=== PATIENT | female | born 1980 | race Two or more races ===

== ENCOUNTER 2020-06-23 11:04 | Outpatient (REF) | payer OTHER, SELFPAY | END 2020-06-23 11:05 | disposition home or self-care (01) | LOC: HO.LAB 11:04 | PROVIDERS: PCP Pediatrics; Visit Provider Internal Medicine | DX: Z20.828 Contact with and (suspected) exposure to other viral communicable diseases (principal) | CPT/HCPCS: C9803; U0003 ==

== ENCOUNTER 2020-07-04 16:56 | Outpatient (REF) | payer OTHER, SELFPAY | END 2020-07-04 16:57 | disposition home or self-care (01) | LOC: HO.LAB 16:56 | PROVIDERS: PCP Pediatrics; Visit Provider Internal Medicine | DX: Z20.828 Contact with and (suspected) exposure to other viral communicable diseases (principal) | CPT/HCPCS: C9803; U0003 ==

== ENCOUNTER 2020-08-18 10:45 | Emergency (ER) | payer OTHER, SELFPAY ==
[2020-08-18 11:17] VITALS: BP 139/96; PULSE 99; RESP 18; TEMP 37.4; O2SAT 97; BMI 37.2
--- NOTE | 2020-08-18 11:37 | XR_ITS ---
EXAMINATION: XR LUMBOSACRAL SPINE CLINICAL INFORMATION: Back pain COMPARISON: None TECHNIQUE: Three views of the lumbosacral spine. FINDINGS: There is curvature of the lumbar sacral spine to the right. Bone alignment is otherwise normal. No fracture or dislocation is seen. There is degenerative disc disease at L5-S1. There is lower lumbar spine facet arthritis. There is an IUD in the pelvis. XR/XR lumbar spine 2-3V IMPRESSION: Curvature of the lower lumbar sacral spine to the right and degenerative changes.
--- NOTE | 2020-08-18 11:38 | ED_ITS ---
HPI - Back Pain/Injury General Chief Complaint: Back Pain/Injury Stated Complaint: back pain Time Seen by Provider: 08/18/20 11:36 Source: patient Mode of arrival: ambulatory Limitations: no limitations History of Present Illness HPI Narrative: This is a 40 years old the female presented with a chief complaint of lower back pain radiated to the right lower extremity denies any numbness and weakness she has been taking Flexeril and the anti-inflammatory medication without improvement MD elicited complaint: back pain Pertinent past history: prior back pain Onset (ago): week(s) (1) Timing: constant Severity: moderate Quality: burning and sharp Location: lumbar spine Radiation: other (Right lower extremity) Exacerbating factors: movement Relieving factors: none Associated symptoms: denies other symptoms Related Data Allergies Allergy/AdvReac Type Severity Reaction Status Date / Time No Known Allergies Allergy Verified 08/18/20 11:20 Review of Systems Review of Systems: Yes all other systems are reviewed and are negative Cardiovascular: Cardiovascular: Reports no additional cardiovascular complaint s Respiratory: Respiratory: Reports no additional respiratory complaints Gastrointestinal: Gastrointestinal: Reports no additional gastrointestinal complaints [facility] Past Medical History Medical History No known health problems Social History Social History Advance Directives: No Advance Directives Information Provided: No Physical Exam Vital Signs: Vital Signs: Last Vital Signs Temp 99.3 F 08/18/20 11:17 Pulse 99 08/18/20 11:17 Resp 18 08/18/20 11:17 BP 139/96 H 08/18/20 11:17 Pulse Ox 97 08/18/20 11:17 Body Mass Index 37.2 Const: Other: Patient is awake and alert in not acute distress Orientation/consciousness: oriented to person and oriented to place HENMT: Head: Yes normal to inspection Eyes: General: appearance normal, both eyes and all related structures Neck: Neck: Yes normal visual inspection Chest: Chest palpation & inspection: normal inspection of the chest Resp: Effort & Inspection: normal respiratory effort Cardio: Palpation: normal PMI Rate: regular rate Rhythm: regular rhythm GI: Inspection: Yes normal to inspection Percussion: Yes normal to percussion Auscultation: normal bowel sounds : General: Yes no CVA tenderness Back/Spine/Pelvis: Other: There is tenderness in the LS spine she has a straight leg raising test positive of 45 degree in the right, there is no weakness Back: no CVA tenderness Skin: General skin exam: no rashes or lesions noted Neuro: General: oriented to person and oriented to place Course Reevaluation(s) Reevaluation #1: AT THIS TIME THE PATIENT IS DOING MUCH BETTER THE MOST LIKELY DIAGNOSIS IS RIGHT SCIATICA, I EXPLAINED TO THE PATIENT THAT SHE WILL NEED AN OUTPATIENT MRI HE CALLED A PCP FOR FOLLOW-UP. AT THIS TIME SHE DOES NOT HAVE ANY NEUROLOGICAL DEFICIT NO DEFICIT IN STRENGTH NO DEFICITS IN SENSATION WE WILL DISCHARGE HER HOME A WITH A COURSE OF PREDNISONE Time: 12:57
[2020-08-18] MEDS: Ketorolac Tromethamine 60 MG/2 ML VIAL IM (11:43)
[2020-08-18] MEDS: predniSONE 20 MG TABLET 60 MG PO (11:44)
== END 2020-08-18 13:13 | disposition home or self-care (01) ==
PROVIDERS: Emergency Provider Emergency Medicine; PCP Pediatrics
DX: M54.41 Lumbago with sciatica, right side (principal)
CPT/HCPCS: 72100; 96372; 99283; 99284; J1885

== ENCOUNTER 2020-08-20 07:27 | Outpatient (REF) | payer OTHER, SELFPAY ==
[2020-08-20 08:17] LABS: MANUAL DIFF FLAG NO
[2020-08-20 08:22] LABS: Basophils Percent Auto 0.1 % (0-2); Eosinophils Percent Auto 0.5 % (0-4); Hematocrit 42.6 % (37-47); Hemoglobin 13.7 g/dl (12.0-16.0); Imm Gran Abs Auto 0.03 X10*3/uL (0.00-0.03); Imm Gran Pct Auto 0.4 % (0.0-0.4); Lymphocytes Absolute Auto 3.4 X10*3/uL (1.2-4.9); Mean Corpuscular HGB Conc 32.2 g/dl (31.0-35.0); Mean Corpuscular Hemoglobin 27.7 pg (27.0-33.0); Mean Corpuscular Volume 86.2 fL (80-98); Monocytes Absolute Auto 0.4 X10*3/uL (0.1-1.2); Neutrophils Absolute Auto 4.6 X10*3/uL (2.0-8.3); Platelet Count 285 X10*3/uL (160-400); Red Blood Count 4.94 X10*6/uL (4.20-5.50); Red Cell Distribution Width 13.7 % (11.0-16.0); White Blood Count 8.4 X10*3/uL (4.8-10.8)
[2020-08-20 08:58] LABS: Estimated Average Glucose 114 mg/dL; Hemoglobin A1c % 5.6 %
[2020-08-20 09:17] LABS: Alanine Aminotransferase 47 U/L (0-31); Albumin Level 4.6 g/dL (3.5-5.0); Alkaline Phosphatase 62 U/L (39-117); Anion Gap 15 (12-20); Aspartate Amino Transferase 27 U/L (5-31); Bilirubin Direct 0.2 mg/dL (0.0-0.5); Bilirubin Total 0.5 mg/dL (0.0-1.0); Blood Urea Nitrogen 23 mg/dL (9-16); Calcium 9.5 mg/dL (8.4-10.2); Carbon Dioxide 25 mmol/L (22-29); Chloride 106 mmol/L (96-108); Cholesterol 250 mg/dL; Estimated Glomerular Filt Rate > 60; Glucose Random 89 mg/dL (60-115); HDL Cholesterol 56 mg/dL; LDL Cholesterol Calculated 170 mg/dl; Potassium 4.2 mmol/l (3.3-5.1); Sodium 142 mmol/L (135-145); Total Protein 7.6 g/dL (6.5-8.0); Triglycerides 123 mg/dL
[2020-08-20 09:41] LABS: TSH reflex Free T4 3.92 mIU/mL (0.32-4.0); Vitamin D 25-OH Total 21.1 ng/mL (>30)
== END 2020-08-20 07:28 | disposition home or self-care (01) ==
LOC: HO.LAB 07:27
PROVIDERS: PCP Pediatrics; Visit Provider Pediatrics
DX: E66.3 Overweight (principal); L66.3 Perifolliculitis capitis abscedens; K05.10 Chronic gingivitis, plaque induced
CPT/HCPCS: 36415; 80048; 80061; 80076; 82306; 83036; 84443; 85025

== ENCOUNTER 2020-08-28 09:32 | Outpatient (REF) | payer OTHER, SELFPAY | END 2020-08-28 09:33 | disposition home or self-care (01) | LOC: HO.LAB 09:32 | PROVIDERS: PCP Pediatrics; Visit Provider Internal Medicine | DX: Z20.822 Contact with and (suspected) exposure to COVID-19 (principal) | CPT/HCPCS: 36415; C9803; U0003 ==

== ENCOUNTER 2020-10-03 08:00 | Outpatient (RCR) | payer OTHER, SELFPAY | END 2021-04-14 10:13 | disposition home or self-care (01) | LOC: HO.PT 08:00 | PROVIDERS: PCP Pediatrics; Visit Provider Pediatrics | DX: M54.5 Low back pain (principal) | CPT/HCPCS: 97110; 97140; 97162; 97530; 97535 ==

== ENCOUNTER 2020-10-07 19:24 | Outpatient (REF) | payer OTHER, SELFPAY ==
--- NOTE | ~2020-10-07 | MR_ITS ---
EXAMINATION: MR LUMBAR SPINE WITHOUT CONTRAST CLINICAL INFORMATION: Radiculopathy lumbosacral region. COMPARISON: None TECHNIQUE: MRI of the lumbar spine was obtained using routine sequences without contrast. FINDINGS: The lumbar vertebral bodies maintain normal height and alignment. There is moderate disc height loss at L5-S1 with chronic fatty endplate changes. The remainder the disc heights are preserved. No bone marrow edema is seen. The distal spinal cord appears normal with conus medullaris terminating normally at the L1-L2 level. The visualized paraspinal muscles and intra-abdominal and pelvic contents are within normal limits. SPINAL LEVELS: L1-L2: No posterior disc abnormality. No spinal canal or neural foraminal stenosis. L2-L3: Shallow left foraminal protrusion causing minimal narrowing of the left neural foramen. No spinal canal stenosis. L3-L4: No posterior disc abnormality. No spinal canal or neural foraminal stenosis. L4-L5: Disc bulging with mild facet arthropathy. No spinal canal or neural foraminal stenosis. L5-S1: Right subarticular extrusion with inferior migration causing significant compression of the traversing right S1 nerve root. Mild to moderate left and mild right facet arthropathy. Left foraminal protrusion results in mild compression of the exiting left L5 nerve root. Right neural foramen is minimally narrowed. MR/MR lumbar spine wo con IMPRESSION: At L5-S1 there is right subarticular extrusion with inferior migration causing significant compression of the traversing right S1 nerve root. Left foraminal protrusion results in mild compression of exiting left L5 nerve root. Additional disc herniation is seen at the remaining lumbar levels. Fatty endplate changes are present at L5-S1.
== END 2020-10-07 19:25 | disposition home or self-care (01) ==
LOC: HO.MRI 19:24
PROVIDERS: Visit Provider Pediatrics
DX: M54.17 Radiculopathy, lumbosacral region (principal)
CPT/HCPCS: 72148

== ENCOUNTER → 2020-11-10 08:03 | Outpatient (BNVA) | payer OTHER, SELFPAY | PROVIDERS: PCP Pediatrics; Visit Provider Anesthesiology | DX: M51.37 Other intervertebral disc degeneration, lumbosacral region (principal); M47.816 Spondylosis without myelopathy or radiculopathy, lumbar region | CPT/HCPCS: 99202 ==

== ENCOUNTER 2020-12-23 06:21 | Outpatient (REF) | payer OTHER, SELFPAY ==
--- NOTE | ~2020-12-23 | FL_ITS ---
EXAMINATION: XR FLUOROSCOPY WITH IMAGES CLINICAL INFORMATION: M51.37 - Other intervertebral disc degeneration, lumbosacial. COMPARISON: Lumbar radiographs 08/18/2020 TECHNIQUE: Fluoroscopy performed by Barbara Barnes NP. Fluoroscopy time: 0.3 minutes DAP: 4.47 Gycm2 Images: 2 FINDINGS: There is spinal needle overlying the outer right L5 neural foramen. There is contrast in the nerve sheath with transforaminal epidural extension. FL/FL guidance in treatment room IMPRESSION: Fluoroscopy for pain management.
== END 2020-12-23 06:22 | disposition home or self-care (01) ==
LOC: HO.RADIR 06:21
PROVIDERS: Visit Provider Anesthesiology
DX: M51.37 Other intervertebral disc degeneration, lumbosacral region (principal); M47.816 Spondylosis without myelopathy or radiculopathy, lumbar region
CPT/HCPCS: 64483; J3300; Q9967

== ENCOUNTER → 2021-01-26 13:41 | Outpatient (BNVA) | payer OTHER, SELFPAY | PROVIDERS: PCP Pediatrics; Visit Provider Anesthesiology ==

== ENCOUNTER 2021-05-05 07:45 | Outpatient (REF) | payer OTHER, SELFPAY ==
--- NOTE | ~2021-05-05 | FL_ITS ---
EXAMINATION: XR FLUOROSCOPY WITH IMAGES CLINICAL INFORMATION: Pain COMPARISON: None. TECHNIQUE: Fluoroscopy performed by Barbara Barnes NP. Fluoroscopy time: 0.5 minutes DAP: 7 Gycm2 Images: 2 FINDINGS: Images demonstrate needle placement and contrast injection over the right L5 vertebral body. FL/FL guidance in treatment room IMPRESSION: Fluoroscopic guidance for pain management procedure.
== END 2021-05-05 07:46 | disposition home or self-care (01) ==
LOC: HO.RADIR 07:45
PROVIDERS: Visit Provider Anesthesiology
DX: M51.37 Other intervertebral disc degeneration, lumbosacral region (principal); M47.816 Spondylosis without myelopathy or radiculopathy, lumbar region
CPT/HCPCS: 64483; J3300; Q9967

== ENCOUNTER → 2021-06-15 16:03 | Outpatient (BNVA) | payer OTHER, SELFPAY | PROVIDERS: PCP Pediatrics; Visit Provider Anesthesiology ==

== ENCOUNTER 2021-06-16 09:47 | Outpatient (REF) | payer OTHER, SELFPAY ==
[2021-06-16 09:58] LABS: MANUAL DIFF FLAG NO
[2021-06-16 10:21] LABS: Basophils Percent Auto 0.3 % (0-2); Eosinophils Absolute Auto 0.1 X10*3/uL (0.0-0.4); Eosinophils Percent Auto 2.9 % (0-4); Hemoglobin 13.9 g/dl (12.0-16.0); Lymphocytes Absolute Auto 1.5 X10*3/uL (1.2-4.9); Mean Corpuscular HGB Conc 33.1 g/dl (31.0-35.0); Mean Corpuscular Hemoglobin 28.8 pg (27.0-33.0); Mean Corpuscular Volume 87.1 fL (80.0-98.0); Mean Platelet Volume 9.7 fL (9.4-12.3); Monocytes Absolute Auto 0.3 X10*3/uL (0.1-1.2); Neutrophils Absolute Auto 1.25 x10*3/uL (2.0-8.3); Neutrophils Percent Auto 39.8 % (45-73); Platelet Count 243 X10*3/uL (160-400); Red Blood Count 4.82 X10*6/uL (4.20-5.50); Red Cell Distribution Width 13.4 % (11.0-16.0); White Blood Count 3.1 X10*3/uL (4.8-10.8)
[2021-06-16 10:33] LABS: Estimated Average Glucose 108 mg/dL; Hemoglobin A1c % 5.4 %
[2021-06-16 10:47] LABS: Alanine Aminotransferase 31 U/L (0-31); Albumin Level 4.2 g/dL (3.5-5.0); Alkaline Phosphatase 66 U/L (39-117); Anion Gap 10 (12-20); Aspartate Amino Transferase 18 U/L (5-31); Bilirubin Direct 0.2 mg/dL (0.0-0.5); Bilirubin Total 0.6 mg/dL (0.0-1.0); Blood Urea Nitrogen 18 mg/dL (9-16); Calcium 9.3 mg/dL (8.4-10.2); Carbon Dioxide 28 mmol/L (22-29); Chloride 108 mmol/L (96-108); Cholesterol 225 mg/dL; Estimated Glomerular Filt Rate > 60; Glucose Random 95 mg/dL (60-115); HDL Cholesterol 49 mg/dL; LDL Cholesterol Calculated 154 mg/dl; Potassium 4.1 mmol/L (3.3-5.1); Sodium 142 mmol/L (135-145); Total Protein 6.7 g/dL (6.5-8.0); Triglycerides 114 mg/dL
[2021-06-16 11:08] LABS: TSH reflex Free T4 2.33 uIU/mL (0.32-4.0); Vitamin D 25-OH Total 21.8 ng/mL (>30)
[2021-06-16 11:29] LABS: Vitamin B12 885 pg/mL (200-900)
== END 2021-06-16 09:48 | disposition home or self-care (01) ==
LOC: HO.LAB 09:47
PROVIDERS: PCP Pediatrics; Visit Provider Pediatrics
DX: Z00.00 Encounter for general adult medical examination without abnormal findings (principal); E66.3 Overweight
CPT/HCPCS: 36415; 80053; 80061; 82248; 82306; 82607; 83036; 84443; 85025

== ENCOUNTER 2021-07-21 06:25 | Outpatient (REF) | payer OTHER, SELFPAY ==
--- NOTE | ~2021-07-21 | FL_ITS ---
EXAMINATION: XR FLUOROSCOPY WITH IMAGES CLINICAL INFORMATION: M51.37 - Other intervertebral disc degeneration, lumbosacral COMPARISON: MR lumbar spine 10/07/2020 TECHNIQUE: Fluoroscopy performed by Dr. Leon Fountain. Fluoroscopy time: 0.3 minutes DAP: 4.43 Gycm2 Images: 1 FINDINGS: There is a spinal needle overlying the outer right L5 neural foramen. There is contrast seen in the respective nerve sheath. Early transforaminal epidural extension is present. No visible vascular communication. FL/FL guidance in treatment room IMPRESSION: Fluoroscopy for pain management procedures.
== END 2021-07-21 06:26 | disposition home or self-care (01) ==
LOC: HO.RADIR 06:25
PROVIDERS: Visit Provider Anesthesiology
DX: M47.816 Spondylosis without myelopathy or radiculopathy, lumbar region (principal); M51.37 Other intervertebral disc degeneration, lumbosacral region
CPT/HCPCS: 64483; J3300; Q9967

== ENCOUNTER → 2021-08-19 09:20 | Outpatient (BNVA) | payer OTHER, SELFPAY | PROVIDERS: Visit Provider Anesthesiology ==

== ENCOUNTER 2021-09-30 09:19 | Outpatient (REF) | payer OTHER, SELFPAY ==
--- NOTE | ~2021-09-30 | XR_ITS ---
EXAMINATION: XR CERVICAL, LUMBAR SPINE, PELVIS CLINICAL INFORMATION: Traumatic arthropathy. Pain. COMPARISON: None. TECHNIQUE: 1 view pelvis. Lumbar spine 5 views. Cervical spine 4 views. FINDINGS: Cervical Spine: There is mild straightening of cervical lordosis. The vertebral heights and alignment are normal. There is loss of C4-C5 and C5-C6 disc height with moderate ventral spondylosis. The rest the disc heights are normal. No visible acute fracture, dislocation or subluxation seen. The craniovertebral junction and C1-C2 alignment is normal. Prevertebral soft tissues are normal. Lumbar Spine: There is minimal levoscoliosis. Lumbar lordosis is maintained. There is mild loss of L5-S1 disc height with minimal ventral spondylosis. The rest of the disc heights are normal. No visible acute fracture, dislocation or lytic process seen. There is no pars defect or listhesis on oblique views. The paravertebral soft tissues are normal. Pelvis: There is normal symmetry of bilateral hip joints and SI joints. No visible acute fracture, dislocation or lytic process seen. There is an IUD within the mid pelvis. XR/XR cervical spine 3V IMPRESSION: Degenerative disc changes with mild ventral spondylosis C4-C5 and C5-C6 disc levels. Minimal levoscoliosis upper lumbar spine. Mild degenerative disc changes and minimal ventral spondylosis L5-S1 disc level. There is no pars defect or listhesis.
--- NOTE | ~2021-09-30 | XR_ITS ---
EXAMINATION: XR CERVICAL, LUMBAR SPINE, PELVIS CLINICAL INFORMATION: Traumatic arthropathy. Pain. COMPARISON: None. TECHNIQUE: 1 view pelvis. Lumbar spine 5 views. Cervical spine 4 views. FINDINGS: Cervical Spine: There is mild straightening of cervical lordosis. The vertebral heights and alignment are normal. There is loss of C4-C5 and C5-C6 disc height with moderate ventral spondylosis. The rest the disc heights are normal. No visible acute fracture, dislocation or subluxation seen. The craniovertebral junction and C1-C2 alignment is normal. Prevertebral soft tissues are normal. Lumbar Spine: There is minimal levoscoliosis. Lumbar lordosis is maintained. There is mild loss of L5-S1 disc height with minimal ventral spondylosis. The rest of the disc heights are normal. No visible acute fracture, dislocation or lytic process seen. There is no pars defect or listhesis on oblique views. The paravertebral soft tissues are normal. Pelvis: There is normal symmetry of bilateral hip joints and SI joints. No visible acute fracture, dislocation or lytic process seen. There is an IUD within the mid pelvis. XR/XR lumbar spine 4V min IMPRESSION: Degenerative disc changes with mild ventral spondylosis C4-C5 and C5-C6 disc levels. Minimal levoscoliosis upper lumbar spine. Mild degenerative disc changes and minimal ventral spondylosis L5-S1 disc level. There is no pars defect or listhesis.
--- NOTE | ~2021-09-30 | XR_ITS ---
EXAMINATION: XR CERVICAL, LUMBAR SPINE, PELVIS CLINICAL INFORMATION: Traumatic arthropathy. Pain. COMPARISON: None. TECHNIQUE: 1 view pelvis. Lumbar spine 5 views. Cervical spine 4 views. FINDINGS: Cervical Spine: There is mild straightening of cervical lordosis. The vertebral heights and alignment are normal. There is loss of C4-C5 and C5-C6 disc height with moderate ventral spondylosis. The rest the disc heights are normal. No visible acute fracture, dislocation or subluxation seen. The craniovertebral junction and C1-C2 alignment is normal. Prevertebral soft tissues are normal. Lumbar Spine: There is minimal levoscoliosis. Lumbar lordosis is maintained. There is mild loss of L5-S1 disc height with minimal ventral spondylosis. The rest of the disc heights are normal. No visible acute fracture, dislocation or lytic process seen. There is no pars defect or listhesis on oblique views. The paravertebral soft tissues are normal. Pelvis: There is normal symmetry of bilateral hip joints and SI joints. No visible acute fracture, dislocation or lytic process seen. There is an IUD within the mid pelvis. XR/XR pelvis min 3V IMPRESSION: Degenerative disc changes with mild ventral spondylosis C4-C5 and C5-C6 disc levels. Minimal levoscoliosis upper lumbar spine. Mild degenerative disc changes and minimal ventral spondylosis L5-S1 disc level. There is no pars defect or listhesis.
== END 2021-09-30 09:20 | disposition home or self-care (01) ==
LOC: HO.XRAY 09:19
PROVIDERS: Absent Provider Pediatrics; PCP Pediatrics; Referring Provider Emergency Medicine; Visit Provider Anesthesiology
DX: M12.559 Traumatic arthropathy, unspecified hip (principal); M47.816 Spondylosis without myelopathy or radiculopathy, lumbar region; M51.37 Other intervertebral disc degeneration, lumbosacral region; M54.2 Cervicalgia
CPT/HCPCS: 72040; 72110; 72190

== ENCOUNTER 2021-10-27 08:00 | Outpatient (RCR) | payer OTHER, SELFPAY ==
--- NOTE | 2021-09-30 09:02 | MHC.PT.EP ---
[facility] [place] Office [place] Office [place] Office [address] Randy Shabazz [address] [phone] F: [phone] F: [phone] F: [phone] F: [phone] Physical Therapy Plan of Care Date of Evaluation: Date of Surgery: Diagnosis: lumbar spondylosis Assessment: 41 y/o F referred to PT with lumbar spondylosis. She has LBP that radiates into R posterior LE all the way into the foot resulting in pain and difficulty with standing, walking, stairs, and fan balancer. MRI shows L5-S1 disc extrusion with significant compression of R S1 nerve root. Examination shows decreased lumbar AROM, decreased R LE strength, significantly decreased R HS length, adverse neural tissue tension, increased muscle tissue tension, increased pain, and impaired gait pattern. S/s consistent with lumbar derangement and overlapping adverse neural tissue tension. Recommend PT 2x/week for 5 weeks to address impairments, implement HEP, and optimize functional mobility. Frequency and Duration: The patient will be seen 2x/week for 5 weeks Short Term Goals: 3 weeks 1. Compliance with HEP 2, Improve lumbar AROM by 25% with pain < 3/10 Sr. [employer] Manager Goals: 5 weeks 1. I with HEP and self management of sx 2. Pt will be able to stand >30min with pain < 3/10 3. Improve R LE strength to 4/5 throughout to faciliate walking and stairs Treatment Plan: Modalities to reduce pain, spasms and effusion. Manual therapy to restore motion and function. Therapeutic exercise to improve strength and flexibility. Neuromuscular re-education for posture and balance. Therapeutic activities to return to functional activities of daily living. Electronically signed by: Cally Swift PT Please sign and return to therapist. Thank you for your referral.
--- NOTE | 2021-11-25 11:20 | MHC.PT.DC ---
[facility] [place] Office [place] Office [place] Office [address] Randy Shabazz [address] [phone] F: [phone] F: [phone] F: [phone] F: [phone] Physical Therapy Discharge Report Diagnosis: lumbar spondylosis Date of Surgery: Date of Evaluation: 09/30/21 Date of Discharge: 11/25/21 Treatments to Date: 6 Cancellations to Date: 0 No Shows to Date: 0 Discharge Status: Patient Elected to Stop Discharge Summary: Pt called to self d/c reporting continued pain. At time of last attended visit Her R LE continues to be weaker than L noted with exercises (unable to move as far) but reports decreased pain. Added pallof press and cues needed for glut activation/ TAC to decreased R-sided pain; with TAC pt without pain. Anticipate d/c in 3-5 visits. Electronically signed by: Cally Swift PT Please sign and return to therapist. Thank you for your referral.
== END 2021-11-25 11:20 | disposition home or self-care (01) ==
LOC: HO.PT 08:00
PROVIDERS: PCP Pediatrics; Visit Provider Anesthesiology
DX: M47.816 Spondylosis without myelopathy or radiculopathy, lumbar region (principal); M51.37 Other intervertebral disc degeneration, lumbosacral region
CPT/HCPCS: 97110; 97112; 97116; 97161

== ENCOUNTER 2021-11-25 08:46 | Outpatient (REF) | payer OTHER, SELFPAY ==
--- NOTE | ~2021-11-25 | MM_ITS ---
EXAMINATION: MM SCREENING DIGITAL BREAST TOMOSYNTHESIS, BILATERAL CLINICAL INFORMATION: Screening. Asymptomatic. The lifetime risk of breast cancer based on the Tyrer-Cuzick Model is 8%. COMPARISON: Mammography: 08/21/2019, 07/18/2018, 06/07/2007 TECHNIQUE: Digital breast tomosynthesis is performed in both the craniocaudal and mediolateral oblique views along with computer-aided detection (CAD). Synthesized 2D images are generated from the tomosynthesis. FINDINGS: There are scattered areas of fibroglandular density (ACR BI-RADS breast composition Category b). There are no significant masses, abnormal calcifications, or other abnormalities. Parenchymal pattern is similar to prior studies. The axilla and skin contours are unremarkable. MM/MM tomosynthesis screening BI IMPRESSION: No mammographic evidence of malignancy. ASSESSMENT: BI-RADS 1: Negative RECOMMENDATION: Routine annual mammography screening. This patient's information was entered into a reminder system with a target due date for their next mammogram.
== END 2021-11-25 08:47 | disposition home or self-care (01) ==
LOC: HO.MAMMO 08:46
PROVIDERS: PCP Pediatrics; Visit Provider Pediatrics
DX: Z12.31 Encounter for screening mammogram for malignant neoplasm of breast (principal)
CPT/HCPCS: 77063; 77067

== ENCOUNTER 2023-09-21 08:40 | Outpatient (REF) | payer OTHER, SELFPAY ==
[2023-09-21 08:54] LABS: MANUAL DIFF FLAG NO
[2023-09-21 09:45] LABS: Basophils Percent Auto 0.3 % (0-2); Eosinophils Absolute Auto 0.2 X10*3/uL (0.0-0.4); Eosinophils Percent Auto 5.6 % (0-4); Hematocrit 40.9 % (37.0-47.0); Hemoglobin 13.6 g/dl (12.0-16.0); Imm Gran Abs Auto 0.01 X10*3/uL (0.00-0.03); Imm Gran Pct Auto 0.3 % (0.0-0.4); Lymphocytes Absolute Auto 1.7 X10*3/uL (1.2-4.9); Lymphocytes Percent Auto 47.3 % (20-40); Mean Corpuscular HGB Conc 33.3 g/dl (31.0-35.0); Mean Corpuscular Hemoglobin 28.2 pg (27.0-33.0); Mean Corpuscular Volume 84.9 fL (80.0-98.0); Mean Platelet Volume 10.4 fL (9.4-12.3); Monocytes Absolute Auto 0.3 X10*3/uL (0.1-1.2); Monocytes Percent Auto 8.2 % (2-11); Neutrophils Absolute Auto 1.4 x10*3/uL (2.0-8.3); Neutrophils Percent Auto 38.3 % (45-73); Platelet Count 257 X10*3/uL (160-400); Red Blood Count 4.82 X10*6/uL (4.20-5.50); Red Cell Distribution Width 13.4 % (11.0-16.0); White Blood Count 3.6 X10*3/uL (4.8-10.8)
[2023-09-21 09:53] LABS: Estimated Average Glucose 114 mg/dL; Hemoglobin A1c % 5.6 % (<6.0)
[2023-09-21 10:31] LABS: Alanine Aminotransferase 31 U/L (0-31); Albumin Level 4.1 g/dL (3.5-5.0); Alkaline Phosphatase 76 U/L (39-117); Anion Gap 9 (12-20); Aspartate Amino Transferase 23 U/L (5-31); Bilirubin Total 0.6 mg/dL (0.0-1.0); Blood Urea Nitrogen 14 mg/dL (9-16); Calcium 9.4 mg/dL (8.4-10.2); Carbon Dioxide 28 mmol/L (22-29); Chloride 108 mmol/L (96-108); Cholesterol 207 mg/dL (<200); Estimated Glomerular Filt Rate > 60; Glucose Random 103 mg/dL (60-115); HDL Cholesterol 42 mg/dL (>40); LDL Cholesterol Calculated 135 mg/dL (<100); Potassium 4.2 mmol/L (3.3-5.1); Sodium 141 mmol/L (135-145); Total Protein 7.4 g/dL (6.5-8.0); Triglycerides 152 mg/dL (<150)
[2023-09-21 10:48] LABS: TSH reflex Free T4 2.68 uIU/mL (0.32-4.0); Vitamin D 25-OH Total 24.4 ng/mL (>30)
== END 2023-09-21 08:41 | disposition home or self-care (01) ==
LOC: HO.LAB 08:40
PROVIDERS: PCP Pediatrics; Visit Provider Internal Medicine
DX: Z00.00 Encounter for general adult medical examination without abnormal findings (principal); E66.9 Obesity, unspecified; M54.41 Lumbago with sciatica, right side; G89.29 Other chronic pain
CPT/HCPCS: 36415; 80053; 80061; 82306; 83036; 84443; 85025

== ENCOUNTER 2023-12-28 11:44 | Outpatient (REF) | payer OTHER, SELFPAY | END 2023-12-28 11:45 | disposition home or self-care (01) | LOC: HO.LNP 11:44 | PROVIDERS: Visit Provider Internal Medicine | DX: R30.0 Dysuria (principal) | CPT/HCPCS: 87086; 87088; 87147; 87186 ==

== ENCOUNTER 2024-09-18 09:05 | Outpatient (REF) | payer OTHER, SELFPAY ==
--- NOTE | ~2024-09-18 | XR_ITS ---
EXAMINATION: X-ray lumbar spine 4 views. CLINICAL INFORMATION: Low back pain. Into the right lower extremity. COMPARISON: September 30, 2021. TECHNIQUE: 4 views lumbar spine. FINDINGS: Levoconvex curvature apex at L3-4. Facet joint hypertrophy at L5-S1 and to a lesser extent L4-5 levels. Mild endplate sclerosis and marginal osteophyte formation more conspicuous at L5-S1. No acute cortical disruption or malalignment. XR/XR lumbar spine 4V min IMPRESSION: Scoliosis and multilevel lumbar spondylosis more conspicuous at L5-S1. Electronically signed by: Temo Yadav MD 09/18/2024 10:40 AM EST
--- NOTE | ~2024-09-18 | XR_ITS ---
EXAMINATION: XR CERVICAL SPINE CLINICAL INFORMATION: PAIN COMPARISON: September 30, 2021 TECHNIQUE: 3 views of the cervical spine were obtained. FINDINGS: Craniocervical junction is intact. Marginal osteophyte formation and decreased intervertebral disc height C5-6 and to a lesser extent C4-5 and C6-7. No gross malalignment. No lytic or blastic lesions. Upper airway is patent. XR/XR cervical spine 3V IMPRESSION: Multilevel cervical spondylosis C4 C7 without acute fracture or gross listhesis. Electronically signed by: Temo Yadav MD 09/18/2024 10:38 AM [facility]TAGRACIA ANDERSON
--- OUTSIDE RECORDS SUMMARY | 2024-09-18 09:33 | XMS_ITS | Encounter Summary ---
Author Organization [employer] [facility] Address [address] [place] [address] [address] [place] [address] Care Team Providers Care Analysis Or Research Safety Inspector Name Role Phone Vikki Hall MD Primary Care Provider [phone] Encounter Details Date Type Department Care Team (Latest Contact Info) Description 08/05/2020 Abstract [facility] CONVERSIONS Dental, Provider, DDS Social History Tobacco Use Types Packs/Day Years Used Date Smoking Tobacco: Never Assessed Comments Unknown Sex and Gender Information Value Date Recorded Sex Assigned at Female 06/14/2022 10:15 AM EDT Legal Sex Female 10:15 AM EDT Gender Identity Female 06/14/2022 10:15 AM EDT Sexual Orientation Straight 06/14/2022 10 :15 AM EDT documented as of this encounter Plan of Treatment Not on file documented as of this encounter Visit Diagnoses Not on filedocumented in this encounter Care Teams Analysis Or Research Safety Inspector Relationship Specialty Start Date End Date Vikki Hall MD [address] [place] [address] PCP - General Family Medicine 08/15/18 documented as of this encounter
--- OUTSIDE RECORDS SUMMARY | 2024-09-18 09:33 | XMS_ITS | Encounter Summary ---
Author Organization [email or web address] Address [address] [place] [address] [address] [place] [address] Care Team Providers Care Head Of Stock Name Role Phone Vikki Hall MD Primary Care Provider [phone] Reason for Visit * Reason Onset Date Comments change of treatment 05/09/2024 Encounter Details Date Type Department Care Team (Late st Contact Info) Description 05/09/2024 Telephone [facility] [address] [place] [address] Peggy Larkin, DDS [address] [place] [address] change of treatment Social History Tobacco Use Types Packs/Day Years Used Date Smoking Tobacco: Never Passive Smoke Exposure: Never Smokeless Tobacco: Never Comments No Sex and Gender Information Value Date Recorded Sex Assigned at Female 06/14/2022 10:15 AM EDT Legal Sex Female 10:15 AM EDT Gender Identity Female 06/14/2022 10:15 AM EDT Sexual Orientation Straight 06/14/2022 10 :15 AM EDT documented as of this encounter Miscellaneous Notes * Telephone Encounter - Navya Pineda - 05/09/2024 10:48 AM EDT Patient wants to have tooth #4 extracted instead of RCT. She is looking for ext appt. Unclear if general provider may provide treatment or if it must be oral surgeon. Explained to patient that provider determination will be made to move forward with treatment. Please reach out to patient documented in this encounter Plan of Treatment Not on file documented as of this encounter Visit Diagnoses Not on filedocumented in this encounter Care Teams Head Of Stock Relationship Specialty Start Date End Date Vikki Hall MD [address] [place] [id number] PCP - General Family Medicine 08/15/18 documented as of this encounter
--- OUTSIDE RECORDS SUMMARY | 2024-09-18 09:33 | XMS_ITS | Encounter Summary ---
Author Organization [employer] Address [address] [place] [address] [address] [place] [address] Care Team Providers Care Radiation Therapy Technician Name Role Phone Vikki Hall MD Primary Care Provider [phone] Encounter Details Date Type Department Care Team (Late st Contact Info) Description 09/24/2023 Orders Only [facility] [address] [place], [place] [id number] Garrett Vann MD [address] [place] [address] Low vitamin D level (Primary Dx) Social History Tobacco Use Types Packs/Day Years Used Date Smoking Tobacco: Never Passive Smoke Exposure: Never Smokeless Tobacco: Never Comments Unknown Sex and Gender Information Value Date Recorded Sex Assigned at Female 06/14/2022 10:15 AM EDT Legal Sex Female 10:15 AM EDT Gender Identity Female 06/14/2022 10:15 AM EDT Sexual Orientation Straight 06/14/2022 10 :15 AM EDT documented as of this encounter Plan of Treatment Not on file documented as of this encounter Visit Diagnoses Diagnosis Low vitamin D level- Primary documented in this encounter Care Teams Radiation Therapy Technician Relationship Specialty Start Date End Date Vikki Hall MD [address] [place] [address] PCP - General Family Medicine 08/15/18 documented as of this encounter
--- OUTSIDE RECORDS SUMMARY | 2024-09-18 09:33 | XMS_ITS | Clinical Summary ---
Author Organization [employer] Address [address] [facility] [address] [place] [address] Care Team Providers Care [employer] Teacher Name Role Phone Vikki Hall MD Primary Care Provider [phone] Allergies No known active allergies Medications loratadine (Claritin) 10 MG tablet TAKE ONE TABLET BY MOUTH EVERY DAY NEEDED 3 Active cholecalcifero l (Vitamin D-3) 25 MCG (1000 UT) tabletIndicati ons:Low vitamin D level Take 1 tablet (25 mcg) by mouth in the morning. 30 tablet 11 4 Active Acetaminophen Extra Strength 500 MG tabletIndicati ons:Lumbago with sciatica, right side TAKE ONE TABLET EVERY 6 HOURS NEEDED mild PAIN 90 tablet 3 4 Active meloxicam (Mobic) 7.5 MG tabletIndicati ons:Chronic midline low back pain with right-sided sciatica TAKE ONE TABLET EVERY MORNING 30 tablet 3 4 Active meloxicam (Mobic) 15 MG tabletIndicati ons:Acute right-sided low back pain with right-sided sciatica,Numbn ess and tingling of right lower extremity,Neck pain Take 1 tablet (15 mg) by mouth Once per day. 30 tablet 11 5 09/17/19 26 Active loratadine (Claritin) 10 MG tablet TAKE ONE TABLET BY MOUTH EVERY DAY NEEDED 30 tablet 11 4 09/17/19 25 Discontinued Active Problems Problem Noted Date Diagnosed Date Chronic anxiety 04/02/2016 09/14/2023 Obesity with body mass index 30 or greater 08/19 /2016 Disorder of skeletal muscle 06/19/2013 Allergic rhinitis 06/22/2012 Anxiety 06/22/2012 Overweight 06/22/2012 Encounters Date Type Department Care Team Description 09/17/2024 7:00 PM EST Office Visit [facility] [address] [place] [address] Garrett Vann MD Acute right-sided low back pain with right-sided sciatica (Primary Dx); Numbness and tingling of right lower extremity; Neck pain 09/17/[address] [facility] [address], [place] [phone] Vikki Hall MD follow up appointment 09/17/2024 Travel 09/17/[address] [facility] [address], [place] [phone] Vikki Hall MD Nurse Triage 08/13/[address] [facility] [address], [place] [phone] Mati Angulo from Last 3 Months Family History Medical History Relation Name Comments COPD Mother smoker Mother Hypertension Paternal Grandmother Relation Name Status Comments Mother Paternal Grandmother Social History Tobacco Use Types Packs/Day Years Used Date Smoking Tobacco: Never Passive Smoke Exposure: Never Smokeless Tobacco: Never Tobacco Cessation:Counseling Given: Not Answered Comments No Sex and Gender Information Value Date Recorded Sex Assigned at Female 06/14/2022 10:15 AM EDT Legal Sex Female 10:15 AM EDT Gender Identity Female 06/14/2022 10:15 AM EDT Sexual Orientation Straight 06/14/2022 10 :15 AM EDT Last Filed Vital Signs Vital Sign Reading Time Taken Comments Blood Pressure 134/83 09/17/2024 7:24 PM EST Pulse 88 09/17/2024 7:24 PM EST Temperature 36.8 ??C (98.3 ??F) 09/17/2024 6:57 PM ES T Respiratory Rate 18 09/17/2024 6:57 PM EST Oxygen Saturation 99% 09/17/2024 6:57 PM EST Inhaled Oxygen Concentration - - Weight 96.6 kg (213 lb) 09/17/2024 6:57 PM EST Height 157.5 cm (5' 2 ) 01/16/2024 9:51 AM EDT Body Mass Index 38.96 01/16/2024 9:51 AM EDT Plan of Treatment Health Maintenance Due Date Last Done Comments CT Colonography 1978 Colonoscopy 1978 Depression Screening 1978 FIT 1978 FOBT 1978 HIV Screening 1978 SDOH Screening 1978 Sigmoidoscopy 1978 Alcohol/Substance Use Screening 1990 Hepatitis C Screening 02/23/1996 Hepatitis B Vaccines (1 of 3 - 19+ 3-dose series) 1997 Mammogram 11/26/2023 11/25/2021, 03/2020, 07/19/2018 Dental Oral Exam 03/06/2024 09/05/2023, , 12/06/2014, Additional history exists Dental Prophylaxis 03/06/2024 09/05/2023, 1 08/30/2020, 08/05/2020, Additional history exists COVID-19 Vaccine ( season) 2024 11/19/2020, 10/28/2020 Influenza Vaccine (#1) 2024 , 06/09/2018, 06/19/2013, Additional history exists Pap Smear 06/11/2024 06/11/2021 Family Planning (PISQ) 01/15/2025 01/16/2024 Tobacco Screening 03/13/2025 03/13/2024 Dental X-Ray: Bitewings 04/18/2025 04/17/20 24, 02/03/2024, 09/05/2023, Additional history exists DTaP/Tdap/Td Vaccines (2 - Td or Tdap) 04/02/2026 04/02/2016 Cervical Cancer Screening 06/11/2026 HPV/Cotest 06/11/2026 06/11/2021 Dental X-Ray: Full Mouth 09/06/2026 09/05/2023 Colorectal Cancer Screening 02/19/2027 FIT DNA/Cologuard 02/19/2027 02/20/2024 Zoster Vaccines (1 of 2) 02/23/2028 RSV Patients and Patients Aged 60 years or older (1 - 1-dose 75+ series) 2053 Meningococcal Vaccine Aged Out 05/19/2012, 012 No longer eligible based on patient's age to complete this topic HIB Vaccines Aged Out No longer eligi ble based on patient's age to complete this topic HPV Vaccines Aged Out No longer eligi ble based on patient's age to complete this topic Hepatitis A Vaccines Aged Out No long er eligible based on patient's age to complete this topic IPV Vaccines Aged Out No longer eligi ble based on patient's age to complete this topic Pneumococcal Vaccine: Pediatrics (0 to 5 Years) and At-Risk Patients (6 to 49) Years) Aged Out No longer eligible based on patient's age to complete this topic RSV under 20 months Aged Out No longe r eligible based on patient's age to complete this topic Rotavirus Vaccines Aged Out No longer eligible based on patient's age to complete this topic Procedures Procedure Name Priority Date/Time Associated Diagnosis Comments BITEWING - SINGLE RADIOGRAPHIC IMAGE Routine 04/17/2024 3:00 PM EDT LAB COLOGUARD?? COLON CANCER SCREEN Routine 02/20/2024 9:20 AM EDT Colon cancer screening PROPHYLAXIS - ADULT Routine 09/05/2023 8 :00 AM EST DIAGNOSTIC - DIAGNOSTIC IMAGING - INTRAORAL - COMPREHENSIVE SERIES OF RADIOGRAPHIC IMAGES Routine 09/05/2023 8:00 AM EST PERIODIC ORAL EVALUATION - ESTABLISHED PATIENT Routine 09/05/2023 8:00 AM EST MAMMOGRAM GENERIC Routine 11/25/2021 9:0 5 AM EDT THINPREP IMAGING PAP AND HPV MRNA E6/E7 WITH REFLEX TO HPV 16,18/45 Routine 06/11/2021 3:05 PM EDT from Last 3 Months or Most Recently Relevant to Health Maintenance Results * Cologuard?? colon cancer screening (02/20/2024 9:20 AM EDT) Cologuard Result Negative Negative 02/25/20 24 2:38 PM EDT [facility] (CLIA #:[id number]) Comment: NEGATIVE TEST RESULT. A negative Cologuard result indicates a low likelihood that a colorectal cancer (CRC) or advanced adenoma (adenomatous polyps with more advanced pre-malignant features) ??is present. The chance that a person with a negative Cologuard test has a colorectal cancer is less than 1 in 1500 (negative predictive value >99.9%) or has an ??advanced adenoma is less than ??5.3% (negative predictive value 94.7%). These data are based on a prospective cross-sectional study of 10,000 individuals at average risk for colorectal cancer who were screened with both Cologuard and colonoscopy. (Jo Ann Goode al, N Engl J Med 2014;370(14):1286- 1297) The normal value (reference range) for this assay is negative. COLOGUARD RE-SCREENING RECOMMENDATION: Periodic colorectal cancer screening is an important part of preventive healthcare for asymptomatic individuals at average risk for colorectal cancer. ??Following a negative Cologuard result, the [place] Cancer Society and U.S. Multi-Society Task Force screening guidelines recommend a Cologuard re-screening interval of 3 years. References: [place] [employer] Society Guideline for Colorectal Cancer Screening: https://www.cancer.org/cancer/bdguh-upjimr-lnnqsa/tqyoyaizg-knmyymrbl-csildka/ac s-rec ommendations.html.; Mckinley DK, Vale CR, Svetlana FigueroaK, Colorectal Cancer Screening: Recommendations for Physicians and Patients from the U.S. Multi-Society Task Force on Colorectal Cancer Screening , Am J Gastroenterology 2017; 112:7614-5233. TEST DESCRIPTION: Composite algorithmic analysis of stool DNA-biomarkers with hemoglobin immunoassay. ?? Quantitative values of individual biomarkers are not reportable and are not associated with individual biomarker result reference ranges. Cologuard is intended for colorectal cancer screening of adults of either sex, 45 years or older, who are at average-risk for colorectal cancer (CRC). Cologuard has been approved for use by the U.S. FDA. The performance of Cologuard was established in a cross sectional study of average-risk adults aged 50-84. Cologuard performance in patients ages 45 to 49 years was estimated by sub-group analysis of near-age groups. Colonoscopies performed for a positive result may find as the most clinically significant lesion: colorectal cancer [4.0%], advanced adenoma (including sessile serrated polyps greater than or equal to 1cm diameter) [20%] or non- advanced adenoma [31%]; or no colorectal neoplasia [45%]. These estimates are derived from a prospective cross-sectional screening study of 10,000 individuals at average risk for colorectal cancer who were screened with both Cologuard and colonoscopy. (Jo Ann Malagon, N Engl J Med 2014;370(14):3291-8215.) Cologuard may produce a false negative or false positive result (no colorectal cancer or precancerous polyp present at colonoscopy follow up). A negative Cologuard test result does not guarantee the absence of CRC or advanced adenoma (pre-cancer). The current Cologuard screening interval is every 3 years. ([place] Cancer Society and U.S. Multi-Society Task Force). Cologuard performance data in a 10,000 patient pivotal study using colonoscopy as the reference method can be accessed at the following location: www.Doochoo.NextUser/results. Additional description of the Cologuard test process, warnings and precautions can be found at www.FireScopeogExord.NextUser. Stool specimen (specimen) 02/20/2024 9:20 AM EDT 2024 10:48 AM EDT us Vikki Hall MD LAB MOLECULAR DIAGNOSTICS ORD ERABLES Final Result [facility] (CLIA #:[id number]) [place] [address], * Mammography Report 1 (11/25/2021 9:05 AM EDT) Anatomical Region Laterality Modality Breast Bilateral Mammography 11/25/2021 9:05 AM EDT Narrative 11/26/2021 8:58 AM EDT Refer to the Notes tab for result details [facility] Procedure: Mammography Report 1 Procedure Note ProviderMirtha MD - 11/07/2022 Refer to the Notes tab for result details [facility] Procedure: Mammography Report 1 us Vikki Hall MD IMG BI PROCEDURES Final Resul t * THINPREP TIS PAP AND HPV mRNA E6/E7 REFLEX HPV 16,18/45 (06/11/2021 3:05 PM EDT) Clinical Information: None given [facility] COMMENT SEE COMMENT [facility] Comment: EXPLANATORY NOTE: ? The Pap is a screening test for cervical cancer. It is ?? not a diagnostic test and is subject to false negative ?? and false positive results. It is most reliable when a ?? satisfactory sample, regularly obtained, is submitted ?? with relevant clinical findings and history, and when ?? the Pap result is evaluated along with historic and ?? current clinical information. ?? COMMENT: This Pap test has been evaluated with computer assisted technology. [facility] Bioinformatics Scientist: SEE COMMENT [facility] Comment: YP, CT(ASCP) CT screening location: [address] ??[address] HPV nRNA E6/E7 Not Detected Not Detected [facility] Comment: Methodology: Fitting Room Inspector-Mediated Amplification This assay detects E6/E7 viral messenger RNA (mRNA) from 14 high-risk HPV types (16,18,31,33,35,39,45,51,52,56,58,59,66,68). ? The analytical performance characteristics of this assay have been determined by [employer]. The modifications have not been cleared or approved by the FDA. This assay has been validated pursuant to the CLIA regulations and is used for clinical purposes. ?? For additional information, please refer to http://education.Repair Report.NextUser/faq/FCC916j7 (This link if provided for information/ educational purposes only.) Interpretation/Re sult: Negative for intraepithelial lesion or malignancy. [facility] LMP: 05/21/21 [facility] Prev. BX: NONE GIVEN [facility] Prev. PAP: 04/02/16 [facility] SOURCE: [facility] Statement Of Adequacy: SEE COMMENT [facility] Comment: Satisfactory for evaluation. Endocervical/transformation zone component present. Age and/or menstrual status not provided 06/11/2021 3:05 PM EDT Vikki Hall MD LAB PATHOLOGY ORDERABLES [facility] Organization Address City/State/ZIP Co de Phone Number [facility] [address] from Last 3 Months or Most Recently Relevant to Health Maintenance Insurance [facility] Care Teams [employer] Teacher Relationship Specialty Start Date End Date Vikki Hall MD [address] [place] [id number] PCP - General Family Medicine 08/15/18
--- OUTSIDE RECORDS SUMMARY | 2024-09-18 09:33 | XMS_ITS | Encounter Summary ---
Author Organization [employer] Address [address] [facility] 7 [place] [address] Care Team Providers Care Major Account Manager Name Role Phone Vikki Hall MD Primary Care Provider [phone] Reason for Visit * Reason Onset Date Comments Lab Orders 01/10/2024 Encounter Details Date Type Department Care Team (Late st Contact Info) Description 01/10/2024 Telephone [facility] [address] [place] [address] Vikki Hall MD [address] [place] [phone] Lab Orders Social History Tobacco Use Types Packs/Day Years [...] encounter Miscellaneous Notes * Telephone Encounter - Amy Flores - 01/10/2024 2:45 PM EDT Tc from pt requesting status on order for Cologuard?? colon cancer screening, states they are waiting for order to be delivered to pt home address. [employer] confirmed address on file. [employer] also noticed order was placed in August 2023 Please contact at [phone] documented in this encounter Plan of Treatment Not on file documented as of this encounter Visit Diagnoses Not on filedocumented in this encounter Care Teams Major Account Manager Relationship Specialty Start Date End Date Vikki Hall MD [address] [place] [phone] PCP - General Family Medicine 08/15/18 documented as of this encounter
--- OUTSIDE RECORDS SUMMARY | 2024-09-18 09:33 | XMS_ITS | Encounter Summary ---
Author Organization [employer] [facility] Address [address] [facility] 7 [place] [address] Care Team Providers Care Powderer Name Role Phone Vikki Hall MD Primary Care Provider [phone] Encounter Details Date Type Department Care Team ([facility] st Contact Info) Description 03/16/2024 Telephone [facility] [address] [place] [address] Peggy Larkin DDS [address] [place] [address] Social History Tobacco Use Types Packs/Day Years [...] encounter Miscellaneous Notes * Telephone Encounter - Tequila Luo - 03/16/2024 9:26 AM EDT Patient called she's in a lot of she does not want to be seen for emergency .she would like pain medicine and something for infection. documented in this encounter Plan of Treatment Not on file documented as of this encounter Visit Diagnoses Not on filedocumented in this encounter Care Teams Powderer Relationship Specialty Start Date End Date Vikki Hall MD [address] [place] [phone] PCP - General Family Medicine 08/15/18 documented as of this encounter
--- OUTSIDE RECORDS SUMMARY | 2024-09-18 09:33 | XMS_ITS | Encounter Summary ---
Author Organization [employer] [facility] Address [address] [place] [address] [address] [place] [address] Care Team Providers Care Child Care Cook Name Role Phone Vikki Hall MD Primary Care Provider [phone] Reason for Referral * Neurology (Routine) - Authorized Specialty Diagnoses / Procedures Referred By Contac t Referred To Contact Diagnoses Acute right-sided low back pain with right-sided sciatica Numbness and tingling of right lower extremity Procedures Nerve conduction test Garrett Vann MD [address] [place] [address] Phone: tel: fax: [address] Phone: tel: fax: Referral ID Status Reason Start Date Expiration Date V isits Requested Visits Authorized [id number] Authorized 09/17/2024 09/17/2025 1 1 * Consultation (Routine) - Closed Specialty Diagnoses / Procedures Referred By Contac t Referred To Contact Physical Therapy Diagnoses Numbness and tingling of right lower extremity Neck pain Garrett Vann MD [address] [place] [address] Phone: tel: fax: [facility] Physical Therapy [address] [place] [address] Phone: tel: fax: Referral ID Status Reason Start Date Expiration Date V isits Requested Visits Authorized [id number] Closed Specialty Services Required 09/17/2024 09/17/2025 1 1 Reason for Visit * Reason Comments Walk-In Back pain dragging r ight foot , not MVA or WC Back Pain Encounter Details Date Type Department Care Team (Late st Contact Info) Description 09/17/2024 7:00 PM EST Office Visit [facility] [address] [place] [address] Garrett Vann MD [address] [place], [place] [phone] Acute right-sided low back pain with right-sided sciatica (Primary Dx); Numbness and tingling of right lower extremity; Neck pain Social History Tobacco Use Types Packs/Day Years Used Date Smoking Tobacco: Never Passive Smoke Exposure: Never Smokeless Tobacco: Never Comments No Sex and Gender Information Value Date Recorded Sex Assigned at Female 06/14/2022 10:15 AM EDT Legal Sex Female 10:15 AM EDT Gender Identity Female 06/14/2022 10:15 AM EDT Sexual Orientation Straight 06/14/2022 10 :15 AM EDT documented as of this encounter Last Filed Vital Signs Vital Sign Reading Time Taken Comments Blood Pressure 134/83 09/17/2024 7:24 PM EST Pulse 88 09/17/2024 7:24 PM EST Temperature 36.8 ??C (98.3 ??F) 09/17/2024 6:57 PM ES T Respiratory Rate 18 09/17/2024 6:57 PM EST Oxygen Saturation 99% 09/17/2024 6:57 PM EST Inhaled Oxygen Concentration - - Weight 96.6 kg (213 lb) 09/17/2024 6:57 PM EST Height - - Body Mass Index 38.96 01/16/2024 9:51 AM EDT documented in this encounter Progress Notes * Garrett Vann MD - 09/17/2024 7:00 PM EST Subjective Patient ID: Raissa Carson is a 44 y.o. female who presents for Walk-In (Back pain dragging right foot , not MVA or WC). HPI Note from triage reviewed: Patient reports that she has weakness of right side. No difficulty with speech or swallowing but that symptoms presented with cold symptoms patient reports not improving and is limping due to weakness. No fever or headache. Weakness of right arm and leg present no discoloration. No recent accident or injury but reports chronic back problems. The symptoms started 2 weeks ago after an URI. Pt is also c/o generalized body aches, Neck pain which is constant. Admits mild low back pain alleviated by The use of Motrin and meloxicam. No reported fever or otherconstitutional symptoms. She is concerned about having MS, a form of cancer or a disc herniation. No saddle anesthesia/urinary retention/urinary incontinence. Patient Active Problem List Diagnosis Chronic anxiety Allergic rhinitis Anxiety Disorder of skeletal muscle Obesity with body mass index 30 or greater Overweight Current Outpatient Medications on File Prior to Visit Medication Sig Dispense Refill Acetaminophen Extra Strength 500 MG tablet TAKE ONE TABLET EVERY 6 HOURS NEEDED mild PAIN 90 tablet 3 cholecalciferol (Vitamin D-3) 25 MCG (1000 UT) tablet Take 1 tablet (25 mcg) by mouth in the morning. 30 tablet 11 loratadine (Claritin) 10 MG tablet TAKE ONE TABLET BY MOUTH EVERY DAY NEEDED loratadine (Claritin) 10 MG tablet TAKE ONE TABLET BY MOUTH EVERY DAY NEEDED 30 tablet 11 meloxicam (Mobic) 7.5 MG tablet TAKE ONE TABLET EVERY MORNING 30 tablet 3 No current facility-administered medications on file prior to visit. No Known Allergies Review of Systems Constitutional: Negative for appetite change, chills, diaphoresis and fatigue. Respiratory: Negative for cough, choking, shortness of breath and stridor. Musculoskeletal: Positive for back pain and myalgias. Objective BP 134/83 (BP Location: Left arm, Patient Position: Sitting, BP Cuff Size: Adult) Pulse 88 Temp98.3 ??F (36.8 ??C) (Oral) Resp 18 Wt 213 lb (96.6 kg) SpO2 99% BMI 38.96 kg/m?? Physical Exam Constitutional: General: She is not in acute distress. Appearance: Normal appearance. She is not ill-appearing, toxic-appearing or diaphoretic. Eyes: General: No visual field deficit. Cardiovascular: Rate and Rhythm: Normal rate. Pulmonary: Effort: Pulmonary effort is normal. Neurological: Mental Status: She is alert and oriented to person, place, and time. Mental status is at baseline. Cranial Nerves: No cranial nerve deficit, dysarthria or facial asymmetry. Sensory: Sensory deficit present. Motor: Weakness present. Gait: Gait abnormal. Comments: Decreased sensation of the right lower limb w/ right lower limb weakness. Assessment/Plan Diagnoses and all orders for this visit: Acute right-sided low back pain with right-sided sciatica - Vitamin B12/Folate, Serum Panel; Future - Basic Metabolic Panel; Future - Vitamin D, 25-Hydroxy, Total, Immunoassay; Future - XR Lumbar Spine Complete 4+ Views; Future - meloxicam (Mobic) 15 MG tablet; Take 1 tablet (15 mg) by mouth Once per day. - Nerve conduction test; Future Numbness and tingling of right lower extremity - Vitamin B12/Folate, Serum Panel; Future - Basic Metabolic Panel; Future - Vitamin D, 25-Hydroxy, Total, Immunoassay; Future - meloxicam (Mobic) 15 MG tablet; Take 1 tablet (15 mg) by mouth Once per day. - Referral to Physical Therapy; Future - Nerve conduction test; Future Neck pain Comments: Meloxicam as directed Heat therapy referral to physical therapy xray of the cervical spine ordered. Orders: - XR Cervical Spine 2-3 Views; Future - meloxicam (Mobic) 15 MG tablet; Take 1 tablet (15 mg) by mouth Once per day. - Referral to Physical Therapy; Future documented in this encounter Plan of Treatment Scheduled Orders Name Type Priority Associated Diagnoses Orde r Schedule Vitamin B12/Folate, Serum Panel Lab Routine Acute right-sided low back pain with right-sided sciatica Numbness and tingling of right lower extremity Expected: 09/17/2024, Expires: 09/17/2025 Basic Metabolic Panel Lab Routine Acute right-sided low back pain with right-sided sciatica Numbness and tingling of right lower extremity Expected: 09/17/2024 (Approximate), Expires: 09/17/2025 Vitamin D, 25-Hydroxy, Total, Immunoassay Lab Routine Acute right-sided low back pain with right-sided sciatica Numbness and tingling of right lower extremity Expected: 09/17/2024 (Approximate), Expires: 09/17/2025 XR Lumbar Spine Complete 4+ Views Imaging Routine Acute right-sided low back pain with right-sided sciatica Expected: 09/17/2024, Expires: 09/17/2025 XR Cervical Spine 2-3 Views Imaging Routine Neck pain Expected: 09/17/2024, Expires: 09/17/2025 Nerve conduction test Neurology Routine Acute right-sided low back pain with right-sided sciatica Numbness and tingling of right lower extremity Expected: 09/17/2024 (Approximate), Expires: 09/17/2025 Scheduled Referrals Name Type Priority Associated Diagnoses Orde r Schedule Referral to Physical Therapy Outpatient Referral Routine Numbness and tingling of right lower extremity Neck pain Expected: 09/17/2024 (Approximate), Expires: 09/17/2025 documented as of this encounter Visit Diagnoses Diagnosis Acute right-sided low back pain with right-sided sciatica- Primary Numbness and tingling of right lower extremity Neck pain Cervicalgia documented in this encounter Care Teams Child Care Cook Relationship Specialty Start Date End Date Vikki Hall MD [address] [place] [address] PCP - General Family Medicine 08/15/18 documented as of this encounter
--- OUTSIDE RECORDS SUMMARY | 2024-09-18 09:33 | XMS_ITS | Encounter Summary ---
Author Organization [facility] Address [address] [place] [id number] Care Team Providers Care Customer Records Division Supervisor Name Role Phone Vikki Hall MD Primary Care Provider [phone] Reason for Visit * Reason Onset Date Comments Nurse Triage 09/17/2024 Encounter Details Date Type Department Care Team ([facility] st Contact Info) Description 09/17/2024 Telephone [facility] CHC MED & PEDS [address] [place], [place] [phone] Vikki Hall MD [address] [place], [place] [phone] Nurse Triage Social History Tobacco Use Types Packs/Day Years [...] encounter Miscellaneous Notes * Telephone Encounter - Corrie LeahySONJA ramirez - 09/17/2024 2:08 PM EST Triage call to patient who does not need 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 No insurance verified. Patient reports [facility] [facility] active effective 09/15/2024 in her name. Patient reports that she called and was told it would be 3 working days from today in order to obtain Member ID number. Multiple attempts to verify insuranceunsuccessful. Patient is aware and wants to be seen to day and is willing to pay OOP for visit. Patient reports that she has weakness of right side. No difficulty with speech or swallowing but that symptoms presented with cold symptoms patient reports not improving and is limping due to weakness.No fever or headache. Weakness of right arm and leg present no discoloration. No recent accident or injury but reports chronic back problems. Disposition reviewed with patient in agreement with plan.No PCP or Team appts. Available at time of call. [facility] Walk In Center hours and availability providedfor patient evaluation. Triage nurse informed the patient may have a wait of 1-2 hours because [facility] may have delays due to patient volume or symptom acuity. Patient reports that her will bring her now for evaluation. Protocol Used: Neurologic Deficit (Adult) Protocol-Based Disposition: Go to Office or Video Visit Now Positive Triage Question: * Neurologic deficit of gradual onset (e.g., days to weeks), ANY of the following: weakness of the face, arm, or leg on one side of the body, numbness of the face, arm, or leg on one side of the body, loss of speech or garbled speech * All higher-acuity triage questions were negative * Telephone Encounter - Angeline Hale - 09/17/2024 12:40 PM EST Symptom: Back Pain - Not From Injury Outcome: Schedule an urgent appointment (within 1 hour) or talk to a nurse or provider soon Reason: Weakness of the leg The caller accepted this outcome. documented in this encounter Plan of Treatment Not on file documented as of this encounter Visit Diagnoses Not on filedocumented in this encounter Care Teams Customer Records Division Supervisor Relationship Specialty Start Date End Date Vikki Hall MD [address] [place] [id number] PCP - General Family Medicine 08/15/18 documented as of this encounter
--- OUTSIDE RECORDS SUMMARY | 2024-09-18 09:33 | XMS_ITS | Encounter Summary ---
Author Organization [employer] Address [address] [place] [address] 7 [place] [address] Care Team Providers Care Salesperson Flying Squad Name Role Phone Vikki Hall MD Primary Care Provider [phone] Reason for Visit * Reason Onset Date Comments follow up appointment 09/17/2024 Encounter Details Date Type Department Care Team ([facility] st Contact Info) Description 09/17/2024 Telephone [facility] CHC MED & PEDS [address] [place], [place] [phone] Vikki Hall MD 505 [place], [place] [phone] follow up appointment Social History Tobacco Use Types Packs/Day Years [...] encounter Miscellaneous Notes * Telephone Encounter - Selena Duong RN - 09/17/2024 7:32 PM EST Patient seen in [facility] in [place] 09/17/[address] Vann who requesting follow up with PCP in 2-3 weaks for right sided weakness, unable to book apt. Sending message to medical anthropology director to review withP for scheduling. documented in this encounter Plan of Treatment Not on file documented as of this encounter Visit Diagnoses Not on filedocumented in this encounter Care Teams Salesperson Flying Squad Relationship Specialty Start Date End Date Vikki Hall MD [address] [place] [address] PCP - General Family Medicine 08/15/18 documented as of this encounter
--- OUTSIDE RECORDS SUMMARY | 2024-09-18 09:33 | XMS_ITS | Encounter Summary ---
Author Organization [employer] Address [address] [place] [address] 7 [place] [address] Care Team Providers Care Podiatric Surgeon Name Role Phone Vikki Hall MD Primary Care Provider [phone] Reason for Visit * Reason Onset Date Comments Med Refill 12/08/2022 Encounter Details Date Type Department Care Team ([facility] st Contact Info) Description 12/08/2022 Telephone [facility] CHC MED & PEDS [address] [place], [place] [phone] Vikki Hall MD 505 [place] [address] Med Refill Social History Tobacco Use Types Packs/Day Years Used Date Smoking Tobacco: Never Assessed Comments Unknown Sex and Gender Information Value Date Recorded Sex Assigned at Female 06/14/2022 10:15 AM EDT Legal Sex Female 10:15 AM EDT Gender Identity Female 06/14/2022 10:15 AM EDT Sexual Orientation Straight 06/14/2022 10 :15 AM EDT documented as of this encounter Miscellaneous Notes * Telephone Encounter - Isabel Farmer LPN - 12/08/2022 10:58 AM EDT Message below noted however pt needs an appt with pcp for medication refills * Telephone Encounter - Ever De Leon - 12/08/2022 10:45 AM EDT Tc from pt requesting med refill on Meloxicam 7.5 mg Tablet Please sent to [facility] - [place], [place] - [address] documented in this encounter Plan of Treatment Not on file documented as of this encounter Visit Diagnoses Not on filedocumented in this encounter Care Teams Podiatric Surgeon Relationship Specialty Start Date End Date Vikik Hall MD [address] [facility] [place] [address] PCP - General Family Medicine 08/15/18 documented as of this encounter
--- OUTSIDE RECORDS SUMMARY | 2024-09-18 09:33 | XMS_ITS | Encounter Summary ---
Author Organization [employer] [facility] Address [address] [place] [address] 7 [place] [address] Care Team Providers Care Composite Mechanic Name Role Phone Vikki Hall MD Primary Care Provider [phone] Encounter Details Date Type Department Care Team (Late st Contact Info) Description 12/31/2022 Orders Only [facility] CHC MED & PEDS [address] [place], [place] [phone] Alyse Dhillon LPN Social History Tobacco Use Types Packs/Day Years [...] on filedocumented in this encounter Care Teams Composite Mechanic Relationship Specialty Start Date End Date Vikki Hall MD 505 [place] [address] PCP - General Family Medicine 08/15/18 documented as of this encounter
--- OUTSIDE RECORDS SUMMARY | 2024-09-18 09:33 | XMS_ITS | Encounter Summary ---
Author Organization [employer] [facility] Address [address] [place] [address] 7 [place] [address] Care Team Providers Care Community Health Advocate Name Role Phone Vikki Hall MD Primary Care Provider [phone] Encounter Details Date Type Department Care Team (Latest Contact Info) Description 09/17/2024 Travel Social History Tobacco Use Types Packs/Day Years [...] on filedocumented in this encounter Care Teams Community Health Advocate Relationship Specialty Start Date End Date Vikki Hall MD [address] [place] [address] PCP - General Family Medicine 08/15/18 documented as of this encounter
--- OUTSIDE RECORDS SUMMARY | 2024-09-18 09:33 | XMS_ITS | Encounter Summary ---
Author Organization [employer] Address [address] [place] [address] 7 [place] [address] Care Team Providers Care Paint Coating Machine Operator Name Role Phone Vikki Hall MD Primary Care Provider [phone] Encounter Details Date Type Department Care Team ([facility] st Contact Info) Description 10/28/2023 Telephone [facility] CHC ADULT DENTAL [address] [place], [place] [phone] Akhil Castillo DDS [address] [place], [place] [phone] Social History Tobacco Use Types Packs/Day Years [...] * Telephone Encounter - Tequila Luo - 10/28/2023 10:47 AM EDT Patient called to ask for the medicine Dr castillo was going to send to her pharmacy . documented in this encounter Plan of Treatment Not on file documented as of this encounter Visit Diagnoses Not on filedocumented in this encounter Care Teams Paint Coating Machine Operator Relationship Specialty Start Date End Date Vikki Hall MD [address] [place] [address] PCP - General Family Medicine 08/15/18 documented as of this encounter
--- OUTSIDE RECORDS SUMMARY | 2024-09-18 09:33 | XMS_ITS | Encounter Summary ---
Author Organization [employer] [facility] Address [address] [place] [address] 7 [place] [address] Care Team Providers Care Aquaculture Director Name Role Phone Vikki Hall MD Primary Care Provider [phone] Reason for Visit * Reason Comments Med Refill Encounter Details Date Type Department Care Team ([facility] Contact Info) Description 12/06/2022 Telephone [facility] CHC MED & PEDS [address] [place], [place] [phone] Vikki Hall MD [address] [place] [address] Med Refill Social History Tobacco Use Types [...] encounter Miscellaneous Notes * Telephone Encounter - Alyse Dhillon LPN - 12/06/2022 12:38 PM EDT Pt last visit 11.12.21, pt requesting medication refills and its been over +1 year. Pt needs appointment to fill medications. documented in this encounter Plan of Treatment Not on file documented as of this encounter Visit Diagnoses Not on filedocumented in this encounter Care Teams Aquaculture Director Relationship Specialty Start Date End Date Vikki Hall MD [address] [place] [address] PCP - General Family Medicine 08/15/18 documented as of this encounter
--- OUTSIDE RECORDS SUMMARY | 2024-09-18 09:33 | XMS_ITS | Encounter Summary ---
Author Organization [employer] [facility] Address [address] [place] [address] 7 [place] [address] Care Team Providers Care Sales And Service Associate Name Role Phone Vikki Hall MD Primary Care Provider [phone] Encounter Details Date Type Department Care Team (Latest Contact Info) Description 06/30/2021 Abstract [facility] Dental, Provider, DDS Social [...] on filedocumented in this encounter Care Teams Sales And Service Associate Relationship Specialty Start Date End Date Vikki Hall MD [address] [place] [address] PCP - General Family Medicine 08/15/18 documented as of this encounter
[2024-09-18 11:56] LABS: Anion Gap 11 (12-20); Blood Urea Nitrogen 16 mg/dL (9-16); Calcium 9.8 mg/dL (8.4-10.2); Carbon Dioxide 26 mmol/L (22-29); Chloride 109 mmol/L (96-108); Estimated Glomerular Filt Rate > 60; Glucose Random 102 mg/dL (60-115); Potassium 4.4 mmol/L (3.3-5.1); Sodium 142 mmol/L (135-145)
[2024-09-18 12:14] LABS: Vitamin D 25-OH Total 26.1 ng/mL (>30)
[2024-09-18 12:25] LABS: Folate 11.2 ng/mL (> or = 4.0); Vitamin B12 617 pg/mL (200-900)
== END 2024-09-18 09:06 | disposition home or self-care (01) ==
LOC: HO.HHCL 09:05
PROVIDERS: Visit Provider Internal Medicine
DX: R20.0 Anesthesia of skin (principal); R20.2 Paresthesia of skin; M54.41 Lumbago with sciatica, right side
CPT/HCPCS: 36415; 72040; 72110; 80048; 82306; 82607; 82746

== ENCOUNTER → 2024-09-18 09:36 | Outpatient (BNV) | payer OTHER, SELFPAY | PROVIDERS: Visit Provider Radiology Diagnostic Radiology | DX: M54.41 Lumbago with sciatica, right side (principal); M54.2 Cervicalgia | CPT/HCPCS: 72040; 72110 ==

== ENCOUNTER → 2024-10-08 17:54 | Outpatient (BNV) | payer OTHER, SELFPAY | PROVIDERS: PCP Pediatrics; Visit Provider Radiology Vascular & Interventional Radiology | DX: M51.27 Other intervertebral disc displacement, lumbosacral region (principal) | CPT/HCPCS: 72148 ==

== ENCOUNTER 2024-10-08 17:55 | Outpatient (REF) | payer OTHER, SELFPAY ==
--- NOTE | ~2024-10-08 | MR_ITS ---
CLINICAL HISTORY: acute lbp radiating to rt leg dragging foot leg MR lumbar spine without gadolinium Comparison: MR - MR LUMBAR SPINE WO CON - 10/07/20 19:39 EST Findings: Mild levoscoliosis noted. No acute fracture or acute malalignment. Modic type endplate changes are present at L5 and S1. There is near-complete disc space loss at this level. No suspicious marrow lesion. The conus terminates normally at L1. Cauda equina are unremarkable. Paravertebral soft tissues are within normal limits. Visualized retroperitoneal structures are within normal limits. Individual levels: L1-L2: Unremarkable. L2-L3: Small posterior disc protrusion with no significant resulting central canal stenosis or neural foraminal narrowing. L3-L4: Small posterior disc protrusion with no significant central canal stenosis or neural foraminal narrowing. L4-L5: Significant right-sided facet hypertrophy. Mild right neural foraminal narrowing. No central canal stenosis. L5-S1: Large posterior and right eccentric disc protrusion. There is ikzb-sndiapf-zasw-right facet hypertrophy present. Severe left neural foraminal narrowing. There is also significant mass effect upon the descending right-sided S1 nerve root secondary to the disc protrusion. There is also moderate right neural foraminal narrowing at this level. Impression: There is a large right eccentric disc protrusion at L5-S1, similar to prior which exerts mass effect upon the descending right-sided S1 nerve root and results in moderately severe left-sided neural foraminal narrowing and moderate right neural foraminal narrowing. This document has been electronically signed by: Bakari Mike MD on 10/08/2024 19:00:52
== END 2024-10-08 17:56 | disposition home or self-care (01) ==
LOC: HO.MRI 17:55
PROVIDERS: PCP Pediatrics; Visit Provider Pediatrics
DX: M51.16 Intervertebral disc disorders with radiculopathy, lumbar region (principal); R29.898 Other symptoms and signs involving the musculoskeletal system
CPT/HCPCS: 72148

== ENCOUNTER 2024-10-19 14:02 | Outpatient (REF) | payer OTHER, SELFPAY ==
--- NOTE | 2024-10-19 14:07 | EMG_ITS ---
Chief complaint: Chronic right sided back/leg pain. Worsened since August after a respiratory illness. Right foot drop. Reviewed MRI images with patient, shows right large disc herniation L5-S1. This appears the same compared to MRI in 2021. Reason for referral: Evaluate for lumbar radiculopathy Referred by: Dr. Vann Procedure done: Right lower extremity NCS/EMG Precautions and/or limitations: None Nerve Conduction Studies Anti Sensory Summary Table ?Stim Site NR Onset (ms) Norm Onset (ms) Peak (ms) Norm Peak (ms) O-P Amp (?V) Norm O-P Amp Site1 Site2 Delta-0 (ms) Dist (cm) Ted (m/s) Norm Ted (m/s) Right Sural Anti Sensory (Lat Mall) Calf ? 1.4 3.7 <4.0 8.0 >5.0 Calf Lat Mall 1.4 14.0 100 Motor Summary Table ?Stim Site NR Onset (ms) Norm Onset (ms) O-P Amp (mV) Norm O-P Amp iAmp (mV) Amp (1st) (%) Site1 Site2 Delta-0 (ms) Dist (cm) Ted (m/s) Norm Ted (m/s) Right Peroneal Motor (Ext Dig Brev) Ankle ? 5.2 <4.0 2.8 >2.5 3.4 100.0 Ankle Ext Dig Brev 5.2 0.0 B Fib ? 11.6 2.9 3.4 103.6 B Fib Ankle 6.4 30.0 47 >40 Poplt ? 12.0 4.5 5.4 160.7 Poplt B Fib 0.4 3.5 87 >40 Right Tibial Motor (Abd De La Torre Brev) Ankle ? 8.0 <5 0.3 >2.5 0.3 100.0 Ankle Abd De La Torre Brev 8.0 0.0 Knee ? 14.9 0.3 0.4 100.0 Knee Ankle 6.9 34.0 49 >40 EMG ?Side Muscle Nerve Root Ins Act Fibs Psw Amp Dur Poly Recrt Int Pat Comment Right AbdHallucis MedPlantar S1-2 Nml Nml Nml Incr Incr 0 Nml Complete Right AntTibialis Dp Br Peron L4-5 Nml Nml Nml Nml Nml 0 Nml Complete Right PostTibialis Tibial L5, S1 Incr 1+ 1+ Incr Incr 0 Nml Complete Right MedGastroc Tibial S1-2 Nml Nml Nml Nml Nml 0 Reduced Complete Right VastusMed Femoral L2-4 Nml Nml Nml Nml Nml 0 Nml Complete Paraspinal EMG ?Side Muscle Nerve Root Ins Act Fibs Psw Comment Right Lumbar Upper Rami Nml Nml Nml Right Lumbar Mid Rami Nml Nml Nml Right Lumbar Lower Rami Incr 1+ 1+ FINDINGS: Right peroneal nerve showed prolonged distal latency, borderline amplitude and normal conduction velocity. Right tibial nerve showed very small/absent amplitudes. All other nerves tested were within normal. Concentric needle EMG was performed in selected muscles of the right left lower extremity and lumbar paraspinals. Study revealed signs of electric abnormalities as shown in the table above. Right medial gastrocnemius showed reduced recruitment. Right posterior tibialis showed increased duration and amplitude, increased insertional activity, PSWs and fibrillations. Right AH showed increased duration and amplitude. Right lower lumbar paraspinals showed increased insertional activity, small PSWs. IMPRESSION: 1. This is an abnormal study. 2. There is electrodiagnostic evidence for acute on chronic right S1 radiculopathy. 3. There is no electrodiagnostic evidence for focal peroneal or tibial neuropathy, lumbosacral plexopathy, or peripheral neuropathy. Thank you for your kind referral. Evy Vazquez MD, PAUL Board Certified, [place] Board of Physical Medicine and Rehabilitation (ABPMR) Board Certified, [place] Board of Electrodiagnostic Medicine (ABEM) [place] [id number] [facility]
== END 2024-10-19 14:03 | disposition home or self-care (01) ==
LOC: HO.NEURO 14:02
PROVIDERS: PCP Pediatrics; Visit Provider Internal Medicine
DX: M54.41 Lumbago with sciatica, right side (principal); R20.0 Anesthesia of skin; R20.2 Paresthesia of skin
CPT/HCPCS: 95886; 95909

== ENCOUNTER → 2024-10-19 14:07 | Outpatient (BNV) | payer OTHER, SELFPAY | PROVIDERS: PCP Pediatrics; Visit Provider Physical Medicine & Rehabilitation | DX: M54.18 Radiculopathy, sacral and sacrococcygeal region (principal) | CPT/HCPCS: 95886; 95908 ==

== ENCOUNTER 2024-12-04 14:52 | Inpatient (IN) | payer OTHER, SELFPAY ==
--- NOTE | ~2024-12-04 | XR_ITS ---
EXAMINATION: XR CHEST CLINICAL INFORMATION: Chest pain COMPARISON: None available. TECHNIQUE: Frontal view of the chest was obtained. FINDINGS: The cardiac, hilar, and mediastinal contours are normal. Lungs demonstrate extremely subtle patchy opacity right mid to upper lung zone. Lungs otherwise clear. No pneumothorax or effusion. No focal osseous or soft tissue abnormality. XR/XR chest 1V IMPRESSION: Extremely subtle opacity right mid to upper lung zone. This could represent pneumonia in the appropriate clinical setting. Electronically signed by: Alex Hancock MD 12/04/2024 03:55 PM EDT
--- NOTE | ~2024-12-04 | FL_ITS ---
EXAMINATION: XR FLUOROSCOPY WITH IMAGES CLINICAL INFORMATION: ERCP. COMPARISON: MRCP 12/05/2024. TECHNIQUE: Fluoroscopy provided to: Dr. Ny Fluoroscopy time: 89.8 seconds Dose: 35.82 mGy Images: 4 FINDINGS: 4 fluoroscopic spot images obtained during ERCP. Please refer to the full operative report for further detail. FL/FL guidance in OR IMPRESSION: Fluoroscopic guidance. Electronically signed by: Alex Hancock MD 12/07/2024 08:25 AM EDT
--- NOTE | ~2024-12-04 | CT_ITS ---
CLINICAL HISTORY: epigastric pain CT abdomen and pelvis with contrast Comparison: None Findings: Hepatomegaly and mild hepatic steatosis. Mildly distended gallbladder. Mild extrahepatic biliary ductal dilatation. Faint fat stranding near the mazin hepatis. Normal spleen, pancreas, and adrenal glands. Unremarkable kidneys, ureters, and urinary bladder. No free fluid or free air. Normal stomach, small bowel, appendix, and colon. No aortic aneurysm. Pelvic organs normal. Bones intact. IMPRESSION: Mild gallbladder distention and mild extrahepatic biliary ductal dilatation with faint fat stranding in the mazin hepatis. Findings could represent early cholecystitis or perhaps obstructing choledocholithiasis. Gallbladder ultrasound recommended. This document has been electronically signed by: Tyler Cardenas MD on 12/04/2024 19:39:09
--- NOTE | ~2024-12-04 | US_ITS ---
CLINICAL HISTORY: ruq pain question cholecystitis US abdomen limited Comparison: None Findings: Distended gallbladder containing small mobile gallstones as well as a nonmobile stone in the gallbladder neck measuring 3 mm. Gallbladder wall thickness is 3 mm. Trace pericholecystic fluid. Common duct measures 5 mm near the mazin hepatis. Minimally dilated intrahepatic ducts. IMPRESSION: 1. Minimally dilated intrahepatic ducts and borderline dilated common duct with nonmobile possibly impacted stone in the gallbladder neck and mild distention of the gallbladder. Findings are equivocal for cholecystitis. MRCP or HIDA scan could be considered for further evaluation. This document has been electronically signed by: Tyler Cardenas MD on 12/04/2024 21:07:53
--- NOTE | ~2024-12-04 | CT_ITS ---
CLINICAL HISTORY: chest pain worse with deep breath CT angiography chest with contrast. 3D Postprocessing. Comparison: None Findings: The heart is normal size. RV/LV ratio is normal. Unremarkable thoracic aorta and great vessels. No aneurysm. No acute pulmonary embolus. The visualized thyroid and mediastinum are unremarkable. The lungs are clear. The visualized upper abdomen is unremarkable. No acute fractures. IMPRESSION: 1. No pulmonary emboli. This document has been electronically signed by: Tyler Cardenas MD on 12/04/2024 19:26:08
--- NOTE | ~2024-12-04 | MR_ITS ---
EXAMINATION: MRCP. CLINICAL INFORMATION: Abdominal pain. TECHNIQUE: Axial and coronal T2 HASTE sequence. Axial and coronal T2 fat sat HASTE sequence. Coronal oblique T2 fat-sat single slice. Axial T1 vibe fat sat sequence. Axial in and out of phase 3-D sequence. 3-D space MRCP triggered. COMPARISON: Correlated to CT and ultrasound dated December 04, 2024. FINDINGS: There are multiple segmental strictures throughout the intrahepatic and extrahepatic biliary ductal system. The common bile duct measures 6 mm in maximal diameter. There is a focal intraluminal hypointense signal in the distal common bile duct near the sphincter of Oddi. There is a trace of pericholecystic fluid. There is an intraluminal, 11 mm hypointense T2 round lesion in the gallbladder neck. Liver measures 19 cm. No focal mass. The main portal vein is and intrahepatic portion of the IVC as well as the hepatic veins are patent. No peripancreatic fluid collection. The main pancreatic duct measures 2 mm. No signal abnormality in the pancreas. Spleen measures 11 cm. No focal lesion. Subcentimeter cystic lesions. No nodular lesions in the adrenal glands. No hydronephrosis in either kidney. No ascites. No intestinal obstruction pattern. No aneurysm or dissection in the abdominal aorta. There is a hyperintense T2 signal in the right lumbar muscles. Small fat-containing umbilical hernia. MR/MR MRCP IMPRESSION: Cholelithiasis and choledocholithiasis with the questionable acute calculus cholecystitis. Concerning primary sclerosing cholangitis in the correct clinical settings. Electronically signed by: Temo Yadav MD 12/05/2024 03:37 PM EDT
--- NOTE | 2024-12-04 14:53 | ECG_ITS ---
Test Reason : CHEST PAIN Blood Pressure : */* mmHG Vent. Rate : 80 BPM Atrial Rate : 80 BPM P-R Int : 136 ms QRS Dur : 94 ms QT Int : 360 ms P-R-T Axes : 43 -2 8 degrees QTcB Int : 415 ms Normal sinus rhythm Incomplete right bundle branch block Borderline ECG No previous ECGs available Referred By: Generic ED Physician Electronically Signed By: LUCY CASAS
[2024-12-04 15:28] VITALS: BP 119/80; PULSE 90; RESP 18; TEMP 36.7; O2SAT 99; BMI 38.1
--- NOTE | 2024-12-04 15:34 | ED_ITS ---
HPI - Chest Pain General Chief Complaint: Chest Pain Stated Complaint: Chest pain, SOB Time Seen by Provider: 12/04/24 17:25 Related Data Home Medications ?Medication ?Instructions ?Recorded ?Confirmed gabapentin 300 mg capsule 300 mg PO BID 11/10/20 meloxicam 15 mg tablet 15 mg PO BID PRN 11/10/20 Previous Rx's ?Medication ?Instructions ?Recorded oxycodone 5 mg capsule 5 mg PO Q8H PRN pain #12 caps 08/18/20 prednisone 20 mg tablet 60 mg (3 x 20 mg) PO DAILY #12 tabs 08/18/20 Allergies Allergy/AdvReac Type Severity Reaction Status Date / Time No Known Allergies Allergy Verified 12/04/24 15:33 PMFSH Past Medical History Medical History Arthropathy, traumatic, 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, lumbosacral No known health problems Social History Social History Smoked in Last 30 Days: No Use of substances other than those prescribed or required for medical reasons: No Advance Directives: No Advance Directives Information Provided: No Patient : No Physical Exam 2 Vital Signs: Vital Signs: Last Vital Signs Temp 98.1 F 12/04/24 15:28 Pulse 91 12/04/24 19:04 Resp 18 12/04/24 19:04 BP 124/44 L 12/04/24 19:04 Pulse Ox 99 12/04/24 19:04 O2 Del Method Room Air 12/04/24 19:04 BMI result Body Mass Index 38.1 Course Course Course Narrative: RME: 44 yold female s/p low back pain surgery 4 weeks ago presents to the ED for upper back pain and chest pain with pleurisy. patient denies any urinary/bowel inconitenence. Patient denies any fever or chilss. Patient has mild SOB. bilateral lower extremities negative for swelling, pitting edema, or calf tenderness. Labs, EKG ordered. Will leg charge nurse know Medications Administered Discontinued Medications Generic Name Dose Route Start Last Admin Trade Name Freq PRN Reason Stop Dose Admin Iohexol 100 ml 12/04/24 18:36 12/04/24 18:37 Iohexol 350 Mg/Ml 100 Ml Infus..Btl IV 12/04/24 18:37 85 ml ONCE ONE Administration Medical Decision Making Lab Data 12/04/24 16:14 12/04/24 16:14 Labs: Lab Results 12/04/24 Range/Units 16:14 WBC 3.6 L (4.8-10.8) X10*3/uL RBC 5.04 (4.20-5.50) X10*6/uL Hgb 14.1 (12.0-16.0) g/dl Hct 43.1 (37.0-47.0) % MCV 85.5 (80.0-98.0) fL MCH 28.0 (27.0-33.0) pg MCHC 32.7 (31.0-35.0) g/dl RDW 13.8 (11.0-16.0) % Plt Count 271 (160-400) X10*3/uL MPV 9.9 (9.4-12.3) fL Immature Gran % (Auto) 0.3 (0.0-0.4) % Neut % (Auto) 56.1 (45-73) % Lymph % (Auto) 32.3 (20-40) % [place] % (Auto) 6.6 (2-11) % Eos % (Auto) 4.1 H (0-4) % Baso % (Auto) 0.6 (0-2) % Lymph # (Auto) 1.2 (1.2-4.9) X10*3/uL [place] # (Auto) 0.2 (0.1-1.2) X10*3/uL Eos # (Auto) 0.2 (0.0-0.4) X10*3/uL Baso # (Auto) 0.0 (0.0-0.2) X10*3/uL Abs Immat Gran (auto) 0.01 (0.00-0.03) X10*3/uL Absolute Neuts (auto) 2.0 (2.0-8.3) x10*3/uL Absolute Nucleated RBC 0.000 (0.0-0.012) X10*3/uL Nucleated RBC % (auto) 0.0 (0.0-0.2) /100WBC PT 11.1 (10.9-12.4) SEC INR 1.0 (0.9-1.1) APTT 33.6 (26.0-36.8) SEC Sodium 141 (135-145) mmol/L Potassium 4.5 (3.3-5.1) mmol/L Chloride 106 (96-108) mmol/L Carbon Dioxide 27 (22-29) mmol/L Anion Gap 13 (12-20) BUN 7 L (9-16) mg/dL Creatinine 0.71 (0.5-1.4) mg/dL Estim Creat Clear Calc 110.1 Estimated GFR > 60 Random Glucose 119 H (60-115) mg/dL Calcium 10.2 (8.4-10.2) mg/dL Total Bilirubin 4.3 H (0.0-1.0) mg/dL AST 387 H (5-31) U/L ALT 817 H (0-31) U/L Alkaline Phosphatase 204 H (39-117) U/L Troponin I High Sens < 2.7 (<3.5-17.0) ng/L Total Protein 7.9 (6.5-8.0) g/dL Albumin 4.4 (3.5-5.0) g/dL Lipase 31 (8-78) U/L Influenza Type A (PCR) NEGATIVE (Negative) Influenza Type B (PCR) NEGATIVE (Negative) RSV RNA Qual (PCR) NEGATIVE (Negative) SARS-CoV-2 RNA (RT-PCR) NEGATIVE (Negative) Discharge Plan Discharge Clinical Impression: Biliary calculi, common bile duct Patient Disposition: Admitted As Inpatient Print Language: Albanian
[2024-12-04 16:23] LABS: MANUAL DIFF FLAG NO
[2024-12-04 16:27] LABS: Basophils Percent Auto 0.6 % (0-2); Eosinophils Absolute Auto 0.2 X10*3/uL (0.0-0.4); Eosinophils Percent Auto 4.1 % (0-4); Hematocrit 43.1 % (37.0-47.0); Hemoglobin 14.1 g/dl (12.0-16.0); Imm Gran Abs Auto 0.01 X10*3/uL (0.00-0.03); Imm Gran Pct Auto 0.3 % (0.0-0.4); Lymphocytes Absolute Auto 1.2 X10*3/uL (1.2-4.9); Lymphocytes Percent Auto 32.3 % (20-40); Mean Corpuscular HGB Conc 32.7 g/dl (31.0-35.0); Mean Corpuscular Volume 85.5 fL (80.0-98.0); Mean Platelet Volume 9.9 fL (9.4-12.3); Monocytes Absolute Auto 0.2 X10*3/uL (0.1-1.2); Monocytes Percent Auto 6.6 % (2-11); Neutrophils Percent Auto 56.1 % (45-73); Platelet Count 271 X10*3/uL (160-400); Red Blood Count 5.04 X10*6/uL (4.20-5.50); Red Cell Distribution Width 13.8 % (11.0-16.0); White Blood Count 3.6 X10*3/uL (4.8-10.8)
[2024-12-04 16:30] LABS: Prothrombin Time 11.1 SEC (10.9-12.4)
[2024-12-04 16:33] LABS: Partial Thromboplastin Time 33.6 SEC (26.0-36.8)
[2024-12-04 16:57] LABS: Troponin-I High Sensitivity < 2.7 ng/L (<3.5-17.0)
[2024-12-04 16:58] LABS: Alanine Aminotransferase 817 U/L (0-31); Albumin Level 4.4 g/dL (3.5-5.0); Anion Gap 13 (12-20); Aspartate Amino Transferase 387 U/L (5-31); Bilirubin Total 4.3 mg/dL (0.0-1.0); Blood Urea Nitrogen 7 mg/dL (9-16); Calcium 10.2 mg/dL (8.4-10.2); Carbon Dioxide 27 mmol/L (22-29); Chloride 106 mmol/L (96-108); Creatinine Clr Calc Pharmacy 110.1; Estimated Glomerular Filt Rate > 60; Glucose Random 119 mg/dL (60-115); Potassium 4.5 mmol/L (3.3-5.1); Sodium 141 mmol/L (135-145); Total Protein 7.9 g/dL (6.5-8.0)
[2024-12-04 17:04] LABS: Influenza A PCR NEGATIVE (Negative); Influenza B PCR NEGATIVE (Negative); Resp Syncy Virus RNA Qual PCR NEGATIVE (Negative); SARS COV2 PCR INHOUSE NEGATIVE (Negative)
[2024-12-04 17:23] LABS: Alkaline Phosphatase 204 U/L (39-117)
[2024-12-04 17:28] VITALS: BP 139/83; PULSE 90; RESP 18; O2SAT 100
--- NOTE | 2024-12-04 17:35 | ED.CHESTPAIN ---
HPI - Chest Pain General Chief Complaint: Chest Pain Stated Complaint: Chest pain, SOB Time Seen by Provider: 12/04/24 17:25 History of Present Illness HPI narrative: Patient is a 44-year-old female presents today with having chest pain that is worse with deep breath. History of having back surgery done about a month ago. Denies any fever chills. Also having pain in the epigastric area. Patient is claims she ate some food on Tuesday and then the pain in the abdomen started at night. There is no fever no chills. There is no diaphoresis. The chest pain is made worse with deep breath. There is no leg swelling. No history of blood clots. Not on blood thinners. Patient is from home. No history of diabetes, hypertension, high cholesterol, smoking, mi. No family history of DC. no history of cancer no history of traveling. Related Data Home Medications ?Medication ?Instructions ?Recorded ?Confirmed gabapentin 300 mg capsule 300 mg PO BID 11/10/20 meloxicam 15 mg tablet 15 mg PO BID PRN 11/10/20 Previous Rx's ?Medication ?Instructions ?Recorded oxycodone 5 mg capsule 5 mg PO Q8H PRN pain #12 caps 08/18/20 prednisone 20 mg tablet 60 mg (3 x 20 mg) PO DAILY #12 tabs 08/18/20 Allergies Allergy/AdvReac Type Severity Reaction Status Date / Time No Known Allergies Allergy Verified 12/04/24 15:33 Review of Systems Review of Systems: Positive chest pain positive abdominal pain No change in bowel movement Yes all other systems are reviewed and are negative PMFSH Past Medical History Attestation statement: The following information was validated with the patient. 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 Oriented X3. No acute distress. Eyes: Pupils equal, round and reactive to light. ENT: Pharynx normal. Neck: Normal inspection. Neck supple. No lymph nodes noted. No crepitus CVS: Normal heart rate and rhythm. Pulses normal. Normal S1 and S2 Respiratory: No respiratory distress. Breath sounds normal. No Wheezing. No rales Abdomen: Soft and nontender. No rigidity. No distention. good BS x4 Skin: Skin warm and dry. Normal skin color. Normal skin turgor. Extremities: No lower extremity edema. Neurovascular intact to all extremities. No Lacerations. No Rash Neuro: Oriented X 3. No motor deficit. No sensory deficit. Moving all extermities. No slurred speech Medications Administered Discontinued Medications Generic Name Dose Route Start Last Admin Trade Name Freq PRN Reason Stop Dose Admin Iohexol 100 ml 12/04/24 18:36 12/04/24 18:37 Iohexol 350 Mg/Ml 100 Ml Infus..Btl IV 12/04/24 18:37 85 ml ONCE ONE Administration Medical Decision Making Medical Decision Making MDM Narrative: Patient 44 years old presents today with having chest pain worse with deep breath. Also having abdominal pain in the epigastric area. My interpretation of her EKG showed a sinus rhythm heart rate was 80 LA QRS is normal there is a partial right bundle branch block there is no acute ST segment elevation patient's troponin was negative. Chest x-ray by my interpretation was unremarkable. We did a CTA of the chest which was grossly negative for any acute evidence of PE. No pneumonia. No pneumothorax. No rib fracture. Then we did a CT of the abdomen pelvis because patient had elevated LFTs. Namely alk-phos was elevated bilirubins elevated AST ALT elevated consistent with a liver versus obstruction type picture. CT scan of the abdomen per radiology's interpretation showed a possible common duct stone possible cholecystitis. An ultrasound was done. Radiology's interpretation of the ultrasound showed possible cholecystitis versus common duct stone. Patient's case discussed with surgery. [place] this is more likely related to a possible common duct stone. Patient's case discussed with hospitalist team they will put an antibiotic will admit patient for further evaluation. Likely MRCP in a.m.. Currently in stable condition. Differential Diagnosis Differential Diagnoses: The differential diagnosis associated with the presentation includes Common duct stone, PE, pneumonia, pneumothorax Admission/Observation Consideration of admission/observation: Escalation of care including admission/observation considered Consult Healthcare Provider Management of the patient was discussed with: Hospitalist and Sustainable Systems Analyst (Surgery) Lab Data MDM Lab Attestation statement: I reviewed the patient's lab results. 12/04/24 16:14 12/04/24 16:14 Labs: Lab Results 12/04/24 Range/Units 16:14 WBC 3.6 L (4.8-10.8) X10*3/uL RBC 5.04 (4.20-5.50) X10*6/uL Hgb 14.1 (12.0-16.0) g/dl Hct 43.1 (37.0-47.0) % MCV 85.5 (80.0-98.0) fL MCH 28.0 (27.0-33.0) pg MCHC 32.7 (31.0-35.0) g/dl RDW 13.8 (11.0-16.0) % Plt Count 271 (160-400) X10*3/uL MPV 9.9 (9.4-12.3) fL Immature Gran % (Auto) 0.3 (0.0-0.4) % Neut % (Auto) 56.1 (45-73) % Lymph % (Auto) 32.3 (20-40) % [place] % (Auto) 6.6 (2-11) % Eos % (Auto) 4.1 H (0-4) % Baso % (Auto) 0.6 (0-2) % Lymph # (Auto) 1.2 (1.2-4.9) X10*3/uL [place] # (Auto) 0.2 (0.1-1.2) X10*3/uL Eos # (Auto) 0.2 (0.0-0.4) X10*3/uL Baso # (Auto) 0.0 (0.0-0.2) X10*3/uL Abs Immat Gran (auto) 0.01 (0.00-0.03) X10*3/uL Absolute Neuts (auto) 2.0 (2.0-8.3) x10*3/uL Absolute Nucleated RBC 0.000 (0.0-0.012) X10*3/uL Nucleated RBC % (auto) 0.0 (0.0-0.2) /100WBC PT 11.1 (10.9-12.4) SEC INR 1.0 (0.9-1.1) APTT 33.6 (26.0-36.8) SEC Sodium 141 (135-145) mmol/L Potassium 4.5 (3.3-5.1) mmol/L Chloride 106 (96-108) mmol/L Carbon Dioxide 27 (22-29) mmol/L Anion Gap 13 (12-20) BUN 7 L (9-16) mg/dL Creatinine 0.71 (0.5-1.4) mg/dL Estim Creat Clear Calc 110.1 Estimated GFR > 60 Random Glucose 119 H (60-115) mg/dL Calcium 10.2 (8.4-10.2) mg/dL Total Bilirubin 4.3 H (0.0-1.0) mg/dL AST 387 H (5-31) U/L ALT 817 H (0-31) U/L Alkaline Phosphatase 204 H (39-117) U/L Troponin I High Sens < 2.7 (<3.5-17.0) ng/L Total Protein 7.9 (6.5-8.0) g/dL Albumin 4.4 (3.5-5.0) g/dL Lipase 31 (8-78) U/L Influenza Type A (PCR) NEGATIVE (Negative) Influenza Type B (PCR) NEGATIVE (Negative) RSV RNA Qual (PCR) NEGATIVE (Negative) SARS-CoV-2 RNA (RT-PCR) NEGATIVE (Negative) Independent Interpretation I performed an independent interpretation of an: EKG (My interpretation patient's EKG as above) and Plain X-Ray (Chest x-ray grossly negative) Radiology Impression Discussion of test interpretation with radiology: I have reviewed the radiologist's reading. External Record Review External record reviewed: Inpatient record Chronic Conditions History of back surgery Discharge Plan Discharge Clinical Impression: Biliary calculi, common bile duct Patient Disposition: Admitted As Inpatient Prescriptions: No Action prednisone 20 mg tablet 60 mg PO DAILY Qty: 12 0RF oxycodone 5 mg capsule 5 mg PO Q8H PRN (Reason: pain) Qty: 12 0RF meloxicam 15 mg tablet 15 mg PO BID PRN gabapentin 300 mg capsule 300 mg PO BID Print Language: Gabonese
[2024-12-04 17:55] LABS: Lipase 31 U/L (8-78)
[2024-12-04] MEDS: iohexoL 350 MG/ML 100 ML INFUS..BTL IV (18:37)
[2024-12-04 19:04] VITALS: BP 124/44; PULSE 91; RESP 18; O2SAT 99
--- OUTSIDE RECORDS SUMMARY | 2024-12-04 19:06 | XMS_ITS | Encounter Summary ---
Author Organization [employer] Address [address] [place] [address] [address] [place] [address] Care Team Providers Care Documentation Analyst Name Role Phone Vikki Hall MD Primary Care Provider [phone] Reason for Visit * Reason Onset Date Comments Med Refill 12/08/2022 Encounter Details Date Type Department Care Team ([facility] st Contact Info) Description 12/08/2022 Telephone [facility] MED & PEDS [address] [place], [place] [id number] Vikki Hall MD [address] [place] [address] Med Refill Social History Tobacco Use Types [...] Meloxicam 7.5 mg Tablet Please sent to [facility] - [place], [place] - [address] documented in this encounter Plan of Treatment Upcoming Encounters Date Type Department Care Team ([facility] st Contact Info) Description 12/19/2024 9:00 AM EDT Telemedicine [facility] MED & PEDS [address] [place] [address] Vikki Hall MD [address] [place] [address] documented as of this encounter Visit Diagnoses Not on filedocumented in this encounter Care Teams Documentation Analyst Relationship Specialty Start Date End Date Vikki Hall MD [address] [place] [address] PCP - General Family Medicine 08/15/18 documented as of this encounter
--- OUTSIDE RECORDS SUMMARY | 2024-12-04 19:06 | XMS_ITS | Encounter Summary ---
Author Organization [employer] [facility] Address [address] [place] [address] [address] [place] [address] Care Team Providers Care Sanitation Director Name Role Phone Vikki Hall MD Primary Care Provider [phone] Encounter Details Date Type Department Care Team ([facility] Contact Info) Description 09/24/2023 Orders Only [facility] MED & PEDS [address] [place] [address] Garrett Vann MD [address] [place] [address] Low vitamin D level (Primary Dx) Social [...] as of this encounter Plan of Treatment Upcoming Encounters Date Type Department Care Team (Late Contact Info) Description 12/19/2024 9:00 AM EDT Telemedicine [facility] MED & PEDS [address] [place], [place] [phone] Vikki Hall MD [address] [place] [address] documented as of this encounter Visit Diagnoses Diagnosis Low vitamin D level- Primary documented in this encounter Care Teams Sanitation Director Relationship Specialty Start Date End Date Vikki Hall MD [address] [place] [address] PCP - General Family Medicine 08/15/18 documented as of this encounter
--- OUTSIDE RECORDS SUMMARY | 2024-12-04 19:06 | XMS_ITS | Encounter Summary ---
Author Organization [employer] [facility] Address [address] [place] [address] [address] [place] [address] Care Team Providers Care Syrup Shed Supervisor Name Role Phone Vikki Hall MD Primary Care Provider [phone] Encounter Details Date Type Department Care Team (Latest Contact Info) Description 08/05/2020 Abstract [facility] Dental, Provider, DDS Social History Tobacco [...] Encounters Date Type Department Care Team (Late st Contact Info) Description 12/19/2024 9:00 AM EDT Telemedicine [facility] MED & PEDS [address] [place] [address] Vikki Hall MD [address] [place] [address] documented as of this encounter Visit Diagnoses Not on filedocumented in this encounter Care Teams Syrup Shed Supervisor Relationship Specialty Start Date End Date Vikki Hall MD [address] [place] [address] PCP - General Family Medicine 08/15/18 documented as of this encounter
--- OUTSIDE RECORDS SUMMARY | 2024-12-04 19:06 | XMS_ITS | Encounter Summary ---
Author Organization [email or web address] [facility] Address [address] [place] [address] [address] [place] [address] Care Team Providers Care Community Development Worker Name Role Phone Vikki Hall MD Primary Care Provider [phone] Encounter Details Date Type Department Care Team (Latest Contact Info) Description 06/30/2021 Abstract [facility] CONVERSIONS Dental, Provider, DDS Social History [...] Info) Description 12/19/2024 9:00 AM EDT Telemedicine [facility] MED & PEDS [address] [place] [address] Vikki Hall MD [address] [place] [address] documented as of this encounter Visit Diagnoses Not on filedocumented in this encounter Care Teams Community Development Worker Relationship Specialty Start Date End Date Vikki Hall MD [address] [place] [address] PCP - General Family Medicine 08/15/18 documented as of this encounter
--- OUTSIDE RECORDS SUMMARY | 2024-12-04 19:06 | XMS_ITS | Encounter Summary ---
Author Organization [employer] [facility] Address [address] [place] [address] [address] [place] [address] Care Team Providers Care Transcription Name Role Phone Vikki Hall MD Primary Care Provider [phone] Encounter Details Date Type Department Care Team ([facility] Contact Info) Description 09/20/2024 Orders Only [facility] MED & PEDS [address] [place] [address] Garrett Vann MD [address] [place] [address] Vitamin D deficiency (Primary Dx) Social History Tobacco Use Types [...] Info) Description 12/19/2024 9:00 AM EDT Telemedicine [facility] MED & PEDS [address] [place] [address] Vikki Hall MD [address] [place] [address] documented as of this encounter Visit Diagnoses Diagnosis Vitamin D deficiency- Primary documented in this encounter Care Teams Transcription Relationship Specialty Start Date End Date Vikki Hall MD [address] [place] [address] PCP - General Family Medicine 08/15/18 documented as of this encounter
--- OUTSIDE RECORDS SUMMARY | 2024-12-04 19:06 | XMS_ITS | Encounter Summary ---
Author Organization [employer] Address [address] [facility] 7[address] [place] [address] Care Team Providers Care Gaming Dealer Name Role Phone Vikki Hall MD Primary Care Provider Encounter Details Date Type Department Care Team ([facility] st Contact Info) Description 12/04/2024 Orders Only [facility] External Provider, [facility] Social History Tobacco Use Types Packs/Day Years Used Date Smoking Tobacco: Never Passive Smoke Exposure: Never Smokeless Tobacco: Never Depression Answer Date Recorded Patient Health Questionnaire-9 Score 8 09/27/2024 Patient Health Questionnaire-9 Score 8 09/27/2024 Last PHQ-9: Questionnaire Data Not on file 0 09/27/2024 Housing Stability Answer Date Recorded What is your housing situation today? I have sherry samuel 09/27/[address] you li ve. Do you have problems with any of the following? None of the above 09/27/2024 Food Insecurity Answer Date Recorded Within the past 12 months, y ou worried that your food would run out before you got money to buy more: Never True 09/27/2024 Within the past 12 months,th e food you bought just didn't last and you didn't have enough money to get more: Never True Transportation Answer Date Recorded In the past 12 months, has l ack of transportation kept you from medical appts, meetings, work or from getting things needed for daily living? No 09/27/2024 Utilities Answer Date Recorded In the past 12 months, has t he electric, gas, oil or water company threatened to shut off services in your home? No 09/27/2024 Depression Answer Date Recorded Patient Health Questionnaire-2 Score 4 09/27/2024 Internet Access Answer Date Recorded Internet Access Q1 Yes 09/27/2024 Internet Access Q2 Not on file 09/27/2024 Comments No Sex and Gender Information Value Date Recorded Sex Assigned at Female 06/14/2022 10:15 AM EDT Legal Sex Female 10:15 AM EDT Gender Identity Female 06/14/2022 10:15 AM EDT Sexual Orientation Straight 06/14/2022 10 :15 AM EDT documented as of this encounter Plan of Treatment Upcoming Encounters Date Type Department Care Team (Late st Contact Info) Description 12/19/2024 9:00 AM EDT Telemedicine [facility] [address] [place], [place] [phone] Vikki Hall MD [address] [place] [address] documented as of this encounter Procedures Procedure Name Priority Date/Time Associated Diagnosis Comments HIGH SENSITIVITY TROPONIN I Routine 12/04/2024 4:14 PM EDT SARS COV2/INFLUENZA A/B AND RSV RNA QL NAAT Routine 12/04/2024 4:14 PM EDT CBC WITH AUTO DIFFERENTIAL Routine 12/04/2024 4:14 PM EDT APTT Routine 12/04/2024 4:14 PM EDT PROTHROMBIN TIME-INR Routine 12/04/2024 4:14 PM EDT LIPASE Routine 12/04/2024 4:14 PM EDT COMPREHENSIVE METABOLIC PANEL Routine 12/04/2024 4:14 PM EDT XR CHEST 1 VIEW Routine 12/04/2024 3:44 PM EDT documented in this encounter Results * Lipase (12/04/2024 4:14 PM EDT) Lipase 31 8 - 78 U/L [facility] 12/04/2024 4:14 PM EDT 12/04/2024 4:22 PM EDT Generic External Data Provider LAB BLOOD ORDERAB LES Final Result Performing Organization Address [facility]/ZIP Co de Phone Number [facility] [address] [place] [phone] * SARS-CoV-2 RNA, Influenza A/B, and RSV RNA, Ql NAAT (12/04/2024 4:14 PM EDT) Influenza A PCR NEGATIVE Negative [facility] Influenza B PCR NEGATIVE Negative [facility] Resp Syncy Virus RNA Qual PCR NEGATIVE Negative [facility] SARS COV2 PCR NEGATIVE Negative [facility] Comment:All test results mus t be correlated with clinical findings.Negative results do not preclude SARS-CoV2, influenza Avirus, influenza B virus and/or RSV infectionand should not be used as the sole basis for treatment orother patient management decisions. Negative results must becombined with clinical observations, patient history, andepidemiological information.This test has not been evaluated for monitoring treatment ofinfection.This test has been authorized by the FDA under an EmergencyUse Authorization (EUA) for use by authorized laboratories.Testing performed on the [employer] GeneXpert utilizingreal-time RT-PCR.All SARS CoV2 and positive influenza A/B results arereported to [facility] 12/04/2024 4:14 PM EDT 12/04/2024 4:22 PM EDT us Generic External Data Provider LAB MICROBIOLOGY - GENERAL ORDERABLES Final Result Performing Organization Address [facility]/ZIP Co de Phone Number [facility] [address] [place] [phone] * (ABNORMAL) Comprehensive Metabolic Panel (12/04/2024 4:14 PM EDT) Sodium 141 135 - 145 mmol/L [facility] Potassium 4.5 3.3 - 5.1 mmol/L [facility] Chloride 106 96 - 108 mmol/L [facility] Carbon Dioxide 27 22 - 29 mmol/L [facility] Anion Gap 13 12 - 20 [facility] Urea Nitrogen (BUN) 7(L) 9 - 16 mg/dL [facility] Creatinine, Serum 0.71 0.5 - 1.4 mg/dL [facility] Creatinine Clr Calc Pharmacy 110.1 [facility] Comment:Provided height and weight: 160.02 cm,97.522 kg.eGFR (calculated from the MDRD study equation) and eCrCl(calculated from the Cockcroft-Gault equation) are based ondifferent parameters and may not yield comparable results.If eCrCl result is absurd, please check patient'sheight/weight. Estimated Glomerular Filt Rate >60 [facility] Comment:Chronic Kidney Disea se: Estimated GFR < 60 mL/min/[id number] Kidney Disease: Estimated GFR < 15 mL/min/1.73m2 Glucose 119(H) 60 - 115 mg/dL [facility] Calcium 10.2 8.4 - 10.2 mg/dL [facility] Bilirubin, Total 4.3(H) 0.0 - 1.0 mg/dL [facility] Comment:Slight Icterus. Aspartate Amino Transferase 387(H) 5 - 31 U/L [facility] Alanine Aminotransferase 817(H) 0 - 31 U/L [facility] Total Protein 7.9 6.5 - 8.0 g/dL [facility] Albumin Level 4.4 3.5 - 5.0 g/dL [facility] Alkaline Phosphatase 204(H) 39 - 117 U/L [facility] 12/04/2024 4:14 PM EDT 12/04/2024 4:22 PM EDT us Generic External Data Provider LAB BLOOD ORDERAB LES Final Result [facility] [address] [place] [phone] [phone] * High Sensitivity Troponin I (12/04/2024 4:14 PM EDT) TROPONIN I HIGH SENSITIVITY <2.7 <3.5 - 17.0 ng/L [facility] Comment:The Mckeon high sens itivity Troponin-I results should beused in conjunction with other diagnostic information suchas ECG, clinical observations and information, and patientsymptoms to aid in the diagnosis of PA. 12/04/2024 4:14 PM EDT 12/04/2024 4:22 PM EDT Generic External Data Provider LAB BLOOD ORDERAB LES Final Result Performing Organization Address City/[facility]/ZIP Co de Phone Number [facility] [address] [place] [phone] * Partial Thromboplastin Time, Activated (APTT) (12/04/2024 4:14 PM EDT) Pathologist [facility] Partial Thromboplastin Time 33.6 26.0 - 36.8 SEC [facility] Comment:For information rega rding the monitoring of direct thrombininhibitors, please refer to Pharmacy. 12/04/2024 4:14 PM EDT 12/04/2024 4:22 PM EDT Generic External Data Provider LAB BLOOD ORDERAB LES Final Result Performing Organization Address City/[facility]/ZIP Co de Phone Number [facility] [address] [place] [phone] * Prothrombin Time-INR (12/04/2024 4:14 PM EDT) Pathologist [facility] Prothrombin Time 11.1 10.9 - 12.4 SEC [facility] INTERNATIONAL NORM RATIO 1.0 0.9 - 1.1 [facility] Comment:INTERNATIONAL NORMAL IZED RATIO (INR) REFERENCE RANGES Reference RangeFor patients not on anticoagulant therapy: 0.9 - 1.1INR ranges for oral anticoagulanttherapy:For prevention and treatment of venous thrombosis and pulmonary embolism: 2.0 - 3.0For acute myocardial infarction with aspirin therapy: 2.0 - 3.0For acute myocardial infarction without aspirin therapy: 3.0 - 4.0For patients with mechanical prosthetic heart valves: 2.5 - 3.5 12/04/2024 4:14 PM EDT 12/04/2024 4:22 PM EDT us Generic External Data Provider LAB BLOOD ORDERAB LES Final Result [facility] [address] [place] [phone] [phone] * (ABNORMAL) CBC auto differential (12/04/2024 4:14 PM EDT) White Blood Count 3.6(L) 4.8 - 10.8 X10*3/uL [facility] Red Blood Count 5.04 4.20 - 5.50 X10*6/uL [facility] Hemoglobin 14.1 12.0 - 16.0 g/dl [facility] Hematocrit 43.1 37.0 - 47.0 % [facility] Mean Corpuscular Volume 85.5 80.0 - 98.0 fL [facility] Mean Corpuscular Hemoglobin 28.0 27.0 - 33.0 pg [facility] Mean Corpuscular HGB Conc 32.7 31.0 - 35.0 g/dl [facility] Red Cell Distribution Width 13.8 11.0 - 16.0 % [facility] Platelet Count 271 160 - 400 X10*3/uL [facility] Mean Platelet Volume 9.9 9.4 - 12.3 fL [facility] Neutrophils Percent Auto 56.1 45 - 73 % [facility] Imm Gran Pct Auto 0.3 0.0 - 0.4 % [facility] Lymphocytes Percent Auto 32.3 20 - 40 % [facility] Monocytes Percent Auto 6.6 2 - 11 % [facility] Eosinophils Percent Auto 4.1(H) 0 - 4 % [facility] Basophils Percent Auto 0.6 0 - 2 % [facility] NRBC Pct Auto 0.0 0.0 - 0.2 /100WBC [facility] Neutrophils Absolute Auto 2.0 2.0 - 8.3 x10*3/uL [facility] Imm Gran Abs Auto 0.01 0.00 - 0.03 X10*3/uL [facility] Lymphocytes Absolute Auto 1.2 1.2 - 4.9 X10*3/uL [facility] Monocytes Absolute Auto 0.2 0.1 - 1.2 X10*3/uL [facility] Eosinophils Absolute Auto 0.2 0.0 - 0.4 X10*3/uL [facility] Basophils Absolute Auto 0.0 0.0 - 0.2 X10*3/uL [facility] NRBC Abs Auto 0.000 0.0 - 0.012 X10*3/uL [facility] 12/04/2024 4:14 PM EDT 12/04/2024 4:22 PM EDT us Generic External Data Provider LAB BLOOD ORDERAB LES Final Result Performing Organization Address City/State/[facility] Co de Phone Number [facility] [address] [place] [phone] [phone] * XR Chest 1 View (12/04/2024 3:44 PM EDT) Anatomical Region Laterality Modality Chest Radiographic Hattie ging 12/04/2024 3:44 PM EDT Narrative 12/04/2024 3:58 PM EDT ? [facility] ?[address] ?[place] [address] ?XRay Report ? Signed ? Patient: Alli,Raissa ?MR#: [id number] ? : 1980 ?Acct:[id number] ? Age/Sex: 44 / F ?ADM Date: 04/22/25 ? Loc: HO.ED ? Attending Dr: ? Ordering Physician: Kodak Hylton ?? Date of Service: 12/04/24 ?? Procedure(s): XR chest 1V ?? Accession Number(s): [id number] ? cc: Kodak Hylton; Vikki Hall MD ? EXAMINATION: ?? XR CHEST ? CLINICAL INFORMATION: ?? Chest pain ? COMPARISON: ?? None available. ? TECHNIQUE: ?? Frontal view of the chest was obtained. ? FINDINGS: ?? The cardiac, hilar, and mediastinal contours are normal. ? Lungs demonstrate extremely subtle patchy opacity right mid to upper ?? lung zone. Lungs otherwise clear. No pneumothorax or effusion. ? No focal osseous or soft tissue abnormality. ? XR/XR chest 1V ?? IMPRESSION: ?? Extremely subtle opacity right mid to upper lung zone. This could ?? represent pneumonia in the appropriate clinical setting. ? Electronically signed by: ??Alex Hancock MD ??12/04/2024 03:55 PM EDT RP ? Dictated By: ?Alex Hancock MD ? Signed By: ?<Electronically signed by Alex Hancock MD in OV> ?12/04/24 1555 ? DD/ 1544 ? TD/TT: 12/04/24 1544 ? Field [employer] Harvest Machine Operator: ? Procedure Note Anastacio, Long - 12/04/2024 [place] [address] XRay Report Signed Patient: Raissa CarsonMR#: [id number] : 1980Acct:[id number] Age/Sex: 44 / FADM Date: 12/04/24 Loc: HO.ED Attending Dr: Ordering Physician: Kodak Hylton Date of Service: 12/04/24 Procedure(s): XR chest 1V Accession Number(s): [id number] cc: Kodak Hylton; Vikki Hall MD EXAMINATION: XR CHEST CLINICAL INFORMATION: Chest pain COMPARISON: None available. TECHNIQUE: Frontal view of the chest was obtained. FINDINGS: The cardiac, hilar, and mediastinal contours are normal. Lungs demonstrate extremely subtle patchy opacity right mid to upper lung zone. Lungs otherwise clear. No pneumothorax or effusion. No focal osseous or soft tissue abnormality. XR/XR chest 1V IMPRESSION: Extremely subtle opacity right mid to upper lung zone. This could represent pneumonia in the appropriate clinical setting. Electronically signed by: Alex Hancock MD 12/04/2024 03:55 PM EDT Dictated By: Alex Hancock MD Signed By: <Electronically signed by Alex Hancock MD in OV> 12/04/24 1555 DD/ 1544 TD/TT: 12/04/24 1544 [employer] Harvest Machine Operator: [facility] External Provider IMG XR PROCEDURES Final Result documented in this encounter Visit Diagnoses Not on filedocumented in this encounter Additional Health Concerns Assessment Noted Time PHQ-9 Depression Total Score: 8 09/27/19 25 1:02 PM EST documented as of this encounter Care Teams Gaming Dealer Relationship Specialty Start Date End Date Vikki Hall MD [address] [place] [address] PCP - General Family Medicine 08/15/18 documented as of this encounter
--- OUTSIDE RECORDS SUMMARY | 2024-12-04 19:06 | XMS_ITS | Encounter Summary ---
Author Organization [employer] [facility] Address [address] [place] [address] [address] [address] Care Team Providers Care Quill Reamer Name Role Phone Vikki Hall MD Primary Care Provider [phone] Encounter Details Date Type Department Care Team (Late st Contact Info) Description 12/31/2022 Orders Only [facility] [address] [place] [address] Alyse Dhillon LPN Social History Tobacco Use [...] [facility] [address] [place] [address] Vikki Hall MD [address] [place] [address] documented as of this encounter Visit Diagnoses Not on filedocumented in this encounter Care Teams Quill Reamer Relationship Specialty Start Date End Date Vikki Hall MD [address] [place] [address] PCP - General Family Medicine 08/15/18 documented as of this encounter
--- OUTSIDE RECORDS SUMMARY | 2024-12-04 19:06 | XMS_ITS | Encounter Summary ---
Author Organization [employer] [facility] Address [address] [place] [address] [address] [place] [address] Care Team Providers Care Maritime Pilot Name Role Phone Vikki Hall MD Primary Care Provider Encounter Details Date Type Department Care Team (Late Contact Info) Description 10/28/2023 Telephone [facility] [address] [place], [place] [phone] Akhil Castillo DDS [address] [place], [place] [phone] Social History Tobacco Use Types Packs/Day Years [...] Upcoming Encounters Date Type Department Care Team ([facility] Contact Info) Description 12/19/2024 9:00 AM EDT Telemedicine [facility] [address] [place], [place] [phone] Vikki Hall MD [address] [place] [address] documented as of this encounter Visit Diagnoses Not on filedocumented in this encounter Care Teams Maritime Pilot Relationship Specialty Start Date End Date Vikki Hall MD [address] [place] [address] PCP - General Family Medicine 08/15/18 documented as of this encounter
--- OUTSIDE RECORDS SUMMARY | 2024-12-04 19:06 | XMS_ITS | Encounter Summary ---
Author Organization [employer] [facility] Address [address] [place] [address] [address] [place] [address] Care Team Providers Care Sole Molder Name Role Phone Vikki Hall MD Primary Care Provider [phone] Reason for Visit * Reason Comments Med Refill Encounter Details Date Type Department Care Team (Late Contact Info) Description 12/06/2022 Telephone [facility] [address] [place], [place] [phone] Vikki Hall MD [address] [place] [address] Med Refill Social History Tobacco Use Types [...] Info) Description 12/19/2024 9:00 AM EDT Telemedicine [facility] [address] [place] [address] Vikki Hall MD [address] [place] [address] documented as of this encounter Visit Diagnoses Not on filedocumented in this encounter Care Teams Sole Molder Relationship Specialty Start Date End Date Vikki Hall MD [address] [place] [address] PCP - General Family Medicine 08/15/18 documented as of this encounter
--- OUTSIDE RECORDS SUMMARY | 2024-12-04 19:06 | XMS_ITS | Encounter Summary ---
Author Organization [employer] Address [address] [place] [address] [address] [place] [address] Care Team Providers Care Ramp Service Man Name Role Phone Vikki Hall MD Primary Care Provider [phone] Reason for Visit * Reason Onset Date Comments change of treatment 05/09/2024 Encounter Details Date Type Department Care Team (Late st Contact Info) Description 05/09/2024 Telephone [facility] [address] [place] [address] Peggy Larkin, DDS [address] [place] [address] change of treatment Social History Tobacco Use [...] Info) Description 12/19/2024 9:00 AM EDT Telemedicine [facility] [address] [place] [address] Vikki Hall MD [address] [place] [address] documented as of this encounter Visit Diagnoses Not on filedocumented in this encounter Care Teams Ramp Service Man Relationship Specialty Start Date End Date Vikki Hall MD [address] [place] [address] PCP - General Family Medicine 08/15/18 documented as of this encounter
--- OUTSIDE RECORDS SUMMARY | 2024-12-04 19:06 | XMS_ITS | Encounter Summary ---
Author Organization [employer] [facility] Address [address] [address] [place] [address] Care Team Providers Care Contact Lens Inspector Name Role Phone Vikki Hall MD Primary Care Provider [phone] Encounter Details Date Type Department Care Team (Late Contact Info) Description 03/16/2024 Telephone [facility] [address] [place] [address] Peggy Larkin DDS [address] [place] [address] Social History Tobacco Use Types Packs/Day Years [...] Upcoming Encounters Date Type Department Care Team ([facility] Contact Info) Description 12/19/2024 9:00 AM EDT Telemedicine [facility] [address] [place] [address] Vikki Hall MD [address] [facility] [address] documented as of this encounter Visit Diagnoses Not on filedocumented in this encounter Care Teams Contact Lens Inspector Relationship Specialty Start Date End Date Vikki Hall MD [address] [place] [address] PCP - General Family Medicine 08/15/18 documented as of this encounter
--- OUTSIDE RECORDS SUMMARY | 2024-12-04 19:06 | XMS_ITS | Clinical Summary ---
Author Organization [employer] Address [address] [place] [address] [address] [place] [address] Care Team Providers Care Senior Systems Architect Name Role Phone Vikki Hall MD Primary Care Provider [phone] Allergies No known active allergies Medications loratadine (Claritin) 10 MG tablet TAKE ONE TABLET BY MOUTH EVERY DAY NEEDED 12/07/19 23 Active cholecalciferol (Vitamin D-3) 25 MCG (1000 UT) tabletIndications :Low vitamin D level Take 1 tablet (25 mcg) by mouth in the morning. 30 tablet 11 09/24/19 24 Active Acetaminophen Extra Strength 500 MG tabletIndications :Lumbago with sciatica, right side TAKE ONE TABLET EVERY 6 HOURS NEEDED mild PAIN 90 tablet 3 04/03/20 24 Active meloxicam (Mobic) 7.5 MG tabletIndications :Chronic midline low back pain with right-sided sciatica TAKE ONE TABLET EVERY MORNING 30 tablet 3 04/05/20 24 Active meloxicam (Mobic) 15 MG tabletIndications :Acute right-sided low back pain with right-sided sciatica,Numbness and tingling of right lower extremity,Neck pain Take 1 tablet (15 mg) by mouth Once per day. 30 tablet 11 11/23/19 25 026 Active gabapentin (Neurontin) 300 MG capsuleIndication s:Lumbar disc disease with radiculopathy Take 1 capsule (300 mg) by mouth 3 times daily. 90 capsule 2 11/26/19 25 025 Active cholecalciferol (Vitamin D-3) 50 MCG (2000 UT) capsuleIndication s:Vitamin D deficiency Take 1 capsule (50 mcg) by mouth Once per day. 30 capsule 3 11/26/19 25 Active gabapentin (Neurontin) 300 MG capsule Take 1 capsule (300 mg) by mouth 3 times daily. 90 capsule 10/27/19 25 025 Discontinued(Re order (will not trigger notification to Pharmacy)) meloxicam (Mobic) 15 MG tabletIndications :Acute right-sided low back pain with right-sided sciatica,Numbness and tingling of right lower extremity,Neck pain Take 1 tablet (15 mg) by mouth Once per day. 30 tablet 11 10/27/19 25 025 Discontinued(Re order (will not trigger notification to Pharmacy)) cholecalciferol (Vitamin D-3) 50 MCG (2000 UT) capsuleIndication s:Vitamin D deficiency Take 1 capsule (50 mcg) by mouth Once per day. 30 capsule 3 10/27/19 025 Discontinued(Re order (will not trigger notification to Pharmacy)) Active Problems Problem Noted Date Diagnosed Date Chronic anxiety 04/02/2016 09/14/2023 Obesity with body mass index 30 or greater 04/02 Disorder of skeletal muscle 06/19/2013 Allergic rhinitis 06/22/2012 Anxiety 06/22/2012 Overweight 06/22/2012 Encounters Date Type Department Care Team Description 12/04/2024 Orders Only [facility] External Provider, [facility] 11/22/2024 Refill [facility] [address] [place] [address] Vikki Hall MD Vitamin D deficiency; Disorder of skeletal muscle; Lumbar disc disease with radiculopathy 11/22/[address] [facility] [address] [place] [address] Vikki Hall MD Acute right-sided low back pain with right-sided sciatica; Numbness and tingling of right lower extremity; Neck pain 10/25/2024 Refill [facility] [address] [place] [address] Vikki Hall MD 10/25/2024 Refill [facility] [address] [place] [address] Garrett Vann MD Vitamin D deficiency 10/25/[address] [facility] [address] [place] [address] Garrett Vann MD Acute right-sided low back pain with right-sided sciatica; Numbness and tingling of right lower extremity; Neck pain 10/25/2024 Refill [facility] [address] [place] [address] Vikki Hall MD 10/09/2024 Telephone [facility] [address] [place] [address] Vikki Hall MD 10/08/2024 Orders Only [facility] [address] [place] [address] Vikki Hall MD Lumbar disc disease with radiculopathy (Primary Dx); Right leg weakness; Protrusion of lumbar intervertebral disc 10/02/2024 Telephone [facility] [address] [place] [address] Vikki Hall MD MRI LUMBAR SPINE ORDER 09/27/2024 11:15 AM EST Office Visit [facility] [address] [place], [place] [phone] Vikki Hall MD Lumbar disc disease with radiculopathy (Primary Dx); Right leg weakness; Dietary counseling; Exercise counseling 09/27/2024 Travel 09/26/2024 Telephone [facility] [address] [place] [address] Vikki Hall MD Chart Prep 09/20/2024 Telephone [facility] [address] [place] [address] Garrett Vann MD Results (xray) 09/20/2024 Telephone [facility] [address] [place] [address] Garrett Vann MD Results (Labs) 09/20/2024 Orders Only [facility] [address] [place] [address] Garrett Vann MD Vitamin D deficiency (Primary Dx) 09/19/[address] [facility] [address] [place] [address] Vikki Hall MD insurance call 09/18/2024 Orders Only [facility] [address] [place] [address] Garrett Vann MD 09/17/2024 7:00 PM EST Office Visit [facility] [address] [place] [address] Garrett Vann MD Acute right-sided low back pain with right-sided sciatica (Primary Dx); Numbness and tingling of right lower extremity; Neck pain 09/17/2024 Telephone [facility] [address] [place] [address] Vikki Hall MD follow up appointment 09/17/2024 Travel 09/17/2024 Telephone [facility] [address] [place], [place] [phone] Vikki Hall MD Nurse Triage from Last 3 Months Immunizations Name Administration Dates Next Due Influenza injectable quadriv alent IIV4 with preservative 06/09/2018 Influenza injectable quadrivalent preservative f ree 06/11/2021 Influenza, IIV3, injectable 05/19/2012 Influenza, Split (incl. purified surface antigen ) 06/19/2013 Meningococcal MCV4P ACYW-135 05/19/2012 Meningococcal MPSV4 05/18/2012 Tdap 04/02/2016 Family History Medical History Relation Name Comments COPD Mother smoker Mother Hypertension Paternal Grandmother Relation Name Status Comments Mother Paternal Grandmother Social History Tobacco Use Types Packs/Day Years Used Date Smoking Tobacco: Never Passive Smoke Exposure: Never Smokeless Tobacco: Never Tobacco Cessation:Counseling Given: Not Answered Depression Answer Date Recorded Patient Health Questionnaire-9 [...] Sign Reading Time Taken Comments Blood Pressure 126/76 09/27/2024 11:28 AM EST Pulse 83 09/27/2024 11:28 AM EST Temperature 37.1 ??C (98.8 ??F) 09/27/2024 11:[address] Respiratory Rate 20 09/27/2024 11:28 AM EST Oxygen Saturation 100% 09/27/2024 11:28 AM EST Inhaled Oxygen Concentration - - Weight 96.2 kg (212 lb) 09/27/2024 11:28 AM EST Height 157.5 cm (5' 2 ) 09/27/2024 11:28 AM EST Body Mass Index 38.78 09/27/2024 11:28 AM EST Plan of Treatment Upcoming Encounters Date Type Department Care Team (Late st Contact Info) Description 12/19/2024 9:00 AM EDT Telemedicine [facility] [address] [place] [address] Vikik Hall MD [address] [place] [phone] Health Maintenance Due Date Last Done Comments CT Colonography 1980 Colonoscopy 1978 FIT 1980 FOBT 1980 HIV Screening 1980 Sigmoidoscopy 1980 Hepatitis C Screening 02/23/1996 Hepatitis B Vaccines [...] 06/11/2024 06/11/2021 Family Planning (PISQ) 01/15/2025 01/16/2024 Dental X-Ray: Bitewings 04/18/2025 04/17/20 24, 02/03/2024, 09/05/2023, Additional history exists Alcohol/Substance Use Screening 09/27/2025 09/27/2024 Depression Screening 09/27/2025 09/27/2024, 09/27/19 25 SDOH Screening 09/27/2025 09/27/2024 Tobacco Screening 09/27/2025 09/27/2024 DTaP/Tdap/Td Vaccines (2 - Td or Tdap) [...] Procedure Name Priority Date/Time Associated Diagnosis Comments LIPASE Routine 12/04/2024 4:14 PM EDT COMPREHENSIVE METABOLIC PANEL Routine 12/04/2024 4:14 PM EDT HIGH SENSITIVITY TROPONIN I Routine 12/04/2024 4:14 PM EDT APTT Routine 12/04/2024 4:14 PM EDT PROTHROMBIN TIME-INR Routine 12/04/2024 4:14 PM EDT CBC WITH AUTO DIFFERENTIAL Routine 12/04/2024 4:14 PM EDT SARS COV2/INFLUENZA A/B AND RSV RNA QL NAAT Routine 12/04/2024 4:14 PM EDT XR CHEST 1 VIEW Routine 12/04/2024 3:44 PM EDT AMB REFERRAL TO NEUROSURGERY STAT 10/24/2024 Lumbar disc disease with radiculopathy Right leg weakness Protrusion of lumbar intervertebral disc MR LUMBAR SPINE WO CONTRAST Urgent 10/08/2024 7:00 PM EST XR CERVICAL SPINE 3V Routine 09/18/2024 9:37 AM EST XR LUMBAR SPINE COMPLETE 4+ VIEWS Routine 09/18/2024 9:36 AM EST Acute right-sided low back pain with right-sided sciatica VITAMIN D,25-OH,TOTAL,IA Routine 09/18/2024 9:07 AM EST Acute right-sided low back pain with right-sided sciatica Numbness and tingling of right lower extremity BASIC METABOLIC PANEL Routine 09/18/2024 9:07 AM EST Acute right-sided low back pain with right-sided sciatica Numbness and tingling of right lower extremity VITAMIN B12/FOLATE, SERUM PANEL Routine 09/18/2024 9:07 AM EST Acute right-sided low back pain with right-sided sciatica Numbness and tingling of right lower extremity BITEWING - SINGLE RADIOGRAPHIC IMAGE Routine 04/17/2024 3:00 PM EDT LAB COLOGUARD?? COLON CANCER SCREEN Routine 02/20/2024 9:20 AM EDT Colon cancer screening PROPHYLAXIS - ADULT Routine 09/05/2023 8 :00 AM EST INTRAORAL - COMPLETE SERIES OF RADIOGRAPHIC IMAGES Routine 09/05/2023 8:00 AM EST PERIODIC ORAL EVALUATION - ESTABLISHED PATIENT Routine 09/05/2023 8:00 AM EST MAMMOGRAM GENERIC Routine 11/25/2021 9:0 5 AM EDT THINPREP IMAGING PAP AND HPV MRNA E6/E7 WITH REFLEX TO HPV 16,18/45 Routine 06/11/2021 3:05 PM EDT from Last 3 Months or Most Recently Relevant to Health Maintenance Results * High Sensitivity Troponin I (12/04/2024 4:14 PM EDT) TROPONIN I HIGH SENSITIVITY <2.7 <3.5 - 17.0 ng/L [facility] Comment:The Mckeon high sens itivity Troponin-I results should beused in conjunction with other diagnostic information suchas ECG, clinical observations and information, and patientsymptoms to aid in the diagnosis of CO. 12/04/2024 4:14 PM EDT 12/04/2024 4:22 PM EDT Generic External Data Provider LAB BLOOD ORDERAB LES Final Result Performing Organization Address [facility]/ZIP Co de Phone Number [facility] [address] [place] [phone] * SARS-CoV-2 RNA, Influenza A/B, and RSV RNA, Ql NAAT (12/04/2024 4:14 PM EDT) Influenza A PCR NEGATIVE Negative [facility] Influenza B PCR NEGATIVE Negative [facility] Resp Syncy Virus RNA Qual PCR NEGATIVE Negative [facility] SARS COV2 PCR NEGATIVE Negative [facility] Comment:All test results mus t [...] use by authorized laboratories.Testing performed on the [employer] GeneXpert utilizingreal-time RT-PCR.All SARS CoV2 and positive influenza A/B results arereported to [facility]. 12/04/2024 4:14 PM EDT 12/04/2024 4:22 PM EDT Generic External Data Provider LAB MICROBIOLOGY - GENERAL ORDERABLES Final Result Performing Organization Address [facility]/ZIP Co de Phone Number [facility] [address] [place] [phone] * (ABNORMAL) CBC auto differential (12/04/2024 4:14 PM EDT) White Blood Count 3.6(L) 4.8 - 10.8 X10*3/uL [facility] Red Blood Count 5.04 4.20 - 5.50 X10*6/uL [facility] Hemoglobin 14.1 12.0 - 16.0 g/dl [facility] Hematocrit 43.1 37.0 - 47.0 % [facility] Mean Corpuscular Volume 85.5 80.0 - 98.0 fL [facility] Mean Corpuscular Hemoglobin 28.0 27.0 - 33.0 pg [facility] Mean Corpuscular HGB Conc 32.7 31.0 - 35.0 g/dl [facility] Red Cell Distribution Width 13.8 11.0 - 16.0 % [facility] Platelet Count 271 160 - 400 X10*3/uL [facility] Mean Platelet Volume 9.9 9.4 - 12.3 fL [facility] Neutrophils Percent Auto 56.1 45 - 73 % [facility] Imm Gran Pct Auto 0.3 0.0 - 0.4 % [facility] Lymphocytes Percent Auto 32.3 20 - 40 % [facility] Monocytes Percent Auto 6.6 2 - 11 % [facility] Eosinophils Percent Auto 4.1(H) 0 - 4 % [facility] Basophils Percent Auto 0.6 0 - 2 % [facility] NRBC Pct Auto 0.0 0.0 - 0.2 /100WBC [facility] Neutrophils Absolute Auto 2.0 2.0 - 8.3 x10*3/uL [facility] Imm Gran Abs Auto 0.01 0.00 - 0.03 X10*3/uL [facility] Lymphocytes Absolute Auto 1.2 1.2 - 4.9 X10*3/uL [facility] Monocytes Absolute Auto 0.2 0.1 - 1.2 X10*3/uL [facility] Eosinophils Absolute Auto 0.2 0.0 - 0.4 X10*3/uL [facility] Basophils Absolute Auto 0.0 0.0 - 0.2 X10*3/uL [facility] NRBC Abs Auto 0.000 0.0 - 0.012 X10*3/uL [facility] 12/04/2024 4:14 PM EDT 12/04/2024 4:22 PM EDT Generic External Data Provider LAB BLOOD ORDERAB LES Final Result Performing Organization Address [facility]/ZIP Co de Phone Number [facility] [address] [place] [phone] * Partial Thromboplastin Time, Activated (APTT) (12/04/2024 4:14 PM EDT) Partial Thromboplastin Time 33.6 26.0 - 36.8 SEC [facility] Comment:For information rega rding the monitoring of direct thrombininhibitors, please refer to Pharmacy. 12/04/2024 4:14 PM EDT 12/04/2024 4:22 PM EDT Generic External Data Provider LAB BLOOD ORDERAB LES Final Result Performing Organization Address [facility] Co de Phone Number [facility] [address] [place] [phone] * Prothrombin Time-INR (12/04/2024 4:14 PM EDT) Prothrombin Time 11.1 10.9 - 12.4 SEC [facility] INTERNATIONAL NORM RATIO 1.0 0.9 - 1.1 [facility] Comment:INTERNATIONAL NORMAL IZED RATIO (INR) [...] ORDERAB LES Final Result Performing Organization Address [facility]/ZIP Co de Phone Number [facility] [address] [place] [phone] * Lipase (12/04/2024 4:14 PM EDT) Lipase 31 8 - 78 U/L [facility] 12/04/2024 4:14 PM EDT 12/04/2024 4:22 PM EDT Generic External Data Provider LAB BLOOD ORDERAB LES Final Result Performing Organization Address [facility] de Phone Number [facility] [address] [place] [phone] * (ABNORMAL) Comprehensive Metabolic Panel (12/04/2024 4:14 PM EDT) Sodium 141 135 - 145 mmol/L [facility] Potassium 4.5 3.3 - 5.1 mmol/L [facility] Chloride 106 96 - 108 mmol/L [facility] Carbon Dioxide 27 22 - 29 mmol/L [facility] Anion Gap 13 12 - 20 [facility] Urea Nitrogen (BUN) 7(L) 9 - 16 mg/dL [facility] Creatinine, Serum 0.71 0.5 - 1.4 mg/dL [facility] Creatinine Clr Calc Pharmacy 110.1 [facility] Comment:Provided height and weight: 160.02 cm,97.522 kg.eGFR (calculated from the MDRD study equation) and eCrCl(calculated from the Cockcroft-Gault equation) are based ondifferent parameters and may not yield comparable results.If eCrCl result is absurd, please check patient'sheight/weight. Estimated Glomerular Filt Rate >60 [facility] Comment:Chronic Kidney Disea se: Estimated GFR < 60 mL/min/1.80j7Vhscie Kidney Disease: Estimated GFR < 15 mL/min/1.73m2 Glucose 119(H) 60 - 115 mg/dL [facility] Calcium 10.2 8.4 - 10.2 mg/dL [facility] Bilirubin, Total 4.3(H) 0.0 - 1.0 mg/dL [facility] Comment:Slight Icterus. Aspartate Amino Transferase 387(H) 5 - 31 U/L [facility] Alanine Aminotransferase 817(H) 0 - 31 U/L [facility] Total Protein 7.9 6.5 - 8.0 g/dL [facility] Albumin Level 4.4 3.5 - 5.0 g/dL [facility] Alkaline Phosphatase 204(H) 39 - 117 U/L [facility] 12/04/2024 4:14 PM EDT 12/04/2024 4:22 PM EDT us Generic External Data Provider LAB BLOOD ORDERAB LES Final Result [facility] [address] [place] [phone] * XR Chest 1 View (12/04/2024 3:44 PM EDT) Anatomical Region Laterality Modality Chest Radiographic Hattie ging 12/04/2024 3:44 PM EDT Narrative 12/04/2024 3:58 PM EDT ? [facility] ?[address] ?[place] [address] ?XRay Report ? Signed ? Patient: Alli,Raissa ?MR#: [id number] ? : 1980 ?Acct:[id number] ? Age/Sex: 44 / F ?ADM Date: 04/22/25 ? Loc: HO.ED ? Attending Dr: ? Ordering Physician: Kodak Hylton ?? Date of Service: 12/04/24 ?? Procedure(s): XR chest 1V ?? Accession Number(s): [id number] ? cc: Kodak Hylton; Vikki Hall MD [...] DD/ 1544 ? TD/TT: 12/04/24 1544 ? Anesthesiologist Assistant Certified: ? Procedure Note Anastacio, Image - 12/04/2024 [place] [address] XRay Report Signed Patient: Raissa CarsonMR#: [id number] : 1980Acct:[id number] Age/Sex: 44 / FADM Date: 12/04/24 Loc: HO.ED Attending Dr: Ordering Physician: Kodak Hylton Date of Service: 12/04/24 Procedure(s): XR chest 1V Accession Number(s): [id number] cc: Kodak Hylton; Vikki Hall MD EXAMINATION: [...] Alex Hancock MD 12/04/2024 03:55 PM EDT RP Dictated By: Alex Hancock MD Signed By: <Electronically signed by Alex Hancock MD in OV> 12/04/24 1555 DD/ 1544 TD/TT: 12/04/24 1544 Anesthesiologist Assistant Certified: us [facility] External Provider IMG XR PROCEDURES Final Result * Referral to Neurosurgery (10/24/2024) us Vikki Hall MD OUTPATIENT REFERRAL ORDERABLE S Final Result * MR Lumbar Spine w/o Contrast (10/08/2024 7:00 PM EST) Anatomical Region Laterality Modality Spine, L-spine Magnetic Resonan ce 10/08/2024 7:00 PM EST Narrative 10/08/2024 7:02 PM EST ? [facility] ?[address] ?[place] [address] ? Magnetic Resonance Report ? Signed ? Patient: Raissa Carson ?MR#: [id number] ? : 1980 ?Acct:[id number] ? Age/Sex: 44 / F ?ADM Date: 10/08/24 ? Loc: HO.MRI ? Attending Dr: Vikki Hall MD ? Ordering Physician: Vikki Hall MD ?? Date of Service: 10/08/24 ?? Procedure(s): MR lumbar spine wo con ?? Accession Number(s): [id number] ? cc: Vikki Hall MD; BILLY GUTIERREZ MD ? CLINICAL HISTORY: acute lbp radiating to rt leg dragging foot leg ? MR lumbar spine without gadolinium ? Comparison: MR - MR LUMBAR SPINE WO CON - 10/07/20 19:39 EST ? Findings: ?? Mild levoscoliosis noted. ?? No acute fracture or acute malalignment. ?? Modic type endplate changes are present at L5 and S1. There is ?? near-complete disc space loss at this level. ?? No suspicious marrow lesion. ?? The conus terminates normally at L1. Cauda equina are unremarkable. ?? Paravertebral soft tissues are within normal limits. ?? Visualized retroperitoneal structures are within normal limits. ? Individual levels: ?? L1-L2: Unremarkable. ?? L2-L3: Small posterior disc protrusion with no significant resulting ?? central canal stenosis or neural foraminal narrowing. ?? L3-L4: Small posterior disc protrusion with no significant central canal ?? stenosis or neural foraminal narrowing. ?? L4-L5: Significant right-sided facet hypertrophy. Mild right neural ?? foraminal narrowing. No central canal stenosis. ?? L5-S1: Large posterior and right eccentric disc protrusion. There is ?? kcyz-upeabvq-izzf-right facet hypertrophy present. ?? Severe left neural foraminal narrowing. There is also significant mass ?? effect upon the descending right-sided S1 nerve root secondary to the disc ?? protrusion. There is also moderate right neural foraminal narrowing at ?? this level. ? Impression: ? There is a large right eccentric disc protrusion at L5-S1, similar to ?? prior which exerts mass effect upon the descending right-sided S1 nerve ?? root and results in moderately severe left-sided neural foraminal ?? narrowing and moderate right neural foraminal narrowing. ? This document has been electronically signed by: Bakari Mike MD on ?? 10/08/2024 19:00:52 ? Dictated By: ?Bakari Mike MD ? Signed By: ?<Electronically signed by Bakari Mike MD in OV> ? 10/08/24 1902 ? DD/ 1900 ? TD/TT: 10/08/24 1900 ? Anesthesiologist Assistant Certified: ? Procedure Note [place] - 10/08/[address] [address] Magnetic Resonance Report Signed Patient: Raissa CarsonMR#: [id number] : 1980Acct:[id number] Age/Sex: 44 / FADM Date: 10/08/24 Loc: HO.MRI Attending Dr: Vikki Hall MD Ordering Physician: Vikki Hall MD Date of Service: 10/08/24 Procedure(s): MR lumbar spine wo con Accession Number(s): [id number] cc: Vikki Hall MD; BILLY GUTIERREZ MD CLINICAL HISTORY: acute lbp radiating to rt leg dragging foot leg MR lumbar spine without gadolinium Comparison: MR - MR LUMBAR SPINE WO CON - 10/07/20 19:39 EST Findings: Mild levoscoliosis noted. No acute fracture or acute malalignment. Modic type endplate changes are present at L5 and S1. There is near-complete disc space loss at this level. No suspicious marrow lesion. The conus terminates normally at L1. Cauda equina are unremarkable. Paravertebral soft tissues are within normal limits. Visualized retroperitoneal structures are within normal limits. Individual levels: L1-L2: Unremarkable. L2-L3: Small posterior disc protrusion with no significant resulting central canal stenosis or neural foraminal narrowing. L3-L4: Small posterior disc protrusion with no significant central canal stenosis or neural foraminal narrowing. L4-L5: Significant right-sided facet hypertrophy. Mild right neural foraminal narrowing. No central canal stenosis. L5-S1: Large posterior and right eccentric disc protrusion. There is brft-pnfazwg-vlcs-right facet hypertrophy present. Severe left neural foraminal narrowing. There is also significant mass effect upon the descending right-sided S1 nerve root secondary to the disc protrusion. There is also moderate right neural foraminal narrowing at this level. Impression: There is a large right eccentric disc protrusion at L5-S1, similar to prior which exerts mass effect upon the descending right-sided S1 nerve root and results in moderately severe left-sided neural foraminal narrowing and moderate right neural foraminal narrowing. This document has been electronically signed by: Bakari Mike MD on 10/08/2024 19:00:52 Dictated By: Bakari Mike MD Signed By: <Electronically signed by Bakari Mike MD in OV> 10/08/241901 DD/ 99 TD/TT: 10/08/241899 Anesthesiologist Assistant Certified: us Vikki Hall MD IMG MRI PROCEDURES Final Resu lt * XR CERVICAL SPINE 3V (09/18/2024 9:37 AM EST) Anatomical Region Laterality Modality Abdomen Radiographic Hattie ging 09/18/2024 9:37 AM EST Narrative 09/18/2024 10:41 AM EST ? [facility] ?[address] ?[place] [address] ?XRay Report ? Signed ? Patient: Carson,Raissa ?MR#: [id number] ? : 1980 ?Acct:[id number] ? Age/Sex: 44 / F ?ADM Date: 09/18/24 ? Loc: HO.HHCL ? Attending Dr: Garrett Vann MD ? Ordering Physician: Garrett Vann MD ?? Date of Service: 09/18/24 ?? Procedure(s): XR cervical spine 3V ?? Accession Number(s): [id number] ? cc: Garrett Vann MD ? EXAMINATION: ?? XR CERVICAL SPINE ? CLINICAL INFORMATION: ?? PAIN ? COMPARISON: ?? September 30, 2021 ? TECHNIQUE: ?? 3 views of the cervical spine were obtained. ? FINDINGS: ?? Craniocervical junction is intact. ?? Marginal osteophyte formation and decreased intervertebral disc height ?? C5-6 and to a lesser extent C4-5 and C6-7. ?? No gross malalignment. No lytic or blastic lesions. Upper airway is ?? patent. ? XR/XR cervical spine 3V ?? IMPRESSION: ?? Multilevel cervical spondylosis C4 C7 without acute fracture or gross ?? listhesis. ? Electronically signed by: ??Temo Yadav MD ??09/18/2024 10:38 AM ?? EST RP ? Dictated By: ?Temo Coates MD ? Signed By: ?<Electronically signed by Temo Warren MD in OV> ? 09/18/24 1038 ? DD/ 0937 ? TD/TT: 09/18/24 1019 ? Anesthesiologist Assistant Certified: ? Procedure Note [place] - 09/18/[address] [address] XRay Report Signed Patient: Raissa CarsonMR#: [id number] : 1980Acct:[id number] Age/Sex: 44 / FADM Date: 09/18/24 Loc: HO.HHCL Attending Dr: Garrett Vann MD Ordering Physician: Garrett Vann MD Date of Service: 09/18/24 Procedure(s): XR cervical spine 3V Accession Number(s): [id number] cc: Garrett Vann MD EXAMINATION: XR CERVICAL SPINE CLINICAL INFORMATION: PAIN COMPARISON: September 30, 2021 TECHNIQUE: 3 views of the cervical spine were obtained. FINDINGS: Craniocervical junction is intact. Marginal osteophyte formation and decreased intervertebral disc height C5-6 and to a lesser extent C4-5 and C6-7. No gross malalignment. No lytic or blastic lesions. Upper airway is patent. XR/XR cervical spine 3V IMPRESSION: Multilevel cervical spondylosis C4 C7 without acute fracture or gross listhesis. Electronically signed by: Temo Yadav MD 09/18/2024 10:38 AM EST Dictated By: Temo Coates MD Signed By: <Electronically signed by Temo Warren MDin OV> 09/18/24 1038 DD/ 0937 TD/TT: 09/18/24 1019 Anesthesiologist Assistant Certified: us Garrett Vann MD IMG XR PROCEDURES Final Res ult * XR Lumbar Spine Complete 4+ Views (09/18/2024 9:36 AM EST) Anatomical Region Laterality Modality Spine, L-spine Radiographic Hattie ging 09/18/2024 9:36 AM EST Narrative 09/18/2024 10:43 AM EST ? [facility] ?[address] ?[place] [address] ?XRay Report ? Signed ? Patient: Carson,Raissa ?MR#: [id number] ? : 1980 ?Acct:[id number] ? Age/Sex: 44 / F ?ADM Date: 02/04/25 ? Loc: HO.HHCL ? Attending Dr: Garrett Vann MD ? Ordering Physician: Garrett Vann MD ?? Date of Service: 09/18/24 ?? Procedure(s): XR lumbar spine 4V min ?? Accession Number(s): [id number] ? cc: Garrett Vann MD ? EXAMINATION: ?? X-ray lumbar spine 4 views. ? CLINICAL INFORMATION: ?? Low back pain. Into the right lower extremity. ? COMPARISON: ?? September 30, 2021. ? TECHNIQUE: ?? 4 views lumbar spine. ? FINDINGS: ?? Levoconvex curvature apex at L3-4. Facet joint hypertrophy at L5-S1 and ?? to a lesser extent L4-5 levels. ?? Mild endplate sclerosis and marginal osteophyte formation more ?? conspicuous at L5-S1. ?? No acute cortical disruption or malalignment. ? XR/XR lumbar spine 4V min ?? IMPRESSION: ? Scoliosis and multilevel lumbar spondylosis more conspicuous at L5-S1. ? Electronically signed by: ??Temo Yadav MD ??09/18/2024 10:40 AM ?? EST RP ? Dictated By: ?Temo Coates MD ? Signed By: ?<Electronically signed by Temo Warren MD in OV> ? 02/04/25 1040 ? DD/ 0936 ? TD/TT: 09/18/24 1019 ? Anesthesiologist Assistant Certified: ? Procedure Note Anastacio, Image - 09/18/2024 [place] [address] XRay Report Signed Patient: Raissa CarsonMR#: [id number] : 1980Acct:[id number] Age/Sex: 44 / FADM Date: 09/18/24 Loc: HO.HHCL Attending Dr: Garrett Vann MD Ordering Physician: Garrett Vann MD Date of Service: 09/18/24 Procedure(s): XR lumbar spine 4V min Accession Number(s): [id number] cc: Garrett Vann MD EXAMINATION: X-ray lumbar spine 4 views. CLINICAL INFORMATION: Low back pain. Into the right lower extremity. COMPARISON: September 30, 2021. TECHNIQUE: 4 views lumbar spine. FINDINGS: Levoconvex curvature apex at L3-4. Facet joint hypertrophy at L5-S1 and to a lesser extent L4-5 levels. Mild endplate sclerosis and marginal osteophyte formation more conspicuous at L5-S1. No acute cortical disruption or malalignment. XR/XR lumbar spine 4V min IMPRESSION: Scoliosis and multilevel lumbar spondylosis more conspicuous at L5-S1. Electronically signed by: Temo Yadav MD 09/18/2024 10:40 AM EST RP Dictated By: Temo Coates MD Signed By: <Electronically signed by Temo Warren MDin OV> 09/18/24 1040 DD/ 0936 TD/TT: 09/18/24 1019 Anesthesiologist Assistant Certified: us Garrett aVnn MD IMG XR PROCEDURES Final Res ult * (ABNORMAL) Vitamin D, 25-Hydroxy, Total, Immunoassay (09/18/2024 9:07 AM EST) Vitamin D 25-OH Total 26.1(L) >30 ng/mL [facility] Comment:Health Based Referen ce Values*< 20 ng/mL Xbrounvtu00-27 ng/mL Insufficient> 30 ng/mL Sufficient*Ruiz GASTELUM. N Engl J Med. 2007;357:266-280Care must be taken in interpreting Vitamin D results fromdifferent laboratories and methodologies. Published datademonstrated that results from patients undergoinghemodialysis may show a negative bias when tested withvarious automated 25-OH vitamin D assays when compared toLC-MS/MS.When testing samples from patients whose predominant form ofVitamin D is Vitamin D2, such as patients receiving VitaminD2 supplementation, results that are subtherapeutic shouldbe confirmed with another method such as LC-MS/MS. Blood Venous blood specimen / Unknown 09/18/2024 9:07 AM EST 09/18/2024 11:27 AM EST us Garrett Vann MD LAB BLOOD ORDERABLES Final Result [facility] [address] [place] [address] [phone] * Vitamin B12/Folate, Serum Panel (09/18/2024 9:07 AM EST) Vitamin B12 617 200 - 900 pg/mL [facility] Comment:NORMAL 200-900 PG/ML INDETERMINATE 160-199 PG/ML DEFICIENT < 160 PG/ML Folate 11.2 > or = 4.0 ng/mL [facility] Comment:Reference Values:> o r = 4.0 ng/mL< 4.0 ng/mL suggests folate deficiency Methotrexate, aminopterin and folinic acid(leucovorin) are chemotherapeutic agents whose molecularstructures are similar to folate; therefore, the Architectfolate assay cannot be used for patients using these drugs. Blood Venous blood specimen / Unknown 09/18/2024 9:07 AM EST 09/18/2024 11:27 AM EST us Garrett Vann MD LAB BLOOD ORDERABLES Final Result Performing Organization Address [facility] de Phone Number [facility] [address] [place] [address] [phone] * (ABNORMAL) Basic Metabolic Panel (09/18/2024 9:07 AM EST) Pathologist [facility] Sodium 142 135 - 145 mmol/L [facility] Potassium 4.4 3.3 - 5.1 mmol/L [facility] Chloride 109(H) 96 - 108 mmol/L [facility] Carbon Dioxide 26 22 - 29 mmol/L [facility] Anion Gap 11(L) 12 - 20 [facility] Urea Nitrogen (BUN) 16 9 - 16 mg/dL [facility] Creatinine, Serum 0.75 0.5 - 1.4 mg/dL [facility] Estimated Glomerular Filt Rate >60 [facility] Comment:Chronic Kidney Disea se: Estimated GFR < 60 mL/min/1.77j8Vahxor Kidney Disease: Estimated GFR < 15 mL/min/1.73m2 Glucose 102 60 - 115 mg/dL [facility] Calcium 9.8 8.4 - 10.2 mg/dL [facility] Blood Venous blood specimen / Unknown 09/18/2024 9:07 AM EST 09/18/2024 11:27 AM EST us Garrett Vann MD LAB BLOOD ORDERABLES Final Result [facility] [address] [place] [address] [phone] * Cologuard?? colon cancer screening (02/20/2024 9:20 AM EDT) Cologuard Result Negative Negative 02/25/20 2:38 PM EDT [facility] (CLIA #:[id number]) Comment: NEGATIVE TEST RESULT. A negative Cologuard [...] cancer. ??Following a negative Cologuard result, the [place] Cancer Society and U.S. Multi-Society Task Force screening guidelines recommend a Cologuard re-screening interval of 3 years. References: [place] [employer] Guideline for Colorectal Cancer Screening: https://www.cancer.org/cancer/pwjwv-cyyvrj-zulzjj/wpkpozmlt-rzdmghlhy-eucuccb/ac s-rec ommendations.html.; Mckinley DK, Vale CR, Svetlana FigueroaK, Colorectal Cancer Screening: Recommendations for Physicians and Patients from the U.S. Multi-Society Task Force on Colorectal Cancer Screening , Am J Gastroenterology 2017; 112:1712-6660. TEST DESCRIPTION: Composite algorithmic analysis of stool [...] Ann Goode al, N Engl J Med 2014;370(14):4874-0071.) Cologuard may produce a false negative or false positive result (no colorectal cancer or precancerous polyp present at colonoscopy follow up). A negative Cologuard test result does not guarantee the absence of CRC or advanced adenoma (pre-cancer). The current Cologuard screening interval is every 3 years. ([place] [employer] Society and U.S. Multi-Society Task Force). Cologuard performance data in a 10,000 patient pivotal study using colonoscopy as the reference method can be accessed at the following location: www.Secure[employer].PreisAnalytics/results. Additional description of the Cologuard test process, warnings and precautions can be found at www.Mobile Armorrd.com. Stool specimen (specimen) 02/20/2024 9:20 AM EDT 2024 10:48 AM EDT us Vikki Hall MD LAB MOLECULAR DIAGNOSTICS ORD ERABLES Final Result [facility] (CLIA #:[id number]) [place] [address], [place] [phone] * Mammography Report 1 (11/25/2021 9:05 AM [...] 3:05 PM EDT) Clinical Information: None given [facility] COMMENT SEE COMMENT [facility] [...] has been evaluated with computer assisted technology. [facility] Manufacturing Maintenance Manager: SEE COMMENT [facility] Comment: YP, CT(ASCP) CT screening location: [address] ??[address] HPV nRNA E6/E7 Not Detected Not Detected [facility] Comment: Methodology: Airbrush Artist Technical-Mediated Amplification This assay detects E6/E7 viral messenger RNA (mRNA) from 14 high-risk HPV types (16,18,31,33,35,39,45,51,52,56,58,59,66,68). ? The analytical performance characteristics of this assay have been determined by [employer]. The modifications have not been cleared or approved by the FDA. This assay has been validated pursuant to the CLIA regulations and is used for clinical purposes. ?? For additional information, please refer to http://ClairMail.Global Value Commerce/faq/BXL531q4 (This link if provided for information/ educational purposes only.) Interpretation/Re sult: Negative for intraepithelial lesion or malignancy. [facility] LMP: 05/21/21 [facility] Prev. BX: NONE GIVEN [facility] Prev. PAP: 04/02/16 [facility] SOURCE: Cervix [facility] Statement Of Adequacy: SEE COMMENT [facility] Comment: Satisfactory for evaluation. Endocervical/transformation zone component present. Age and/or menstrual status not provided 06/11/2021 3:05 PM EDT us Vikki Hall MD LAB PATHOLOGY ORDERABLES Rupinder jaime Result [facility] [address] from Last 3 Months or Most Recently Relevant to Health Maintenance Insurance [facility] , [address] [place] [address] [facility] Care Teams Senior Systems Architect Relationship Specialty Start Date End Date Vikki Hall MD [address] [place] [phone] PCP - General Family Medicine 08/15/18
--- OUTSIDE RECORDS SUMMARY | 2024-12-04 19:06 | XMS_ITS | Encounter Summary ---
Author Organization [employer] Address [address] [place] [address] 7 [place] [address] Care Team Providers Care Guest Advisor Name Role Phone Vikki Hall MD Primary Care Provider [phone] Reason for Visit * Reason Onset Date Comments Med Refill 10/25/2024 Encounter Details Date Type Department Care Team (Late st Contact Info) Description 10/25/2024 Refill [facility] [address] [place], [place] [phone] Vikki Hall MD [address] [place] [address] Social History Tobacco Use Types Packs/Day Years [...] Upcoming Encounters Date Type Department Care Team ([facility] st Contact Info) Description 12/19/2024 9:00 AM EDT Telemedicine [facility] [address] [place] [address] Vikki Hall MD [address] [place] [address] documented as of this encounter Visit Diagnoses Not on filedocumented in this encounter Additional Health Concerns Assessment Noted Time PHQ-9 Depression Total Score: 8 09/27/19 25 1:02 PM EST documented as of this encounter Care Teams Guest Advisor Relationship Specialty Start Date End Date Vikki Hall MD [address] [place] [address] PCP - General Family Medicine 08/15/18 documented as of this encounter
--- NOTE | 2024-12-04 21:40 | P.HPHOSP_ITS ---
History of Present Illness Date of Service: 12/04/24 Chief Complaint: abd pain 44-year-old female with a past medical history of chronic back pain status post diskectomy recently presented to the hospital today with a chief complaint of abdominal pain. Patient reports that since Tuesday she has been having right upper quadrant abdominal pain. Denies any nausea or vomiting. Reports having chills. Denies any chest pain or palpitations. Denies any diarrhea. Denies any urinary symptoms. Patient reports that she felt pain in her chest today. Which currently resolved. Review of all other systems is negative except mentioned above ER course: Per ER team, patient reported having chest pain-EKG nonischemic, troponin negative. CT chest showed no evidence of PE. Also reported having abdominal pain-tender in the right upper quadrant; CT abdomen pelvis shows findings concerning for possible acute cholecystitis. Discussed with general surgery who suggested admission to the medicine service for MRCP. Also noted to have elevated liver enzymes. 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, lumbosacral No known health problems Social History Smoked in Last 30 Days: No Use of substances other than those prescribed or required for medical reasons: No Advance Directives: No Advance Directives Information Provided: No Patient : No Meds Allergies Allergy/AdvReac Type Severity Reaction Status Date / Time No Known Allergies Allergy Verified 12/04/24 15:33 Active Medications: Current Medications Acetaminophen (Acetaminophen 325 Mg Tablet) 650 mg PO Q6H PRN PRN Reason: Pain, Mild 1-3,fever,headache Calcium Carbonate (Calcium Carbonate 750 Mg Tab.Chew) 750 mg PO Q4H PRN PRN Reason: Heartburn Ceftriaxone Sodium (Ceftriaxone Sodium 1 Gm Vial) 1 gm IVPUSH Q24H JUDI Enoxaparin Sodium (Enoxaparin Sodium 40 Mg/0.4 Ml Syringe) 40 mg SUBCUT Q24H JUDI Hydromorphone HCl (Hydromorphone Hcl 0.5 Mg/0.5 Ml Syringe) 0.5 mg IVPUSH Q4H PRN; Protocol PRN Reason: Pain, Severe (Pain Scale 7-10) Lactated Ringer's (Lr) 1,000 mls @ 100 mls/hr IVCONT .Q10H JUDI Metronidazole (Flagyl) 500 mg in 100 mls @ 100 mls/hr IV Q8H JUDI Magnesium Hydroxide (Milk Of Magnesia 30 Ml Oral.Susp) 30 ml PO DAILY PRN PRN Reason: Constipation Melatonin (Melatonin 3 Mg Tablet) 6 mg PO BEDTIME PRN PRN Reason: Insomnia Sodium Chloride (0.9 % Sodium Chloride Flush 3 Ml Syringe) 3 ml IVFLUSH QSHIFT JUDI Home Medications ?Medication ?Instructions ?Recorded ?Confirmed ?Last Taken ?Type gabapentin 300 mg capsule 600 mg PO BEDTIME 11/10/20 12/04/24 12/03/24 History cholecalciferol (vitamin D3) 50 50 mcg PO DAILY 12/04/24 12/04/24 12/03/24 History mcg (2,000 unit) capsule diazepam 2 mg tablet 2 mg PO BEDTIME 12/04/24 12/04/24 12/03/24 History Physical Exam 2 Vital Signs and Narrative: Vital Signs: Last Vital Signs Temp 98.1 F 12/04/24 15:28 Pulse 91 12/04/24 19:04 Resp 18 12/04/24 19:04 BP 124/44 L 12/04/24 19:04 Pulse Ox 99 12/04/24 19:04 O2 Del Method Room Air 12/04/24 19:04 BMI result Body Mass Index 38.1 Gen: Appears be in no acute distress HEENT: NCAT, Moist mucosa. Pulmonary: Vesicular breath sounds, fair air entry CVS: Normal S1-S2 Abdomen: BS+, Soft, mildly tender in the right upper quadrant-no guarding no rigidity Extremities: Warm well perfused Neuro: Alert and awake. Results Labs 12/04/24 16:14 12/04/24 16:14 Labs: Laboratory Results - last 24 hr 12/04/24 16:14 MCV 85.5 MCH 28.0 MCHC 32.7 RDW 13.8 Plt Count 271 MPV 9.9 Immature Gran % (Auto) 0.3 Neut % (Auto) 56.1 Lymph % (Auto) 32.3 Foster % (Auto) 6.6 Eos % (Auto) 4.1 H Baso % (Auto) 0.6 Lymph # (Auto) 1.2 Foster # (Auto) 0.2 Eos # (Auto) 0.2 Baso # (Auto) 0.0 Abs Immat Gran (auto) 0.01 Absolute Neuts (auto) 2.0 Absolute Nucleated RBC 0.000 Nucleated RBC % (auto) 0.0 PT 11.1 INR 1.0 APTT 33.6 Anion Gap 13 Estim Creat Clear Calc 110.1 Estimated GFR > 60 Random Glucose 119 H Calcium 10.2 Total Bilirubin 4.3 H AST 387 H ALT 817 H Alkaline Phosphatase 204 H Total Protein 7.9 Albumin 4.4 Lipase 31 Influenza Type A (PCR) NEGATIVE Influenza Type B (PCR) NEGATIVE RSV RNA Qual (PCR) NEGATIVE SARS-CoV-2 RNA (RT-PCR) NEGATIVE Imaging Radiologist's Impressions: Impressions Chest X-Ray 12/04/24 15:44 IMPRESSION: Extremely subtle opacity right mid to upper lung zone. This could represent pneumonia in the appropriate clinical setting. Electronically signed by: Alex Hancock MD 12/04/2024 03:55 PM EDT Assessment and Plan (1) Biliary calculi, common bile duct: Status: Acute Plan 44-year-old female with a past medical history of chronic back pain status post diskectomy recently presented to the hospital today with a chief complaint of abdominal pain. Admitted following Transaminitis: Biliary colic versus cholangitis: Suspected acute cholecystitis: Patient probably had a gallstone that has passed. Right upper quadrant ultrasound concerning for possible acute cholecystitis- general surgery was notified who recommended admission to the medicine service. Empirically covered with antibiotics. CT and pelvis showed biliary ductal dilation Pain control Gentle IV fluids General surgery and Gastroenterology follow up in a.m. Chest pain: Atypical. Resolved. EKG nonischemic. Troponin negative. CT chest no evidence of PE. Chronic back pain: Continue home gabapentin DVT prophylaxis: Lovenox Code status: Full code Quality Stroke Does the patient have a stroke diagnosis?: No VTE Prior VTE?: No VTE Risk Level:: Medical - moderate - high VTE Device Contraindication: Treatment Not Indicated VTE Drug Contraindication: N/A - Med Ordered
[2024-12-04 21:46] VITALS: BP 140/86; PULSE 94; RESP 12; TEMP 37.3; O2SAT 98
--- NOTE | 2024-12-04 21:58 | PHA.MEDREC ---
Addendum entered by Jesus Alcaraz [facility] 12/04/24 22:05: med rec reviewed Original Note: Pharmacy Consult ? Medication Reconciliation Pharmacy has completed the medication reconciliation. Spoke to patient to confirm med list. Patient states she is not taking Meloxicam 15 mg, and Oxycodone 5 mg . Patient states she takes Diazepam 2 mg at bed time, not TID as claim has and Gabapentin 600 mg (2x 300 mg) at bedtime
[2024-12-04] MEDS: cefTRIAXone sodium 1 GM VIAL IVPUSH (22:17)
[2024-12-04] MEDS: Enoxaparin Sodium 40 MG/0.4 ML SYRINGE SUBCUT (22:17)
[2024-12-04] MEDS: Lactated Ringers 1,000 ML 100 ML IVCONT (22:18)
[2024-12-04 22:19] VITALS: BMI 36.7
[2024-12-04] MEDS: metroNIDAZOLE/NS 500 MG/100 ML PIGGYBACK 100 MG IV (22:26)
[2024-12-04] MEDS: Gabapentin 600 MG TABLET PO (22:36)
[2024-12-05] VITALS (8 sets, daily range): BP systolic 91–139; BP diastolic 54–85; PULSE 62–91; RESP 16–20; TEMP 36.3–36.9; O2SAT 92–99
[2024-12-05] MEDS: metroNIDAZOLE/NS 500 MG/100 ML PIGGYBACK 100 MG IV ×3 (05:56→22:19)
--- NOTE | 2024-12-05 06:01 | P.CONGS_ITS ---
History of Present Illness Consult details Consult date: 12/05/24 Requesting physician: Carl Villanueva Narrative: Raissa Carson is a 44-year-old female with PMH of lumbosacral DDD, hx of lumbar microdiscectomy 1 month prior who presented to the ED with complaints of chest and epigastric abdominal pain. She thinks the pain began Tuesday night and has gradually worsened and became severe in nature. She also developed chest pain that was worse with breathing. She reports her sister noted her skin appeared more yellow. She denies change in stool color but urine is darker. She presented to the ED where work up included CBC, BMP, LFTs which was significant for significant for a t bili of 4.3, AST/ALT 387/817, troponin 2.7. Chest CTA, abd US and CT abd/pelvis showed gallstones, distended gallbladder, very mild gallbladder wall thickness with mildly dilated intra and extrahepatic ducts. Negative for PE. She was admitted to the medical service for further evaluation and treatment of the elevated LFTs. She was started on IV flagyl and rocephin for presumed acute cholecystitis. She denies fever, chills, nausea, vomiting, diarrhea, palpitations. She denies prior similar episodes of pain. 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, lumbosacral No known health problems Surgical History Surgical History (Updated 12/05/24 @ 09:39 by Alla Thorne PA-C) S/P lumbar microdiscectomy Social History Social History Household Members: Spouse Housing: House Do you presently have visiting nurse or other home services: No Patient Tobacco Use Status: Never used Tobacco Smoked in Last 30 Days: No Use of substances other than those prescribed or required for medical reasons: No Currently Displaying Signs/Symptoms of Drug Intoxication Withdrawal: No Have you been hit, kicked, punched, or otherwise hurt by someone within the past year? If so, by whom?: No Do you feel safe in your current relationship?: Yes Are you made to feel afraid or neglected: No Advance Directives: No Advance Directives Information Provided: No Do you have a plan to hurt others: No Plan Patient : No service: No Meds Allergies Allergy/AdvReac Type Severity Reaction Status Date / Time No Known Allergies Allergy Verified 12/04/24 15:33 Active Medications: Current Medications Acetaminophen (Acetaminophen 325 Mg Tablet) 650 mg PO Q6H PRN PRN Reason: Pain, Mild 1-3,fever,headache Calcium Carbonate (Calcium Carbonate 750 Mg Tab.Chew) 750 mg PO Q4H PRN PRN Reason: Heartburn Ceftriaxone Sodium (Ceftriaxone Sodium 1 Gm Vial) 1 gm IVPUSH Q24H [facility] Last Admin: 12/04/24 22:17 Dose: 1 gm Enoxaparin Sodium (Enoxaparin Sodium 40 Mg/0.4 Ml Syringe) 40 mg SUBCUT Q24H [facility] Last Admin: 12/04/24 22:17 Dose: 40 mg Gabapentin (Gabapentin 600 Mg Tablet) 600 mg PO BEDTIME [facility] Last Admin: 12/04/24 22:36 Dose: 600 mg Hydromorphone HCl (Hydromorphone Hcl 0.5 Mg/0.5 Ml Syringe) 0.5 mg IVPUSH Q4H PRN; Protocol PRN Reason: Pain, Severe (Pain Scale 7-10) Lactated Ringer's (Lr) 1,000 mls @ 100 mls/hr IVCONT .Q10H [facility] Last Admin: 12/04/24 22:18 Dose: 100 mls/hr Metronidazole (Flagyl) 500 mg in 100 mls @ 100 mls/hr IV Q8H [facility] Last Admin: 12/05/24 05:56 Dose: 100 mls/hr Magnesium Hydroxide (Milk Of Magnesia 30 Ml Oral.Susp) 30 ml PO DAILY PRN PRN Reason: Constipation Melatonin (Melatonin 3 Mg Tablet) 6 mg PO BEDTIME PRN PRN Reason: Insomnia Sodium Chloride (0.9 % Sodium Chloride Flush 3 Ml Syringe) 3 ml IVFLUSH QSHIFT [facility] Last Admin: 12/04/24 23:38 Dose: Not Given Home Medications ?Medication ?Instructions ?Recorded ?Confirmed ?Last Taken ?Type gabapentin 300 mg capsule 600 mg PO BEDTIME 11/10/20 12/04/24 12/03/24 History cholecalciferol (vitamin D3) 50 50 mcg PO DAILY 12/04/24 12/04/24 12/03/24 History mcg (2,000 unit) capsule diazepam 2 mg tablet 2 mg PO BEDTIME 12/04/24 12/04/24 12/03/24 History Physical Exam 2 Vital Signs: Vital Signs: Last Vital Signs Temp 97.4 F 12/05/24 03:22 Pulse 82 12/05/24 03:22 Resp 18 12/05/24 03:22 BP 102/60 12/05/24 03:22 Pulse Ox 96 12/05/24 03:22 O2 Del Method Room Air 12/05/24 03:22 BMI result Body Mass Index 36.7 Const: General: comfortable, no acute distress and alert O rientation/consciousness: patient oriented x3 Eyes: Sclerae: scleral abnormal (icteric) Resp: Effort & Inspection: normal respiratory effort GI: Inspection: Yes normal to inspection Palpation (GI): Soft to palpation, Tenderness to palpation present (GI) in the LUQ and Solano's sign positive and no guarding Percussion: Yes normal to percussion Skin: General skin exam: jaundice Neuro: General: patient oriented x3 and moves all extremities Results Labs 12/05/24 06:41 12/05/24 06:41 Labs: Abnormal lab results 12/04/24 Range/Units 16:14 WBC 3.6 L (4.8-10.8) X10*3/uL Eos % (Auto) 4.1 H (0-4) % BUN 7 L (9-16) mg/dL Random Glucose 119 H (60-115) mg/dL Total Bilirubin 4.3 H (0.0-1.0) mg/dL AST 387 H (5-31) U/L ALT 817 H (0-31) U/L Alkaline Phosphatase 204 H (39-117) U/L Short CBC 12/04/24 Range/Units 16:14 WBC 3.6 L (4.8-10.8) X10*3/uL Hgb 14.1 (12.0-16.0) g/dl Hct 43.1 (37.0-47.0) % Plt Count 271 (160-400) X10*3/uL BMP 12/04/24 16:14 Sodium 141 Potassium 4.5 Chloride 106 Carbon Dioxide 27 BUN 7 L Creatinine 0.71 Calcium 10.2 Liver Function 12/04/24 Range/Units 16:14 Total Bilirubin 4.3 H (0.0-1.0) mg/dL AST 387 H (5-31) U/L ALT 817 H (0-31) U/L Alkaline Phosphatase 204 H (39-117) U/L Albumin 4.4 (3.5-5.0) g/dL All other labs normal. Imaging Abdomen CT scan report/results: report reviewed and image reviewed Abdominal ultrasound report/results: report reviewed and image reviewed Assessment and Plan (1) Acute cholecystitis due to biliary calculus: Status: Acute Plan 44-year-old female with PMH of lumbosacral DDD, hx of lumbar microdiscectomy 1 month ago who presented with epigastric and chest pain. She was found to have significant hyperbilirubinemia and mildly dilated intra and extrahepatic ducts on imaging along with gallstones, distended GB with mild wall thickening. Agree with MRCP and GI consult- repeat LFTs are persistently elevated. She has RUQ tenderness with solano sign consistent with acute cholecystitis- cont IV Abx. Await MRCP for further plan and possible need for ERCP. We briefly discussed proceeding with laparoscopic cholecystectomy, possible open during this stay for the acute cholecystitis as well as prevention of choledocolithiasis if this is present. She is in agreement. Will continue to follow. Procedures Date of Service Date of Service: 12/05/24
[2024-12-05 07:07] LABS: Hemoglobin 13.5 g/dl (12.0-16.0); Mean Corpuscular HGB Conc 32.9 g/dl (31.0-35.0); Mean Corpuscular Hemoglobin 27.9 pg (27.0-33.0); Mean Corpuscular Volume 84.7 fL (80.0-98.0); Platelet Count 256 X10*3/uL (160-400); Red Blood Count 4.84 X10*6/uL (4.20-5.50); Red Cell Distribution Width 13.5 % (11.0-16.0); White Blood Count 4.5 X10*3/uL (4.8-10.8)
--- NOTE | 2024-12-05 07:15 | HO.PM.IMPN ---
Subjective Subjective Date of Service: 12/05/24 Interval History: f/u on ru pain and concern for cholecystitis Persistant ruq pain Physical Exam Vital Signs: Vital Signs: Last Vital Signs Temp 97.4 F 12/05/24 03:22 Pulse 82 12/05/24 03:22 Resp 18 12/05/24 03:22 BP 102/60 12/05/24 03:22 Pulse Ox 96 12/05/24 03:22 O2 Del Method Room Air 12/05/24 03:22 BMI result Body Mass Index 36.7 Const: Other: General: AO X 3, no acute distress Resp: CTA bilateral CVS: S1,S2,RRR GI: +BS, NT, no distention, ruq tenderness Skin: No rash Neuro: motor grossly intact Psych: appropriate affect Objective Data Active Medications Acetaminophen (Acetaminophen 325 Mg Tablet) 650 mg PO Q6H PRN PRN Reason: Pain, Mild 1-3,fever,headache Calcium Carbonate (Calcium Carbonate 750 Mg Tab.Chew) 750 mg PO Q4H PRN PRN Reason: Heartburn Ceftriaxone Sodium (Ceftriaxone Sodium 1 Gm Vial) 1 gm IVPUSH Q24H [facility] Last Admin: 12/04/24 22:17 Dose: 1 gm Documented By: ORESTES Enoxaparin Sodium (Enoxaparin Sodium 40 Mg/0.4 Ml Syringe) 40 mg SUBCUT Q24H [facility] Last Admin: 12/04/24 22:17 Dose: 40 mg Documented By: ORESTES Gabapentin (Gabapentin 600 Mg Tablet) 600 mg PO BEDTIME [facility] Last Admin: 12/04/24 22:36 Dose: 600 mg Documented By: ORESTES Hydromorphone HCl (Hydromorphone Hcl 0.5 Mg/0.5 Ml Syringe) 0.5 mg IVPUSH Q4H PRN; Protocol PRN Reason: Pain, Severe (Pain Scale 7-10) Lactated Ringer's (Lr) 1,000 mls @ 100 mls/hr IVCONT .Q10H [facility] Last Admin: 12/04/24 22:18 Dose: 100 mls/hr Documented By: ORESTES Metronidazole (Flagyl) 500 mg in 100 mls @ 100 mls/hr IV Q8H [facility] Last Admin: 12/05/24 05:56 Dose: 100 mls/hr Documented By: NATI Magnesium Hydroxide (Milk Of Magnesia 30 Ml Oral.Susp) 30 ml PO DAILY PRN PRN Reason: Constipation Melatonin (Melatonin 3 Mg Tablet) 6 mg PO BEDTIME PRN PRN Reason: Insomnia Sodium Chloride (0.9 % Sodium Chloride Flush 3 Ml Syringe) 3 ml IVFLUSH QSHIFT [facility] Last Admin: 12/04/24 23:38 Dose: Not Given Documented By: GURPREET Non-Admin Reason: IV Running Labs 12/05/24 06:41 12/05/24 06:41 Labs: Laboratory Results - last 24 hr 12/04/24 12/05/24 16:14 06:41 MCV 85.5 84.7 MCH 28.0 27.9 MCHC 32.7 32.9 RDW 13.8 13.5 Plt Count 271 256 MPV 9.9 10.0 Immature Gran % (Auto) 0.3 Neut % (Auto) 56.1 Lymph % (Auto) 32.3 [place] % (Auto) 6.6 Eos % (Auto) 4.1 H Baso % (Auto) 0.6 Lymph # (Auto) 1.2 [place] # (Auto) 0.2 Eos # (Auto) 0.2 Baso # (Auto) 0.0 Abs Immat Gran (auto) 0.01 Absolute Neuts (auto) 2.0 Absolute Nucleated RBC 0.000 0.000 Nucleated RBC % (auto) 0.0 0.0 PT 11.1 INR 1.0 APTT 33.6 Anion Gap 13 Estim Creat Clear Calc 110.1 Estimated GFR > 60 Random Glucose 119 H Calcium 10.2 Total Bilirubin 4.3 H AST 387 H ALT 817 H Alkaline Phosphatase 204 H Total Protein 7.9 Albumin 4.4 Lipase 31 Influenza Type A (PCR) NEGATIVE Influenza Type B (PCR) NEGATIVE RSV RNA Qual (PCR) NEGATIVE SARS-CoV-2 RNA (RT-PCR) NEGATIVE Assessment and Plan (1) Biliary calculi, common bile duct: Status: Acute Plan 44-year-old female with a past medical history of chronic back pain status post diskectomy recently presented to the hospital today with a chief complaint of abdominal pain. Admitted following RUQ pain, Transaminitis and concern for cholcystitis vs cholechodolithiasis Awaiting MRCP and GI evaluation. Continue Ceftriaxone and Flagyl Surgery following, she may eventually require CCY Continue IVF while NPO Pain control with dilaudid Follow LFTs, presently trending down slowly Chest pain: Atypical. Resolved. EKG nonischemic. Troponin negative. CT chest no evidence of PE. Quality Stroke Does the patient have a stroke diagnosis?: No VTE Prior VTE?: No VTE Risk Level:: Medical - moderate - high VTE Device Contraindication: Treatment Not Indicated VTE Drug Contraindication: N/A - Med Ordered
[2024-12-05 07:23] LABS: Alanine Aminotransferase 681 U/L (0-31); Alkaline Phosphatase 193 U/L (39-117); Anion Gap 11 (12-20); Aspartate Amino Transferase 309 U/L (5-31); Bilirubin Total 4.2 mg/dL (0.0-1.0); Blood Urea Nitrogen 6 mg/dL (9-16); Calcium 9.4 mg/dL (8.4-10.2); Carbon Dioxide 28 mmol/L (22-29); Chloride 106 mmol/L (96-108); Creatinine Clr Calc Pharmacy 109.4; Estimated Glomerular Filt Rate > 60; Glucose Random 101 mg/dL (60-115); Potassium 3.7 mmol/L (3.3-5.1); Sodium 141 mmol/L (135-145); Total Protein 7.1 g/dL (6.5-8.0)
[2024-12-05] MEDS: Lactated Ringers 1,000 ML 100 ML IVCONT ×2 (08:25→20:21)
--- NOTE | 2024-12-05 08:39 | MHC.CM.PN ---
CM met with Patient at bedside . Patient lives in a house with her , who will transport to home at time of dc. Patient's PCP is Dr. Vikki Hall. Patient required no DME [employer]GER but since back surgery, is using a walker. Home/self care is Patient's goal and CM has initiated and will follow for dc planning.
--- NOTE | 2024-12-05 13:29 | PM.GICN ---
History of Present Illness Data of Consult Service Date: 12/05/24 Primary Care Provider: Vikki Hall MD HPI Reason for consult: jaundice 44-year-old female with a past medical history of chronic back pain, s/p discectomy who I am seeing for jaundice and abdo pain. Patient noted crampy RUQ pain for 2-3 d or so - 10/10 in severity without radiation, aslo noted she became yellow and urine was darker but stools are normal color. Denies any nausea or vomiting. Reports having chills. Denies any chest pain or palpitations. Denies any diarrhea. Denies any urinary symptoms. no alcohol or drug use, no sick contacts, Labs: with marked elevated LFt as below, Imaging: with gallstones and dilated CBD, no obvious choledocholithiasis Review of Systems Review of Systems: Constitutional : No Weight loss, No Fever, No Chills ENT/Mouth : No sore throat, No Rhinorrhea Eyes: No Swelling, No Redness Cardiovascular : No Chest Pain, No SOB, No Edema Respiratory : No Cough, No Sputum, No Wheezing Gastrointestinal : see HPI Genitourinary : NO Dysuria, No Urinary Frequency, No Hematuria, No Urgency Musculoskeletal : no joint pain, No Myalgias, No Joint Swelling Skin : No Skin Lesions, No rash Neuro : No Weakness, No Numbness, No Dizziness, No Headache Psych : No Anxiety/Panic, No Depression Heme/Lymph: No Bruising, No Lymphadenopathy Endocrine : No Polyuria, No Polydipsia All other systems reviewed and are negative. 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, lumbosacral No known health problems Family History Pertinent family history: no Fh of GB or liver disease Surgical History Surgical History (Updated 12/05/24 @ 09:39 by Alla Thorne PA-C) S/P lumbar microdiscectomy Social History Social History Household Members: Spouse Housing: House Do you presently have visiting nurse or other home services: No Patient Tobacco Use Status: Never used Tobacco Smoked in Last 30 Days: No Use of substances other than those prescribed or required for medical reasons: No Currently Displaying Signs/Symptoms of Drug Intoxication Withdrawal: No Have you been hit, kicked, punched, or otherwise hurt by someone within the past year? If so, by whom?: No Do you feel safe in your current relationship?: Yes Are you made to feel afraid or neglected: No Advance Directives: No Advance Directives Information Provided: No Do you have a plan to hurt others: No Plan Patient : No service: No Meds Allergies Allergy/AdvReac Type Severity Reaction Status Date / Time No Known Allergies Allergy Verified 12/04/24 15:33 Active Medications: Current Medications Acetaminophen (Acetaminophen 325 Mg Tablet) 650 mg PO Q6H PRN PRN Reason: Pain, Mild 1-3,fever,headache Calcium Carbonate (Calcium Carbonate 750 Mg Tab.Chew) 750 mg PO Q4H PRN PRN Reason: Heartburn Ceftriaxone Sodium (Ceftriaxone Sodium 1 Gm Vial) 1 gm IVPUSH Q24H [facility] Last Admin: 12/04/24 22:17 Dose: 1 gm Diazepam (Diazepam 2 Mg Tablet) 2 mg PO BEDTIME PRN PRN Reason: Sleep Enoxaparin Sodium (Enoxaparin Sodium 40 Mg/0.4 Ml Syringe) 40 mg SUBCUT Q24H [facility] Last Admin: 12/04/24 22:17 Dose: 40 mg Gabapentin (Gabapentin 600 Mg Tablet) 600 mg PO BEDTIME [facility] Last Admin: 12/04/24 22:36 Dose: 600 mg Hydromorphone HCl (Hydromorphone Hcl 0.5 Mg/0.5 Ml Syringe) 0.5 mg IVPUSH Q4H PRN; Protocol PRN Reason: Pain, Severe (Pain Scale 7-10) Lactated Ringer's (Lr) 1,000 mls @ 100 mls/hr IVCONT .Q10H [facility] Last Admin: 12/05/24 08:25 Dose: 100 mls/hr Metronidazole (Flagyl) 500 mg in 100 mls @ 100 mls/hr IV Q8H [facility] Last Infusion: 12/05/24 08:26 Dose: Infused Magnesium Hydroxide (Milk Of Magnesia 30 Ml Oral.Susp) 30 ml PO DAILY PRN PRN Reason: Constipation Melatonin (Melatonin 3 Mg Tablet) 6 mg PO BEDTIME PRN PRN Reason: Insomnia Sodium Chloride (0.9 % Sodium Chloride Flush 3 Ml Syringe) 3 ml IVFLUSH QSHIFT [facility] Last Admin: 12/05/24 08:26 Dose: Not Given Vitamin D (Cholecalciferol (Vitamin D3) 25 Mcg Tablet) 50 mcg PO DAILY [facility] Last Admin: 12/05/24 08:26 Dose: Not Given Home Medications ?Medication ?Instructions ?Recorded ?Confirmed ?Last Taken ?Type gabapentin 300 mg capsule 600 mg PO BEDTIME 11/10/20 12/04/24 12/03/24 History cholecalciferol (vitamin D3) 50 50 mcg PO DAILY 12/04/24 12/04/24 12/03/24 History mcg (2,000 unit) capsule diazepam 2 mg tablet 2 mg PO BEDTIME 12/04/24 12/04/24 12/03/24 History Physical Exam Vital Signs: Vital Signs: Last Vital Signs Temp 98 F 12/05/24 07:27 Pulse 62 12/05/24 07:27 Resp 18 12/05/24 07:27 BP 119/76 12/05/24 07:27 Pulse Ox 97 12/05/24 07:27 O2 Del Method Room Air 12/05/24 07:27 BMI result Body Mass Index 36.7 EXAM: GENERAL: The patient is well developed and nontoxic. jaundiced VITAL SIGNS:see workflow HEENT: icteric sclerae, PERRLA, EOMI. Oropharynx clear. Moist mucous membranes. Conjunctivae appear well perfused. No thyroid mass. CHEST: Chest wall is nontender. HEART: Regular rate and rhythm without murmurs. LUNGS: Clear to auscultation bilaterally. ABDOMEN: Soft, positive bowel sounds, tender ruq with guarding, no organomegaly.no flank tenderness SKIN: No rash, no excessive bruising, petechiae, or purpura. NEUROLOGIC: Cranial nerves II-XII intact without motor/sensory deficit. Psych: normal affect Results Labs 12/05/24 06:41 12/05/24 06:41 Labs: Short CBC 12/04/24 12/05/24 Range/Units 16:14 06:41 WBC 3.6 L 4.5 L (4.8-10.8) X10*3/uL Hgb 14.1 13.5 (12.0-16.0) g/dl Hct 43.1 41.0 (37.0-47.0) % Plt Count 271 256 (160-400) X10*3/uL BMP 12/04/24 12/05/24 16:14 06:41 Sodium 141 141 Potassium 4.5 3.7 Chloride 106 106 Carbon Dioxide 27 28 BUN 7 L 6 L Creatinine 0.71 0.70 Calcium 10.2 9.4 D Liver Function 12/04/24 12/05/24 Range/Units 16:14 06:41 Total Bilirubin 4.3 H 4.2 H (0.0-1.0) mg/dL AST 387 H 309 H (5-31) U/L ALT 817 H 681 H (0-31) U/L Alkaline Phosphatase 204 H 193 H (39-117) U/L Albumin 4.4 4.0 (3.5-5.0) g/dL Imaging CT scan - abdomen: Attestation: I personally reviewed and interpreted this imaging study as follows: (dilated PD, thickened duodenum -cbd not really seen ) Assessment and Plan (1) Biliary calculi, common bile duct: Status: Acute Plan 1/ Biliary obstruction- ?choledocholithiais, vs mirizzi syndrome or passign a stone? PLAN: 1 - MRCP- if pos then ERCP-or if MRCP neg and Bili remains high 2/ cont with ABX and analgesia meantime Procedures Date of Service Date of Service: 12/05/24
[2024-12-05] MEDS: Gabapentin 600 MG TABLET PO (20:17)
[2024-12-05] MEDS: 0.9 % Sodium Chloride Flush 3 ML SYRINGE IVFLUSH (20:18)
[2024-12-05] MEDS: ondansetron HCL 4 MG/2 ML VIAL IVPUSH (22:19)
[2024-12-05] MEDS: Enoxaparin Sodium 40 MG/0.4 ML SYRINGE SUBCUT (22:19)
[2024-12-05] MEDS: cefTRIAXone sodium 1 GM VIAL IVPUSH (22:19)
[2024-12-05] MEDS: HYDROmorphone HCl 0.5 MG/0.5 ML SYRINGE IVPUSH (22:20)
[2024-12-06] VITALS (10 sets, daily range): BP systolic 91–129; BP diastolic 51–84; PULSE 74–91; RESP 16–20; TEMP 36.3–37.1; O2SAT 94–98
[2024-12-06 04:32] LABS: HBS Num1 1.24 mIU/mL (0-7.99); HBc Num1 0.08 S/CO (0.00-0.79); HBsAGNum1 0.34 S/CO (0.00-0.99); Hepatitis A Antibody IgM 0.16 Index (0-0.79); Hepatitis B Core Antibody Nonreactive (Nonreactive); Hepatitis B Surface Antigen Negative (Negative); ~HepC Num1 0.12 S/CO (0.00-0.79); ~Hepatitis A Antibody IgM Nonreactive (Nonreactive); ~Hepatitis B Surface Antibody NONREACTIVE (Nonreactive); ~Hepatitis C Antibody Nonreactive (Nonreactive)
[2024-12-06] MEDS: metroNIDAZOLE/NS 500 MG/100 ML PIGGYBACK 100 MG IV ×3 (06:11→21:23)
[2024-12-06 07:25] LABS: Alanine Aminotransferase 558 U/L (0-31); Albumin Level 3.5 g/dL (3.5-5.0); Alkaline Phosphatase 172 U/L (39-117); Anion Gap 10 (12-20); Aspartate Amino Transferase 248 U/L (5-31); Bilirubin Direct 3.4 mg/dL (0.0-0.5); Bilirubin Total 4.4 mg/dL (0.0-1.0); Blood Urea Nitrogen 7 mg/dL (9-16); Calcium 9.4 mg/dL (8.4-10.2); Carbon Dioxide 28 mmol/L (22-29); Chloride 106 mmol/L (96-108); Creatinine Clr Calc Pharmacy 114.3; Estimated Glomerular Filt Rate > 60; Glucose Random 92 mg/dL (60-115); Sodium 140 mmol/L (135-145); Total Protein 6.3 g/dL (6.5-8.0)
[2024-12-06 07:28] LABS: Hematocrit 36.4 % (37.0-47.0); Mean Corpuscular Volume 84.8 fL (80.0-98.0); Mean Platelet Volume 10.2 fL (9.4-12.3); Platelet Count 229 X10*3/uL (160-400); Red Blood Count 4.29 X10*6/uL (4.20-5.50); Red Cell Distribution Width 13.7 % (11.0-16.0); White Blood Count 3.2 X10*3/uL (4.8-10.8)
--- NOTE | 2024-12-06 07:30 | P.PNGS_ITS ---
Subjective Subjective Date of Service: 12/06/24 <Alla Thorne PA-C - Last Filed: 12/06/24 07:35> 12/06/24 <Jeison Ramos MD - Last Filed: 12/06/24 08:14> Interval history: Feels improved this morning, less pain. Awaiting ERCP. <Alla Thorne PA-C - Last Filed: 12/06/24 07:35> Physical Exam 2 Vital Signs: Vital Signs: Last Vital Signs Temp 98.3 F 12/06/24 07:27 Pulse 76 12/06/24 07:27 Resp 18 12/06/24 07:27 BP 107/64 12/06/24 07:27 Pulse Ox 96 12/06/24 07:27 O2 Del Method Room Air 12/06/24 07:27 BMI result Body Mass Index 36.7 <Alla Thorne PA-C - Last Filed: 12/06/24 07:35> Const: General: comfortable, no acute distress and alert <Alla Thorne PA-C - Last Filed: 12/06/24 07:35> Orientation/consciousness: patient oriented x3 <Alla Thorne PA-C - Last Filed: 12/06/24 07:35> Resp: Effort & Inspection: normal respiratory effort <Alla Thorne PA-C - Last Filed: 12/06/24 07:35> GI: Inspection: No distended <Alla Thorne PA-C - Last Filed: 12/06/24 07:35> Palpation (GI): Soft to palpation, Tenderness to palpation present (GI) (RUQ with very mild tenderness) Solano's sign negative and no guarding <Alla Thorne PA-C - Last Filed: 12/06/24 07:35> Skin: General skin exam: jaundice <KIMMIE Shen Last Filed: 12/06/24 07:35> Neuro: General: patient oriented x3 and moves all extremities <KIMMIE Shen Last Filed: 12/06/24 07:35> Objective Data Active Medications Acetaminophen (Acetaminophen 325 Mg Tablet) 650 mg PO Q6H PRN PRN Reason: Pain, Mild 1-3,fever,headache Calcium Carbonate (Calcium Carbonate 750 Mg Tab.Chew) 750 mg PO Q4H PRN PRN Reason: Heartburn Ceftriaxone Sodium (Ceftriaxone Sodium 1 Gm Vial) 1 gm IVPUSH Q24H [facility] Last Admin: 12/05/24 22:19 Dose: 1 gm Documented By: LAURA Diazepam (Diazepam 2 Mg Tablet) 2 mg PO BEDTIME PRN PRN Reason: Sleep Enoxaparin Sodium (Enoxaparin Sodium 40 Mg/0.4 Ml Syringe) 40 mg SUBCUT Q24H [facility] Last Admin: 12/05/24 22:19 Dose: 40 mg Documented By: LAURA Gabapentin (Gabapentin 600 Mg Tablet) 600 mg PO BEDTIME [facility] Last Admin: 12/05/24 20:17 Dose: 600 mg Documented By: LAURA Hydromorphone HCl (Hydromorphone Hcl 0.5 Mg/0.5 Ml Syringe) 0.5 mg IVPUSH Q4H PRN; Protocol PRN Reason: Pain, Severe (Pain Scale 7-10) Last Admin: 12/05/24 22:20 Dose: 0.5 mg Documented By: LAURA Lactated Ringer's (Lr) 1,000 mls @ 100 mls/hr IVCONT .Q10H [facility] Last Admin: 12/06/24 04:49 Dose: Not Given Documented By: LAURA Non-Admin Reason: IV Running Metronidazole (Flagyl) 500 mg in 100 mls @ 100 mls/hr IV Q8H [facility] Last Infusion: 12/06/24 07:15 Dose: Infused Documented By: LAURA Magnesium Hydroxide (Milk Of Magnesia 30 Ml Oral.Susp) 30 ml PO DAILY PRN PRN Reason: Constipation Melatonin (Melatonin 3 Mg Tablet) 6 mg PO BEDTIME PRN PRN Reason: Insomnia Sodium Chloride (0.9 % Sodium Chloride Flush 3 Ml Syringe) 3 ml IVFLUSH QSHIFT [facility] Last Admin: 12/05/24 20:18 Dose: 3 ml Documented By: LAURA Vitamin D (Cholecalciferol (Vitamin D3) 25 Mcg Tablet) 50 mcg PO DAILY [facility] Last Admin: 12/05/24 08:26 Dose: Not Given Documented By: LAUREEN Non-Admin Reason: Patient Refused <Alla Thorne PA-C - Last Filed: 12/06/24 07:35> Labs CBC & Chem 7: 12/06/24 06:32 12/06/24 06:32 <Alla Thorne PA-C - Last Filed: 12/06/24 07:35> Labs: Laboratory Results - last 24 hr 12/05/24 12/06/24 06:41 06:32 MCV 84.8 MCH 28.0 MCHC 33.0 RDW 13.7 Plt Count 229 MPV 10.2 Absolute Nucleated RBC 0.000 Nucleated RBC % (auto) 0.0 Anion Gap 10 L Estim Creat Clear Calc 114.3 Estimated GFR > 60 Random Glucose 92 Calcium 9.4 Total Bilirubin 4.4 H Direct Bilirubin 3.4 H AST 248 H ALT 558 H Alkaline Phosphatase 172 H Total Protein 6.3 L Albumin 3.5 Hepatitis A IgM Ab Nonreactive Hep Bs Antigen Negative Hep Bs Antibody NONREACTIVE Hep B Core Total Ab Nonreactive Hepatitis C Ab (EIA) Nonreactive <Alla Thorne PA-C - Last Filed: 12/06/24 07:35> Procedures Date of Service Date of Service: 12/06/24 <Alla Thorne PA-C - Last Filed: 12/06/24 07:35> 12/06/24 <Jeison Ramos MD - Last Filed: 12/06/24 08:14> Progress Note: A&P Assessment and plan (1) Acute cholecystitis due to biliary calculus: Status: Acute <Alla Thorne PA-C - Last Filed: 12/06/24 07:35> (2) Biliary calculi, common bile duct: Status: Acute <Alla Thonre PA-C - Last Filed: 12/06/24 07:35> Assessment and Plan: MRCP yesterday shows 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 Gallstone lodged at gallbladder neck. LFTs remain elevated. RUQ tenderness improved, no solano sign. Plan for ERCP today. Discussed proceeding with laparoscopic cholecystectomy, possible open tomorrow if labs improved, if not Tuesday. Patient comfortable with plan. COnt IV abx. 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 Gallstone lodged at gallbladder neck. LFTs remain elevated. RUQ tenderness improved, no solano sign. Plan for ERCP today. Discussed proceeding with laparoscopic cholecystectomy, possible open tomorrow if labs improved, if not Tuesday. Patient comfortable with plan. COnt IV abx. Patient seen and examined, agree with the above assessment and plan. Patient was awaiting ERCP today and will tentatively schedule her for surgery tomorrow for laparoscopic cholecystectomy. I reviewed the procedure, risks, and alternatives in detail and she consents to the laparoscopic or possible open cholecystectomy. <Jeison Ramos MD - Last Filed: 12/06/24 08:14> Time Spent With Patient Time: Total time managing care of this patient today ____ minutes. <Alla Thorne PA-C - Last Filed: 12/06/24 07:35> Quality Stroke Does the patient have a stroke diagnosis?: No <Alla Thorne PA-C - Last Filed: 12/06/24 07:35> VTE Prior VTE?: No <Alla Thorne PA-C - Last Filed: 12/06/24 07:35> VTE Risk Level:: Medical - moderate - high <Alla Thorne PA-C - Last Filed: 12/06/24 07:35> VTE Device Contraindication: Treatment Not Indicated <Alla Thorne PA-C - Last Filed: 12/06/24 07:35> VTE Drug Contraindication: N/A - Med Ordered <Alla Thorne PA-C - Last Filed: 12/06/24 07:35>
[2024-12-06 08:53] LABS: HCG Quantitative < 2 mIU/mL
[2024-12-06] MEDS: Lactated Ringers 1,000 ML 100 ML IVCONT (09:14)
[2024-12-06 11:13] LABS: UPreg QC Valid YES; Urine Pregnancy NEGATIVE (NEGATIVE)
--- NOTE | 2024-12-06 11:24 | P.PNIM_ITS ---
Subjective Subjective Date of Service: 12/06/24 Interval History: seen and evaluated this morning feels mildly better LFT still elevated MRCP positive, plan for ERCP today no other events Review of Systems Review of Systems: Yes all other systems are reviewed and are negative Physical Exam 2 Vital Signs: Vital Signs: Last Vital Signs Temp 97.4 F 12/06/24 11:06 Pulse 91 12/06/24 11:06 Resp 20 12/06/24 11:06 BP 98/61 12/06/24 11:06 Pulse Ox 95 12/06/24 11:06 O2 Del Method Room Air 12/06/24 11:06 BMI result Body Mass Index 36.7 Const: Other: General: AO X 3, no acute distress Resp: CTA bilateral CVS: S1,S2,RRR GI: +BS, NT, no distention, ruq tenderness with no surgical signs Skin: No rash Neuro: motor grossly intact Psych: appropriate affect Objective Data Active Medications Acetaminophen (Acetaminophen 325 Mg Tablet) 650 mg PO Q6H PRN PRN Reason: Pain, Mild 1-3,fever,headache Calcium Carbonate (Calcium Carbonate 750 Mg Tab.Chew) 750 mg PO Q4H PRN PRN Reason: Heartburn Ceftriaxone Sodium (Ceftriaxone Sodium 1 Gm Vial) 1 gm IVPUSH Q24H [facility] Last Admin: 12/05/24 22:19 Dose: 1 gm Documented By: LAURA Diazepam (Diazepam 2 Mg Tablet) 2 mg PO BEDTIME PRN PRN Reason: Sleep Enoxaparin Sodium (Enoxaparin Sodium 40 Mg/0.4 Ml Syringe) 40 mg SUBCUT Q24H [facility] Last Admin: 12/05/24 22:19 Dose: 40 mg Documented By: LAURA Gabapentin (Gabapentin 600 Mg Tablet) 600 mg PO BEDTIME [facility] Last Admin: 12/05/24 20:17 Dose: 600 mg Documented By: LAURA Hydromorphone HCl (Hydromorphone Hcl 0.5 Mg/0.5 Ml Syringe) 0.5 mg IVPUSH Q4H PRN; Protocol PRN Reason: Pain, Severe (Pain Scale 7-10) Last Admin: 12/05/24 22:20 Dose: 0.5 mg Documented By: LAURA Lactated Ringer's (Lr) 1,000 mls @ 100 mls/hr IVCONT .Q10H [facility] Last Admin: 12/06/24 09:14 Dose: 100 mls/hr Documented By: COURTNEY Metronidazole (Flagyl) 500 mg in 100 mls @ 100 mls/hr IV Q8H [facility] Last Infusion: 12/06/24 07:15 Dose: Infused Documented By: LAURA Magnesium Hydroxide (Milk Of Magnesia 30 Ml Oral.Susp) 30 ml PO DAILY PRN PRN Reason: Constipation Melatonin (Melatonin 3 Mg Tablet) 6 mg PO BEDTIME PRN PRN Reason: Insomnia Sodium Chloride (0.9 % Sodium Chloride Flush 3 Ml Syringe) 3 ml IVFLUSH QSHIFT [facility] Last Admin: 12/06/24 07:42 Dose: Not Given Documented By: COURTNEY Non-Admin Reason: IV Running Vitamin D (Cholecalciferol (Vitamin D3) 25 Mcg Tablet) 50 mcg PO DAILY [facility] Last Admin: 12/06/24 07:43 Dose: Not Given Documented By: COURTNEY Non-Admin Reason: Patient Refused Labs 12/06/24 06:32 12/06/24 06:32 Labs: Laboratory Results - last 24 hr 12/05/24 12/06/24 12/06/24 06:41 06:32 10:45 MCV 84.8 MCH 28.0 MCHC 33.0 RDW 13.7 Plt Count 229 MPV 10.2 Absolute Nucleated RBC 0.000 Nucleated RBC % (auto) 0.0 Anion Gap 10 L Estim Creat Clear Calc 114.3 Estimated GFR > 60 Random Glucose 92 Calcium 9.4 Total Bilirubin 4.4 H Direct Bilirubin 3.4 H AST 248 H ALT 558 H Alkaline Phosphatase 172 H Total Protein 6.3 L Albumin 3.5 Beta HCG, Quant < 2 Urine Test NEGATIVE Hepatitis A IgM Ab Nonreactive Hep Bs Antigen Negative Hep Bs Antibody NONREACTIVE Hep B Core Total Ab Nonreactive Hepatitis C Ab (EIA) Nonreactive Assessment and Plan (1) Acute cholecystitis due to biliary calculus: Status: Acute (2) Biliary calculi, common bile duct: Status: Acute Plan 44-year-old female with a past medical history of chronic back pain status post diskectomy recently presented to the hospital today with a chief complaint of abdominal pain. Admitted following Acute cholecystitis complicated with Transaminitis and obstructing cholechodolithiasis MRCP positive for CBD stones, stenosis and stricutures raising concern of ascending cholangitis diagnosis along with obstructing stones GI to do ERCP Surgery planning CCY likely Tuesday morning Continue Ceftriaxone and Flagyl IVF while NPO Pain control with dilaudid Follow LFTs, trending down slowly Chest pain: Atypical. Resolved. EKG nonischemic. Troponin negative. CT chest no evidence of PE. Obesity advised weight loos DVT PPx Lonovex, hold tonight for planned surgery The patient will need overnight hospital stay pending ERCP and surgical intervention on IV antibiotics. Quality Stroke Does the patient have a stroke diagnosis?: No VTE Prior VTE?: No VTE Risk Level:: Medical - moderate - high VTE Device Contraindication: Treatment Not Indicated VTE Drug Contraindication: N/A - Med Ordered
--- NOTE | 2024-12-06 14:05 | P.PNGI_ITS ---
Subjective Subjective Date of Service: 12/06/24 Interval History: still deeply jaundiced, urine still dark abdo pain is much less no fevers MRCP with stone in CBD distal, possible stricturing of biliary duct Critical Care Time (minutes): 0 Physical Exam 2 Vital Signs: Vital Signs: Last Vital Signs Temp 98.5 F 12/06/24 13:19 Pulse 80 12/06/24 13:19 Resp 17 12/06/24 13:19 BP 117/84 12/06/24 13:19 Pulse Ox 97 12/06/24 13:19 O2 Del Method Room Air 12/06/24 13:19 BMI result Body Mass Index 36.7 EXAM: GENERAL: The patient is well developed and nontoxic. VITAL SIGNS:see workflow HEENT: icteric sclerae, PERRLA, EOMI. Oropharynx clear. Moist mucous membranes. Conjunctivae appear well perfused. No thyroid mass. CHEST: Chest wall is nontender. HEART: Regular rate and rhythm without murmurs. LUNGS: Clear to auscultation bilaterally. ABDOMEN: Soft, positive bowel sounds, nontender, no organomegaly.no flank tenderness SKIN: No rash, no excessive bruising, petechiae, or purpura. jaundiced NEUROLOGIC: Cranial nerves II-XII intact without motor/sensory deficit. Psych: normal affect Objective Data Labs 12/06/24 06:32 12/06/24 06:32 Labs: Laboratory Results - last 24 hr 12/05/24 12/06/24 12/06/24 06:41 06:32 10:45 WBC 3.2 L RBC 4.29 Hgb 12.0 Hct 36.4 L MCV 84.8 MCH 28.0 MCHC 33.0 RDW 13.7 Plt Count 229 MPV 10.2 Absolute Nucleated RBC 0.000 Nucleated RBC % (auto) 0.0 Sodium 140 Potassium 4.0 Chloride 106 Carbon Dioxide 28 Anion Gap 10 L BUN 7 L Creatinine 0.67 Estim Creat Clear Calc 114.3 Estimated GFR > 60 Random Glucose 92 Calcium 9.4 Total Bilirubin 4.4 H Direct Bilirubin 3.4 H AST 248 H ALT 558 H Alkaline Phosphatase 172 H Total Protein 6.3 L Albumin 3.5 Beta HCG, Quant < 2 Urine Test NEGATIVE Hepatitis A IgM Ab Nonreactive Hep Bs Antigen Negative Hep Bs Antibody NONREACTIVE Hep B Core Total Ab Nonreactive Hepatitis C Ab (EIA) Nonreactive Procedures Date of Service Date of Service: 12/06/24 Progress Note: A&P Assessment and plan (1) Acute cholecystitis due to biliary calculus: Status: Acute Plan 1/ Persistent raised bili, dark urine suggestive of obstruction PLAN: 1/ ERCP today for further assessment Time Spent With Patient Time: Total time managing care of this patient today ____ minutes. Quality Stroke Does the patient have a stroke diagnosis?: No VTE Prior VTE?: No VTE Risk Level:: Medical - moderate - high VTE Device Contraindication: Treatment Not Indicated VTE Drug Contraindication: N/A - Med Ordered
--- NOTE | 2024-12-06 14:16 | HO.ANESPROP2 ---
HPI - Anesthesia Eval Consult details Narrative: Raissa Carson is a 44-year-old female with PMH of lumbosacral DDD, hx of lumbar microdiscectomy 1 month prior who presented to the ED with complaints of chest and epigastric abdominal pain. She thinks the pain began Tuesday night and has gradually worsened and became severe in nature. She also developed chest pain that was worse with breathing. She reports her sister noted her skin appeared more yellow. She denies change in stool color but urine is darker. She presented to the ED where work up included CBC, BMP, LFTs which was significant for significant for a t bili of 4.3, AST/ALT 387/817, troponin 2.7. Chest CTA, abd US and CT abd/pelvis showed gallstones, distended gallbladder, very mild gallbladder wall thickness with mildly dilated intra and extrahepatic ducts. Negative for PE. She was admitted to the medical service for further evaluation and treatment of the elevated LFTs. She was started on IV flagyl and rocephin for presumed acute cholecystitis. She denies fever, chills, nausea, vomiting, diarrhea, palpitations. She denies prior similar episodes of pain. 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, lumbosacral No known health problems Family History Family history of problems with anesthesia: No Surgical History Surgical History S/P lumbar microdiscectomy History of Problems with Anesthesia: No Social History Social History Household Members: Spouse Housing: House Do you presently have visiting nurse or other home services: No Patient Tobacco Use Status: Never used Tobacco Smoked in Last 30 Days: No Use of substances other than those prescribed or required for medical reasons: No Currently Displaying Signs/Symptoms of Drug Intoxication Withdrawal: No Have you been hit, kicked, punched, or otherwise hurt by someone within the past year? If so, by whom?: No Do you feel safe in your current relationship?: Yes Are you made to feel afraid or neglected: No Advance Directives: No Advance Directives Information Provided: No Do you have a plan to hurt others: No Plan Patient : No service: No Meds Allergies Allergy/AdvReac Type Severity Reaction Status Date / Time No Known Allergies Allergy Verified 12/04/24 15:33 Active Medications: Current Medications Acetaminophen (Acetaminophen 325 Mg Tablet) 650 mg PO Q6H PRN PRN Reason: Pain, Mild 1-3,fever,headache Calcium Carbonate (Calcium Carbonate 750 Mg Tab.Chew) 750 mg PO Q4H PRN PRN Reason: Heartburn Ceftriaxone Sodium (Ceftriaxone Sodium 1 Gm Vial) 1 gm IVPUSH Q24H [facility] Last Admin: 12/05/24 22:19 Dose: 1 gm Diazepam (Diazepam 2 Mg Tablet) 2 mg PO BEDTIME PRN PRN Reason: Sleep Enoxaparin Sodium (Enoxaparin Sodium 40 Mg/0.4 Ml Syringe) 40 mg SUBCUT Q24H [facility] Last Admin: 12/05/24 22:19 Dose: 40 mg Gabapentin (Gabapentin 600 Mg Tablet) 600 mg PO BEDTIME [facility] Last Admin: 12/05/24 20:17 Dose: 600 mg Hydromorphone HCl (Hydromorphone Hcl 0.5 Mg/0.5 Ml Syringe) 0.5 mg IVPUSH Q4H PRN; Protocol PRN Reason: Pain, Severe (Pain Scale 7-10) Last Admin: 12/05/24 22:20 Dose: 0.5 mg Lactated Ringer's (Lr) 1,000 mls @ 100 mls/hr IVCONT .Q10H [facility] Last Infusion: 12/06/24 13:38 Dose: 0 mls/hr Metronidazole (Flagyl) 500 mg in 100 mls @ 100 mls/hr IV Q8H [facility] Last Infusion: 12/06/24 07:15 Dose: Infused Magnesium Hydroxide (Milk Of Magnesia 30 Ml Oral.Susp) 30 ml PO DAILY PRN PRN Reason: Constipation Melatonin (Melatonin 3 Mg Tablet) 6 mg PO BEDTIME PRN PRN Reason: Insomnia Sodium Chloride (0.9 % Sodium Chloride Flush 3 Ml Syringe) 3 ml IVFLUSH QSHIFT [facility] Last Admin: 12/06/24 07:42 Dose: Not Given Vitamin D (Cholecalciferol (Vitamin D3) 25 Mcg Tablet) 50 mcg PO DAILY [facility] Last Admin: 12/06/24 07:43 Dose: Not Given Home Medications ?Medication ?Instructions ?Recorded ?Confirmed ?Last Taken ?Type gabapentin 300 mg capsule 600 mg PO BEDTIME 11/10/20 12/04/24 12/03/24 History cholecalciferol (vitamin D3) 50 50 mcg PO DAILY 12/04/24 12/04/24 12/03/24 History mcg (2,000 unit) capsule diazepam 2 mg tablet 2 mg PO BEDTIME 12/04/24 12/04/24 12/03/24 History Exam Height,Weight and Vital Signs: Height 5 ft 3 in Weight 94 kg Last Vital Signs Temp 98.5 F 12/06/24 13:19 Pulse 80 12/06/24 13:19 Resp 17 12/06/24 13:19 BP 117/84 12/06/24 13:19 Pulse Ox 97 12/06/24 13:19 O2 Del Method Room Air 12/06/24 13:19 Pertinent Lab Results Pertinent Lab Results: Laboratory Tests 12/04/24 12/05/24 12/06/24 16:14 06:41 06:32 WBC 3.6 L 4.5 L 3.2 L RBC 5.04 4.84 4.29 Hgb 14.1 13.5 12.0 Hct 43.1 41.0 36.4 L MCV 85.5 84.7 84.8 MCH 28.0 27.9 28.0 MCHC 32.7 32.9 33.0 RDW 13.8 13.5 13.7 Plt Count 271 256 229 MPV 9.9 10.0 10.2 Immature Gran % (Auto) 0.3 Neut % (Auto) 56.1 Lymph % (Auto) 32.3 [place] % (Auto) 6.6 Eos % (Auto) 4.1 H Baso % (Auto) 0.6 Lymph # (Auto) 1.2 [place] # (Auto) 0.2 Eos # (Auto) 0.2 Baso # (Auto) 0.0 Abs Immat Gran (auto) 0.01 Absolute Neuts (auto) 2.0 Absolute Nucleated RBC 0.000 0.000 0.000 Nucleated RBC % (auto) 0.0 0.0 0.0 PT 11.1 INR 1.0 APTT 33.6 Sodium 141 141 140 Potassium 4.5 3.7 4.0 Chloride 106 106 106 Carbon Dioxide 27 28 28 Anion Gap 13 11 L 10 L BUN 7 L 6 L 7 L Creatinine 0.71 0.70 0.67 Estim Creat Clear Calc 110.1 109.4 114.3 Estimated GFR > 60 > 60 > 60 Random Glucose 119 H 101 92 Calcium 10.2 9.4 D 9.4 Total Bilirubin 4.3 H 4.2 H 4.4 H Direct Bilirubin 3.4 H AST 387 H 309 H 248 H ALT 817 H 681 H 558 H Alkaline Phosphatase 204 H 193 H 172 H Troponin I High Sens < 2.7 Total Protein 7.9 7.1 6.3 L Albumin 4.4 4.0 3.5 Lipase 31 Beta HCG, Quant < 2 Urine Test Hepatitis A IgM Ab Nonreactive Hep Bs Antigen Negative Hep Bs Antibody NONREACTIVE Hep B Core Total Ab Nonreactive Hepatitis C Ab (EIA) Nonreactive Influenza Type A (PCR) NEGATIVE Influenza Type B (PCR) NEGATIVE RSV RNA Qual (PCR) NEGATIVE SARS-CoV-2 RNA (RT-PCR) NEGATIVE 12/06/24 10:45 WBC RBC Hgb Hct MCV MCH MCHC RDW Plt Count MPV Immature Gran % (Auto) Neut % (Auto) Lymph % (Auto) [place] % (Auto) Eos % (Auto) Baso % (Auto) Lymph # (Auto) [place] # (Auto) Eos # (Auto) Baso # (Auto) Abs Immat Gran (auto) Absolute Neuts (auto) Absolute Nucleated RBC Nucleated RBC % (auto) PT INR APTT Sodium Potassium Chloride Carbon Dioxide Anion Gap BUN Creatinine Estim Creat Clear Calc Estimated GFR Random Glucose Calcium Total Bilirubin Direct Bilirubin AST ALT Alkaline Phosphatase Troponin I High Sens Total Protein Albumin Lipase Beta HCG, Quant Urine Test NEGATIVE Hepatitis A IgM Ab Hep Bs Antigen Hep Bs Antibody Hep B Core Total Ab Hepatitis C Ab (EIA) Influenza Type A (PCR) Influenza Type B (PCR) RSV RNA Qual (PCR) SARS-CoV-2 RNA (RT-PCR) Airway Mallampati Class: II TM Dist: >3cm Neck ROM: Full Heart: rrr Lungs: cta Assessment and Plan Assessment Anesthesia Assessment: Anesthesia Plan Discussed and Chart Reviewed Final Anesthetic Review Family History of Problems with Anesthesia: No History of Problems with Anesthesia: No NPO: Yes ASA Class: II Final Preanesthetic Review: No Changes in Pt Med Stat, Meds/Allgs Chart Reviewed, Consent Obtained/Reviewed and Anes Risks/Benef Reviewed Patient Risk: Intermediate Procedure Risk: Low Anesthetic Plan Anesthetic Plan: GA Disposition: Standard PACU
[2024-12-06] MEDS: Indomethacin 50 MG SUPP.RECT 100 MG PR (15:50)
--- NOTE | 2024-12-06 16:29 | W.PM.OPN ---
Operative Note Operative Note Date of Service: 12/06/24 Narrative: Description:?Endoscopic retrograde cholangiopancreatography (ERCP) PROCEDURE:?Endoscopic retrograde cholangiopancreatography with sphincterotomy, stone extraction and intra op cholangiogram with interpretation INDICATION FOR THE PROCEDURE:?Patient with a history of obstructive jaundice MEDICATIONS:?General anesthesia, indomethacin NV 100 mg The risks of the procedure were made aware to the patient and consisted of medication reaction, bleeding, perforation, aspiration, and post ERCP pancreatitis. DESCRIPTION OF PROCEDURE:?After informed consent and appropriate sedation, the duodenoscope was inserted into the oropharynx, down the esophagus, and into the stomach. The scope was then advanced through the pylorus to the ampulla. The tome and scope were angled but despite good orientation the wire kept passing into the PD x 2. A shellie precut was then performend and the the tome re angled with the wire finally going smoothly into the CBD. A cholangiogram revealed at least one filling defect. No strictures were noted and the GB did not fill with contrast. A sphincterotomy was then performed and an extraction balloon was then exchanged and swept few times with x 2 green yellow stones removed measuring about 8-10 mm. An occlusion cholangiogram did not reveal any further filling defects in the CBD The stomach was decompressed and the procedure terminated. FINDINGS: 1. choledocholithiasis s/p extraction RECOMMENDATIONS: 1. clears in 4- hours 2. can advance diet tomorrow unless going for cholecystectomy. 3. watch for post ERCP pancreatitis
[2024-12-06] MEDS: cefTRIAXone sodium 1 GM VIAL IVPUSH (21:23)
[2024-12-06] MEDS: Gabapentin 600 MG TABLET PO (21:23)
[2024-12-06] MEDS: HYDROmorphone HCl 0.5 MG/0.5 ML SYRINGE IVPUSH (23:07)
[2024-12-07] VITALS (12 sets, daily range): BP systolic 99–131; BP diastolic 54–81; PULSE 72–94; RESP 16–22; TEMP 36.3–37.1; O2SAT 92–97
[2024-12-07] MEDS: metroNIDAZOLE/NS 500 MG/100 ML PIGGYBACK 100 MG IV ×3 (05:24→21:56)
[2024-12-07] MEDS: HYDROmorphone HCl 0.5 MG/0.5 ML SYRINGE IVPUSH ×3 (05:25→23:57)
[2024-12-07] MEDS: ondansetron HCL 4 MG/2 ML VIAL IVPUSH ×2 (05:50→11:32)
[2024-12-07 07:00] LABS: MANUAL DIFF FLAG NO
[2024-12-07 07:19] LABS: Alanine Aminotransferase 419 U/L (0-31); Albumin Level 3.3 g/dL (3.5-5.0); Alkaline Phosphatase 151 U/L (39-117); Anion Gap 13 (12-20); Aspartate Amino Transferase 145 U/L (5-31); Bilirubin Direct 1.6 mg/dL (0.0-0.5); Bilirubin Total 2.3 mg/dL (0.0-1.0); Blood Urea Nitrogen 10 mg/dL (9-16); Calcium 9.2 mg/dL (8.4-10.2); Carbon Dioxide 25 mmol/L (22-29); Chloride 105 mmol/L (96-108); Creatinine Clr Calc Pharmacy 129.8; Estimated Glomerular Filt Rate > 60; Glucose Random 118 mg/dL (60-115); Sodium 139 mmol/L (135-145); Total Protein 5.9 g/dL (6.5-8.0)
[2024-12-07 07:23] LABS: Basophils Percent Auto 0.2 % (0-2); Eosinophils Percent Auto 0.5 % (0-4); Hematocrit 39.2 % (37.0-47.0); Hemoglobin 13.1 g/dl (12.0-16.0); Imm Gran Abs Auto 0.02 X10*3/uL (0.00-0.03); Imm Gran Pct Auto 0.4 % (0.0-0.4); Lymphocytes Percent Auto 17.9 % (20-40); Mean Corpuscular HGB Conc 33.4 g/dl (31.0-35.0); Mean Corpuscular Hemoglobin 28.2 pg (27.0-33.0); Mean Corpuscular Volume 84.3 fL (80.0-98.0); Mean Platelet Volume 10.3 fL (9.4-12.3); Monocytes Absolute Auto 0.4 X10*3/uL (0.1-1.2); Monocytes Percent Auto 6.7 % (2-11); Neutrophils Absolute Auto 4.2 x10*3/uL (2.0-8.3); Neutrophils Percent Auto 74.3 % (45-73); Platelet Count 254 X10*3/uL (160-400); Red Blood Count 4.65 X10*6/uL (4.20-5.50); Red Cell Distribution Width 13.5 % (11.0-16.0); White Blood Count 5.7 X10*3/uL (4.8-10.8)
--- NOTE | 2024-12-07 07:31 | PM.PNGS ---
Subjective Subjective Date of Service: 12/07/24 <Alla Thorne PA-C - Last Filed: 12/07/24 08:28> 12/07/24 <Jeison Ramos MD - Last Filed: 12/07/24 08:15> Interval history: Has some increasing upper abdominal pain this morning. Similar to prior pain but more spread across the upper abdomen. Some nausea. Was able to tolerate clears last night. <Alla Thorne PA-C - Last Filed: 12/07/24 08:28> Physical Exam Vital Signs: Vital Signs: Last Vital Signs Temp 98.8 F 12/07/24 07:13 Pulse 73 12/07/24 07:13 Resp 20 12/07/24 07:13 BP 100/56 L 12/07/24 07:13 Pulse Ox 96 12/07/24 07:13 O2 Del Method Room Air 12/07/24 07:13 BMI result Body Mass Index 36.7 <Alla Thorne PA-C - Last Filed: 12/07/24 08:28> Const: General: comfortable, no acute distress and alert <Alla Thorne PA-C - Last Filed: 12/07/24 08:28> Orientation/consciousness: patient oriented x3 <KIMMIE Shen Last Filed: 12/07/24 08:28> Resp: Effort & Inspection: normal respiratory effort <Alla Thorne PA-C - Last Filed: 12/07/24 08:28> GI: Other: mild upper abdominal pain, increased in RUQ <Alla Thorne PA-C - Last Filed: 12/07/24 08:28> Palpation (GI): Soft to palpation and no guarding <Alla Thorne PA-C - Last Filed: 12/07/24 08:28> Skin: General skin exam: no rashes or lesions noted <KIMMIE Shen Last Filed: 12/07/24 08:28> Neuro: General: patient oriented x3 and moves all extremities <IKMMIE Shen Last Filed: 12/07/24 08:28> Objective Data Active Medications Acetaminophen (Acetaminophen 325 Mg Tablet) 650 mg PO Q6H PRN PRN Reason: Pain, Mild 1-3,fever,headache Calcium Carbonate (Calcium Carbonate 750 Mg Tab.Chew) 750 mg PO Q4H PRN PRN Reason: Heartburn Ceftriaxone Sodium (Ceftriaxone Sodium 1 Gm Vial) 1 gm IVPUSH Q24H [facility] Last Admin: 12/06/24 21:23 Dose: 1 gm Documented By: REHAN Diazepam (Diazepam 2 Mg Tablet) 2 mg PO BEDTIME PRN PRN Reason: Sleep Enoxaparin Sodium (Enoxaparin Sodium 40 Mg/0.4 Ml Syringe) 40 mg SUBCUT Q24H [facility] Last Admin: 12/05/24 22:19 Dose: 40 mg Documented By: LAURA Gabapentin (Gabapentin 600 Mg Tablet) 600 mg PO BEDTIME [facility] Last Admin: 12/06/24 21:23 Dose: 600 mg Documented By: REHAN Hydromorphone HCl (Hydromorphone Hcl 0.5 Mg/0.5 Ml Syringe) 0.5 mg IVPUSH Q4H PRN; Protocol PRN Reason: Pain, Severe (Pain Scale 7-10) Last Admin: 12/07/24 05:25 Dose: 0.5 mg Documented By: REHAN Metronidazole (Flagyl) 500 mg in 100 mls @ 100 mls/hr IV Q8H [facility] Last Admin: 12/07/24 05:24 Dose: 100 mls/hr Documented By: REHAN Magnesium Hydroxide (Milk Of Magnesia 30 Ml Oral.Susp) 30 ml PO DAILY PRN PRN Reason: Constipation Melatonin (Melatonin 3 Mg Tablet) 6 mg PO BEDTIME PRN PRN Reason: Insomnia Naloxone HCl (Naloxone Hcl 0.4 Mg/Ml Vial) 0.04 mg IVPUSH Q5M PRN PRN Reason: Excessive sedation or RR < 8 Sodium Chloride (0.9 % Sodium Chloride Flush 3 Ml Syringe) 3 ml IVFLUSH QSHIFT [facility] Last Admin: 12/07/24 00:00 Dose: 3 ml Documented By: REHAN Vitamin D (Cholecalciferol (Vitamin D3) 25 Mcg Tablet) 50 mcg PO DAILY [facility] Last Admin: 12/06/24 07:43 Dose: Not Given Documented By: COURTNEY Non-Admin Reason: Patient Refused <Alla Thorne PA-C - Last Filed: 12/07/24 08:28> Labs CBC & Chem 7: 12/07/24 06:26 12/07/24 06:26 <Alla Thorne PA-C - Last Filed: 12/07/24 08:28> Labs: Laboratory Results - last 24 hr 12/06/24 12/06/24 12/07/24 06:32 10:45 06:26 MCV 84.3 MCH 28.2 MCHC 33.4 RDW 13.5 Plt Count 254 MPV 10.3 Immature Gran % (Auto) 0.4 Neut % (Auto) 74.3 H Lymph % (Auto) 17.9 L [place] % (Auto) 6.7 Eos % (Auto) 0.5 Baso % (Auto) 0.2 Lymph # (Auto) 1.0 L [place] # (Auto) 0.4 Eos # (Auto) 0.0 Baso # (Auto) 0.0 Abs Immat Gran (auto) 0.02 Absolute Neuts (auto) 4.2 Absolute Nucleated RBC 0.000 Nucleated RBC % (auto) 0.0 Anion Gap 13 Estim Creat Clear Calc 129.8 Estimated GFR > 60 Random Glucose 118 H Calcium 9.2 Total Bilirubin 2.3 H Direct Bilirubin 1.6 H AST 145 H ALT 419 H Alkaline Phosphatase 151 H Total Protein 5.9 L Albumin 3.3 L Beta HCG, Quant < 2 Urine Test NEGATIVE <Alla Thorne PA-C - Last Filed: 12/07/24 08:28> Procedures Date of Service Date of Service: 12/07/24 <Alla Thorne PA-C - Last Filed: 12/07/24 08:28> 12/07/24 <Jeison Ramos MD - Last Filed: 12/07/24 08:15> Progress Note: A&P Assessment and plan (1) Acute cholecystitis due to biliary calculus: Status: Acute <Alla Thorne PA-C - Last Filed: 12/07/24 08:28> (2) Biliary calculi, common bile duct: Status: Acute <Alla Thorne PA-C - Last Filed: 12/07/24 08:28> Assessment and Plan: Underwent ERCP with sphincterotomy, stone extraction and intra op cholangiogram yesterday. Cholangiogram revealed at least one filling defect, no strictures were noted and the GB was nonfilling. She has mild increasing pain this morning possibly post procedural related but LFTs downtrending and bili down to 2 this am. Plan for laparoscopic cholecystectomy, possible open later today. She is in agreement. <Alla Thorne PA-C - Last Filed: 12/07/24 08:28> Underwent ERCP with sphincterotomy, stone extraction and intra op cholangiogram yesterday. Cholangiogram revealed at least one filling defect, no strictures were noted and the GB was nonfilling. She has mild increasing pain this morning possibly post procedural related but LFTs downtrending and bili down to 2 this am. Plan for laparoscopic cholecystectomy, possible open later today. She is in agreement. As noted above patient still has some upper abdominal pain the tolerated the ERCP well. Two stones removed by ERCP. LFTs trending downward appropriately. I again reviewed the procedure, alternatives and risks associated with laparoscopic or possible open cholecystectomy and she consents to the surgery. <Jeison Ramos MD - Last Filed: 12/07/24 08:15> Time Spent With Patient Time: Total time managing care of this patient today ____ minutes. <Alla Thorne PA-C - Last Filed: 12/07/24 08:28> Quality Stroke Does the patient have a stroke diagnosis?: No <Alla Thorne PA-C - Last Filed: 12/07/24 08:28> VTE Prior VTE?: No <Alla Thorne PA-C - Last Filed: 12/07/24 08:28> VTE Risk Level:: Medical - moderate - high <Alla Thorne PA-C - Last Filed: 12/07/24 08:28> VTE Device Contraindication: Treatment Not Indicated <Alla Thorne PA-C - Last Filed: 12/07/24 08:28> VTE Drug Contraindication: N/A - Med Ordered <Alla Thorne PA-C - Last Filed: 12/07/24 08:28>
--- NOTE | 2024-12-07 08:16 | HO.POSTANES ---
Post Anesthesia Evaluation Post Anesthesia Evaluation Date of Service: 12/07/24 Vital Signs: Vital Signs Temp Pulse Resp BP Pulse Ox O2 Del Method 12/07/24 07:13 98.8 F 73 20 100/56 L 96 Room Air 12/07/24 04:55 97.4 F 72 19 111/69 96 Room Air 12/06/24 23:07 98.7 F 77 18 115/65 94 Room Air Anesthesia: General Endotracheal-GETA Mental Status: Awake Pain Control: Satisfactory Nausea/Vomiting: None Hydration: Adequate Anesthesia-Related Issues: No Anes. Related Issues
--- NOTE | 2024-12-07 10:10 | HO.PM.IMPN ---
Subjective Subjective Date of Service: 12/07/24 Interval History: f/u choledocholithiasis, s/p ERCP 4 24 with stone extraction and planned for CCY today still with pain Review of Systems Review of Systems: Yes all other systems are reviewed and are negative Physical Exam Vital Signs: Vital Signs: Last Vital Signs Temp 98.8 F 12/07/24 07:13 Pulse 73 12/07/24 07:13 Resp 20 12/07/24 07:13 BP 100/56 L 12/07/24 07:13 Pulse Ox 96 12/07/24 07:13 O2 Del Method Room Air 12/07/24 07:13 BMI result Body Mass Index 36.7 Const: Other: General: AO X 3, no acute distress Resp: CTA bilateral CVS: S1,S2,RRR GI: +BS, NT, no distention, ruq tenderness Skin: No rash Neuro: motor grossly intact Psych: appropriate affect Objective Data Active Medications Acetaminophen (Acetaminophen 325 Mg Tablet) 650 mg PO Q6H PRN PRN Reason: Pain, Mild 1-3,fever,headache Calcium Carbonate (Calcium Carbonate 750 Mg Tab.Chew) 750 mg PO Q4H PRN PRN Reason: Heartburn Ceftriaxone Sodium (Ceftriaxone Sodium 1 Gm Vial) 1 gm IVPUSH Q24H [facility] Last Admin: 12/06/24 21:23 Dose: 1 gm Documented By: REHAN Diazepam (Diazepam 2 Mg Tablet) 2 mg PO BEDTIME PRN PRN Reason: Sleep Enoxaparin Sodium (Enoxaparin Sodium 40 Mg/0.4 Ml Syringe) 40 mg SUBCUT Q24H [facility] Last Admin: 12/05/24 22:19 Dose: 40 mg Documented By: LAURA Gabapentin (Gabapentin 600 Mg Tablet) 600 mg PO BEDTIME [facility] Last Admin: 12/06/24 21:23 Dose: 600 mg Documented By: REHAN Hydromorphone HCl (Hydromorphone Hcl 0.5 Mg/0.5 Ml Syringe) 0.5 mg IVPUSH Q4H PRN; Protocol PRN Reason: Pain, Severe (Pain Scale 7-10) Last Admin: 12/07/24 05:25 Dose: 0.5 mg Documented By: REHAN Metronidazole (Flagyl) 500 mg in 100 mls @ 100 mls/hr IV Q8H [facility] Last Infusion: 12/07/24 07:32 Dose: Infused Documented By: REHAN Magnesium Hydroxide (Milk Of Magnesia 30 Ml Oral.Susp) 30 ml PO DAILY PRN PRN Reason: Constipation Melatonin (Melatonin 3 Mg Tablet) 6 mg PO BEDTIME PRN PRN Reason: Insomnia Naloxone HCl (Naloxone Hcl 0.4 Mg/Ml Vial) 0.04 mg IVPUSH Q5M PRN PRN Reason: Excessive sedation or RR < 8 Sodium Chloride (0.9 % Sodium Chloride Flush 3 Ml Syringe) 3 ml IVFLUSH QSHIFT [facility] Last Admin: 12/07/24 08:09 Dose: Not Given Documented By: LASHAY Non-Admin Reason: IV Running Vitamin D (Cholecalciferol (Vitamin D3) 25 Mcg Tablet) 50 mcg PO DAILY [facility] Last Admin: 12/07/24 09:36 Dose: Not Given Documented By: LASHAY Non-Admin Reason: Patient Refused Labs 12/07/24 06:26 12/07/24 06:26 Labs: Laboratory Results - last 24 hr 12/06/24 12/07/24 10:45 06:26 MCV 84.3 MCH 28.2 MCHC 33.4 RDW 13.5 Plt Count 254 MPV 10.3 Immature Gran % (Auto) 0.4 Neut % (Auto) 74.3 H Lymph % (Auto) 17.9 L [place] % (Auto) 6.7 Eos % (Auto) 0.5 Baso % (Auto) 0.2 Lymph # (Auto) 1.0 L [place] # (Auto) 0.4 Eos # (Auto) 0.0 Baso # (Auto) 0.0 Abs Immat Gran (auto) 0.02 Absolute Neuts (auto) 4.2 Absolute Nucleated RBC 0.000 Nucleated RBC % (auto) 0.0 Anion Gap 13 Estim Creat Clear Calc 129.8 Estimated GFR > 60 Random Glucose 118 H Calcium 9.2 Total Bilirubin 2.3 H Direct Bilirubin 1.6 H AST 145 H ALT 419 H Alkaline Phosphatase 151 H Total Protein 5.9 L Albumin 3.3 L Urine Test NEGATIVE Assessment and Plan (1) Acute cholecystitis due to biliary calculus: Status: Acute (2) Biliary calculi, common bile duct: Status: Acute Plan 44-year-old female with a past medical history of chronic back pain status post diskectomy recently presented to the hospital today with a chief complaint of abdominal pain. Admitted following Acute cholecystitis complicated with Transaminitis and obstructing cholechodolithiasis MRCP positive for CBD stones, stenosis and stricutures raising concern of ascending cholangitis diagnosis along with obstructing stones Had ERCP with stone extraction on 12/06 Surgery planning CCY today 12/07 Continue Ceftriaxone and Flagyl Pain control with dilaudid Follow LFTs, trending down slowly Chest pain: Atypical. Resolved. EKG nonischemic. Troponin negative. CT chest no evidence of PE. Obesity advised weight loos DVT PPx Lonovex, hold tonight for planned surgery The patient will need overnight hospital stay pending ERCP and surgical intervention on IV antibiotics. Quality Stroke Does the patient have a stroke diagnosis?: No VTE Prior VTE?: No VTE Risk Level:: Medical - moderate - high VTE Device Contraindication: Treatment Not Indicated VTE Drug Contraindication: N/A - Med Ordered
--- NOTE | 2024-12-07 10:48 | MHC.CM.PN ---
Per ROUNDS discussion, Patient is not yet medically cleared for dc (surgery today); home is the goal and CM will continue to follow.
--- NOTE | 2024-12-07 12:12 | HO.ANESPROP2 ---
HPI - Anesthesia Eval Consult details Narrative: 44 yo female patient. S/p ERCP yesterday. 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, lumbosacral Family History Family history of problems with anesthesia: No Surgical History Surgical History History of ERCP S/P lumbar microdiscectomy History of Problems with Anesthesia: No Social History Social History Household Members: Spouse Housing: House Do you presently have visiting nurse or other home services: No Patient Tobacco Use Status: Never used Tobacco Smoked in Last 30 Days: No Use of substances other than those prescribed or required for medical reasons: No Currently Displaying Signs/Symptoms of Drug Intoxication Withdrawal: No Have you been hit, kicked, punched, or otherwise hurt by someone within the past year? If so, by whom?: No Do you feel safe in your current relationship?: Yes Are you made to feel afraid or neglected: No Are you DNR?: No Advance Directives: No Advance Directives Information Provided: No Do you have a plan to hurt others: No Plan Patient : No service: No Meds Allergies Allergy/AdvReac Type Severity Reaction Status Date / Time No Known Allergies Allergy Verified 12/04/24 15:33 Active Medications: Current Medications Acetaminophen (Acetaminophen 325 Mg Tablet) 650 mg PO Q6H PRN PRN Reason: Pain, Mild 1-3,fever,headache Calcium Carbonate (Calcium Carbonate 750 Mg Tab.Chew) 750 mg PO Q4H PRN PRN Reason: Heartburn Ceftriaxone Sodium (Ceftriaxone Sodium 1 Gm Vial) 1 gm IVPUSH Q24H [facility] Last Admin: 12/06/24 21:23 Dose: 1 gm Diazepam (Diazepam 2 Mg Tablet) 2 mg PO BEDTIME PRN PRN Reason: Sleep Enoxaparin Sodium (Enoxaparin Sodium 40 Mg/0.4 Ml Syringe) 40 mg SUBCUT Q24H [facility] Last Admin: 12/05/24 22:19 Dose: 40 mg Gabapentin (Gabapentin 600 Mg Tablet) 600 mg PO BEDTIME [facility] Last Admin: 12/06/24 21:23 Dose: 600 mg Hydromorphone HCl (Hydromorphone Hcl 0.5 Mg/0.5 Ml Syringe) 0.5 mg IVPUSH Q4H PRN; Protocol PRN Reason: Pain, Severe (Pain Scale 7-10) Last Admin: 12/07/24 10:30 Dose: 0.5 mg Metronidazole (Flagyl) 500 mg in 100 mls @ 100 mls/hr IV Q8H [facility] Last Infusion: 12/07/24 07:32 Dose: Infused Magnesium Hydroxide (Milk Of Magnesia 30 Ml Oral.Susp) 30 ml PO DAILY PRN PRN Reason: Constipation Melatonin (Melatonin 3 Mg Tablet) 6 mg PO BEDTIME PRN PRN Reason: Insomnia Naloxone HCl (Naloxone Hcl 0.4 Mg/Ml Vial) 0.04 mg IVPUSH Q5M PRN PRN Reason: Excessive sedation or RR < 8 Sodium Chloride (0.9 % Sodium Chloride Flush 3 Ml Syringe) 3 ml IVFLUSH QSHIFT [facility] Last Admin: 12/07/24 08:09 Dose: Not Given Vitamin D (Cholecalciferol (Vitamin D3) 25 Mcg Tablet) 50 mcg PO DAILY [facility] Last Admin: 12/07/24 09:36 Dose: Not Given Home Medications ?Medication ?Instructions ?Recorded ?Confirmed ?Last Taken ?Type gabapentin 300 mg capsule 600 mg PO BEDTIME 11/10/20 12/04/24 12/03/24 History cholecalciferol (vitamin D3) 50 50 mcg PO DAILY 12/04/24 12/04/24 12/03/24 History mcg (2,000 unit) capsule diazepam 2 mg tablet 2 mg PO BEDTIME 12/04/24 12/04/24 12/03/24 History Exam Height,Weight and Vital Signs: Height 5 ft 3 in Weight 94 kg Last Vital Signs Temp 98 F 12/07/24 12:02 Pulse 77 12/07/24 12:02 Resp 20 12/07/24 12:02 BP 120/67 12/07/24 12:02 Pulse Ox 97 12/07/24 12:02 O2 Del Method Room Air 12/07/24 12:02 Pertinent Lab Results Pertinent Lab Results: Laboratory Tests 12/04/24 12/05/24 12/06/24 16:14 06:41 06:32 WBC 3.6 L 4.5 L 3.2 L RBC 5.04 4.84 4.29 Hgb 14.1 13.5 12.0 Hct 43.1 41.0 36.4 L MCV 85.5 84.7 84.8 MCH 28.0 27.9 28.0 MCHC 32.7 32.9 33.0 RDW 13.8 13.5 13.7 Plt Count 271 256 229 MPV 9.9 10.0 10.2 Immature Gran % (Auto) 0.3 Neut % (Auto) 56.1 Lymph % (Auto) 32.3 [place] % (Auto) 6.6 Eos % (Auto) 4.1 H Baso % (Auto) 0.6 Lymph # (Auto) 1.2 [place] # (Auto) 0.2 Eos # (Auto) 0.2 Baso # (Auto) 0.0 Abs Immat Gran (auto) 0.01 Absolute Neuts (auto) 2.0 Absolute Nucleated RBC 0.000 0.000 0.000 Nucleated RBC % (auto) 0.0 0.0 0.0 PT 11.1 INR 1.0 APTT 33.6 Sodium 141 141 140 Potassium 4.5 3.7 4.0 Chloride 106 106 106 Carbon Dioxide 27 28 28 Anion Gap 13 11 L 10 L BUN 7 L 6 L 7 L Creatinine 0.71 0.70 0.67 Estim Creat Clear Calc 110.1 109.4 114.3 Estimated GFR > 60 > 60 > 60 Random Glucose 119 H 101 92 Calcium 10.2 9.4 D 9.4 Total Bilirubin 4.3 H 4.2 H 4.4 H Direct Bilirubin 3.4 H AST 387 H 309 H 248 H ALT 817 H 681 H 558 H Alkaline Phosphatase 204 H 193 H 172 H Troponin I High Sens < 2.7 Total Protein 7.9 7.1 6.3 L Albumin 4.4 4.0 3.5 Lipase 31 Beta HCG, Quant < 2 Urine Test Hepatitis A IgM Ab Nonreactive Hep Bs Antigen Negative Hep Bs Antibody NONREACTIVE Hep B Core Total Ab Nonreactive Hepatitis C Ab (EIA) Nonreactive Influenza Type A (PCR) NEGATIVE Influenza Type B (PCR) NEGATIVE RSV RNA Qual (PCR) NEGATIVE SARS-CoV-2 RNA (RT-PCR) NEGATIVE 12/06/24 12/07/24 10:45 06:26 WBC 5.7 RBC 4.65 Hgb 13.1 Hct 39.2 MCV 84.3 MCH 28.2 MCHC 33.4 RDW 13.5 Plt Count 254 MPV 10.3 Immature Gran % (Auto) 0.4 Neut % (Auto) 74.3 H Lymph % (Auto) 17.9 L [place] % (Auto) 6.7 Eos % (Auto) 0.5 Baso % (Auto) 0.2 Lymph # (Auto) 1.0 L [place] # (Auto) 0.4 Eos # (Auto) 0.0 Baso # (Auto) 0.0 Abs Immat Gran (auto) 0.02 Absolute Neuts (auto) 4.2 Absolute Nucleated RBC 0.000 Nucleated RBC % (auto) 0.0 PT INR APTT Sodium 139 Potassium 4.0 Chloride 105 Carbon Dioxide 25 Anion Gap 13 BUN 10 Creatinine 0.59 Estim Creat Clear Calc 129.8 Estimated GFR > 60 Random Glucose 118 H Calcium 9.2 Total Bilirubin 2.3 H Direct Bilirubin 1.6 H AST 145 H ALT 419 H Alkaline Phosphatase 151 H Troponin I High Sens Total Protein 5.9 L Albumin 3.3 L Lipase Beta HCG, Quant Urine Test NEGATIVE Hepatitis A IgM Ab Hep Bs Antigen Hep Bs Antibody Hep B Core Total Ab Hepatitis C Ab (EIA) Influenza Type A (PCR) Influenza Type B (PCR) RSV RNA Qual (PCR) SARS-CoV-2 RNA (RT-PCR) Airway Mallampati Class: II TM Dist: >3cm Neck ROM: Full Loose/Missing/Broken Teeth: Yes (Missing wisdom teeth and 1 tooth top right, bottom left. Denies broken or loose teeth) Heart: RRR Lungs: CTAB Assessment and Plan Assessment Anesthesia Assessment: Anesthesia Plan Discussed and Chart Reviewed Final Anesthetic Review Family History of Problems with Anesthesia: No History of Problems with Anesthesia: No NPO: Yes ASA Class: II Final Preanesthetic Review: No Changes in Pt Med Stat, Meds/Allgs Chart Reviewed, Consent Obtained/Reviewed and Anes Risks/Benef Reviewed Patient Risk: Intermediate Procedure Risk: Intermediate Assessment/Block/Sedation in SS: Assess/Block/Sedation-SS Anesthetic Plan Anesthetic Plan: GA Disposition: Standard PACU
--- NOTE | 2024-12-07 15:16 | P.OP_ITS ---
Operative Note Operative Note Date of Service: 12/07/24 Narrative: Preoperative diagnosis: Cholecystitis, choledocholithiasis Postoperative diagnosis: Same Procedure: Laparoscopic cholecystectomy Surgeon: Jeison Ramos MD Personal Development Coach: ANJU Shen, Arvind Lawton PA-C Anesthesia: General endotracheal Indications for procedure: 44-year-old female patient presenting with complaints of abdominal pain in the right upper quadrant. Workup revealed a dilated common bile duct. Subsequent MRCP confirmed a common bile duct stone. She underwent ERCP which confirmed the common bile duct stone which was removed. She presents now for laparoscopic cholecystectomy. Operative findings: Markedly inflamed gallbladder with thickened gallbladder wall and a large gallstone at the neck of the gallbladder. Specimen: gallbladder Estimated blood loss: 15 mL Complications: None Procedure details: Patient was brought to the OR and placed in a supine position. After administering general anesthesia the patient's abdomen was prepped with ChloraPrep and draped in a sterile fashion. A surgical time-out was called the consent confirmed. Patient received preoperative antibiotics and Venodyne boots were in place. Local anesthesia consisting of 0.5% Sensorcaine without epinephrine was infiltrated in a periumbilical region. A 5 mm incision was made above the umbilicus in a transverse fashion. The Veress needle was then inserted while elevating abdominal cavity with towel clips. After positive drop test the abdomen was insufflated to a pressure of 15 mm of mercury. The Veress needle was then removed and a 5 mm trocar inserted. The camera was inserted in the abdomen explored. A 12 mm trocar was then placed in the epigastrium. Two 5 mm trocars placed in the right upper quadrant by the bilingual office assistant. The patient was placed in reverse Trendelenburg positioning and rotated to the left. The gallbladder was grasped with the fundus and retracted cephalad by the bilingual office assistant. The infundibulum was then grasped and retracted away from the liver bed, also by the bilingual office assistant. The Dolphin dissected was then used by the surgeon to dissect the peritoneum off the infundibulum to reveal the junction with the cystic duct. Cystic artery was noted slightly medial and posterior to the cystic duct. After obtaining a critical view the cystic duct was doubly clipped and divided. The cystic artery was then doubly clipped and divided. The gallbladder was then dissected off the liver bed using electrocautery with an L hook. Hemostasis was assured all times using the electrocautery. When the gallbladder is completely dissected off the liver bed was placed in an Endo-Catch bag and brought out through the epigastric incision. The gallbladder was sent to pathology for further examination. The abdomen was then re-examined. The liver bed was irrigated and suctioned dry. No bleeding or bile leak could be identified. CO2 was then evacuated and all trocars removed. Fascia was closed at the epigastric incision using a [id number] 0 Polysorb suture. Skin was closed in all incisions using a subcuticular 4 0 Polysorb suture by both the surgeon and bilingual office assistant. Sterile dressings consisting of Steri-Strips, 2 x 2 gauze, and Tegaderm were then appli ed. The patient tolerated the procedure well. Sponge instrument and needle counts reported as correct. The patient was transferred to PACU in stable condition.
[2024-12-07] MEDS: Ketorolac Tromethamine 30 MG/ML VIAL IVPUSH (15:49)
[2024-12-07] MEDS: Lactated Ringers 1,000 ML 100 ML IVCONT ×2 (17:43)
[2024-12-07] MEDS: 0.9 % Sodium Chloride Flush 3 ML SYRINGE IVFLUSH ×2 (21:18)
[2024-12-07] MEDS: cefTRIAXone sodium 1 GM VIAL IVPUSH (21:18)
[2024-12-07] MEDS: Gabapentin 600 MG TABLET PO (21:18)
[2024-12-08 03:39] VITALS: BP 109/65; PULSE 86; RESP 17; TEMP 36.2; O2SAT 93
[2024-12-08] MEDS: metroNIDAZOLE/NS 500 MG/100 ML PIGGYBACK 100 MG IV (05:24)
[2024-12-08] MEDS: HYDROmorphone HCl 0.5 MG/0.5 ML SYRINGE IVPUSH ×3 (05:27→20:38)
[2024-12-08] MEDS: Lactated Ringers 1,000 ML 100 ML IVCONT ×2 (05:33→17:32)
[2024-12-08 06:21] LABS: Alanine Aminotransferase 328 U/L (0-31); Albumin Level 3.3 g/dL (3.5-5.0); Alkaline Phosphatase 141 U/L (39-117); Anion Gap 13 (12-20); Aspartate Amino Transferase 113 U/L (5-31); Bilirubin Direct 0.9 mg/dL (0.0-0.5); Bilirubin Total 1.5 mg/dL (0.0-1.0); Blood Urea Nitrogen 9 mg/dL (9-16); Calcium 8.9 mg/dL (8.4-10.2); Carbon Dioxide 25 mmol/L (22-29); Chloride 108 mmol/L (96-108); Creatinine Clr Calc Pharmacy 112.6; Estimated Glomerular Filt Rate > 60; Glucose Random 94 mg/dL (60-115); Potassium 3.8 mmol/L (3.3-5.1); Sodium 142 mmol/L (135-145); Total Protein 6.1 g/dL (6.5-8.0)
[2024-12-08 06:56] VITALS: BP 128/66; PULSE 101; RESP 16; TEMP 36.6; O2SAT 96
--- NOTE | 2024-12-08 08:34 | P.PNIM_ITS ---
Subjective Subjective Date of Service: 12/08/24 Interval History: f/u choledocholithiasis, s/p ERCP 12 06 with stone extraction and CCY on 12/08 still with some pain Physical Exam 2 Vital Signs: Vital Signs: Last Vital Signs Temp 97.9 F 12/08/24 06:56 Pulse 101 H 12/08/24 06:56 Resp 16 12/08/24 06:56 BP 128/66 12/08/24 06:56 Pulse Ox 96 12/08/24 06:56 O2 Del Method Room Air 12/08/24 06:56 O2 Flow Rate 2 12/07/24 16:00 FiO2 38 12/07/24 15:40 BMI result Body Mass Index 36.7 Const: Other: General: AO X 3, no acute distress Resp: CTA bilateral CVS: S1,S2,RRR GI: +BS, NT, no distention, tenderness around incision Skin: No rash Neuro: motor grossly intact Psych: appropriate affect Objective Data Active Medications Acetaminophen (Acetaminophen 325 Mg Tablet) 650 mg PO Q6H PRN PRN Reason: Pain, Mild 1-3,fever,headache Calcium Carbonate (Calcium Carbonate 750 Mg Tab.Chew) 750 mg PO Q4H PRN PRN Reason: Heartburn Ceftriaxone Sodium (Ceftriaxone Sodium 1 Gm Vial) 1 gm IVPUSH Q24H [facility] Last Admin: 12/07/24 21:18 Dose: 1 gm Documented By: JORDAN Diazepam (Diazepam 2 Mg Tablet) 2 mg PO BEDTIME PRN PRN Reason: Sleep Enoxaparin Sodium (Enoxaparin Sodium 40 Mg/0.4 Ml Syringe) 40 mg SUBCUT Q24H [facility] Last Admin: 12/05/24 22:19 Dose: 40 mg Documented By: LAURA Gabapentin (Gabapentin 600 Mg Tablet) 600 mg PO BEDTIME [facility] Last Admin: 12/07/24 21:18 Dose: 600 mg Documented By: JORDAN Hydromorphone HCl (Hydromorphone Hcl 0.5 Mg/0.5 Ml Syringe) 0.5 mg IVPUSH Q4H PRN; Protocol PRN Reason: Pain, Severe (Pain Scale 7-10) Last Admin: 12/08/24 05:27 Dose: 0.5 mg Documented By: JORDAN Metronidazole (Flagyl) 500 mg in 100 mls @ 100 mls/hr IV Q8H [facility] Last Infusion: 12/08/24 06:27 Dose: Infused Documented By: JORDAN Lactated Ringer's (Lr) 1,000 mls @ 100 mls/hr IVCONT .Q10H [facility] Last Admin: 12/08/24 05:33 Dose: 100 mls/hr Documented By: JORDAN Magnesium Hydroxide (Milk Of Magnesia 30 Ml Oral.Susp) 30 ml PO DAILY PRN PRN Reason: Constipation Melatonin (Melatonin 3 Mg Tablet) 6 mg PO BEDTIME PRN PRN Reason: Insomnia Ondansetron HCl (Ondansetron Hcl 4 Mg/2 Ml Vial) 4 mg IVPUSH Q6H PRN PRN Reason: Nausea and Vomiting Oxycodone HCl (Oxycodone Hcl Immed Release 5 Mg Tablet) 5 mg PO Q6H PRN PRN Reason: Pain, Moderate(Pain Scale 4-6) Sodium Chloride (0.9 % Sodium Chloride Flush 3 Ml Syringe) 3 ml IVFLUSH QSHIFT [facility] Last Admin: 12/08/24 07:23 Dose: Not Given Documented By: ARETHA Non-Admin Reason: IV Running Vitamin D (Cholecalciferol (Vitamin D3) 25 Mcg Tablet) 50 mcg PO DAILY [facility] Last Admin: 12/08/24 08:25 Dose: Not Given Documented By: ARETHA Non-Admin Reason: Patient Refused Labs 12/07/24 06:26 12/08/24 05:23 Labs: Laboratory Results - last 24 hr 12/08/24 05:23 Hold Purple Top SEE NOTE Anion Gap 13 Estim Creat Clear Calc 112.6 Estimated GFR > 60 Random Glucose 94 Calcium 8.9 Total Bilirubin 1.5 H Direct Bilirubin 0.9 H AST 113 H ALT 328 H Alkaline Phosphatase 141 H Total Protein 6.1 L Albumin 3.3 L Assessment and Plan (1) Acute cholecystitis due to biliary calculus: Status: Acute (2) Biliary calculi, common bile duct: Status: Acute Plan 44-year-old female with a past medical history of chronic back pain status post diskectomy recently presented to the hospital today with a chief complaint of abdominal pain. Admitted following Acute cholecystitis complicated by Transaminitis and obstructing cholechodolithiasis MRCP positive for CBD stones, stenosis and stricutures raising concern of ascending cholangitis diagnosis along with obstructing stones Had ERCP with stone extraction on 12/06 had CCY 12/07 Continue Ceftriaxone and Flagyl, change to Augmentin at DC for total of 7 days Pain control with dilaudid, oxycodone Follow LFTs, trending down slowly on regular diet Chest pain: Atypical. Resolved. EKG nonischemic. Troponin negative. CT chest no evidence of PE. Obesity advised weight loos DVT PPx Lonovex, hold tonight for planned surgery The patient will need overnight hospital stay pending ERCP and surgical intervention on IV antibiotics. Quality Stroke Does the patient have a stroke diagnosis?: No VTE Prior VTE?: No VTE Risk Level:: Medical - moderate - high VTE Device Contraindication: Treatment Not Indicated VTE Drug Contraindication: N/A - Med Ordered
--- NOTE | 2024-12-08 10:18 | HO.POSTANES ---
Post Anesthesia Evaluation Post Anesthesia Evaluation Date of Service: 12/08/24 Vital Signs: Vital Signs Temp Pulse Resp BP Pulse Ox O2 Del Method 12/08/24 06:56 97.9 F 101 H 16 128/66 96 Room Air 12/08/24 03:39 97.2 F 86 17 109/65 93 Room Air Anesthesia: General Endotracheal-GETA Mental Status: Awake Pain Control: Satisfactory Nausea/Vomiting: None Hydration: Adequate Anesthesia-Related Issues: No Anes. Related Issues
[2024-12-08] MEDS: Amoxicillin/Potassium Clav 875 MG TABLET PO ×2 (10:26→20:38)
--- NOTE | 2024-12-08 10:45 | PM.PNGS ---
Subjective Subjective Date of Service: 12/08/24 Interval history: She says she feels okay this morning Admits to incisional pain, which appears to be appropriate to postop Tolerating diet Physical Exam Vital Signs: Vital Signs: Last Vital Signs Temp 97.9 F 12/08/24 06:56 Pulse 101 H 12/08/24 06:56 Resp 16 12/08/24 06:56 BP 128/66 12/08/24 06:56 Pulse Ox 96 12/08/24 06:56 O2 Del Method Room Air 12/08/24 06:56 O2 Flow Rate 2 12/07/24 16:00 FiO2 38 12/07/24 15:40 BMI result Body Mass Index 36.7 Const: General: comfortable and no acute distress Eyes: Other: Nonicteric Resp: Effort & Inspection: normal respiratory effort Cardio: Rate: regular rate GI: Other: Dressings dry Palpation (GI): Soft to palpation, not firm and no guarding Objective Data Active Medications Acetaminophen (Acetaminophen 325 Mg Tablet) 650 mg PO Q6H PRN PRN Reason: Pain, Mild 1-3,fever,headache Amoxicillin/Clavulanate Potassium (Amoxicillin/Potassium Clav 875 Mg Tablet) 875 mg PO Q12H [facility] Last Admin: 12/08/24 10:26 Dose: 875 mg Documented By: ARETHA Calcium Carbonate (Calcium Carbonate 750 Mg Tab.Chew) 750 mg PO Q4H PRN PRN Reason: Heartburn Diazepam (Diazepam 2 Mg Tablet) 2 mg PO BEDTIME PRN PRN Reason: Sleep Enoxaparin Sodium (Enoxaparin Sodium 40 Mg/0.4 Ml Syringe) 40 mg SUBCUT Q24H [facility] Last Admin: 12/05/24 22:19 Dose: 40 mg Documented By: LAURA Gabapentin (Gabapentin 600 Mg Tablet) 600 mg PO BEDTIME [facility] Last Admin: 12/07/24 21:18 Dose: 600 mg Documented By: JORDAN Hydromorphone HCl (Hydromorphone Hcl 0.5 Mg/0.5 Ml Syringe) 0.5 mg IVPUSH Q4H PRN; Protocol PRN Reason: Pain, Severe (Pain Scale 7-10) Last Admin: 12/08/24 05:27 Dose: 0.5 mg Documented By: JORDAN Lactated Ringer's (Lr) 1,000 mls @ 100 mls/hr IVCONT .Q10H [facility] Last Admin: 12/08/24 05:33 Dose: 100 mls/hr Documented By: JORDAN Magnesium Hydroxide (Milk Of Magnesia 30 Ml Oral.Susp) 30 ml PO DAILY PRN PRN Reason: Constipation Melatonin (Melatonin 3 Mg Tablet) 6 mg PO BEDTIME PRN PRN Reason: Insomnia Ondansetron HCl (Ondansetron Hcl 4 Mg/2 Ml Vial) 4 mg IVPUSH Q6H PRN PRN Reason: Nausea and Vomiting Oxycodone HCl (Oxycodone Hcl Immed Release 5 Mg Tablet) 5 mg PO Q6H PRN PRN Reason: Pain, Moderate(Pain Scale 4-6) Sodium Chloride (0.9 % Sodium Chloride Flush 3 Ml Syringe) 3 ml IVFLUSH QSHIFT [facility] Last Admin: 12/08/24 07:23 Dose: Not Given Documented By: ARETHA Non-Admin Reason: IV Running Vitamin D (Cholecalciferol (Vitamin D3) 25 Mcg Tablet) 50 mcg PO DAILY [facility] Last Admin: 12/08/24 08:25 Dose: Not Given Documented By: ARETHA Non-Admin Reason: Patient Refused Labs 12/07/24 06:26 12/08/24 05:23 Labs: Laboratory Results - last 24 hr 12/08/24 05:23 Hold Purple Top SEE NOTE Anion Gap 13 Estim Creat Clear Calc 112.6 Estimated GFR > 60 Random Glucose 94 Calcium 8.9 Total Bilirubin 1.5 H Direct Bilirubin 0.9 H AST 113 H ALT 328 H Alkaline Phosphatase 141 H Total Protein 6.1 L Albumin 3.3 L Procedures Date of Service Date of Service: 12/08/24 Progress Note: A&P Assessment and plan (1) Acute cholecystitis due to biliary calculus: Status: Acute Assessment and Plan: Status post laparoscopic cholecystectomy She is doing well clinically A good GI function Appears to have good pain control She can be discharged from surgical standpoint She can follow up with Dr. Ramos in the office She is okay to shower tomorrow She can remove her dressings tomorrow apply Band-Aids Time Spent With Patient Time: Total time managing care of this patient today ____ minutes. Quality Stroke Does the patient have a stroke diagnosis?: No VTE Prior VTE?: No VTE Risk Level:: Medical - moderate - high VTE Device Contraindication: Treatment Not Indicated VTE Drug Contraindication: N/A - Med Ordered
[2024-12-08 15:12] VITALS: BP 103/59; PULSE 98; RESP 18; TEMP 37.5; O2SAT 93
[2024-12-08 19:36] VITALS: BP 126/58; PULSE 108; RESP 18; TEMP 36.8; O2SAT 94
[2024-12-08] MEDS: Gabapentin 600 MG TABLET PO (20:38)
[2024-12-08] MEDS: 0.9 % Sodium Chloride Flush 3 ML SYRINGE IVFLUSH (20:38)
[2024-12-09] MEDS: HYDROmorphone HCl 0.5 MG/0.5 ML SYRINGE IVPUSH ×2 (00:31→05:49)
[2024-12-09] MEDS: Lactated Ringers 1,000 ML 100 ML IVCONT (02:53)
[2024-12-09 03:13] VITALS: BP 103/57; PULSE 110; RESP 18; TEMP 37.1; O2SAT 92
--- NOTE | 2024-12-09 07:10 | P.DS_ITS ---
DS: Providers Provider Date of Service: 12/09/24 Date of admission: 12/04/24 21:21 Date of discharge: 12/09/24 Primary care physician: Vikki Hall MD Consults: 12/04/24 21:33 Consult to Gastroenterology Routine Consulting Provider: Agustin Ny Reason for consultation: transaminitis Consult to General Surgery Routine Consulting Provider: [facility] [facility] Reason for consultation: acute cholecystitis DS: Diagnosis Discharge Diagnosis (1) Acute cholecystitis due to biliary calculus: Status: Acute DS: Summary Hospital Course Hospital Course: admission hpi Chief Complaint: abd pain 44-year-old female with a past medical history of chronic back pain status post diskectomy recently presented to the hospital today with a chief complaint of abdominal pain. Patient reports that since Tuesday she has been having right upper quadrant abdominal pain. Denies any nausea or vomiting. Reports having chills. Denies any chest pain or palpitations. Denies any diarrhea. Denies any urinary symptoms. Patient reports that she felt pain in her chest today. Which currently resolved. Review of all other systems is negative except mentioned above ER course: Per ER team, patient reported having chest pain-EKG nonischemic, troponin negative. CT chest showed no evidence of PE. Also reported having abdominal pain-tender in the right upper quadrant; CT abdomen pelvis shows findings concerning for possible acute cholecystitis. Discussed with general surgery who suggested admission to the medicine service for MRCP. Also noted to have elevated liver enzymes. Concern for possible gallstone that has passed Hospital course 44-year-old female with a past medical history of chronic back pain status post discectomy presented to the hospital today with a chief complaint of abdominal pain. She was admitted for cholecystitis and choledocholithiasis with associated transaminitis. She was started on IV ceftriaxone and Flagyl. An MRCP demonstrated CBD stones, stenosis, and strictures, raising concern for ascending cholangitis along with obstructing stones. She underwent ERCP with stone extraction on 12/06, followed by cholecystectomy (CCY) on 12/07. Postoperatively, she is doing well, tolerating a regular diet. Liver function tests (LFTs) are trending down and should continue to be monitored on an outpatient basis. She is to follow up with her PCP and surgeon. No indication for further antibiotics at this time Chest pain: Atypical. Resolved. EKG nonischemic. Troponin negative. CT chest no evidence of PE. Obesity advised weight loos Time Attestation Discharge Coordination Time (in mins): 40 Quality: Safe Use of Opioids Does Pt have an Active Cancer Diagnosis on the Problem List?: No Quality: Stroke Does the patient have a stroke diagnosis?: No Physical Exam Vital Signs: Vital Signs: Last Vital Signs Temp 98.8 F 12/09/24 03:13 Pulse 110 H 12/09/24 03:13 Resp 18 12/09/24 03:13 BP 103/57 L 12/09/24 03:13 Pulse Ox 92 12/09/24 03:13 O2 Del Method Room Air 12/09/24 03:13 O2 Flow Rate 2 12/07/24 16:00 FiO2 38 12/07/24 15:40 BMI result Body Mass Index 36.7 DS: Data Data Completed and Pending Pending studies at discharge: Pending at discharge 12/07/24 14:49 Surgical [PTH] Routine Discharge Plan Discharge Anticipated Discharge Date/Time: 12/09/24 07:23 Patient Disposition: Home, Self-Care Discharge Diagnosis: Acute cholecystitis, choledocholithiasis Referrals: Vikki Hall MD [Primary Care Provider] - 1 Week Discharge Medications: New oxycodone 5 mg Tablet 5 mg PO Q6H PRN (Reason: Pain, Moderate(Pain Scale 4-6)) Qty: 15 0RF Rx Instructions: Partial Fill upon patient request. Continued diazepam 2 mg tablet 2 mg PO BEDTIME cholecalciferol (vitamin D3) 50 mcg (2,000 unit) capsule 50 mcg PO DAILY gabapentin 300 mg capsule 600 mg PO BEDTIME Discharge Orders: Discharge Order (Routine); Ordered 12/09/24 Ordered By: De Knight Diet: Advance to usual diet Activity on Discharge: As tolerated Stand Alone Forms: Patient Portal Discharge page, Work/School Release Print Language: Luxembourger Other Ambulatory Orders: Liver Panel (Routine) Timeframe: 1 Week Facility: [facility] - Location: Laboratory Ordered By: De Knight Activity Restrictions/Additional Instructions: If the incision area is tender, you may apply an ice pack for short intervals (No more than 20 minutes on, followed by at least 20 minutes off). Do not apply heat. Do not use creams, lotions, or topical antibiotics unless instructed to do so by your surgeon. These can cause infection or allergic reaction. No lifting more than 20 lbs Okay to shower starting December 09 Okay to change dressings with gauze or Band-Aid after 24 hours No strenuous activities Call the office for follow-up in 1-2 weeks - with Dr. Ramos Call Your Doctor If: -Your temperature exceeds 101.5? F -You experience excessive pain or swelling -You have an unexpected reaction to medication -You have excessive bleeding -You experience continued vomiting/nausea -Your incision begins to separate -Your incision shows signs of infection such as increased redness, swelling, excessive pain, drainage (light blood or clear fluid is normal) or heat Care Plan Goals: recovery from cholecystitis, choledocholithiasis and gallbladder surgery Health Concerns: choledocholithiasis cholecystitis Plan of Treatment: see above follow up with your doctor in a week, call for appointment take oxycodone as needed and as directed for pain Assessment: see above Patient Instructions: Laparoscopic Cholecystectomy (DC) Discharge Date/Time: 12/09/24 10:45
[2024-12-09 07:26] VITALS: BP 105/57; PULSE 97; RESP 18; TEMP 36.9; O2SAT 94
[2024-12-09] MEDS: Cholecalciferol (Vitamin D3) 25 MCG TABLET 50 MCG PO (08:46)
[2024-12-09] MEDS: Amoxicillin/Potassium Clav 875 MG TABLET PO (08:46)
[2024-12-09 08:56] VITALS: O2SAT 92
--- NOTE | 2024-12-09 09:08 | P.PNGS_ITS ---
Subjective Subjective Date of Service: 12/09/24 Interval history: Says she had a good night Pain much better controlled Tolerating diet well Physical Exam 2 Vital Signs: Vital Signs: Last Vital Signs Temp 98.5 F 12/09/24 07:26 Pulse 97 12/09/24 07:26 Resp 18 12/09/24 07:26 BP 105/57 L 12/09/24 07:26 Pulse Ox 92 12/09/24 08:56 O2 Del Method Room Air 12/09/24 08:56 O2 Flow Rate 2.0 12/09/24 07:26 FiO2 38 12/07/24 15:40 BMI result Body Mass Index 36.7 Const: General: comfortable and no acute distress Eyes: Other: Anicteric Resp: Effort & Inspection: normal respiratory effort Cardio: Rate: regular rate GI: Other: All incisions clean and dry, dressings removed Palpation (GI): Soft to palpation, not firm and Guarding due to palpation present (GI) Objective Data Active Medications Acetaminophen (Acetaminophen 325 Mg Tablet) 650 mg PO Q6H PRN PRN Reason: Pain, Mild 1-3,fever,headache Amoxicillin/Clavulanate Potassium (Amoxicillin/Potassium Clav 875 Mg Tablet) 875 mg PO Q12H [facility] Last Admin: 12/09/24 08:46 Dose: 875 mg Documented By: ARETHA Calcium Carbonate (Calcium Carbonate 750 Mg Tab.Chew) 750 mg PO Q4H PRN PRN Reason: Heartburn Diazepam (Diazepam 2 Mg Tablet) 2 mg PO BEDTIME PRN PRN Reason: Sleep Enoxaparin Sodium (Enoxaparin Sodium 40 Mg/0.4 Ml Syringe) 40 mg SUBCUT Q24H [facility] Last Admin: 12/05/24 22:19 Dose: 40 mg Documented By: LAURA Gabapentin (Gabapentin 600 Mg Tablet) 600 mg PO BEDTIME [facility] Last Admin: 12/08/24 20:38 Dose: 600 mg Documented By: JORDAN Hydromorphone HCl (Hydromorphone Hcl 0.5 Mg/0.5 Ml Syringe) 0.5 mg IVPUSH Q4H PRN; Protocol PRN Reason: Pain, Severe (Pain Scale 7-10) Last Admin: 12/09/24 05:49 Dose: 0.5 mg Documented By: JORDAN Magnesium Hydroxide (Milk Of Magnesia 30 Ml Oral.Susp) 30 ml PO DAILY PRN PRN Reason: Constipation Melatonin (Melatonin 3 Mg Tablet) 6 mg PO BEDTIME PRN PRN Reason: Insomnia Ondansetron HCl (Ondansetron Hcl 4 Mg/2 Ml Vial) 4 mg IVPUSH Q6H PRN PRN Reason: Nausea and Vomiting Oxycodone HCl (Oxycodone Hcl Immed Release 5 Mg Tablet) 5 mg PO Q6H PRN PRN Reason: Pain, Moderate(Pain Scale 4-6) Sodium Chloride (0.9 % Sodium Chloride Flush 3 Ml Syringe) 3 ml IVFLUSH QSHIFT [facility] Last Admin: 12/09/24 07:01 Dose: Not Given Documented By: ARETHA Non-Admin Reason: IV Running Vitamin D (Cholecalciferol (Vitamin D3) 25 Mcg Tablet) 50 mcg PO DAILY [facility] Last Admin: 12/09/24 08:46 Dose: 50 mcg Documented By: ARETHA Labs 12/07/24 06:26 12/08/24 05:23 Procedures Date of Service Date of Service: 12/09/24 Progress Note: A&P Assessment and plan (1) Acute cholecystitis due to biliary calculus: Status: Acute Assessment and Plan: Status post laparoscopic cholecystectomy She is doing much better postop Good pain control Good GI functions Okay to DC home today Time Spent With Patient Time: Total time managing care of this patient today ____ minutes. Quality Stroke Does the patient have a stroke diagnosis?: No VTE Prior VTE?: No VTE Risk Level:: Medical - moderate - high VTE Device Contraindication: Treatment Not Indicated VTE Drug Contraindication: N/A - Med Ordered
--- NOTE | 2024-12-09 09:35 | MHC.CM.PN ---
pt dcd home self care
[2024-12-09 10:58] VITALS: BP 105/59; PULSE 100; RESP 18; TEMP 36.8; O2SAT 94
== END 2024-12-09 10:45 | disposition home or self-care (01) | DRG 263 ==
LOC: HO.ED 21:38 → HO.EDOVER 21:41 → HO.IMC 21:51 → HO.S3 12-07 19:15
PROVIDERS: Internal Medicine Gastroenterology; Nurse Practitioner; Physician Assistant; Student in an Organized Health Care Education/Training Program; Surgery; Admitting Provider Hospitalist; Emergency Provider Emergency Medicine Emergency Medical Services; PCP Pediatrics; Visit Provider Internal Medicine
PROC: 0FC98ZZ Extirpation of Matter from Common Bile Duct, Via Natural or Artificial Opening Endoscopic (ICD-10-PCS; CPT 43260; principal; 2024-12-06 16:20)
PROC: 0FT44ZZ Resection of Gallbladder, Percutaneous Endoscopic Approach (ICD-10-PCS; CPT 47562; principal; 2024-12-07 12:30)
DX: K80.63 Calculus of gallbladder and bile duct with acute cholecystitis with obstruction (principal); E66.9 Obesity, unspecified; Z20.822 Contact with and (suspected) exposure to COVID-19; Z68.36 Body mass index [BMI] 36.0-36.9, adult; Z71.3 Dietary counseling and surveillance; Z79.899 Other long term (current) drug therapy
CPT/HCPCS: 0241U; 36415; 71045; 71275; 74177; 74181; 76705; 80048; 80053; 80076; 81025; 83690; 84484; 84702; 85025; 85027; 85610; 85730; 86704; 86706; 86709; 86803; 87340; 88304; 93005; 99285; J0131; J0696; J1100; J1171; J1610; J1650; J1836; J1885; J2003; J2250; J2371; J2405; J2704; J2795; J3010; J7120; Q9967

== ENCOUNTER → 2024-12-04 14:53 | Outpatient (BNV) | payer OTHER, SELFPAY | PROVIDERS: Admitting Provider Hospitalist; Emergency Provider Emergency Medicine Emergency Medical Services; PCP Pediatrics; Visit Provider Internal Medicine | DX: R07.9 Chest pain, unspecified (principal) | CPT/HCPCS: 93010 ==

== ENCOUNTER → 2024-12-04 15:34 | Outpatient (BNV) | payer OTHER, SELFPAY | PROVIDERS: PCP Pediatrics; Visit Provider Radiology Diagnostic Radiology | DX: R10.13 Epigastric pain (principal); R07.9 Chest pain, unspecified; R10.11 Right upper quadrant pain | CPT/HCPCS: 71045; 71275; 74177; 76705 ==

== ENCOUNTER 2024-12-04 21:21 | Outpatient (BNV) | payer OTHER, SELFPAY | END 2024-12-05 14:46 | PROVIDERS: Admitting Provider Hospitalist; Emergency Provider Emergency Medicine Emergency Medical Services; PCP Pediatrics; Visit Provider Radiology Diagnostic Radiology | DX: K80.50 Calculus of bile duct without cholangitis or cholecystitis without obstruction (principal) | CPT/HCPCS: 74181 ==

== ENCOUNTER → 2024-12-04 21:21 | Outpatient (BNV) | payer OTHER, SELFPAY | PROVIDERS: Admitting Provider Hospitalist; Emergency Provider Emergency Medicine Emergency Medical Services; PCP Pediatrics; Visit Provider Physician Assistant Surgical | DX: K80.00 Calculus of gallbladder with acute cholecystitis without obstruction (principal) | CPT/HCPCS: 99222 ==

== ENCOUNTER → 2024-12-04 21:21 | Outpatient (BNV) | payer OTHER, SELFPAY | PROVIDERS: Admitting Provider Hospitalist; Emergency Provider Emergency Medicine Emergency Medical Services; PCP Pediatrics; Visit Provider Internal Medicine Gastroenterology | DX: K80.50 Calculus of bile duct without cholangitis or cholecystitis without obstruction (principal) | CPT/HCPCS: 99223 ==

== ENCOUNTER → 2024-12-04 21:21 | Outpatient (BNV) | payer OTHER, SELFPAY | PROVIDERS: Admitting Provider Hospitalist; Emergency Provider Emergency Medicine Emergency Medical Services; PCP Pediatrics; Visit Provider Internal Medicine | DX: K80.00 Calculus of gallbladder with acute cholecystitis without obstruction (principal); K80.50 Calculus of bile duct without cholangitis or cholecystitis without obstruction | CPT/HCPCS: 99223; 99232; 99233 ==

== ENCOUNTER 2024-12-20 11:14 | Outpatient (REF) | payer OTHER, SELFPAY ==
[2024-12-20 12:35] LABS: Alkaline Phosphatase 94 U/L (39-117); Anion Gap 11 (12-20); Aspartate Amino Transferase 41 U/L (5-31); Bilirubin Direct 0.4 mg/dL (0.0-0.5); Bilirubin Total 0.7 mg/dL (0.0-1.0); Blood Urea Nitrogen 12 mg/dL (9-16); Calcium 9.9 mg/dL (8.4-10.2); Carbon Dioxide 27 mmol/L (22-29); Chloride 108 mmol/L (96-108); Estimated Glomerular Filt Rate > 60; Glucose Random 109 mg/dL (60-115); Lipase 41 U/L (8-78); Potassium 4.6 mmol/L (3.3-5.1); Sodium 141 mmol/L (135-145); Total Protein 7.4 g/dL (6.5-8.0)
--- OUTSIDE RECORDS SUMMARY | 2024-12-20 12:43 | XMS_ITS | Encounter Summary ---
Author Organization [employer] Address [address] [place] [address] [address] [place] [address] Care Team Providers Care Power Reactor Operator Name Role Phone Vikki Hall MD Primary Care Provider [phone] Reason for Visit * Reason Onset Date Comments Med Refill 12/08/2022 Encounter Details Date Type Department Care Team ([facility] st Contact Info) Description 12/08/[address] [facility] MED & PEDS [address] [place], [place] [phone] Vikki Hall MD [address] [place] [address] Med Refill Social History Tobacco Use Types [...] Meloxicam 7.5 mg Tablet Please sent to [facility] - [place], [place] - [address] documented in this encounter Plan of Treatment Upcoming Encounters Date Type Department Care Team (Late st Contact Info) Description 02/21/2025 11:30 AM EDT Office Visit [facility] MED & PEDS [address] [place] [address] Vikki Hall MD [address] [place] [address] documented as of this encounter Visit Diagnoses Not on filedocumented in this encounter Care Teams Power Reactor Operator Relationship Specialty Start Date End Date Vikki Hall MD [address] [place] [address] PCP - General Family Medicine 08/15/18 documented as of this encounter
--- OUTSIDE RECORDS SUMMARY | 2024-12-20 12:43 | XMS_ITS | Encounter Summary ---
Author Organization [facility] Address [address] [place] [address] [address] [place] [address] Care Team Providers Care Jack Tamp Operator Name Role Phone Vikki Hall MD Primary Care Provider [phone] Encounter Details Date Type Department Care Team (Latest Contact Info) Description 06/30/2021 Abstract [facility] CONVERSIONS Dental, Provider, DDS Social History [...] Description 02/21/2025 11:30 AM EDT Office Visit [facility] MED & PEDS [address] [place] [address] Vikki Hall MD [address] [place] [address] documented as of this encounter Visit Diagnoses Not on filedocumented in this encounter Care Teams Jack Tamp Operator Relationship Specialty Start Date End Date Vikki Hall MD [address] [place] [address] PCP - General Family Medicine 08/15/18 documented as of this encounter
--- OUTSIDE RECORDS SUMMARY | 2024-12-20 12:43 | XMS_ITS | Encounter Summary ---
Author Organization [employer] Address [address] [facility] [address] [place] [address] Care Team Providers Care Refractory Furnace Designer Name Role Phone Vikki Hall MD Primary Care Provider [phone] Reason for Visit * Reason Onset Date Comments Med Refill 10/25/2024 Encounter Details Date Type Department Care Team ([facility] st Contact Info) Description 10/25/2024 Refill [facility] MED & PEDS [address] [place], [place] [phone] Vikki Hall MD [address] [place] [address] Social History Tobacco Use Types Packs/Day Years [...] Upcoming Encounters Date Type Department Care Team ([facility] st Contact Info) Description 02/21/2025 11:30 AM EDT Office Visit [facility] MED [facility] PEDS [address] [place] [address] Vikki Hall MD [address] [place] [address] documented as of this encounter Visit Diagnoses Not on filedocumented in this encounter Additional Health Concerns Assessment Noted Time PHQ-9 Depression Total Score: 8 09/27/19 25 1:02 PM EST documented as of this encounter Care Teams Refractory Furnace Designer Relationship Specialty Start Date End Date Vikki Hall MD [address] [place] [address] PCP - General Family Medicine 08/15/18 documented as of this encounter
--- OUTSIDE RECORDS SUMMARY | 2024-12-20 12:43 | XMS_ITS | Encounter Summary ---
Author Organization [employer] [facility] Address [address] [facility] [address] [place] [address] Care Team Providers Care Rn Neonatal Icu Name Role Phone Vikki Hall MD Primary Care Provider [phone] Encounter Details Date Type Department Care Team ([facility] Contact Info) Description 09/24/2023 Orders Only [facility] MED & PEDS [address] [place], [place] [phone] Garrett Vann MD [address] [place], [place] [phone] Low vitamin D level (Primary Dx) Social [...] Department Care Team (Late Contact Info) Description 02/21/2025 11:30 AM EDT Office Visit [facility] MED & PEDS [address] [place], [place] [phone] Vikki Hall MD [address] [place] [address] documented as of this encounter Visit Diagnoses Diagnosis Low vitamin D level- Primary documented in this encounter Care Teams Rn Neonatal Icu Relationship Specialty Start Date End Date Vikki Hall MD [address] [place] [address] PCP - General Family Medicine 08/15/18 documented as of this encounter
--- OUTSIDE RECORDS SUMMARY | 2024-12-20 12:43 | XMS_ITS | Clinical Summary ---
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 30 tablet 11 11/23/19 25 026 Active cholecalciferol (Vitamin D-3) 50 MCG (2000 UT) capsuleIndication s:Vitamin D deficiency Take 1 capsule (50 mcg) by mouth Once per day. 30 capsule 3 11/26/19 25 Active gabapentin (Neurontin) 300 MG capsuleIndication s:Lumbar disc disease with radiculopathy Take 1 capsule (300 mg) by mouth 3 times daily. 90 capsule 12/10/19 25 025 Active cholecalciferol (Vitamin D-3) 25 MCG (1000 UT) tabletIndications :Low vitamin D level Take 1 tablet (25 mcg) by mouth in the morning. 30 tablet 11 09/24/19 24 025 Discontinued( erapy completed) meloxicam (Mobic) 7.5 MG tabletIndications :Chronic midline low back pain with right-sided sciatica TAKE ONE TABLET EVERY MORNING 30 tablet 3 04/05/20 24 025 Discontinued(In effective) gabapentin (Neurontin) 300 MG capsule Take 1 [...] Once per day. 30 capsule 3 10/27/19 25 025 Discontinued(Re order (will not trigger notification to Pharmacy)) gabapentin (Neurontin) 300 MG capsuleIndication s:Lumbar disc disease with radiculopathy Take 1 capsule (300 mg) by mouth 3 times daily. 90 capsule 2 11/26/19 25 025 Discontinued(Re order (will not trigger notification to Pharmacy)) Active Problems Problem Noted Date Diagnosed Date Acute cholecystitis due to biliary calculus 02/2025 Biliary calculi, common bile duct 12/19/2024 Lumbar disc herniation 12/19/2024 Vitamin D deficiency 12/19/2024 Chronic anxiety 04/02/2016 09/14/2023 Obesity with body mass index 30 or greater 04/02 Disorder of skeletal muscle 06/19/2013 Allergic rhinitis 06/22/2012 Anxiety 06/22/2012 Overweight 06/22/2012 Encounters Date Type Department Care Team Description 12/20/2024 Orders Only GENERIC EXTERNAL DATA DEPARTMENT Provider, Generic External Data 12/19/2024 9:00 AM EDT Telemedicine [facility] [address] [place] [address] Vikki Hall MD Right leg weakness (Primary Dx); H/O lumbar discectomy; Hx laparoscopic cholecystectomy; Acute cholecystitis due to biliary calculus 12/19/2024 Travel 12/18/2024 Travel 12/07/[address] [facility] [address] [place] [address] Vikki Hall MD Lumbar disc disease with radiculopathy 12/06/2024 Telephone [facility] [address] [place] [address] Vikki Hall MD Care Coordination 12/06/2024 Telephone [facility] [address] [place] [address] Vikki Hall MD 12/04/2024 Orders Only [facility] External Provider, [facility] 11/22/[address] [facility] [address] [place] [address] Vikki Hall MD Vitamin D deficiency; Disorder of skeletal muscle; Lumbar disc disease with radiculopathy 11/22/[address] [facility] [address] [place] [address] Vikki Hall MD Acute right-sided low back pain with right-sided sciatica; Numbness and tingling of right lower extremity; Neck pain 10/25/[address] [facility] [address] [place] [address] Vikki Hall MD 10/25/2024 Refill [facility] [address] [place] [address] Garrett Vann MD Vitamin D deficiency 10/25/[address] [facility] [address] [place] [address] Garrett Vann MD Acute right-sided low back pain with right-sided sciatica; Numbness and tingling of right lower extremity; Neck pain 10/25/2024 Refill [facility] [address] [place] [address] Vikki Hall MD 10/09/2024 Telephone [facility] [address] [place] [address] Vikki Hall MD 10/08/2024 Orders Only [facility] [address] [place] [address] Vikki Hall MD Lumbar disc disease with radiculopathy (Primary Dx); Right leg weakness; Protrusion of lumbar intervertebral disc 10/02/2024 Telephone [facility] [address] [place] [address] Vikki Hall MD MRI LUMBAR SPINE ORDER 09/27/2024 11:15 AM EST Office Visit [facility] [address] [place] [address] Vikki Hall MD Lumbar disc disease with radiculopathy (Primary Dx); Right leg weakness; Dietary counseling; Exercise counseling 09/27/2024 Travel 09/26/2024 Telephone [facility] [address] [place] [address] Vikki Hall MD Chart Prep from Last 3 Months Immunizations Name Administration [...] Description 02/21/2025 11:30 AM EDT Office Visit [facility] [address] [place] [address] Vikki Hall MD [address] [place] [address] Health Maintenance Due Date Last Done Comments [...] Procedure Name Priority Date/Time Associated Diagnosis Comments HEPATIC FUNCTION PANEL Routine 12/20/2024 11:21 AM EDT LIPASE Routine 12/20/2024 11:21 AM EDT Hx laparoscopic cholecystectomy COMPREHENSIVE METABOLIC PANEL Routine 12/20/2024 11:21 AM EDT Hx laparoscopic cholecystectomy FL GUIDANCE IN OR Routine 12/06/2024 3:4 0 PM EDT MR MRCP Routine 12/05/2024 2:46 PM EDT US ABDOMEN LIMITED Routine 12/04/2024 9: [address] ABDOMEN PELVIS W CONTRAST Routine 12/04/2024 7:39 PM EDT CTA CHEST PE PROTOCAL Routine 12/04/2024 7:26 PM EDT LIPASE Routine 12/04/2024 4:14 PM [...] WO CONTRAST Urgent 10/08/2024 7:00 PM EST BITEWING - SINGLE RADIOGRAPHIC IMAGE Routine 04/17/2024 [...] Recently Relevant to Health Maintenance Results * FL Guidance in OR (12/06/2024 3:40 PM EDT) Anatomical Region Laterality Modality X-Ray Angiograph y 12/06/2024 3:40 PM EDT Narrative 12/07/2024 8:28 AM EDT ? [place] [facility] ?[address] ?[place] [address] ? Fluoroscopy Report ? Signed ? Patient: Carson,Raissa ?MR#: [id number] ? : 1980 ?Acct:[id number] ? Age/Sex: 44 / F ?ADM Date: 12/04/24 ? Loc: HO.IMC ?458-1 ? Attending Dr: De Knight MD ? Ordering Physician: Agustin Ny MD ?? Date of Service: 12/06/24 ?? Procedure(s): FL guidance in OR ?? Accession Number(s): [id number] ? cc: Vikki Hall MD; Agustin Ny MD ? EXAMINATION: ?? XR FLUOROSCOPY WITH IMAGES ? CLINICAL INFORMATION: ?? ERCP. ? COMPARISON: ?? MRCP 12/05/2024. ? TECHNIQUE: ?? Fluoroscopy provided to: Dr. Ny ?? Fluoroscopy time: 89.8 seconds ?? Dose: 35.82 mGy ?? Images: 4 ? FINDINGS: ?? 4 fluoroscopic spot images obtained during ERCP. Please refer to the ?? full operative report for further detail. ? FL/FL guidance in OR ?? IMPRESSION: ?? Fluoroscopic guidance. ? Electronically signed by: ??Alex Hancock MD ??12/07/2024 08:25 AM EDT RP ? Dictated By: ?Alex Hancock MD ? Signed By: ?<Electronically signed by Alex Hancock MD in OV> ?12/07/24 0825 ? DD/ 1540 ? TD/TT: 12/06/24 1620 ? Air Sampler: ? Procedure Note Long Chaves - 12/07/[address] [address] Fluoroscopy Report Signed Patient: Raissa CarsonMR#: [id number] : 1980Acct:[id number] Age/Sex: 44 / FADM Date: 12/04/24 Loc: [facility]: De Knight MD Ordering Physician: Agustin Ny MD Date of Service: 12/06/24 Procedure(s): FL guidance in OR Accession Number(s): [id number] cc: Vikki Hall MD; Agustin Ny MD EXAMINATION: XR FLUOROSCOPY WITH IMAGES CLINICAL INFORMATION: ERCP. COMPARISON: MRCP 12/05/2024. TECHNIQUE: Fluoroscopy provided to: Dr. Ny Fluoroscopy time: 89.8 seconds Dose: 35.82 mGy Images: 4 FINDINGS: 4 fluoroscopic spot images obtained during ERCP. Please refer to the full operative report for further detail. FL/FL guidance in OR IMPRESSION: Fluoroscopic guidance. Electronically signed by: Alex Hancock MD 12/07/2024 08:25 AM EDT RP Dictated By: Alex Hancock MD Signed By: <Electronically signed by Alex Hancock MD in OV> 12/07/24 0825 DD/ 1540 TD/TT: 12/06/24 1620 Air Sampler: [facility] External Provider IMG IR PROCEDURES Edited Result - Final * MR MRCP (12/05/2024 2:46 PM EDT) Anatomical Region Laterality Modality Lower Extremities Left Magnetic Reson ance 12/05/2024 2:46 PM EDT Narrative 12/05/2024 3:40 PM EDT ? [facility] ?[address] ?[place] [address] ? Magnetic Resonance Report ? Signed ? Patient: Raissa Carson ?MR#: [id number] ? : 1980 ?Acct:[id number] ? Age/Sex: 44 / F ?ADM Date: 12/04/24 ? Loc: HO.IMC ?458-1 ? Attending : De Knight MD ? Ordering Physician: Carl Villanueva MD ?? Date of Service: 12/05/24 ?? Procedure(s): MR MRCP ?? Accession Number(s): [id number] ? cc: Vikki Hall MD; Carl Villanueva MD ? EXAMINATION: ?? MRCP. ? CLINICAL INFORMATION: ?? Abdominal pain. ? TECHNIQUE: ?? Axial and coronal T2 HASTE sequence. ?? Axial and coronal T2 fat sat HASTE sequence. ?? Coronal oblique T2 fat-sat single slice. ?? Axial T1 vibe fat sat sequence. ?? Axial in and out of phase 3-D sequence. ?? 3-D space MRCP triggered. ? COMPARISON: Correlated to CT and ultrasound dated December 04, 2024. ? FINDINGS: ? There are multiple segmental strictures throughout the intrahepatic and ?? extrahepatic biliary ductal system. ?? The common bile duct measures 6 mm in maximal diameter. ?? There is a focal intraluminal hypointense signal in the distal common ?? bile duct near the sphincter of Oddi. ?? There is a trace of pericholecystic fluid. ?? There is an intraluminal, 11 mm hypointense T2 round lesion in the ?? gallbladder neck. ? Liver measures 19 cm. No focal mass. The main portal vein is and ?? intrahepatic portion of the IVC as well as the hepatic veins are patent. ? No peripancreatic fluid collection. The main pancreatic duct measures 2 ?? mm. ?? No signal abnormality in the pancreas. ? Spleen measures 11 cm. No focal lesion. Subcentimeter cystic lesions. ?? No nodular lesions in the adrenal glands. ?? No hydronephrosis in either kidney. ?? No ascites. ?? No intestinal obstruction pattern. ?? No aneurysm or dissection in the abdominal aorta. ?? There is a hyperintense T2 signal in the right lumbar muscles. ?? Small fat-containing umbilical hernia. ? MR/MR MRCP ?? IMPRESSION: ? Cholelithiasis and choledocholithiasis with the questionable acute ?? calculus cholecystitis. ?? Concerning primary sclerosing cholangitis in the correct clinical ?? settings. ? Electronically signed by: ??Temo Yadav MD ??12/05/2024 03:37 PM ?? EDT RP ? Dictated By: ?Temo Coates MD ? Signed By: ?<Electronically signed by Temo Warren MD in OV> ? 12/05/24 1537 ? DD/ 1446 ? TD/TT: 12/05/24 1508 ? Air Sampler: ? Procedure Note Long Chaves - 12/05/[address] [place] [address] Magnetic Resonance Report Signed Patient: Raissa CarsonMR#: [id number] : 1980Acct:[id number] Age/Sex: 44 / FADM Date: 12/04/24 Loc: [facility] 458-[address]: De Knight MD Ordering Physician: Carl Villanueva MD Date of Service: 12/05/24 Procedure(s): MR MRCP Accession Number(s): [id number] cc: Vikki Hall MD; Carl Villanueva MD EXAMINATION: MRCP. CLINICAL INFORMATION: Abdominal pain. TECHNIQUE: Axial and coronal T2 HASTE sequence. Axial and coronal T2 fat sat HASTE sequence. Coronal oblique T2 fat-sat single slice. Axial T1 vibe fat sat sequence. Axial in and out of phase 3-D sequence. 3-D space MRCP triggered. COMPARISON: Correlated to CT and ultrasound dated December 04, 2024. FINDINGS: There are multiple segmental strictures throughout the intrahepatic and extrahepatic biliary ductal system. The common bile duct measures 6 mm in maximal diameter. There is a focal intraluminal hypointense signal in the distal common bile duct near the sphincter of Oddi. There is a trace of pericholecystic fluid. There is an intraluminal, 11 mm hypointense T2 round lesion in the gallbladder neck. Liver measures 19 cm. No focal mass. The main portal vein is and intrahepatic portion of the IVC as well as the hepatic veins are patent. No peripancreatic fluid collection. The main pancreatic duct measures 2 mm. No signal abnormality in the pancreas. Spleen measures 11 cm. No focal lesion. Subcentimeter cystic lesions. No nodular lesions in the adrenal glands. No hydronephrosis in either kidney. No ascites. No intestinal obstruction pattern. No aneurysm or dissection in the abdominal aorta. There is a hyperintense T2 signal in the right lumbar muscles. Small fat-containing umbilical hernia. MR/MR MRCP IMPRESSION: Cholelithiasis and choledocholithiasis with the questionable acute calculus cholecystitis. Concerning primary sclerosing cholangitis in the correct clinical settings. Electronically signed by: Temo Yadav MD 12/05/2024 03:37 PM EDT Dictated By: Temo Coates MD Signed By: <Electronically signed by Temo Warren MDin OV> 12/05/24 1537 DD/ 1446 TD/TT: 12/05/24 1508 Air Sampler: [facility] External Provider IMG MRI PROCEDURES Final Result * US Abdomen Limited (12/04/2024 9:07 PM EDT) Anatomical Region Laterality Modality Abdomen Ultrasound 12/04/2024 9:07 PM EDT Narrative 12/04/2024 9:09 PM EDT ? [facility] ?[address] ?[place], [place] [address] ? Ultrasound Report ? Signed ? Patient: Raissa Carson ?MR#: [id number] ? : 1980 ?Acct:[id number] ? Age/Sex: 44 / F ?ADM Date: 12/04/24 ? Loc: HO.ED ? Attending Dr: ? Ordering Physician: Zaria Kebede MD ?? Date of Service: 12/04/24 ?? Procedure(s): US abdomen limited ?? Accession Number(s): [id number] ? cc: Vikki Hall MD; Zaria Kebede MD ? CLINICAL HISTORY: ruq pain question cholecystitis ? US abdomen limited ? Comparison: None ? Findings: ?? Distended gallbladder containing small mobile gallstones as well as a ?? nonmobile stone in the gallbladder neck measuring 3 mm. Gallbladder wall ?? thickness is 3 mm. Trace pericholecystic fluid. Common duct measures 5 mm ?? near the mazin hepatis. Minimally dilated intrahepatic ducts. ? IMPRESSION: ?? 1. Minimally dilated intrahepatic ducts and borderline dilated common duct ?? with nonmobile possibly impacted stone in the gallbladder neck and mild ?? distention of the gallbladder. Findings are equivocal for cholecystitis. ?? MRCP or HIDA scan could be considered for further evaluation. ? This document has been electronically signed by: Tyler Cardenas MD on ?? 12/04/2024 21:07:53 ? Dictated By: ?Tyler Cardenas MD ? Signed By: ?<Electronically signed by Tyler Cardenas MD in OV> ? 12/04/242108 ? DD/ 06 ? TD/TT: 12/04/242106 ? Air Sampler: ? Procedure Note Donotuseinterpreter, Image - 12/04/2024 [place] [address] Ultrasound Report Signed Patient: Raissa CarsonMR#: [id number] : 1980Acct:[id number] Age/Sex: 44 / FADM Date: 12/04/24 Loc: HO.ED Attending Dr: Ordering Physician: Zaria Kebede MD Date of Service: 12/04/24 Procedure(s): US abdomen limited Accession Number(s): [id number] cc: Vikki Hall MD; Zaria Kebede MD CLINICAL HISTORY: ruq pain question cholecystitis US abdomen limited Comparison: None Findings: Distended gallbladder containing small mobile gallstones as well as a nonmobile stone in the gallbladder neck measuring 3 mm. Gallbladder wall thickness is 3 mm. Trace pericholecystic fluid. Common duct measures 5 mm near the mazin hepatis. Minimally dilated intrahepatic ducts. IMPRESSION: 1. Minimally dilated intrahepatic ducts and borderline dilated common duct with nonmobile possibly impacted stone in the gallbladder neck and mild distention of the gallbladder. Findings are equivocal for cholecystitis. MRCP or HIDA scan could be considered for further evaluation. This document has been electronically signed by: Tyler Cardenas MD on 12/04/2024 21:07:53 Dictated By: Tyler Cardenas MD Signed By: <Electronically signed by Tyler Cardenas MD in OV> 12/04/242108 DD/ 06 TD/TT: 12/04/242106 Air Sampler: us [facility] External Provider IMG US PROCEDURES Final Result * CT Abdomen Pelvis w/ Contrast (12/04/2024 7:39 PM EDT) Anatomical Region Laterality Modality Body, Pelvis, Abdomen Computed T omography 12/04/2024 7:39 PM EDT Narrative 12/04/2024 7:40 PM EDT ? [facility] ?[address] ?[place] [address] ? CT Scan Report ? Signed ? Patient: Raissa Carson ?MR#: [id number] ? : 1980 ?Acct:[id number] ? Age/Sex: 44 / F ?ADM Date: 12/04/24 ? Loc: HO.ED ? Attending Dr: ? Ordering Physician: Zaria Kebede MD ?? Date of Service: 12/04/24 ?? Procedure(s): CT abdomen pelvis w IV con ?? Accession Number(s): [id number] ? cc: Vikki Hall MD; Zaria Kebede MD ? Report Number: ?? [id number]: Total DLP = ?0.00 mGy-cm ? CLINICAL HISTORY: epigastric pain ? CT abdomen and pelvis with contrast ? Comparison: None ? Findings: ?? Hepatomegaly and mild hepatic steatosis. ?? Mildly distended gallbladder. ?? Mild extrahepatic biliary ductal dilatation. ?? Faint fat stranding near the mazin hepatis. ?? Normal spleen, pancreas, and adrenal glands. ?? Unremarkable kidneys, ureters, and urinary bladder. ?? No free fluid or free air. ?? Normal stomach, small bowel, appendix, and colon. ?? No aortic aneurysm. ?? Pelvic organs normal. ?? Bones intact. ? IMPRESSION: ?? Mild gallbladder distention and mild extrahepatic biliary ductal ?? dilatation with faint fat stranding in the mazin hepatis. Findings could ?? represent early cholecystitis or perhaps obstructing choledocholithiasis. ?? Gallbladder ultrasound recommended. ? This document has been electronically signed by: Tyler Cardenas MD on ?? 12/04/2024 19:39:09 ? Dictated By: ?Tyelr Cardenas MD ? Signed By: ?<Electronically signed by Tyler Cardenas MD in OV> ? 12/04/241939 ? DD/ 38 ? TD/TT: 12/04/241938 ? Air Sampler: ? Procedure Note Long Chaves - 12/04/[address] [address] [address] Scan Report Signed Patient: Raissa CarsonMR#: [id number] : 1980Acct:[id number] Age/Sex: 44 / FADM Date: 12/04/24 Loc: HO.ED Attending Dr: Ordering Physician: Zaria Kebede MD Date of Service: 12/04/24 Procedure(s): CT abdomen pelvis w IV con Accession Number(s): [id number] cc: Vikki Hall MD; Zaria Kebede MD Report Number: [id number]: Total DLP = 0.00 mGy-cm CLINICAL HISTORY: epigastric pain CT abdomen and pelvis with contrast Comparison: None Findings: Hepatomegaly and mild hepatic steatosis. Mildly distended gallbladder. Mild extrahepatic biliary ductal dilatation. Faint fat stranding near the mazin hepatis. Normal spleen, pancreas, and adrenal glands. Unremarkable kidneys, ureters, and urinary bladder. No free fluid or free air. Normal stomach, small bowel, appendix, and colon. No aortic aneurysm. Pelvic organs normal. Bones intact. IMPRESSION: Mild gallbladder distention and mild extrahepatic biliary ductal dilatation with faint fat stranding in the mazin hepatis. Findings could represent early cholecystitis or perhaps obstructing choledocholithiasis. Gallbladder ultrasound recommended. This document has been electronically signed by: Tyler Cardenas MD on 12/04/2024 19:39:09 Dictated By: Tyler Cardenas MD Signed By: <Electronically signed by Tyler Cardenas MD in OV> 12/04/241939 DD/ 38 TD/TT: 12/04/241938 Air Sampler: [facility] External Provider IMG CT PROCEDURES Final Result * CTA Chest PE Protocal (12/04/2024 7:26 PM EDT) Anatomical Region Laterality Modality Body, Chest Computed Tomogra phy 12/04/2024 7:26 PM EDT Narrative 12/04/2024 7:27 PM EDT ? [facility] ?[address] ?[place] [address] ? CT Scan Report ? Signed ? Patient: Raissa Carson ?MR#: [id number] ? : 1980 ?Acct:[id number] ? Age/Sex: 44 / F ?ADM Date: 04/22/25 ? Loc: HO.ED ? Attending Dr: ? Ordering Physician: Zaria Kebede MD ?? Date of Service: 12/04/24 ?? Procedure(s): CT angio chest PE protocol ?? Accession Number(s): [id number] ? cc: Vikki Hall MD; Zaria Kebede MD ? Report Number: ?? [id number]: Total DLP = ??970.00 mGy-cm ? CLINICAL HISTORY: chest pain worse with deep breath ? CT angiography chest with contrast. 3D Postprocessing. ? Comparison: None ? Findings: ?? The heart is normal size. RV/LV ratio is normal. ?? Unremarkable thoracic aorta and great vessels. No aneurysm. ?? No acute pulmonary embolus. ?? The visualized thyroid and mediastinum are unremarkable. ?? The lungs are clear. ?? The visualized upper abdomen is unremarkable. ?? No acute fractures. ? IMPRESSION: ?? 1. No pulmonary emboli. ? This document has been electronically signed by: Tyler Cardenas MD on ?? 12/04/2024 19:26:08 ? Dictated By: ?Tyler Cardenas MD ? Signed By: ?<Electronically signed by Tyler Cardenas MD in OV> ? 12/04/241926 ? DD/ 25 ? TD/TT: 12/04/241925 ? Air Sampler: ? Procedure Note Long Chaves - 12/04/[address] [place] [address] [address] Scan Report Signed Patient: Raissa CarsonMR#: [id number] : 1980Acct:[id number] Age/Sex: 44 / FADM Date: 12/04/24 Loc: HO.ED Attending Dr: Ordering Physician: Zaria Kebede MD Date of Service: 12/04/24 Procedure(s): CT angio chest PE protocol Accession Number(s): [id number] cc: Vikki Hall MD; Zaria Kebede MD Report Number: [id number]: Total DLP = 970.00 mGy-cm CLINICAL HISTORY: chest pain worse with deep breath CT angiography chest with contrast. 3D Postprocessing. Comparison: None Findings: The heart is normal size. RV/LV ratio is normal. Unremarkable thoracic aorta and great vessels. No aneurysm. No acute pulmonary embolus. The visualized thyroid and mediastinum are unremarkable. The lungs are clear. The visualized upper abdomen is unremarkable. No acute fractures. IMPRESSION: 1. No pulmonary emboli. This document has been electronically signed by: Tyler Cardenas MD on 12/04/2024 19:26:08 Dictated By: Tyler Cardenas MD Signed By: <Electronically signed by Tyler Cardenas MD in OV> 12/04/241926 DD/ 25 TD/TT: 12/04/241925 Air Sampler: [facility] External Provider IMG CT PROCEDURES Final Result * High Sensitivity Troponin I (12/04/2024 4:14 PM EDT) Pathologist [facility] TROPONIN I HIGH SENSITIVITY <2.7 <3.5 - 17.0 ng/L [facility] Comment:The Mckeon high sens itivity Troponin-I results should beused in conjunction with other diagnostic information suchas ECG, clinical observations and information, and patientsymptoms to aid in the diagnosis of OR. 12/04/2024 4:1 4 PM EDT 12/04/2024 4:22 PM EDT Generic External Data Provider LAB BLOOD ORDERAB LES Final Result [facility] [address] [place] [phone] * SARS-CoV-2 RNA, Influenza A/B, and RSV RNA, Ql NAAT (12/04/2024 4:14 PM EDT) Pathologist [facility] Influenza A PCR NEGATIVE Negative [facility] Influenza B PCR NEGATIVE Negative [facility] Resp Syncy Virus RNA Qual PCR NEGATIVE Negative [facility] SARS COV2 PCR NEGATIVE Negative [facility] Comment:All test results mus t [...] use by authorized laboratories.Testing performed on the [employer] GeneXpert utilizingreal-time RT-PCR.All SARS CoV2 and positive influenza A/B results arereported to [facility]. 12/04/2024 4:14 PM EDT 12/04/2024 4:22 PM EDT us Generic External Data Provider LAB MICROBIOLOGY - GENERAL ORDERABLES Final Result [facility] [address] [place] [phone] * (ABNORMAL) CBC auto differential (12/04/2024 4:14 PM EDT) White Blood Count 3.6(L) 4.8 - 10.8 X10*3/uL [facility] Red Blood Count 5.04 4.20 - 5.50 X10*6/uL [facility] Hemoglobin 14.1 12.0 - 16.0 g/dl [facility] Hematocrit 43.1 37.0 - 47.0 % [facility] Mean Corpuscular Volume 85.5 80.0 - 98.0 fL [facility] Mean Corpuscular Hemoglobin 28.0 27.0 - 33.0 pg [facility] Mean Corpuscular HGB Conc 32.7 31.0 - 35.0 g/dl [facility] Red Cell Distribution Width 13.8 11.0 - 16.0 % [facility] [facility] Platelet Count 271 160 - 400 X10*3/uL [facility] Mean Platelet Volume 9.9 9.4 - 12.3 fL [facility] Neutrophils Percent Auto 56.1 45 - 73 % [facility] Imm Gran Pct Auto 0.3 0.0 - 0.4 % [facility] Lymphocytes Percent Auto 32.3 20 - 40 % [facility] Monocytes Percent Auto 6.6 2 - 11 % [facility] Eosinophils Percent Auto 4.1(H) 0 - 4 % [facility] Basophils Percent Auto 0.6 0 - 2 % [facility] NRBC Pct Auto 0.0 0.0 - 0.2 /100WBC [facility] Neutrophils Absolute Auto 2.0 2.0 - 8.3 x10*3/uL [facility] Imm Gran Abs Auto 0.01 0.00 - 0.03 X10*3/uL [facility] Lymphocytes Absolute Auto 1.2 1.2 - 4.9 X10*3/uL [facility] Monocytes Absolute Auto 0.2 0.1 - 1.2 X10*3/uL [facility] Eosinophils Absolute Auto 0.2 0.0 - 0.4 X10*3/uL [facility] Basophils Absolute Auto 0.0 0.0 - 0.2 X10*3/uL [facility] NRBC Abs Auto 0.000 0.0 - 0.012 X10*3/uL [facility] 12/04/2024 4:14 PM EDT 12/04/2024 4:22 PM EDT us Generic External Data Provider LAB BLOOD ORDERAB LES Final Result Performing Organization Address [facility] Co de Phone Number [facility] [address] [place] [phone] * Partial Thromboplastin Time, Activated (APTT) (12/04/2024 4:14 PM EDT) Partial Thromboplastin Time 33.6 26.0 - 36.8 SEC [facility] Comment:For information rega rding the monitoring of direct thrombininhibitors, please refer to Pharmacy. 12/04/2024 4:14 PM EDT 12/04/2024 4:22 PM EDT us Generic External Data Provider LAB BLOOD ORDERAB LES Final Result [facility] [address] [place] [address] [phone] * Prothrombin Time-INR (12/04/2024 4:14 PM EDT) [facility] Prothrombin Time 11.1 10.9 - 12.4 SEC [facility] INTERNATIONAL NORM RATIO 1.0 0.9 - 1.1 [facility] Comment:INTERNATIONAL NORMAL IZED RATIO [...] ORDERAB LES Final Result Performing Organization Address [facility] Co de Phone Number [facility] [address] [place] [phone] * Lipase (12/04/2024 4:14 PM EDT) [facility] Lipase 31 8 - 78 U/L [facility] 12/04/2024 4:14 PM EDT 12/04/2024 4:22 PM EDT Generic External Data Provider LAB BLOOD ORDERAB LES Final Result Performing Organization Address [facility] Co de Phone Number [facility] [address] [place] [phone] * (ABNORMAL) Comprehensive Metabolic Panel (12/04/2024 4:14 PM EDT) [facility] Sodium 141 135 - 145 mmol/L [facility] Potassium 4.5 3.3 - 5.1 mmol/L [facility] Chloride 106 96 - 108 mmol/L [facility] Carbon Dioxide 27 22 - 29 mmol/L [facility] Anion Gap 13 12 - 20 [facility] Urea Nitrogen (BUN) 7(L) 9 - 16 mg/dL [facility] Creatinine, Serum 0.71 0.5 - 1.4 mg/dL [facility] Creatinine Clr Calc Pharmacy 110.1 [facility] Comment:Provided height and weight: 160.02 cm,97.522 kg.eGFR (calculated from the MDRD study equation) and eCrCl(calculated from the Cockcroft-Gault equation) are based ondifferent parameters and may not yield comparable results.If eCrCl result is absurd, please check patient'sheight/weight. Estimated Glomerular Filt Rate >60 [facility] Comment:Chronic Kidney Disea se: Estimated GFR < 60 mL/min/1.11a2Nchswq Kidney Disease: Estimated GFR < 15 mL/min/1.73m2 Glucose 119(H) 60 - 115 mg/dL [facility] Calcium 10.2 8.4 - 10.2 mg/dL [facility] Bilirubin, Total 4.3(H) 0.0 - 1.0 mg/dL [facility] Comment:Slight Icterus. Aspartate Amino Transferase 387(H) 5 - 31 U/L [facility] Alanine Aminotransferase 817(H) 0 - 31 U/L [facility] Total Protein 7.9 6.5 - 8.0 g/dL [facility] Albumin Level 4.4 3.5 - 5.0 g/dL [facility] Alkaline Phosphatase 204(H) 39 - 117 U/L [facility] 12/04/2024 4:14 PM EDT 12/04/2024 4:22 PM EDT us Generic External Data Provider LAB BLOOD ORDERAB LES Final Result [facility] [address] [place] [phone] [phone] * XR Chest 1 View (12/04/2024 3:44 PM EDT) Anatomical Region Laterality Modality Chest Radiographic Hattie ging 12/04/2024 3:44 PM EDT Narrative 12/04/2024 3:58 PM EDT ? [facility] ?[address] ?[place] [address] ?XRay Report ? Signed ? Patient: Raissa Carson ?MR#: [id number] ? : 1980 ?Acct:[id number] ? Age/Sex: 44 / F ?ADM Date: 12/04/24 ? Loc: HO.ED ? Attending Dr: ? Ordering Physician: Kodak Hylton ?? Date of Service: 12/04/24 ?? Procedure(s): XR chest 1V ?? Accession Number(s): [id number] ? cc: Kodak Hylton; Vikki Hall MD [...] DD/ 1544 ? TD/TT: 12/04/24 1544 ? Air Sampler: ? Procedure Note Long Chaves - 12/04/2024 [facility] [address] [facility] [place] [address] XRay Report Signed Patient: Raissa CarsonMR#: [id number] : 1980Acct:[id number] Age/Sex: 44 / FADM Date: 12/04/24 Loc: HO.ED Attending Dr: Ordering Physician: Kodak Hylton Date of Service: 12/04/24 Procedure(s): XR chest 1V Accession Number(s): [id number] cc: Kodak Hylton; Vikki Hall MD EXAMINATION: [...] 12/04/24 1555 DD/ 1544 TD/TT: 12/04/24 1544 Air Sampler: [facility] External Provider IMG XR PROCEDURES Final Result * Referral to Neurosurgery (10/24/2024) Vikki Hall MD OUTPATIENT REFERRAL ORDERABLE S Final Result * MR Lumbar Spine w/o Contrast (10/08/2024 7:00 PM EST) Anatomical Region Laterality Modality Spine, L-spine Magnetic Resonan ce 10/08/2024 7:00 PM EST Narrative 10/08/2024 7:02 PM EST ? [facility] ?[address] ?[place] [address] ? Magnetic Resonance Report ? Signed ? Patient: Raissa Carson ?MR#: [id number] ? : 1980 ?Acct:[id number] ? Age/Sex: 44 / F ?ADM Date: 02/24/25 ? Loc: HO.MRI ? Attending Dr: Vikki Hall MD ? Ordering Physician: Vikki Hall MD ?? Date of Service: 10/08/24 ?? Procedure(s): MR lumbar spine wo con ?? Accession Number(s): [id number] ? cc: Vikki Hall MD; BILLY GUTIERREZ [...] right eccentric disc protrusion. There is ?? vkom-tuxzoau-gdbk-right facet hypertrophy present. ?? Severe left neural [...] by Bakari Mike MD in OV> ? 10/08/241901 ? DD/ 99 ? TD/TT: 02/24/25 1900 ? Air Sampler: ? Procedure Note Donotuseinterpreter, Image - 10/08/2024 [place] [address] Magnetic Resonance Report Signed Patient: Raissa CarsonMR#: [id number] : 1980Acct:[id number] Age/Sex: 44 / FADM Date: 10/08/24 Loc: HO.MRI Attending Dr: Vikki Hall MD Ordering Physician: Vikki Hall MD Date of Service: 10/08/24 Procedure(s): MR lumbar spine wo con Accession Number(s): [id number] cc: Vikki Hall MD; BILLY GUTIERREZ MD [...] and right eccentric disc protrusion. There is mvrt-sikobnp-sduo-right facet hypertrophy present. Severe left neural foraminal [...] in OV> 10/08/241901 DD/ 99 TD/TT: 10/08/241899 Air Sampler: us Vikki Hall MD IMG MRI PROCEDURES Final Resu lt * Cologuard?? colon cancer screening (02/20/2024 9:20 AM EDT) Cologuard Result Negative Negative 02/25/20 2:38 PM EDT [facility] (CLIA #:[id number]) Comment: NEGATIVE TEST RESULT. A negative Cologuard [...] cancer. ??Following a negative Cologuard result, the [place] Cancer Society and U.S. Multi-Society Task Force screening guidelines recommend a Cologuard re-screening interval of 3 years. References: [place] [employer] Guideline for Colorectal Cancer Screening: https://www.cancer.org/cancer/bxkqr-argpkd-qxxkho/xlmoxvcsi-indjdkpvq-gkoayge/ac s-rec ommendations.html.; Mckinley DK, Vale CR, Svetlana FigueroaK, Colorectal Cancer Screening: Recommendations for Physicians and Patients from the U.S. Multi-Society Task Force on Colorectal Cancer Screening , Am J Gastroenterology 2017; 112:3258-8522. TEST DESCRIPTION: Composite algorithmic analysis of stool [...] Ann Goode al, N Engl J Med 2014;370(14):9855-0665.) Cologuard may produce a false negative or false positive result (no colorectal cancer or precancerous polyp present at colonoscopy follow up). A negative Cologuard test result does not guarantee the absence of CRC or advanced adenoma (pre-cancer). The current Cologuard screening interval is every 3 years. ([place] Cancer Society and U.S. Multi-Society Task Force). Cologuard performance data in a 10,000 patient pivotal study using colonoscopy as the reference method can be accessed at the following location: www.[employer].Down/results. Additional description of the Cologuard test process, warnings and precautions can be found at www.[employer].com. Stool specimen (specimen) 02/20/2024 9:20 AM EDT 2024 10:48 AM EDT Vikki Hall MD LAB MOLECULAR DIAGNOSTICS ORD ERABLES Final Result [facility] (CLIA #:[id number]) [place] [address], [place] [phone] * Mammography Report 1 (11/25/2021 9:05 AM EDT) Anatomical Region Laterality Modality Breast Bilateral Mammography 11/25/2021 9:05 AM EDT Narrative 11/26/2021 8:58 AM EDT Refer to the Notes tab for result details [facility] Procedure: Mammography Report 1 Procedure Note ProviderMirtha MD - 11/07/2022 Refer to the Notes tab for result details [facility] Procedure: Mammography Report 1 Vikki Hall MD IMG BI PROCEDURES Final Resul t * THINPREP TIS PAP AND HPV mRNA E6/E7 REFLEX HPV 16,18/45 (06/11/2021 3:05 PM EDT) Clinical Information: None given [facility] COMMENT SEE COMMENT [...] has been evaluated with computer assisted technology. [facility] Front Maker Lockstitch: SEE COMMENT [facility] Comment: YP, CT(ASCP) CT screening location: [address] ??[address] HPV nRNA E6/E7 Not Detected Not Detected [facility] Comment: Methodology: Conveyor Belt Repairer-Mediated Amplification This assay detects E6/E7 viral messenger RNA (mRNA) from 14 high-risk HPV types (16,18,31,33,35,39,45,51,52,56,58,59,66,68). ? The analytical performance characteristics of this assay have been determined by [employer] The modifications have not been cleared or approved by the FDA. This assay has been validated pursuant to the CLIA regulations and is used for clinical purposes. ?? For additional information, please refer to http://education.Breaker/faq/SXO257h8 (This link if provided for information/ educational [...] jaime Result [facility] [address] from Last 3 Months or Most Recently Relevant to Health Maintenance [place] [address] , [address] [place] [address] [facility] Care Teams Boat Loader Relationship Specialty Start Date End Date Vikki Hall MD [address] [place] [phone] PCP - General Family Medicine 08/15/18
--- OUTSIDE RECORDS SUMMARY | 2024-12-20 12:43 | XMS_ITS | Encounter Summary ---
Author Organization [employer] [facility] Address [address] 7t [place] [address] Care Team Providers Care Artist'S Model Name Role Phone Vikki Hall MD Primary Care Provider [phone] Reason for Visit * Reason Comments Med Refill Encounter Details Date Type Department Care Team (Late Contact Info) Description 12/06/2022 Telephone [facility] [address] [place], [place] [phone] Vikki Hall MD [address] [place] [address] Med Refill Social History Tobacco Use Types [...] Upcoming Encounters Date Type Department Care Team ([facility] Contact Info) Description 02/21/2025 11:30 AM EDT Office Visit [facility] [address] [place] [address] Vikki Hall MD [address] [place] [address] documented as of this encounter Visit Diagnoses Not on filedocumented in this encounter Care Teams Artist'S Model Relationship Specialty Start Date End Date Vikki Hall MD [address] [place] [address] PCP - General Family Medicine 08/15/18 documented as of this encounter
--- OUTSIDE RECORDS SUMMARY | 2024-12-20 12:44 | XMS_ITS | Encounter Summary ---
Author Organization [employer] Address [address] [place] [address] Care Team Providers Care Traffic Workforce Representative Name Role Phone Vikki Hall MD Primary Care Provider [phone] Encounter Details Date Type Department Care Team (Latest Contact Info) Description 12/18/2024 Travel Social History Tobacco Use Types Packs/Day [...] Upcoming Encounters Date Type Department Care Team ([facility] st Contact Info) Description 02/21/2025 11:30 AM EDT Office Visit [facility] [address] [place] [address] Vikki Hall MD [address] [place] [address] documented as of this encounter Visit Diagnoses Not on filedocumented in this encounter Additional Health Concerns Assessment Noted Time PHQ-9 Depression Total Score: 8 09/27/19 25 1:02 PM EST documented as of this encounter Care Teams Traffic Workforce Representative Relationship Specialty Start Date End Date Vikki Hall MD [address] [place] [address] PCP - General Family Medicine 08/15/18 documented as of this encounter
--- OUTSIDE RECORDS SUMMARY | 2024-12-20 12:44 | XMS_ITS | Encounter Summary ---
Author Organization [facility] Address [address] [facility] 7[address] [place] [address] Care Team Providers Care Public Health Specialist Name Role Phone Vikki Hall MD Primary Care Provider [phone] Encounter Details Date Type Department Care Team (Late st Contact Info) Description 12/20/2024 Orders Only GENERIC EXTERNAL DATA DEPARTMENT Provider, Generic External Data Social History Tobacco Use Types Packs/Day Years [...] 02/21/2025 11:30 AM EDT Office Visit [facility] [address] [place] [address] Vikki Hall MD [address] [place] [address] Pending Results Name Type Priority Associated Diagnoses Date /Time Hepatic Function Panel Lab Routine 11:21 AM EDT documented as of this encounter Procedures Procedure Name Priority Date/Time Associated Diagnosis Comments HEPATIC FUNCTION PANEL Routine 12/20/2024 11:21 AM EDT documented in this encounter Visit Diagnoses Not on filedocumented in this encounter Additional Health Concerns Assessment Noted Time PHQ-9 Depression Total Score: 8 09/27/19 25 1:02 PM EST documented as of this encounter Care Teams Public Health Specialist Relationship Specialty Start Date End Date Vikki Hall MD [address] [place] [address] PCP - General Family Medicine 08/15/18 documented as of this encounter
--- OUTSIDE RECORDS SUMMARY | 2024-12-20 12:44 | XMS_ITS | Encounter Summary ---
Author Organization [employer] Address [address] [place] [address] [address], [place] [address] Care Team Providers Care Palliative Care Coordinator Name Role Phone Vikki Hall MD Primary Care Provider [phone] Reason for Referral * Consultation (Urgent) - Closed Specialty Diagnoses / Procedures Referred By Contac t Referred To Contact Physical Therapy Diagnoses Right leg weakness H/O lumbar discectomy Vikki Hall MD [address] [place] [address] Phone: tel: fax: [facility] Physical Therapy [address] [place] [address] Phone: tel: fax: Referral ID Status Reason Start Date Expiration Date V isits Requested Visits Authorized [id number] Closed Specialty Services Required 12/19/2024 12/19/2025 1 1 Scheduling Instructions Cotre therapy please Encounter Details Date Type Department Care Team (Latest Contact Info) Description 12/19/2024 9:00 AM EDT Telemedicine [facility] [address] [place], [place] [phone] Vikki Hall MD [address] [place], [place] [phone] Right leg weakness (Primary Dx); H/O lumbar discectomy; Hx laparoscopic cholecystectomy; Acute cholecystitis due to biliary calculus Social History Tobacco Use Types Packs/Day Years [...] AM EDT documented as of this encounter Progress Notes * Vikki Hall MD - 12/19/2024 9:00 AM EDT Subjective Patient ID: Raissa Carson is a 44 y.o. female who presents for televisit. Raissa is seen via televisit for follow up. Since her last visit she had neurosurgery of her lower back done on 11/01/24 by , since then she has been using a walker and feels she some urine incontinence, hasn't been helping to do PT due to getting choledocholithiasis sx right after this happened at [facility] which was operated by . She needs a referral for eval for post op PT neurosurgery of lower back at [facility].She had a micro discectomy Done. Takes gabapentin for pain.Has returned to work remotely for now as she still has incontinence and has not completed PT yet. Review of Systems Constitutional: Negative for activity change, chills, fever and unexpected weight change. Respiratory: Negative for cough, shortness of breath and wheezing. Cardiovascular: Negative for chest pain, palpitations and leg swelling. Gastrointestinal: Negative for abdominal pain, blood in stool and nausea. Endocrine: Negative for polydipsia and polyuria. Genitourinary: Negative for decreased urine volume, difficulty urinating, dysuria, hematuria and vaginal discharge. Musculoskeletal: Positive for back pain. Negative for arthralgias and gait problem. Skin: Negative for color change and rash. Neurological: Positive for weakness and numbness. Negative for dizziness and headaches. Hematological: Negative for adenopathy. Psychiatric/Behavioral: Negative for dysphoric mood, hallucinations, sleep disturbance and suicidalideas. The patient is nervous/anxious. Objective Physical Exam Constitutional: General: She is not in acute distress. Neurological: Mental Status: She is alert and oriented to person, place, and time. Mental status is at baseline. Psychiatric: Mood and Affect: Mood normal. Behavior: Behavior normal. Thought Content: Thought content normal. Judgment: Judgment normal. Assessment/Plan Diagnoses and all orders for this visit: Right leg weakness Comments: Patient is using a walker for ambulation, has support at home, bedside commode etc. needs postop PTreferral which was done today. Letter to continue to work remotely until she completes physical therapy and is able to ambulate more efficiently was done for patient today. will picker tender helper letter at medical records. Orders: - Referral to Physical Therapy; Future H/O lumbar discectomy Comments: Surgery done by neurosurgeon Dr. Ivy on November 01. Patient still has some weakness and numbness.PT referral done at [facility] as requested by patient. Orders: - Referral to Physical Therapy; Future Hx laparoscopic cholecystectomy Comments: Surgery done by surgeon Dr. Leiva at [facility] recently needs. Lipase and CMP rechecked. Labs ordered today. Follow-up with surgeon as planned. Orders: - Comprehensive Metabolic Panel; Future - Lipase; Future Acute cholecystitis due to biliary calculus Comments: This has now resolved after surgery to remove her gallbladder was done. Denies pain and is tolerating foods. documented in this encounter Plan of Treatment Upcoming Encounters Date Type Department Care Team (Late st Contact Info) Description 02/21/2025 11:30 AM EDT Office Visit [facility] MED [facility]ED[facility] [address] [place] [address] Vikki Hall MD [address] [place] [address] Pending Results Name Type Priority Associated Diagnoses Date /Time Comprehensive Metabolic Panel Lab Routine Hx laparoscopic cholecystectomy 12/20/2024 11:21 AM EDT Lipase Lab Routine Hx laparoscopic cholecystectomy 12/20/2024 11:21 AM EDT Scheduled Referrals Name Type Priority Associated Diagnoses Orde r Schedule Referral to Physical Therapy Outpatient Referral Urgent Right leg weakness H/O lumbar discectomy Expected: 12/19/2024 (Approximate), Expires: 12/19/2025 documented as of this encounter Procedures Procedure Name Priority Date/Time Associated Diagnosis Comments LIPASE Routine 12/20/2024 11:21 AM EDT Hx laparoscopic cholecystectomy COMPREHENSIVE METABOLIC PANEL Routine 12/20/2024 11:21 AM EDT Hx laparoscopic cholecystectomy documented in this encounter Visit Diagnoses Diagnosis Right leg weakness- Primary Muscle weakness (generalized) H/O lumbar discectomy Hx laparoscopic cholecystectomy Acute cholecystitis due to biliary calculus documented in this encounter Additional Health Concerns Assessment Noted Time PHQ-9 Depression Total Score: 8 09/27/19 25 1:02 PM EST documented as of this encounter Care Teams Palliative Care Coordinator Relationship Specialty Start Date End Date Vikki Hall MD [address] [place] [address] PCP - General Family Medicine 08/15/18 documented as of this encounter
--- OUTSIDE RECORDS SUMMARY | 2024-12-20 12:44 | XMS_ITS | Encounter Summary ---
Author Organization [employer] [facility] Address [address] [place] [address] [address] [place] [address] Care Team Providers Care Turkey Cleaner Name Role Phone Vikki Hall MD Primary Care Provider [phone] Encounter Details Date Type Department Care Team (Late st Contact Info) Description 12/31/2022 Orders Only [facility] [address] [place] [address] Alyse Dhillon LPN Social History Tobacco Use [...] 11:30 AM EDT Office Visit [facility] [address] [place] [address] Vikki Hall MD [address] [place] [address] documented as of this encounter Visit Diagnoses Not on filedocumented in this encounter Care Teams Turkey Cleaner Relationship Specialty Start Date End Date Vikki Hall MD [address] [place] [address] PCP - General Family Medicine 08/15/18 documented as of this encounter
--- OUTSIDE RECORDS SUMMARY | 2024-12-20 12:44 | XMS_ITS | Encounter Summary ---
Author Organization [facility] Address [address] [facility] 7t [place] [address] Care Team Providers Care Pluck Separator Name Role Phone Vikki Hall MD Primary Care Provider [phone] Encounter Details Date Type Department Care Team (Late st Contact Info) Description 10/28/2023 Telephone [facility] [address] [place], [place] [phone] Akhil Castillo DDS [address] [place], [place] [phone] Social History Tobacco Use Types Packs/Day Years [...] [facility] [address] [place], [place] [phone] Vikki Hall MD [address] [place] [address] documented as of this encounter Visit Diagnoses Not on filedocumented in this encounter Care Teams Pluck Separator Relationship Specialty Start Date End Date Vikki Hall MD [address] [place] [address] PCP - General Family Medicine 08/15/18 documented as of this encounter
--- OUTSIDE RECORDS SUMMARY | 2024-12-20 12:44 | XMS_ITS | Encounter Summary ---
Author Organization [employer] Address [address] [facility] [address] [place] [address] Care Team Providers Care Test Rack Operator Name Role Phone Vikki Hall MD Primary Care Provider [phone] Encounter Details Date Type Department Care Team (Latest Contact Info) Description 12/19/2024 Travel Social History Tobacco Use Types Packs/Day [...] Upcoming Encounters Date Type Department Care Team ([facility] st Contact Info) Description 02/21/2025 11:30 AM EDT Office Visit [facility] MED & PEDS [address] [place] [address] Vikki Hall MD [address] [place] [address] documented as of this encounter Visit Diagnoses Not on filedocumented in this encounter Additional Health Concerns Assessment Noted Time PHQ-9 Depression Total Score: 8 09/27/19 25 1:02 PM EST documented as of this encounter Care Teams Test Rack Operator Relationship Specialty Start Date End Date Vikki Hall MD [address] [place] [address] PCP - General Family Medicine 08/15/18 documented as of this encounter
--- OUTSIDE RECORDS SUMMARY | 2024-12-20 12:44 | XMS_ITS | Encounter Summary ---
Author Organization [employer] [facility] Address [address] [facility] 7t [place] [address] Care Team Providers Care Mold Stamper Name Role Phone Vikki Hall MD Primary Care Provider [phone] Encounter Details Date Type Department Care Team ([facility] Contact Info) Description 09/20/2024 Orders Only [facility] [address] [place] [address] Garrett Vann MD [address] [place] [address] Vitamin D deficiency (Primary Dx) Social History [...] 11:30 AM EDT Office Visit [facility] [address] [place] [address] Vikki Hall MD [address] [place] [address] documented as of this encounter Visit Diagnoses Diagnosis Vitamin D deficiency- Primary documented in this encounter Care Teams Mold Stamper Relationship Specialty Start Date End Date Vikki Hall MD [address] [place] [address] PCP - General Family Medicine 08/15/18 documented as of this encounter
--- OUTSIDE RECORDS SUMMARY | 2024-12-20 12:44 | XMS_ITS | Encounter Summary ---
Author Organization [employer] Address [address] [facility] 7t [place] [address] Care Team Providers Care Apparel Cutter Name Role Phone Vikki Hall MD Primary Care Provider [phone] Reason for Visit * Reason Onset Date Comments change of treatment 05/09/2024 Encounter Details Date Type Department Care Team ([facility] st Contact Info) Description 05/09/2024 Telephone [facility] [address] [place] [address] Peggy Larkin, DDS [address] [place] [address] change of treatment Social History Tobacco Use [...] Description 02/21/2025 11:30 AM EDT Office Visit [facility] PEDS [address] [place] [address] Vikki Hall MD [address] [place] [address] documented as of this encounter Visit Diagnoses Not on filedocumented in this encounter Care Teams Apparel Cutter Relationship Specialty Start Date End Date Vikki Hall MD [address] [place] [address] PCP - General Family Medicine 08/15/18 documented as of this encounter
--- OUTSIDE RECORDS SUMMARY | 2024-12-20 12:44 | XMS_ITS | Encounter Summary ---
Author Organization [employer] [facility] Address [address] [place] [address] 7t [place] [address] Care Team Providers Care Urgent Care Physician Assistant Name Role Phone Vikki Hall MD Primary Care Provider [phone] Encounter Details Date Type Department Care Team (Latest Contact Info) Description 08/05/2020 Abstract [facility] Dental, Provider, DDS Social History [...] Description 02/21/2025 11:30 AM EDT Office Visit [facility]ED[facility] [address] [place] [address] Vikki Hall MD [address] [place] [address] documented as of this encounter Visit Diagnoses Not on filedocumented in this encounter Care Teams Urgent Care Physician Assistant Relationship Specialty Start Date End Date Vikki Hall MD [address] [place] [address] PCP - General Family Medicine 08/15/18 documented as of this encounter
--- OUTSIDE RECORDS SUMMARY | 2024-12-20 12:44 | XMS_ITS | Encounter Summary ---
Author Organization [facility] [facility] Address [address] [facility] 7t [place] [address] Care Team Providers Care Volunteer Services Specialist Name Role Phone Vikki Hall MD Primary Care Provider [phone] Encounter Details Date Type Department Care Team (Late Contact Info) Description 03/16/2024 Telephone [facility] ADULT DENTAL [address] [place] [address] Peggy Larkin DDS [address] [place] [address] Social History Tobacco Use Types Packs/Day Years [...] 11:30 AM EDT Office Visit [facility] PEDS [address] [place] [address] Vikki Hall MD [address] [place] [address] documented as of this encounter Visit Diagnoses Not on filedocumented in this encounter Care Teams Volunteer Services Specialist Relationship Specialty Start Date End Date Vikki Hall MD [address] [place] [address] PCP - General Family Medicine 08/15/18 documented as of this encounter
[2024-12-20 12:47] LABS: Alanine Aminotransferase 73 U/L (0-31)
== END 2024-12-20 11:15 | disposition home or self-care (01) ==
LOC: HO.LAB 11:14
PROVIDERS: Absent Provider Internal Medicine; PCP Pediatrics; Visit Provider Pediatrics
DX: Z90.49 Acquired absence of other specified parts of digestive tract (principal); K80.50 Calculus of bile duct without cholangitis or cholecystitis without obstruction
CPT/HCPCS: 36415; 80053; 82248; 83690

== ENCOUNTER 2024-12-25 10:50 | Outpatient (AMB) | payer OTHER, SELFPAY ==
[2024-12-25 10:54] VITALS: BP 119/62; PULSE 81; TEMP 36.4; O2SAT 96; BMI 36.5
--- NOTE | 2024-12-25 10:54 | A.OFFVIS_ITS ---
Vital Signs 12/25/24 10:54 Height 5 ft 3 in Weight 206 lb 2 oz BMI 36.5 BP 119/62 Blood Pressure Location Rt brachial Position Sitting Pulse 81 Pulse Source Pulse Oximeter Temp 97.6 F Temp Source Tympanic Pulse Oximetry (%) 96 Oxygen Delivery Method Room Air Intake Visit Reasons: S/P lap miguelito Intake Note: Patient present for pre-op. no concerns Allergies No Known Allergies Allergy (Verified 12/25/24 11:02) HPI Comments Details: Patient presents for follow up after being admitted to the hospital last month for acute cholecystitis, choledocolithiasis. During the admission, she underwent ERCP with sphincterotomy, stone extraction 12/06/24 followed by laparoscopic cholecystectomy on 12/07/[address] Ramos. She tolerated the procedure well and was discharged on 12/09/24. She reports feeling well today. She has some very mild incisional and RUQ pain sometimes exacerbated by eating. Denies association with fatty foods. She stopped taking the oxycodone two days after got home. She is tolerating solid diet without nausea or vomiting. She reports having some diarrhea post operatively but is now back to her baseline of a bowel movement every 2-3 days, soft in nature. She is asking about proceeding with weigh loss medication as her PCP states she needs surgical clearance. She has no other concerns. She denies fevers, chills, nausea, vomiting, jaundice. She continues to ambulate with a walker due to her back pain. 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, lumbosacral Surgical History History of ERCP S/P lumbar microdiscectomy Social History Household Members: Spouse Housing: House Do you presently have visiting nurse or other home services: No Patient Tobacco Use Status: Never used Tobacco service: No Review of Systems Const Denies chills and Denies fever(s) ENT Denies dizziness Card Denies chest pain and Denies dyspnea Resp Denies dyspnea GI Reports as per HPI Skin/Breast Denies rash and Denies jaundice Neuro Denies dizziness Physical Exam Vital Signs: Last Vital Signs Temp 97.6 F 12/25/24 10:54 Pulse 81 12/25/24 10:54 BP 119/62 12/25/24 10:54 Pulse Ox 96 12/25/24 10:54 Oxygen Delivery Method Room Air 12/25/24 10:54 BMI result Body Mass Index 36.5 Const General: comfortable, no acute distress and alert Orientation/consciousness: patient oriented x3 Resp Effort & Inspection: normal respiratory effort GI Other: incisions well healed, no erythema, no edema or induration Inspection: Yes distended Palpation (GI): Soft to palpation, Tenderness to palpation present (GI) (very mild RUQ tenderness at lateral incision ) with no rebound tenderness and no guarding Percussion: Yes normal to percussion Skin General skin exam: no rashes or lesions noted and no jaundice Neuro General: patient oriented x3 and moves all extremities Results Reviewed Results Reviewed: Gallbladder, cholecystectomy: Acute and chronic cholecystitis; cholelithiasis; cholesterolosis Assessment & Plan Assessment & Plan (1) S/P laparoscopic cholecystectomy: Code(s): Z90.49 - Acquired absence of other specified parts of digestive tract Category: Surgical Plan S/p laparoscopic cholecystectomy on 12/07/24. She tolerated the procedure well. Incisions are healing well and clean appearing, very mild RUQ tenderness on exam. Follow up labs show LFTs continue to downtrend. Overall doing well post operatively. Recommend return in 1 month or sooner if she develops concerns. Discussed she is ok to begin weight loss medications from surgical perspective. Coding Level of Care Code Global (93998) Diagnoses S/P laparoscopic cholecystectomy Z90.49
--- OUTSIDE RECORDS SUMMARY | 2024-12-25 12:15 | XMS_ITS | Encounter Summary ---
Author Organization [employer] [facility] Address [address] [facility] 7t [place] [address] Care Team Providers Care License Inspector Name Role Phone Vikki Hall MD Primary Care Provider [phone] Encounter Details Date Type Department Care Team (Late st Contact Info) Description 10/28/2023 Telephone [facility] ADULT DENTAL [address] [place], [place] [phone] Akhil Castillo DDS [address] [place], [place] [phone] Social History Tobacco Use Types Packs/Day Years [...] 11:30 AM EDT Office Visit [facility] MED [facility] PEDS [address] [place], [place] [phone] Vikki Hall MD [address] [place] [address] documented as of this encounter Visit Diagnoses Not on filedocumented in this encounter Care Teams License Inspector Relationship Specialty Start Date End Date Vikki Hall MD [address] [place] [address] PCP - General Family Medicine 08/15/18 documented as of this encounter
--- OUTSIDE RECORDS SUMMARY | 2024-12-25 12:15 | XMS_ITS | Encounter Summary ---
Author Organization [employer] Address [address] [facility] 7 [place] [address] Care Team Providers Care Final Inspector Name Role Phone Vikki Hall MD Primary Care Provider [phone] Reason for Visit * Reason Onset Date Comments Med Refill 10/25/2024 Encounter Details Date Type Department Care Team ([facility] st Contact Info) Description 10/25/2024 Refill [facility] MED & PEDS [address] [place], [place] [phone] Vikki Hall MD [address] [place] [address] Social History Tobacco Use Types Packs/Day Years [...] Upcoming Encounters Date Type Department Care Team ([facility] st Contact Info) Description 02/21/2025 11:30 AM EDT Office Visit [facility] MED & PEDS [address] [place] [address] Vikki Hall MD [address] [place] [address] documented as of this encounter Visit Diagnoses Not on filedocumented in this encounter Additional Health Concerns Assessment Noted Time PHQ-9 Depression Total Score: 8 09/27/19 25 1:02 PM EST documented as of this encounter Care Teams Final Inspector Relationship Specialty Start Date End Date Vikki Hall MD [address] [place] [address] PCP - General Family Medicine 08/15/18 documented as of this encounter
--- OUTSIDE RECORDS SUMMARY | 2024-12-25 12:15 | XMS_ITS | Encounter Summary ---
Author Organization [employer] [facility] Address [address] [facility] 7t [place] [address] Care Team Providers Care General Maintenance Mechanic Name Role Phone Vikki Hall MD [...] Upcoming Encounters Date Type Department Care Team ([facility] st Contact Info) Description 02/21/2025 11:30 AM EDT Office Visit [facility] MED & PEDS [address] [place] [address] Vikki Hall MD [address] [place] [address] documented as of this encounter Procedures Procedure Name Priority Date/Time Associated Diagnosis Comments HEPATIC FUNCTION PANEL Routine 12/20/2024 11:21 AM EDT documented in this encounter Results * Hepatic Function Panel (12/20/2024 11:21 AM EDT) Bilirubin, Direct 0.4 0.0 - 0.5 mg/dL [facility] 12/20/2024 11:2 1 AM EDT 12/20/2024 11:21 AM EDT us Generic External Data Provider LAB BLOOD ORDERAB LES Final Result [facility] [address] [place] [address] [phone] documented in this encounter Visit Diagnoses Not on filedocumented in this encounter Additional Health Concerns Assessment Noted Time PHQ-9 Depression Total Score: 8 09/27/19 25 1:02 PM EST documented as of this encounter Care Teams General Maintenance Mechanic Relationship Specialty Start Date End Date Vikki Hall MD [address] [place] [address] PCP - General Family Medicine 08/15/18 documented as of this encounter
--- OUTSIDE RECORDS SUMMARY | 2024-12-25 12:15 | XMS_ITS | Encounter Summary ---
Author Organization [employer] Address [address] [facility] 7t [place] [address] Care Team Providers Care Tool Mechanic Name Role Phone Vikki Hall MD Primary Care Provider [phone] Encounter Details Date Type Department Care Team ([facility] st Contact Info) Description 12/23/2024 Orders Only [facility] MED & PEDS [address] [place], [place] [phone] Vikki Hall MD [address] [place] [address] H/O lumbar discectomy (Primary Dx) Social History Tobacco Use Types [...] 02/21/2025 11:30 AM EDT Office Visit [facility]ED[facility] [address] [place] [address] Vikki Hall MD [address] [place] [address] documented as of this encounter Visit Diagnoses Diagnosis H/O lumbar discectomy- Primary documented in this encounter Additional Health Concerns Assessment Noted Time PHQ-9 Depression Total Score: 8 09/27/19 25 1:02 PM EST documented as of this encounter Care Teams Tool Mechanic Relationship Specialty Start Date End Date Vikki Hall MD [address] [place] [address] PCP - General Family Medicine 08/15/18 documented as of this encounter
--- OUTSIDE RECORDS SUMMARY | 2024-12-25 12:15 | XMS_ITS | Clinical Summary ---
Author Organization [employer] Address [address] [facility] [address] [place] [address] Care Team Providers Care High Value Associate Name Role Phone Vikki Hall MD Primary Care Provider Allergies No known active allergies Medications loratadine (Claritin) 10 MG tablet TAKE ONE TABLET BY MOUTH EVERY DAY NEEDED 12/07/19 23 Active Acetaminophen Extra Strength 500 MG tabletIndication s:Lumbago with sciatica, right side TAKE ONE TABLET EVERY 6 HOURS NEEDED mild PAIN 90 tablet 3 04/03/20 24 Active meloxicam (Mobic) 15 MG tabletIndication s:Acute right-sided low back pain with right-sided sciatica,Numbnes s and tingling of right lower extremity,Neck pain Take 1 tablet (15 mg) by mouth Once per day. 30 tablet 11 11/23/19 25 026 Active cholecalciferol (Vitamin D-3) 50 MCG (2000 UT) capsuleIndicatio ns:Vitamin D deficiency Take 1 capsule (50 mcg) by mouth Once per day. 30 capsule 3 11/26/19 25 Active gabapentin (Neurontin) 300 MG capsuleIndicatio ns:Lumbar disc disease with radiculopathy Take 1 capsule (300 mg) by mouth 3 times daily. 90 capsule 12/10/19 25 025 Active polyethylene glycol, PEG, 3350 (MiraLax) 17 GM/SCOOP powder Take 17 g by mouth Once per day. 510 g 2 12/24/19 25 025 Active lidocaine (Lidoderm) 5 % patchIndications :H/O lumbar discectomy Apply 1 patch topically Once per day. Remove & discard patch within 12 hours or as directed by MD. 30 patch 3 12/24/19 25 Active cholecalciferol (Vitamin D-3) 25 MCG (1000 UT) tabletIndication s:Low vitamin D level Take 1 tablet (25 mcg) by mouth in the morning. 30 tablet 11 09/24/19 24 025 Discontinued(T herapy completed) meloxicam (Mobic) 7.5 MG tabletIndication s:Chronic midline low back pain with right-sided sciatica TAKE ONE TABLET EVERY MORNING 30 tablet 3 04/05/20 24 025 Discontinued(I neffective) gabapentin (Neurontin) 300 MG capsuleIndicatio ns:Lumbar disc disease with radiculopathy Take 1 capsule (300 mg) by mouth 3 times daily. 90 capsule 2 11/26/19 25 025 Discontinued(R eorder (will not trigger notification to Pharmacy)) Active [...] Encounters Date Type Department Care Team Description 12/23/2024 Orders Only [facility] [address] [place] [address] Vikki Hall MD H/O lumbar discectomy (Primary Dx) 12/20/2024 Orders Only GENERIC EXTERNAL DATA DEPARTMENT Provider, Generic External Data 12/19/2024 9:00 AM EDT Telemedicine [facility] [address] [place] [address] Vikki Hall MD Right leg weakness (Primary Dx); H/O lumbar discectomy; Hx laparoscopic cholecystectomy; Acute cholecystitis due to biliary calculus 12/19/2024 Travel 12/18/2024 Travel 12/07/2024 Refill [facility] [address] [place] [address] Vikki Hall MD Lumbar disc disease with radiculopathy 12/06/2024 Telephone [facility] [address] [place] [address] Vikki Hall MD Care Coordination 12/06/2024 Telephone [facility] [address] [place], [place] [phone] Vikki Hall MD 12/04/2024 Orders Only [facility] External Provider, [facility] 11/22/2024 Refill [facility] [address] [place] [address] Vikki Hall MD Vitamin D deficiency; Disorder of skeletal muscle; Lumbar disc disease with radiculopathy 11/22/2024 Refill [facility] [address] [place] [phone] Vikki Hall MD Acute right-sided low back pain with right-sided sciatica; Numbness and tingling of right lower extremity; Neck pain 10/25/2024 Refill [facility] [address] [place] [address] Vikki Hall MD 10/25/2024 Refill [facility] [address] [place] [address] Garrett Vann MD Vitamin D deficiency 10/25/2024 Refill [facility] [address] [place] [phone] Garrett Vann MD Acute right-sided low back pain with right-sided sciatica; Numbness and tingling of right lower extremity; Neck pain 10/25/2024 Refill [facility] [address] [place] [address] Vikki Hall MD 10/09/2024 Telephone [facility] [address] [place] [address] Vikki Hall MD 10/08/2024 Orders Only [facility] [address] [place] [address] Vikki Hall MD Lumbar disc disease with radiculopathy (Primary Dx); Right leg weakness; Protrusion of lumbar intervertebral disc 10/02/2024 Telephone [employer] [address] [place] [address] Vikki Hall MD MRI LUMBAR SPINE ORDER 09/27/2024 11:15 AM EST Office Visit [facility] [address] [place], [place] [phone] Vikki Hall MD Lumbar disc disease with radiculopathy (Primary Dx); Right leg weakness; Dietary counseling; Exercise counseling 09/27/2024 Travel from Last 3 Months Immunizations Name Administration [...] [facility] [address] [place] [address] Vikki Hall MD [address] [place] [address] Health Maintenance Due Date Last Done Comments [...] 09/27/2025 09/27/2024 Depression Screening 09/27/2025 09/27/2024, 09/27/19 SDOH Screening 09/27/2025 09/27/2024 Tobacco Screening 09/27/2025 [...] Recently Relevant to Health Maintenance Results * Lipase (12/20/2024 11:21 AM EDT) Only the most recent of2 resultswithin the time period is included. Lipase 41 8 - 78 U/L [facility] Blood Venous blood specimen / Unknown 12/20/2024 11:21 AM EDT 12/20/2024 11:21 AM EDT us Vikki Hall MD LAB BLOOD ORDERABLES Final Re sult [facility] [address] [place] [address] [phone] * Hepatic Function Panel (12/20/2024 11:21 AM EDT) Bilirubin, Direct 0.4 0.0 - 0.5 mg/dL [facility] 12/20/2024 11:2 1 AM EDT 12/20/2024 11:21 AM EDT us Generic External Data Provider LAB BLOOD ORDERAB LES Final Result Performing Organization Address City/[facility] Co de Phone Number [facility] [address] [place] [address] [phone] * (ABNORMAL) Comprehensive Metabolic Panel (12/20/2024 11:21 AM EDT) Only the most recent of2 resultswithin the time period is included. Pathologist [facility] Sodium 141 135 - 145 mmol/L [facility] Potassium 4.6 3.3 - 5.1 mmol/L [facility] Chloride 108 96 - 108 mmol/L [facility] Carbon Dioxide 27 22 - 29 mmol/L [facility] Anion Gap 11(L) 12 - 20 [facility] Urea Nitrogen (BUN) 12 9 - 16 mg/dL [facility] Creatinine, Serum 0.69 0.5 - 1.4 mg/dL [facility] Estimated Glomerular Filt Rate >60 [facility] Comment:Chronic Kidney Disea se: Estimated GFR < 60 mL/min/1.73d2Dltlak Kidney Disease: Estimated GFR < 15 mL/min/1.73m2 Glucose 109 60 - 115 mg/dL [facility] Calcium 9.9 8.4 - 10.2 mg/dL [facility] Bilirubin, Total 0.7 0.0 - 1.0 mg/dL [facility] Aspartate Amino Transferase 41(H) 5 - 31 U/L [facility] Alanine Aminotransferase 73(H) 0 - 31 U/L [facility] Total Protein 7.4 6.5 - 8.0 g/dL [facility] Albumin Level 4.0 3.5 - 5.0 g/dL [facility] Alkaline Phosphatase 94 39 - 117 U/L [facility] Blood Venous blood specimen / Unknown 12/20/2024 11:21 AM EDT 12/20/2024 11:21 AM EDT us Vikki Hall MD LAB BLOOD ORDERABLES Final Re sult [facility] [address] [place] [address] [phone] * FL Guidance in OR (12/06/2024 3:40 PM EDT) Anatomical Region Laterality Modality X-Ray Angiograph y 12/06/2024 3:40 PM EDT Narrative 12/07/2024 8:28 AM EDT ? [facility] ?[address] ?[place] [address] ? Fluoroscopy Report ? Signed ? Patient: Raissa Carson ?MR#: [id number] ? : 1980 ?Acct:[id number] ? Age/Sex: 44 / F ?ADM Date: 12/04/24 ? Loc: HO.IMC ?458-1 ? Attending Dr: De Knight MD ? Ordering Physician: Agustin Ny MD ?? Date of Service: 12/06/24 ?? Procedure(s): FL guidance in OR ?? Accession Number(s): [id number] ? cc: Vikki Hall MD; Agustin Ny MD ? EXAMINATION: ?? XR FLUOROSCOPY WITH IMAGES ? CLINICAL INFORMATION: ?? ERCP. ? COMPARISON: ?? [facility] 12/05/2024. ? TECHNIQUE: ?? Fluoroscopy provided to: [...] DD/ 1540 ? TD/TT: 12/06/24 1620 ? Crop Duster: ? Procedure Note Donotsandrainterpreter, Image - 12/07/[address] [address] Fluoroscopy Report Signed Patient: Raissa CarsonMR#: [id number] : 1980Acct:[id number] Age/Sex: 44 / FADM Date: 12/04/24 Loc: [facility] 458-[address]: De Knight MD Ordering Physician: Agustin Ny MD Date of Service: 12/06/24 Procedure(s): FL guidance in OR Accession Number(s): [id number] cc: Vikki Hall MD; Agustin Ny MD [...] Alex Hancock MD 12/07/2024 08:25 AM EDT Dictated By: Alex Hancock MD Signed By: <Electronically signed by Alex Hancock MD in OV> 12/07/24 0825 DD/ 1540 TD/TT: 12/06/24 1620 Crop Duster: [facility] External Provider IMG IR PROCEDURES Edited Result - Final * MR MRCP (12/05/2024 2:46 PM EDT) Anatomical Region Laterality Modality Lower Extremities Left Magnetic Reson ance 12/05/2024 2:46 PM EDT Narrative 12/05/2024 3:40 PM EDT ? [facility] ?[address] ?[place] [address] ? Magnetic Resonance Report ? Signed ? Patient: Raissa Carson ?MR#: [id number] ? : 1980 ?Acct:[id number] ? Age/Sex: 44 / F ?ADM Date: 12/04/24 ? Loc: HO.IMC ?458-1 ? Attending Dr: De Knight MD ? Ordering Physician: Carl Villanueva MD ?? Date of Service: 12/05/24 ?? Procedure(s): MR MRCP ?? Accession Number(s): [id number] ? cc: Vikki Hall MD; Carl Villanueva [...] DD/ 1446 ? TD/TT: 12/05/24 1508 ? Crop Duster: ? Procedure Note Donotsunithater, Image - 12/05/2024 [place] [address] Magnetic Resonance Report Signed Patient: Raissa CarsonMR#: [id number] : 1980Acct:[id number] Age/Sex: 44 / FADM Date: 12/04/24 Loc: [facility] 458-[address]: De Knight MD Ordering Physician: Carl Villanueva MD Date of Service: 12/05/24 Procedure(s): MR MRCP Accession Number(s): [id number] cc: Vikki Hall MD; Carl Villanueva MD [...] 12/05/24 1537 DD/ 1446 TD/TT: 12/05/24 1508 Crop Duster: [facility] External Provider IMG MRI PROCEDURES Final Result * US Abdomen Limited (12/04/2024 9:07 PM EDT) Anatomical Region Laterality Modality Abdomen Ultrasound 12/04/2024 9:07 PM EDT Narrative 12/04/2024 9:09 PM EDT ? [facility] ?[address] ?[place] [address] ? Ultrasound Report ? Signed ? Patient: Carson,Raissa ?MR#: [id number] ? : 1980 ?Acct:[id number] ? Age/Sex: 44 / F ?ADM Date: 04/22/25 ? Loc: HO.ED ? Attending Dr: ? Ordering Physician: Zaria Kebede MD ?? Date of Service: 12/04/24 ?? Procedure(s): US abdomen limited ?? Accession Number(s): [id number] ? cc: Vikki Hall MD; Zaria Kebede [...] ? DD/ 06 ? TD/TT: 12/04/242106 ? Crop Duster: ? Procedure Note Donmanan, Image - 12/04/2024 [place] [address] Ultrasound Report Signed Patient: Félix Carson#: [id number] : 1980Acct:[id number] Age/Sex: 44 / FADM Date: 12/04/24 Loc: HO.ED Attending Dr: Ordering Physician: Zaria Kebede MD Date of Service: 12/04/24 Procedure(s): US abdomen limited Accession Number(s): [id number] cc: Vikki Hall MD; Zaria Kebede MD [...] in OV> 12/04/242108 DD/ 06 TD/TT: 12/04/242106 Crop Duster: [facility] External Provider IMG US PROCEDURES Final Result * CT Abdomen Pelvis w/ Contrast (12/04/2024 7:39 PM EDT) Anatomical Region Laterality Modality Body, Pelvis, Abdomen Computed T omography 12/04/2024 7:39 PM EDT Narrative 12/04/2024 7:40 PM EDT ? [facility] ?[address] ?[place] [address] ? CT Scan Report ? Signed ? Patient: Raissa Carson ?MR#: [id number] ? : 1980 ?Acct:[id number] ? Age/Sex: 44 / F ?ADM Date: 12/04/24 ? Loc: HO.ED ? Attending Dr: ? Ordering Physician: Zaria Kebede MD ?? Date of Service: 12/04/24 ?? Procedure(s): CT abdomen pelvis w IV con ?? Accession Number(s): [id number] ? cc: Vikki Hall MD; Zaria Kebede MD ? Report Number: ?? [id number]: Total DLP = ?0.00 mGy-cm ? CLINICAL [...] on ?? 12/04/2024 19:39:09 ? Dictated By: ?Tyler Cardenas MD ? Signed By: ?<Electronically signed by Tyler Cardenas MD in OV> ? 12/04/24 1940 ? DD/ 38 ? TD/TT: 12/04/241938 ? Crop Duster: ? Procedure Note Anastacio, Long - 12/04/[address] [place] [address] [address] Scan Report Signed Patient: Raissa CarsonMR#: [id number] : 1980Acct:[id number] Age/Sex: 44 / FADM Date: 12/04/24 Loc: HO.ED Attending Dr: Ordering Physician: Zaria Kebede MD Date of Service: 12/04/24 Procedure(s): CT abdomen pelvis w IV con Accession Number(s): [id number] cc: Vikki Hall MD; Zaria Kebede MD Report Number: [id number]: Total DLP = 0.00 mGy-cm CLINICAL HISTORY: [...] in OV> 12/04/241939 DD/ 38 TD/TT: 12/04/241938 Crop Duster: [facility] External Provider IMG CT PROCEDURES Final Result * CTA Chest PE Protocal (12/04/2024 7:26 PM EDT) Anatomical Region Laterality Modality Body, Chest Computed Tomogra phy 12/04/2024 7:26 PM EDT Narrative 12/04/2024 7:27 PM EDT ? [facility] ?[address] ?[place] [address] ? CT Scan Report ? Signed ? Patient: Raissa Carson ?MR#: [id number] ? : 1980 ?Acct:[id number] ? Age/Sex: 44 / F ?ADM Date: 12/04/24 ? Loc: HO.ED ? Attending Dr: ? Ordering Physician: Zaria Kebede MD ?? Date of Service: 12/04/24 ?? Procedure(s): CT angio chest PE protocol ?? Accession Number(s): [id number] ? cc: Vikki Hall MD; Zaria Kebede MD ? Report Number: ?? [id number]: Total DLP = ??970.00 mGy-cm ? CLINICAL [...] ? DD/ 25 ? TD/TT: 12/04/241925 ? Crop Duster: ? Procedure Note Donotuseinterpreter, Image - 12/04/[address] [address] [address] Scan Report Signed Patient: Raissa CarsonMR#: [id number] : 1980Acct:[id number] Age/Sex: 44 / FADM Date: 12/04/24 Loc: HO.ED Attending Dr: Ordering Physician: Zaria Kebede MD Date of Service: 12/04/24 Procedure(s): CT angio chest PE protocol Accession Number(s): [id number] cc: Vikki Hall MD; Zaria Kebede MD Report Number: [id number]: Total DLP = 970.00 mGy-cm CLINICAL HISTORY: [...] in OV> 12/04/241926 DD/ 25 TD/TT: 12/04/241925 Crop Duster: [facility] External Provider IMG CT PROCEDURES Final Result * High Sensitivity Troponin I (12/04/2024 4:14 PM EDT) TROPONIN I HIGH SENSITIVITY <2.7 <3.5 - 17.0 ng/L [facility] Comment:The Mckeon high sens itivity Troponin-I results should beused in conjunction with other diagnostic information suchas ECG, clinical observations and information, and patientsymptoms to aid in the diagnosis of NC. 12/04/2024 4:14 PM EDT 12/04/2024 4:22 PM EDT Generic External Data Provider LAB BLOOD ORDERAB LES Final Result Performing Organization Address [facility]/ZIP Co de Phone Number [facility] [address] [place] [phone] * SARS-CoV-2 RNA, Influenza A/B, and RSV RNA, Ql NAAT (12/04/2024 4:14 PM EDT) Influenza A PCR NEGATIVE Negative [facility] Influenza B PCR NEGATIVE Negative [facility] Resp Syncy Virus RNA Qual PCR NEGATIVE Negative [facility] SARS COV2 PCR NEGATIVE Negative [facility] Comment:All test results mus t be [...] use by authorized laboratories.Testing performed on the [employer] GeneXpert utilizingreal-time RT-PCR.All SARS CoV2 and positive influenza A/B results arereported to [facility]. 12/04/2024 4:14 PM EDT 12/04/2024 4:22 PM EDT Generic External Data Provider LAB MICROBIOLOGY - GENERAL ORDERABLES Final Result Performing Organization Address [facility]/ZIP Co de Phone Number [facility] [address] [place] [phone] * (ABNORMAL) CBC auto differential (12/04/2024 4:14 PM EDT) White Blood Count 3.6(L) 4.8 - 10.8 X10*3/uL [facility] Red Blood Count 5.04 4.20 - 5.50 X10*6/uL [facility] Hemoglobin 14.1 12.0 - 16.0 g/dl [facility] Hematocrit 43.1 37.0 - 47.0 % [facility] Mean Corpuscular Volume 85.5 80.0 - 98.0 fL [facility] Mean Corpuscular Hemoglobin 28.0 27.0 - 33.0 pg [facility] Mean Corpuscular HGB Conc 32.7 31.0 - 35.0 g/dl [facility] Red Cell Distribution Width 13.8 11.0 - 16.0 % [facility] Platelet Count 271 160 - 400 X10*3/uL [facility] Mean Platelet Volume 9.9 9.4 - 12.3 fL [facility] Neutrophils Percent Auto 56.1 45 - 73 % [facility] Imm Gran Pct Auto 0.3 0.0 - 0.4 % [facility] Lymphocytes Percent Auto 32.3 20 - 40 % [facility] Monocytes Percent Auto 6.6 2 - 11 % [facility] Eosinophils Percent Auto 4.1(H) 0 - 4 % [facility] Basophils Percent Auto 0.6 0 - 2 % [facility] NRBC Pct Auto 0.0 0.0 - 0.2 /100WBC [facility] Neutrophils Absolute Auto 2.0 2.0 - 8.3 x10*3/uL [facility] Imm Gran Abs Auto 0.01 0.00 - 0.03 X10*3/uL [facility] Lymphocytes Absolute Auto 1.2 1.2 - 4.9 X10*3/uL [facility] Monocytes Absolute Auto 0.2 0.1 - 1.2 X10*3/uL [facility] Eosinophils Absolute Auto 0.2 0.0 - 0.4 X10*3/uL [facility] Basophils Absolute Auto 0.0 0.0 - 0.2 X10*3/uL [facility] NRBC Abs Auto 0.000 0.0 - 0.012 X10*3/uL [facility] 12/04/2024 4:14 PM EDT 12/04/2024 4:22 PM EDT Generic External Data Provider LAB BLOOD ORDERAB LES Final Result Performing Organization Address [facility]/ZIP Co de Phone Number [facility] [address] [place] [address] [phone] * Partial Thromboplastin Time, Activated (APTT) (12/04/2024 4:14 PM EDT) Partial Thromboplastin Time 33.6 26.0 - 36.8 SEC [facility] Comment:For information rega rding the monitoring of direct thrombininhibitors, please refer to Pharmacy. 12/04/2024 4:14 PM EDT 12/04/2024 4:22 PM EDT Generic External Data Provider LAB BLOOD ORDERAB LES Final Result Performing Organization Address [facility]/ZIP Co de Phone Number [facility] [address] [place] [phone] * Prothrombin Time-INR (12/04/2024 4:14 PM EDT) Prothrombin Time 11.1 10.9 - 12.4 SEC [facility] INTERNATIONAL NORM RATIO 1.0 0.9 - 1.1 [facility] Comment:INTERNATIONAL NORMAL IZED RATIO (INR) [...] Provider LAB BLOOD ORDERAB LES Final Result [facility] [address] [place] [phone] * XR Chest 1 View (12/04/2024 3:44 PM EDT) Anatomical Region Laterality Modality Chest Radiographic Hattie ging 12/04/2024 3:44 PM EDT Narrative 12/04/2024 3:58 PM EDT ? [facility] ?[address] ?[place] [address] ?XRay Report ? Signed ? Patient: Raissa Carson ?MR#: [id number] ? : 1980 ?Acct:[id number] ? Age/Sex: 44 / F ?ADM Date: 12/04/24 ? Loc: HO.ED ? Attending Dr: ? Ordering Physician: Kodak Hylton ?? Date of Service: 12/04/24 ?? Procedure(s): XR chest 1V ?? Accession Number(s): [id number] ? cc: Kodak Hylton; Vikki Hall MD [...] DD/ 1544 ? TD/TT: 12/04/24 1544 ? Crop Duster: ? Procedure Note Anastacio Image - 12/04/2024 [place] [address] [place] [address] XRay Report Signed Patient: Raissa CarsonMR#: [id number] : 1980Acct:[id number] Age/Sex: 44 / FADM Date: 12/04/24 Loc: HO.ED Attending Dr: Ordering Physician: Kodak Hylton Date of Service: 12/04/24 Procedure(s): XR chest 1V Accession Number(s): [id number] cc: Kodak Hylton; Vikki Hall MD EXAMINATION: [...] 12/04/24 1555 DD/ 1544 TD/TT: 12/04/24 1544 Crop Duster: [facility] External Provider IMG XR PROCEDURES Final Result * Referral to Neurosurgery (10/24/2024) Vikki Hall MD OUTPATIENT REFERRAL ORDERABLE S Final Result * MR Lumbar Spine w/o Contrast (10/08/2024 7:00 PM EST) Anatomical Region Laterality Modality Spine, L-spine Magnetic Resonan ce 10/08/2024 7:00 PM EST Narrative 10/08/2024 7:02 PM EST ? [facility] ?[address] ?[place] [address] ? Magnetic Resonance Report ? Signed ? Patient: Carson,Raissa ?MR#: [id number] ? : 1980 ?Acct:[id number] ? Age/Sex: 44 / F ?ADM Date: 10/08/24 ? Loc: HO.MRI ? Attending Dr: Vikki Hall MD ? Ordering Physician: Vikki Hall MD ?? Date of Service: 10/08/24 ?? Procedure(s): MR lumbar spine wo con ?? Accession Number(s): [id number] ? cc: Vikki Hall MD; BILLY GUTIERREZ [...] right eccentric disc protrusion. There is ?? agug-poekkkm-neai-right facet hypertrophy present. ?? Severe left neural [...] ? 10/08/241901 ? DD/ 99 ? TD/TT: 10/08/24 1900 ? Crop Duster: ? Procedure Note Donotsunithater, Image - 10/08/[address] [address] Magnetic Resonance Report Signed Patient: Raissa CarsonMR#: [id number] : 1980Acct:[id number] Age/Sex: 44 / FADM Date: 10/08/24 Loc: HO.MRI Attending Dr: Vikki Hall MD Ordering Physician: Vikki Hall MD Date of Service: 10/08/24 Procedure(s): MR lumbar spine wo con Accession Number(s): [id number] cc: Vikki Hall MD; BILLY GUTIERREZ MD [...] and right eccentric disc protrusion. There is yrzy-vwsvqdk-zzoo-right facet hypertrophy present. Severe left neural foraminal [...] in OV> 10/08/241901 DD/ 99 TD/TT: 10/08/241899 Crop Duster: Vikki Hall MD IMG MRI PROCEDURES Final Resu lt * Cologuard?? colon cancer screening (02/20/2024 9:20 AM EDT) Cologuard Result Negative Negative 02/25/20 2:38 PM EDT [facility] (CLIA #:[id number]) Comment: NEGATIVE TEST RESULT. A negative Cologuard [...] cancer. ??Following a negative Cologuard result, the [place] [employer] and U.S. Multi-Society Task Force screening guidelines recommend a Cologuard re-screening interval of 3 years. References: [place] [employer] Guideline for Colorectal Cancer Screening: https://www.cancer.org/cancer/atuyl-evjwid-wxmsyt/zksjpaudy-ecnasfgrk-eekqmyo/ac s-rec ommendations.html.; Mckinley JOE, Vale WEAVER, Svetlana MENA, Colorectal Cancer Screening: Recommendations for Physicians and Patients from the U.S. Multi-Society Task Force on Colorectal Cancer Screening , Am J Gastroenterology 2017; 112:1364-4902. TEST DESCRIPTION: Composite algorithmic analysis of stool [...] Ann Goode al, N Engl J Med 2014;370(14):6844-6688.) Cologuard may produce a false negative or false positive result (no colorectal cancer or precancerous polyp present at colonoscopy follow up). A negative Cologuard test result does not guarantee the absence of CRC or advanced adenoma (pre-cancer). The current Cologuard screening interval is every 3 years. ([place] [employer] and U.S. Multi-Society Task Force). Cologuard performance data in a 10,000 patient pivotal study using colonoscopy as the reference method can be accessed at the following location: www.exactlabs.com/results. Additional description of the Cologuard test process, warnings and precautions can be found at www.cologTraktoPROrd.com. Stool specimen (specimen) 02/20/2024 9:20 AM EDT 2024 10:48 AM EDT us Vikki Hall MD LAB MOLECULAR DIAGNOSTICS ORD ERABLES Final Result [facility] (CLIA #:[id number]) [place] [address], [place] [phone] * Mammography Report 1 (11/25/2021 9:05 AM [...] 3:05 PM EDT) Clinical Information: None given [facility] COMMENT SEE COMMENT [facility] ON [...] has been evaluated with computer assisted technology. [facility] Occupational Safety And Health Manager: SEE COMMENT [facility] Comment: YP, CT(ASCP) CT screening location: [address] ??[address] HPV nRNA E6/E7 Not Detected Not Detected [email or web address] Comment: Methodology: Lumber Carrier Operator-Mediated Amplification This assay detects E6/E7 viral messenger RNA (mRNA) from 14 high-risk HPV types (16,18,31,33,35,39,45,51,52,56,58,59,66,68). ? The analytical performance characteristics of this assay have been determined by [employer]. The modifications have not been cleared or approved by the FDA. This assay has been validated pursuant to the CLIA regulations and is used for clinical purposes. ?? For additional information, please refer to http://education.[employer]/faq/FXP715d9 (This link if provided for information/ educational [...] jaime Result [facility] [address] from Last 3 Months or Most Recently Relevant to Health Maintenance Insurance [facility] , [address] [place] [address] [facility] Care Teams High Value Associate Relationship Specialty Start Date End Date Vikki Hall MD [address] [place] [address] PCP - General Family Medicine 08/15/18
--- OUTSIDE RECORDS SUMMARY | 2024-12-25 12:15 | XMS_ITS | Encounter Summary ---
Author Organization [employer] [facility] Address [address] [facility] 7t [place] [address] Care Team Providers Care Shadow Graph Weight Operator Name Role Phone Vikki Hall MD Primary Care Provider [phone] Encounter Details Date Type Department Care Team ([facility] Contact Info) Description 09/24/2023 Orders Only [facility] MED & PED[facility] [address] [place], [place] [phone] [place] Vann MD [address] [place], [place] [phone] Low vitamin D level (Primary Dx) Social [...] 11:30 AM EDT Office Visit [facility] [address] [place], [place] [phone] Vikki Hall MD [address] [place] [address] documented as of this encounter Visit Diagnoses Diagnosis Low vitamin D level- Primary documented in this encounter Care Teams Shadow Graph Weight Operator Relationship Specialty Start Date End Date Vikki Hall MD [address] [place] [address] PCP - General Family Medicine 08/15/18 documented as of this encounter
--- OUTSIDE RECORDS SUMMARY | 2024-12-25 12:15 | XMS_ITS | Encounter Summary ---
Author Organization [employer] Address [address] [place] [address] 7 [place] [address] Care Team Providers Care Fireproof Door Assembler Name Role Phone Vikki Hall MD Primary Care Provider [phone] Reason for Visit * Reason Onset Date Comments Med Refill 12/08/2022 Encounter Details Date Type Department Care Team ([facility] st Contact Info) Description 12/08/2022 Telephone [facility] MED & PEDS [address] [place], [place] [phone] Vikki Hall MD [address] [place] [address] Med Refill Social History Tobacco Use Types [...] Meloxicam 7.5 mg Tablet Please sent to [facility] - [place], [place] - [address] documented in this encounter Plan of Treatment Upcoming Encounters Date Type Department Care Team (Late st Contact Info) Description 02/21/2025 11:30 AM EDT Office Visit [facility] MED & PEDS [address] [place] [address] Vikki Hall MD [address] [place] [address] documented as of this encounter Visit Diagnoses Not on filedocumented in this encounter Care Teams Fireproof Door Assembler Relationship Specialty Start Date End Date Vikki Hall MD [address] [place] [address] PCP - General Family Medicine 08/15/18 documented as of this encounter
--- OUTSIDE RECORDS SUMMARY | 2024-12-25 12:15 | XMS_ITS | Encounter Summary ---
Author Organization [employer] Address [address] [facility] 7t [place] [address] Care Team Providers Care Mechanism Assembler Name Role Phone Vikki Hall MD Primary Care Provider [phone] Reason for Visit * Reason Onset Date Comments change of treatment 05/09/2024 Encounter Details Date Type Department Care Team ([facility] st Contact Info) Description 05/09/2024 Telephone [facility] [address] [place] [address] Peggy Larkin, DDS [address] [place] [address] change of treatment Social History Tobacco Use [...] Description 02/21/2025 11:30 AM EDT Office Visit [facility] CHC MED & PEDS 505 [place] [address] Vikki Hall MD [address] [place] [address] documented as of this encounter Visit Diagnoses Not on filedocumented in this encounter Care Teams Mechanism Assembler Relationship Specialty Start Date End Date Vikki Hall MD [address] [place] [address] PCP - General Family Medicine 08/15/18 documented as of this encounter
--- OUTSIDE RECORDS SUMMARY | 2024-12-25 12:15 | XMS_ITS | Encounter Summary ---
Author Organization [employer] [facility] Address [address] [place] [address] 7 [place] [address] Care Team Providers Care Camera Supervisor Name Role Phone Vikki Hall MD Primary Care Provider [phone] Encounter Details Date Type Department Care Team (Latest Contact Info) Description 08/05/2020 Abstract [facility] CONVERSIONS Dental, Provider, DDS Social History [...] Description 02/21/2025 11:30 AM EDT Office Visit [facility] MED & PEDS 505 [place] [address] Vikki Hall MD [address] [place] [address] documented as of this encounter Visit Diagnoses Not on filedocumented in this encounter Care Teams Camera Supervisor Relationship Specialty Start Date End Date Vkiki Hall MD [address] [place] [address] PCP - General Family Medicine 08/15/18 documented as of this encounter
--- OUTSIDE RECORDS SUMMARY | 2024-12-25 12:15 | XMS_ITS | Encounter Summary ---
Author Organization [employer] [facility] Address [address] [facility] 7t [place] [address] Care Team Providers Care Animal Breeder Name Role Phone Vikki Hall MD Primary Care Provider [phone] Encounter Details Date Type Department Care Team ([facility] Contact Info) Description 09/20/2024 Orders Only [facility] MED & PEDS [address] [place] [address] [place] Vann MD [address] [place] [address] Vitamin D deficiency (Primary Dx) Social History [...] 02/21/2025 11:30 AM EDT Office Visit [facility] MED & PEDS [address] [place] [address] Vikki Hall MD [address] [place] [address] documented as of this encounter Visit Diagnoses Diagnosis Vitamin D deficiency- Primary documented in this encounter Care Teams Animal Breeder Relationship Specialty Start Date End Date Vikki Hall MD [address] [place] [address] PCP - General Family Medicine 08/15/18 documented as of this encounter
--- OUTSIDE RECORDS SUMMARY | 2024-12-25 12:15 | XMS_ITS | Encounter Summary ---
Author Organization [employer] [facility] Address [address] [place] [address] 7t [place] [address] Care Team Providers Care Grounds Cleaner Name Role Phone Vikki Hall MD Primary Care Provider [phone] Encounter Details Date Type Department Care Team (Latest Contact Info) Description 06/30/2021 Abstract [facility] CONVERSIONS Dental, Provider, DDS Social History [...] Description 02/21/2025 11:30 AM EDT Office Visit [facility] CHC MED & PEDS [address] [place] [address] Vikki Hall MD 505 [place] [address] documented as of this encounter Visit Diagnoses Not on filedocumented in this encounter Care Teams Grounds Cleaner Relationship Specialty Start Date End Date Vikki Hall MD [address] [place] [address] PCP - General Family Medicine 08/15/18 documented as of this encounter
--- OUTSIDE RECORDS SUMMARY | 2024-12-25 12:15 | XMS_ITS | Encounter Summary ---
Author Organization [employer] [facility] Address [address] [facility] 7t [place] [address] Care Team Providers Care Hot Header Operator Name Role Phone Vikki Hall MD Primary Care Provider [phone] Encounter Details Date Type Department Care Team (Late Contact Info) Description 03/16/2024 Telephone [facility] ADULT DENTAL [address] [place] [address] Peggy Larkin DDS [address] [place] [address] Social History Tobacco Use Types Packs/Day Years [...] Description 02/21/2025 11:30 AM EDT Office Visit [facility] CHC MED & PEDS 505 [place] [address] Vikki Hall MD 505 [place] [address] documented as of this encounter Visit Diagnoses Not on filedocumented in this encounter Care Teams Hot Header Operator Relationship Specialty Start Date End Date Vikki Hall MD [address] [place] [address] PCP - General Family Medicine 08/15/18 documented as of this encounter
--- OUTSIDE RECORDS SUMMARY | 2024-12-25 12:15 | XMS_ITS | Encounter Summary ---
Author Organization [employer] [facility] Address [address] [place] [address] 7 [place] [address] Care Team Providers Care Records Management Analyst Name Role Phone Vikki Hall MD Primary Care Provider [phone] Encounter Details Date Type Department Care Team (Late st Contact Info) Description 12/31/2022 Orders Only [facility] MED & PEDS [address] [place] [address] Alyse Dhillon LPN Social History Tobacco Use [...] Description 02/21/2025 11:30 AM EDT Office Visit [facility] MED & PEDS [address] [place] [address] Vikki Hall MD [address] [place] [address] documented as of this encounter Visit Diagnoses Not on filedocumented in this encounter Care Teams Records Management Analyst Relationship Specialty Start Date End Date Vikki Hall MD [address] [place] [address] PCP - General Family Medicine 08/15/18 documented as of this encounter
--- OUTSIDE RECORDS SUMMARY | 2024-12-25 12:15 | XMS_ITS | Encounter Summary ---
Author Organization [employer] [facility] Address [address] [facility] 7t [place] [address] Care Team Providers Care Excavation Laborer Name Role Phone Vikki Hall MD Primary Care Provider [phone] Reason for Visit * Reason Comments Med Refill Encounter Details Date Type Department Care Team (Late Contact Info) Description 12/06/2022 Telephone [facility] MED & PEDS [address] [place], [place] [phone] Vikki Hall MD [address] [place] [address] Med Refill Social History Tobacco Use Types [...] Upcoming Encounters Date Type Department Care Team ([facility] Contact Info) Description 02/21/2025 11:30 AM EDT Office Visit [facility] MED & PEDS [address] [place] [address] Vikki Hall MD [address] [place] [address] documented as of this encounter Visit Diagnoses Not on filedocumented in this encounter Care Teams Excavation Laborer Relationship Specialty Start Date End Date Vikki Hall MD [address] [place] [address] PCP - General Family Medicine 08/15/18 documented as of this encounter
== END 2024-12-25 11:11 | disposition home or self-care (01) ==
LOC: HO.HGS 10:51
PROVIDERS: PCP Pediatrics; Visit Provider Physician Assistant Surgical
DX: Z90.49 Acquired absence of other specified parts of digestive tract (principal)
CPT/HCPCS: 99024

== ENCOUNTER → 2024-12-25 10:50 | Outpatient (BNVA) | payer OTHER, SELFPAY | PROVIDERS: PCP Pediatrics; Visit Provider Physician Assistant Surgical ==

== ENCOUNTER 2025-01-15 11:59 | Outpatient (REF) | payer OTHER, SELFPAY ==
[2025-01-15 15:00] LABS: Basophils Percent Auto 0.6 % (0-2); Eosinophils Absolute Auto 0.4 X10*3/uL (0.0-0.4); Hematocrit 39.9 % (37.0-47.0); Lymphocytes Absolute Auto 1.8 X10*3/uL (1.2-4.9); Lymphocytes Percent Auto 50.7 % (20-40); MANUAL DIFF FLAG SCAN; Mean Corpuscular HGB Conc 32.6 g/dl (31.0-35.0); Mean Corpuscular Hemoglobin 27.3 pg (27.0-33.0); Mean Corpuscular Volume 83.6 fL (80.0-98.0); Mean Platelet Volume 11.2 fL (9.4-12.3); Monocytes Absolute Auto 0.4 X10*3/uL (0.1-1.2); Monocytes Percent Auto 10.7 % (2-11); Neutrophils Absolute Auto 0.9 x10*3/uL (2.0-8.3); Platelet Count 264 X10*3/uL (160-400); Red Blood Count 4.77 X10*6/uL (4.20-5.50); Red Cell Distribution Width 14.1 % (11.0-16.0); SCAN SMEAR FLAG 1; White Blood Count 3.5 X10*3/uL (4.8-10.8)
[2025-01-15 15:34] LABS: SLIDE REVIEW VERIFIED
[2025-01-15 16:57] LABS: Alanine Aminotransferase 64 U/L (0-31); Albumin Level 4.3 g/dL (3.5-5.0); Anion Gap 12 (12-20); Aspartate Amino Transferase 48 U/L (5-31); Bilirubin Direct 0.2 mg/dL (0.0-0.5); Bilirubin Total 0.6 mg/dL (0.0-1.0); Blood Urea Nitrogen 14 mg/dL (9-16); Calcium 9.7 mg/dL (8.4-10.2); Carbon Dioxide 26 mmol/L (22-29); Chloride 106 mmol/L (96-108); Estimated Glomerular Filt Rate > 60; Glucose Fasting 95 mg/dL (60-99); Lipase 21 U/L (8-78); Potassium 4.2 mmol/L (3.3-5.1); Sodium 140 mmol/L (135-145); Total Protein 7.3 g/dL (6.5-8.0)
[2025-01-15 16:58] LABS: TSH reflex Free T4 2.76 uIU/mL (0.32-4.0)
[2025-01-15 17:14] LABS: Alkaline Phosphatase 79 U/L (39-117)
== END 2025-01-15 12:00 | disposition home or self-care (01) ==
LOC: HO.CHCLDS 11:59
PROVIDERS: Visit Provider Pediatrics
DX: E66.9 Obesity, unspecified (principal); Z90.49 Acquired absence of other specified parts of digestive tract; R29.898 Other symptoms and signs involving the musculoskeletal system
CPT/HCPCS: 36415; 80048; 80076; 83690; 84443; 85025

== ENCOUNTER 2025-01-22 10:59 | Outpatient (AMB) | payer OTHER, SELFPAY ==
--- NOTE | 2025-01-22 11:09 | A.OFFVIS_ITS ---
Vital Signs 01/22/25 11:12 Height 5 ft 3 in Weight 210 lb BMI 37.2 BP 110/66 Blood Pressure Location Lt brachial Position Sitting Intake Visit Reasons: 1mo S/P lap miguelito Intake Note: Pt states, I'm here for follow up of the gallbladder removal. c/o right sided discomfort at the end of the day. Recreation Facility Manager Required: No Allergies No Known Allergies Allergy (Verified 01/22/25 11:14) Medication List - Last Reconciled 01/22/25 by Meir Langford RN cholecalciferol (vitamin D3) 50 mcg PO DAILY diazepam 2 mg PO BEDTIME gabapentin 600 mg PO BEDTIME HPI HPI 1mo S/P lap miguelito: Details: 44 year old female with recent admission for acute cholecystitis, choledocolithiasis. During the admission, she underwent ERCP with sphincterotomy, stone extraction 12/06/24 followed by laparoscopic cholecystectomy on 12/07/[address] Ramos. She was having some epigastric/RUQ pain at her first follow up visit and reports that is still present. She reports its constant and worse at the end of the day. She is tolerating a solid diet but reports less of an appetite. She denies exacerbation associated with food intake. She stopped taking her meloxicam because she was unsure if it was causing her abdominal pain. She reports the pain was so bad last week she saw her primary doctor who ordered labs. Her PCP also prescribed her oral weight loss medication which she has not started yet. She denies alcohol use. She den ies fevers, chills, nausea, vomiting, jaundice, diarrhea, constipation. She continues to ambulate with a walker due to her back pain. 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, lumbosacral Surgical History History of ERCP S/P lumbar microdiscectomy Social History Household Members: Spouse Housing: House Do you presently have visiting nurse or other home services: No Patient Tobacco Use Status: Never used Tobacco service: No Review of Systems Const All systems reviewed & are unremarkable except as noted in HPI and below Physical Exam Vital Signs: Last Vital Signs BP 110/66 01/22/25 11:12 BMI result Body Mass Index 37.2 Const General: comfortable, no acute distress and alert Orientation/consciousness: patient oriented x3 Resp Effort & Inspection: normal respiratory effort GI Inspection: No distended and Yes incision (well healed incisions) Palpation (GI): Soft to palpation, Tenderness to palpation present (GI) (mild at epigastric port site, RUQ ), no guarding and not rigid Percussion: Yes normal to percussion Skin General skin exam: no rashes or lesions noted and no jaundice Neuro General: patient oriented x3 Extrem General: Yes no clubbing, cyanosis or edema Assessment & Plan Assessment & Plan (1) S/P laparoscopic cholecystectomy: Code(s): Z90.49 - Acquired absence of other specified parts of digestive tract Category: Surgical Plan S/p laparoscopic cholecystectomy on 12/07/24. Procedure was uncomplicated and she tolerated it well. She reports having persistent RUQ/epigastric pain worse at the end of the day. Repeat labs ordered by her PCP were reviewed. She has no leukocytosis. Bilirubin remains normal, transaminases stable. She is overall clinically appearing well with a benign abdominal exam, very mild RUQ te nderness. We discussed that her exam and labs are reassuring and her pain may still be incisional related. Recommend return in 1 month or sooner if she develops concerns. Discussed holding off on her weight loss medication for now. She can resume meloxicam and tylenol as needed for the pain. She is comfortable with the plan, all questions answered. Coding Level of Care Code Global (40557) Diagnoses S/P laparoscopic cholecystectomy Z90.49
[2025-01-22 11:12] VITALS: BP 110/66; BMI 37.2
--- OUTSIDE RECORDS SUMMARY | 2025-01-22 13:05 | XMS_ITS | Encounter Summary ---
Author Organization [employer] [facility] Address [address] [place] [address] 7 [place] [address] Care Team Providers Care Utility Arborist Name Role Phone Vikki Hall MD Primary Care Provider [phone] Encounter Details Date Type Department Care Team ([facility] Contact Info) Description 09/24/2023 Orders Only [facility] MED & PEDS [address] [place] [address] [place] Vann MD [address] [place] [address] Low vitamin D level (Primary Dx) Social [...] 11:30 AM EDT Office Visit [facility] MED & PEDS [address] [place], [place] [phone] Vikki Hall MD [address] [place] [address] documented as of this encounter Visit Diagnoses Diagnosis Low vitamin D level- Primary documented in this encounter Care Teams Utility Arborist Relationship Specialty Start Date End Date Vikki Hall MD [address] [place] [address] PCP - General Family Medicine 08/15/18 documented as of this encounter
== END 2025-01-22 11:33 | disposition home or self-care (01) ==
LOC: HO.HGS 11:00
PROVIDERS: PCP Pediatrics; Visit Provider Physician Assistant Surgical
DX: Z90.49 Acquired absence of other specified parts of digestive tract (principal)
CPT/HCPCS: 99024

== ENCOUNTER 2025-03-20 13:55 | Outpatient (REF) | payer OTHER, SELFPAY ==
--- NOTE | 2025-03-20 | EMG_ITS ---
Chief complaint: Hand numbness Reason for referral: Evaluate for Carpal Tunnel Syndrome Referred by: Dr. Hall Procedure done: Bilateral upper extremities NCS/EMG Precautions and/or limitations: None The limb temperature was monitored continuously and remained between 32-36 degrees C during the performance of the NCS. Nerve Conduction Studies Anti Sensory Summary Table ?Stim Site NR Onset (ms) Norm Onset (ms) Peak (ms) Norm Peak (ms) O-P Amp (?V) Norm O-P Amp Site1 Site2 Delta-0 (ms) Dist (cm) Ted (m/s) Norm Ted (m/s) Left Median Anti Sensory (2nd Digit) Wrist ? 3.2 3.9 <3.6 15.8 >10 Wrist 2nd Digit 3.2 14.0 44 Right Median Anti Sensory (2nd Digit) Wrist ? 3.5 4.2 <3.6 8.6 >10 Wrist 2nd Digit 3.5 14.0 40 Right Radial Anti Sensory (Thumb) Forearm ? 0.4 0.7 <3.1 152.4 Forearm Thumb 0.4 0.0 Left Ulnar Anti Sensory (5th Digit) Wrist ? 1.5 2.8 <3.7 30.4 >15.0 Wrist 5th Digit 1.5 14.0 93 Right Ulnar Anti Sensory (5th Digit) Wrist ? 2.5 3.0 <3.7 16.4 >15.0 Wrist 5th Digit 2.5 14.0 56 Motor Summary Table ?Stim Site NR Onset (ms) Norm Onset (ms) O-P Amp (mV) Norm O-P Amp iAmp (mV) Amp (1st) (%) Site1 Site2 Delta-0 (ms) Dist (cm) Ted (m/s) Norm Ted (m/s) Left Median Motor (Abd Poll Brev) Wrist ? 4.0 <3.9 12.1 >4.5 13.6 100.0 Elbow Wrist 3.1 17.0 55 >45 Elbow ? 7.1 10.3 11.6 85.1 Right Median Motor (Abd Poll Brev) Wrist ? 4.5 <3.9 5.4 >4.5 6.2 100.0 Elbow Wrist 3.8 19.0 50 >45 Elbow ? 8.3 5.3 6.0 98.1 Left Ulnar Motor (Abd Dig Minimi) Wrist ? 2.5 <3.0 7.6 >5 9.1 100.0 B Elbow Wrist 2.8 16.0 57 >45 B Elbow ? 5.3 6.6 8.4 86.8 A Elbow B Elbow 1.5 0.0 >45 A Elbow ? 6.8 6.4 8.2 84.2 Right Ulnar Motor (Abd Dig Minimi) Wrist ? 2.4 <3.0 12.3 >5 13.8 100.0 B Elbow Wrist 3.2 17.0 53 >45 B Elbow ? 5.6 10.8 12.6 87.8 A Elbow B Elbow 1.3 10.0 77 >45 A Elbow ? 6.9 9.3 10.8 75.6 EMG ?Side Muscle Nerve Root Ins Act Fibs Psw Amp Dur Poly Recrt Int Pat Comment Right 1stDorInt Ulnar C8-T1 Nml Nml Nml Nml Nml 0 Nml Complete Right FlexCarRad Median C6-7 Nml Nml Nml Nml Nml 0 Nml Complete Right FlexCarpiUln Ulnar C8,T1 Nml Nml Nml Nml Nml 0 Nml Complete Right Biceps Musculocut C5-6 Nml Nml Nml Nml Nml 0 Nml Complete Right Triceps Radial C6-7-8 Nml Nml Nml Nml Nml 0 Nml Complete Right Deltoid Axillary C5-6 Nml Nml Nml Nml Nml 0 Nml Complete Left 1stDorInt Ulnar C8-T1 Nml Nml Nml Nml Nml 0 Nml Complete Left FlexCarRad Median C6-7 Nml Nml Nml Nml Nml 0 Nml Complete Left FlexCarpiUln Ulnar C8,T1 Nml Nml Nml Nml Nml 0 Nml Complete Left Biceps Musculocut C5-6 Nml Nml Nml Nml Nml 0 Nml Complete Left Triceps Radial C6-7-8 Nml Nml Nml Nml Nml 0 Nml Complete Left Deltoid Axillary C5-6 Nml Nml Nml Nml Nml 0 Nml Complete FINDINGS: Bilateral median motor nerves showed prolonged distal latency, normal amplitude and normal conduction velocity. Right median sensory nerve showed prolonged peak latency and small amplitude. Left median sensory nerve showed prolonged peak latency. All other nerves tested were within normal. Concentric needle EMG was performed in selected muscles of the bilateral upper extremities. Study did not reveal signs of electric abnormalities as shown in the table above. IMPRESSION: 1. This is an abnormal study. 2. There is electrodiagnostic evidence for bilateral moderate-severe median neuropathy at the wrist, consistent with carpal tunnel syndrome. 3. There is no electrodiagnostic evidence for ulnar neuropathy, brachial plexopathy, or cervical radiculopathy. Thank you for your kind referral. Evy Vazquez MD, PAUL Board Certified, [place] [employer] and Rehabilitation (ABPMR) Board Certified, [place] Board of Electrodiagnostic Medicine (ABEM) CODIN [phone] x 2 MTDD
--- OUTSIDE RECORDS SUMMARY | 2025-03-20 14:24 | XMS_ITS | Encounter Summary ---
Author Organization [employer] [facility] Address [address] [place] [address] 7 [place] [address] Care Team Providers Care Water Hauler Name Role Phone Vikki Hall MD Primary Care Provider [phone] Encounter Details Date Type Department Care Team ([facility] Contact Info) Description 09/24/2023 Orders Only [facility] MED & PEDS [address] [place] [address] [place] Vann MD [address] [place] [address] Low vitamin D level (Primary Dx) Social [...] Department Care Team (Late Contact Info) Description 04/09/2025 9:00 AM EDT Office Visit [facility] MED & PEDS [address] [place], [place] [phone] Vikki Hall MD [address] [place] [address] documented as of this encounter Visit Diagnoses Diagnosis Low vitamin D level- Primary documented in this encounter Care Teams Water Hauler Relationship Specialty Start Date End Date Vikki Hall MD [address] [place] [address] PCP - General Family Medicine 08/15/18 documented as of this encounter
== END 2025-03-20 13:56 | disposition home or self-care (01) ==
LOC: HO.NEURO 13:55
PROVIDERS: PCP Pediatrics; Visit Provider Pediatrics
DX: R20.0 Anesthesia of skin (principal); R20.2 Paresthesia of skin; R94.131 Abnormal electromyogram [EMG]
CPT/HCPCS: 95886; 95911

== ENCOUNTER → 2025-03-20 14:00 | Outpatient (BNV) | payer OTHER, SELFPAY | PROVIDERS: PCP Pediatrics; Visit Provider Physical Medicine & Rehabilitation | DX: G56.03 Carpal tunnel syndrome, bilateral upper limbs (principal); G62.89 Other specified polyneuropathies | CPT/HCPCS: 95886; 95911 ==

== ENCOUNTER 2025-05-07 10:04 | Outpatient (RCR) | payer OTHER, SELFPAY | END 2025-07-02 08:20 | disposition home or self-care (01) | LOC: HO.OT 10:04 | PROVIDERS: PCP Family Medicine; Visit Provider Family Medicine | DX: R20.0 Anesthesia of skin (principal); R20.2 Paresthesia of skin | CPT/HCPCS: 97110; 97140; 97165 ==

== ENCOUNTER 2025-05-07 11:00 | Outpatient (RCR) | payer OTHER, SELFPAY | END 2025-06-12 11:41 | disposition home or self-care (01) | LOC: HO.PT 11:00 | PROVIDERS: PCP Pediatrics; Visit Provider Pediatrics | DX: R29.898 Other symptoms and signs involving the musculoskeletal system (principal); Z98.890 Other specified postprocedural states | CPT/HCPCS: 97110; 97112; 97116; 97162; 97530; 97535 ==

== ENCOUNTER 2025-06-04 13:21 | Outpatient (AMB) | payer OTHER, SELFPAY ==
[2025-06-04 13:25] VITALS: BP 100/72; PULSE 76; O2SAT 98; BMI 38.3
--- NOTE | 2025-06-04 13:25 | A.OFFVIS_ITS ---
Vital Signs 06/04/25 13:25 Height 5 ft 3 in Weight 216 lb 0.848 oz BMI 38.3 BP 100/72 Blood Pressure Location Rt brachial Position Sitting Pulse 76 Pulse Source Pulse Oximeter Pulse Oximetry (%) 98 Oxygen Delivery Method Room Air Intake Visit Reasons: Obesity Intake Note: NEW Patient presents today to establish care for Weight Management: No acute complaints reported at this time Independent Contractor Required: No Accompanied by: Self / Same As Patient Allergies No Known Allergies Allergy (Verified 06/04/25 13:32) HPI Comments Details: The patient reports being overweight for over ten years and has tried various diets with varying success, losing up to 25 pounds. However, in the past five years, the patient's weight has been increasing, affecting their health, including back pain which led to recent back surgery. The patient typically maintains dietary changes for about three months, often participating in workplace challenges. The patient tried phentermine one to two years ago, which initially caused heart palpitations and was discontinued after 3-6 months due to ineffectiveness. Recently, the patient tried a combination of phentermine and topiramate but experienced severe itching of the scalp, which led to discontinuation. Dietary habits include skipping breakfast, having coffee, eating salads for lunch, and rice for dinner, with a significant intake of candies, chocolate, and cakes. The patient experiences hunger if meals are delayed, leading to increased snacking. The patient lives alone and acknowledges food availability as a contributing factor to weight gain. Physical activity has decreased over the past ten years. The patient has difficulty walking due to back issues and drop foot since August. Surgery was performed in October. Currently, the patient attempts to exercise for 15 minutes a day but finds it challenging. The patient is taking gabapentin for back pain, which also aids sleep. There is no history of hypertension, although the patient's blood pressure is monitored due to occasional high readings. REVIEW OF SYSTEMS: - General: Fatigue, unintentional weight gain - Respiratory: Snoring - Musculoskeletal: Back pain - Endocrine: Possible prediabetes symptoms; wakes up four times a night to urinate Physical exam General: Well appearing. NAD. Not Cushingoid or Acromegalic Neck/Thyroid: Thyroid not palpable, no nodules. Eyes: No conjunctival injection, not lid lag or proptosis CV: RRR, no murmur. No edema. Resp:Lungs clear to auscultation bilaterally\ Abdomen: Soft, nontender. nondistended Extremities/Neuro: No weakness or tremor of outstretched hands Laboratory Tests 01/15/25 12:00 Sodium 140 Potassium 4.2 Chloride 106 Creatinine 0.66 Estimated GFR > 60 Total Bilirubin 0.6 Direct Bilirubin 0.2 AST 48 H ALT 64 H Alkaline Phosphatase 79 Total Protein 7.3 Albumin 4.3 Lipase 21 TSH 2.76 Imaging: CT abdomen pelvis w IV con 12/05/2023 Findings: Hepatomegaly and mild hepatic steatosis. Mildly distended gallbladder. Mild extrahepatic biliary ductal dilatation. Faint fat stranding near the mazin hepatis. Normal spleen, pancreas, and adrenal glands. Unremarkable kidneys, ureters, and urinary bladder. No free fluid or free air. Normal stomach, small bowel, appendix, and colon. No aortic aneurysm. Pelvic organs normal. Bones intact. IMPRESSION: Mild gallbladder distention and mild extrahepatic biliary ductal dilatation with faint fat stranding in the mazin hepatis. Findings could represent early cholecystitis or perhaps obstructing choledocholithiasis. Gallbladder ultrasound recommended. 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 Mother No problems noted. Social History Household Members: Spouse Housing: House Do you presently have visiting nurse or other home services: No Patient Tobacco Use Status: Never used Tobacco service: No Physical Exam Vital Signs: Last Vital Signs Pulse 76 06/04/25 13:25 BP 100/72 06/04/25 13:25 Pulse Ox 98 06/04/25 13:25 Oxygen Delivery Method Room Air 06/04/25 13:25 BMI result Body Mass Index 38.3 Assessment & Plan Assessment & Plan (1) Obese: Code(s): E66.9 - Obesity, unspecified Category: Medical Qualifiers: Obesity type: due to excess calories Obesity classification: adult class 2 (BMI 35 - 39.9) Body mass index: BMI 38.0-38.9 Serious obesity comorbidity presence: unspecified whether serious comorbidity present Qualified Code(s): E66.09 - Other obesity due to excess calories; Z68.38 - Body mass index [BMI] 38.0-38.9, adult Plan Obesity class 2 Patient has obesity type 2 would BMI 38.3, possible complications including LILY and MASLD. Patient have tried previously phentermine and phentermine topiramate combinations, both of which were stopped due to for efficacy and scalp itchiness. She is not a candidate for orlistat given her history gallstone disease. We discussed that obesity is a multifactorial, complex disease, which have a significant genetic component We discussed other endocrine causes of obesity including hypothyroidism and cortisol excess, her most recent TSH is completely normal and she does not have enough evidence to suspect cortisol excess. Encourage reduction in candy and high-calorie snacks. Encourage gradual increase in activity as tolerated, considering current back issues. Explore potential for GLP-1 receptor agonists (e.g., Ozempic) for weight management, contingent upon insurance approval. We will explore potential comorbid conditions such as sleep apnea or metabolic associated liver disease. We will screen for prediabetes given the position for the patient to have increased insulin resistance we will increase weight. Order fasting glucose, HbA1c, and additional tests to assess for metabolic associated liver disease. Refer for sleep medicine evaluation to assess for sleep apnea. Orders: Orders Lipid Panel Today E66.9 - Obesity, unspecified Hemoglobin A1c Today E66.9 - Obesity, unspecified Referrals Sleep Medicine Referral E66.9 - Obesity, unspecified Coding Level of Care Code New Pt Level 5 (73133) Diagnoses Class 2 obesity due to excess calories with body mass index (BMI) of 38.0 to 38.9 in adult, unspecified whether serious comorbidity present E66.09; Z68.38 Obesity type: due to excess calories Obesity classification: adult class 2 (BMI 35 - 39.9) Body mass index: BMI 38.0-38.9 Serious obesity comorbidity presence: unspecified whether serious comorbidity present Time Spent (min) 65 Comment Time spent reviewing previous records, labs, imaging, provider notes; and education
--- OUTSIDE RECORDS SUMMARY | 2025-06-04 17:27 | XMS_ITS | Encounter Summary ---
Author Organization [employer] Address [address] [facility] 7 [place] [address] Care Team Providers Care Electric Cell Tender Name Role Phone Vikki Hall MD Primary Care Provider [phone] Reason for Visit * Reason Onset Date Comments Med Refill 01/29/2025 Encounter Details Date Type Department Care Team (Late st Contact Info) Description 01/29/2025 Refill [facility] MED & PEDS [address] [place] [address] Garrett Vann MD [address] [place] [address] Lumbago with sciatica, right side Social History Tobacco Use Types Packs/Day Years [...] as of this encounter Visit Diagnoses Diagnosis Lumbago with sciatica, right side documented in this encounter Additional Health Concerns Assessment Noted Time PHQ-9 Depression Total Score: 8 09/27/19 25 1:02 PM EST documented as of this encounter Care Teams Electric Cell Tender Relationship Specialty Start Date End Date Vikki Hall MD [address] [place] [id number] PCP - General Family Medicine 08/15/18 documented as of this encounter
--- OUTSIDE RECORDS SUMMARY | 2025-06-04 17:27 | XMS_ITS | Encounter Summary ---
Author Organization [employer] Address [address] [place] [address] [place] [address] Care Team Providers Care Track Liner Operator Name Role Phone Vikki Hall MD Primary Care Provider Reason for Visit * Reason Onset Date Comments Med Refill 12/08/2022 Encounter Details Date Type Department Care Team ([facility] st Contact Info) Description 12/08/2022 Telephone [facility] CHC MED & PEDS [address] [place], [place] [phone] Vikki Hall MD [address] [place] [address] Med Refill Social History Tobacco Use Types [...] Meloxicam 7.5 mg Tablet Please sent to [facility] - [place], [place] - [address] documented in this encounter Plan of Treatment Not on file documented as of this encounter Visit Diagnoses Not on filedocumented in this encounter Care Teams Track Liner Operator Relationship Specialty Start Date End Date Vikki Hall MD [address] [facility] [place] [address] PCP - General Family Medicine 08/15/18 documented as of this encounter
--- OUTSIDE RECORDS SUMMARY | 2025-06-04 17:27 | XMS_ITS | Encounter Summary ---
Author Organization [employer] Address [address] [place] [address] 7 [place] [address] Care Team Providers Care Social Media Sr Strategy Manager Name Role Phone Vikki Hall MD Primary Care Provider [phone] Encounter Details Date Type Department Care Team (Late st Contact Info) Description 09/20/2024 Orders Only [facility] CHC MED & PEDS [address] [place], [place] [phone] Garrett Vann MD [address] [place] [address] Vitamin D deficiency (Primary Dx) Social History [...] Primary documented in this encounter Care Teams Social Media Sr Strategy Manager Relationship Specialty Start Date End Date Vikki Hall MD [address] [place] [address] PCP - General Family Medicine 08/15/18 documented as of this encounter
--- OUTSIDE RECORDS SUMMARY | 2025-06-04 17:27 | XMS_ITS | Encounter Summary ---
Author Organization [employer] Address [address] [facility] 7t [place] [address] Care Team Providers Care Casting Sorter Name Role Phone Vikki Hall MD Primary Care Provider [phone] Reason for Visit * Reason Onset Date Comments Med Refill 05/31/2025 Encounter Details Date Type Department Care Team (Late st Contact Info) Description 05/31/2025 Refill [facility] [address] [place] [address] Vikki Hall MD [address] [place] [address] Acute right-sided low back pain with right-sided [...] Neck pain Cervicalgia documented in this encounter Additional Health Concerns Assessment Noted Time PHQ-9 Depression Total Score: 8 09/27/19 25 1:02 PM EST documented as of this encounter Care Teams Casting Sorter Relationship Specialty Start Date End Date Vikki Hall MD [address] [place] [address] PCP - General Family Medicine 08/15/18 documented as of this encounter
--- OUTSIDE RECORDS SUMMARY | 2025-06-04 17:27 | XMS_ITS | Encounter Summary ---
Author Organization [employer] Address [address] [place] [address] 7 [place] [address] Care Team Providers Care Civil Rights Investigator Name Role Phone Vikki Hall MD Primary Care Provider [phone] Reason for Visit * Reason Onset Date Comments Med Refill 01/29/2025 Encounter Details Date Type Department Care Team ([facility] st Contact Info) Description 01/29/2025 Refill [facility] CHC MED & PEDS [address] [place], [place] [phone] Vikki Hall MD [address] [place] [address] Social History Tobacco Use Types Packs/Day Years [...] documented as of this encounter Care Teams Civil Rights Investigator Relationship Specialty Start Date End Date Vikki Hall MD [address] [place] [address] PCP - General Family Medicine 08/15/18 documented as of this encounter
--- OUTSIDE RECORDS SUMMARY | 2025-06-04 17:27 | XMS_ITS | Encounter Summary ---
Author Organization [employer] Address [address] [place] [address] 7 [place] [address] Care Team Providers Care Customer Counter Representative Name Role Phone Vikki Hall MD Primary Care Provider [phone] Encounter Details Date Type Department Care Team ([facility] st Contact Info) Description 10/28/2023 Telephone [facility] CHC ADULT DENTAL [address] [place], [place] [phone] Akhil Castillo DDS [address] [place], [place] [phone] Social History Tobacco Use Types Packs/Day Years [...] filedocumented in this encounter Care Teams Customer Counter Representative Relationship Specialty Start Date End Date Vikki Hall MD [address] [place] [address] PCP - General Family Medicine 08/15/18 documented as of this encounter
--- OUTSIDE RECORDS SUMMARY | 2025-06-04 17:27 | XMS_ITS | Encounter Summary ---
Author Organization [employer] Address [address] [place] [address] Care Team Providers Care Program Management Professional Name Role Phone Vikki Hall MD Primary [...] on filedocumented in this encounter Care Teams Program Management Professional Relationship Specialty Start Date End Date Vikki Hall MD [address] [place] [address] PCP - General Family Medicine 08/15/18 documented as of this encounter
--- OUTSIDE RECORDS SUMMARY | 2025-06-04 17:27 | XMS_ITS | Encounter Summary ---
Author Organization [employer] Address [address] [facility] 7 [place] [address] Care Team Providers Care Speech Pathology Assistant Name Role Phone Vikki Hall MD Primary Care Provider [phone] Reason for Visit * Reason Onset Date Comments Med Refill 04/08/2025 Encounter Details Date Type Department Care Team (Late st Contact Info) Description 04/08/2025 Refill [facility] [address] [place] [address] Vikki Hall MD [address] [place] [address] Acute right-sided low back pain with right-sided [...] documented as of this encounter Care Teams Speech Pathology Assistant Relationship Specialty Start Date End Date Vikki Hall MD [address] [place] [address] PCP - General Family Medicine 08/15/18 documented as of this encounter
--- OUTSIDE RECORDS SUMMARY | 2025-06-04 17:27 | XMS_ITS | Encounter Summary ---
Author Organization [employer] Address [address] [place] [address] 7 [place] [address] Care Team Providers Care Transformation Analyst Name Role Phone Vikki Hall MD Primary Care Provider [phone] Encounter Details Date Type Department Care Team (Late st Contact Info) Description 12/31/2022 Orders Only [facility] CHC MED & PEDS [address] [place], [place] [phone] Alyse Dhillon LPN Social History Tobacco Use [...] on filedocumented in this encounter Care Teams Transformation Analyst Relationship Specialty Start Date End Date Vikki Hall MD [address] [place] [address] PCP - General Family Medicine 08/15/18 documented as of this encounter
--- OUTSIDE RECORDS SUMMARY | 2025-06-04 17:27 | XMS_ITS | Encounter Summary ---
Author Organization [employer] Address [address] [facility] 7t [place] [address] Care Team Providers Care Claim Investigator Name Role Phone Vikki Hall MD Primary Care Provider [phone] Reason for Visit * Reason Onset Date Comments change of treatment 05/09/2024 Encounter Details Date Type Department Care Team ([facility] st Contact Info) Description 05/09/2024 Telephone [facility] CHC ADULT DENTAL [address] [place] [address] Peggy Larkin DDS change of treatment Social History Tobacco Use [...] on filedocumented in this encounter Care Teams Claim Investigator Relationship Specialty Start Date End Date Vikki Hall MD [address] [place] [address] PCP - General Family Medicine 08/15/18 documented as of this encounter
--- OUTSIDE RECORDS SUMMARY | 2025-06-04 17:27 | XMS_ITS | Clinical Summary ---
Author Organization [employer] Address [address] [place] [address] 7t [place] [address] Care Team Providers Care Boat Detailer Name Role Phone Vikki Hall MD Primary Care Provider [phone] Allergies No known active allergies Medications meloxicam (Mobic) 15 MG tabletIndicatio ns:Acute right-sided low back pain with right-sided sciatica,Numbne ss and tingling of right lower extremity,Neck pain Take 1 tablet (15 mg) by mouth Once per day. 30 tablet 11 025 2025 Active diazePAM (Valium) 2 MG tablet Refills 0, Maintenance, 12/03/24 10:48:00 AM EDT, Partial fill upon patient request if the prescription is for a schedule II opioid drug. 025 Active loratadine (Claritin) 10 MG tablet TAKE ONE TABLET BY MOUTH EVERY DAY NEEDED 90 tablet 1 025 Active gabapentin (Neurontin) 100 MG capsule 1 capsule at bedtime 90 capsule 3 025 Active Blood Pressure kitIndications: Elevated BP without diagnosis of hypertension 1 kit Once per day. 1 kit 025 Active Tirzepatide 2.5 MG/0.5ML solution auto-injectorIn dications:Lumba r disc herniation,Obes ity (BMI 30-39.9) Inject 2.5 mg under the skin 1 (one) time per week. 2 mL 2 025 Active lidocaine (Lidoderm) 5 % patchIndication s:H/O lumbar discectomy Apply 1 patch topically Once per day. Remove & discard patch within 12 hours or as directed by . 30 patch 3 Active Acetaminophen Extra Strength 500 MG tabletIndicatio ns:Lumbago with sciatica, right side TAKE ONE TABLET EVERY 6 HOURS NEEDED mild PAIN 90 tablet 3 Active phentermine 15 MG capsule Take 1 capsule (15 mg) by mouth before breakfast. TAKE ONE CAPSULE BY MOUTH BEFORE BREAKFAST 30 capsule Active cholecalciferol (Vitamin D-3) 50 MCG (1999 UT) capsuleIndicati ons:Vitamin D deficiency TAKE 1 CAPSULE BY MOUTH EVERY DAY 30 capsule 3 Active topiramate (Topamax) 50 MG tabletIndicatio ns:Obesity (BMI 30-39.9) Take 1 tablet (50 mg) by mouth Once per day. 90 tablet 1 Active lidocaine (Lidoderm) 5 % patchIndication s:H/O lumbar discectomy Apply 1 patch topically Once per day. Remove & discard patch within 12 hours or as directed by . 30 patch 3 2024 Discontinued(R eorder (will not trigger notification to Pharmacy)) Acetaminophen Extra Strength 500 MG tabletIndicatio ns:Lumbago with sciatica, right side TAKE ONE TABLET EVERY 6 HOURS NEEDED mild PAIN 90 tablet 3 025 2024 Discontinued(R eorder (will not trigger notification to Pharmacy)) phentermine 15 MG capsule TAKE ONE CAPSULE BY MOUTH BEFORE BREAKFAST 30 capsule 025 2024 Discontinued(R eorder (will not trigger notification to Pharmacy)) cholecalciferol (Vitamin D-3) 50 MCG (1999 UT) capsuleIndicati ons:Vitamin D deficiency TAKE 1 CAPSULE BY MOUTH EVERY DAY 30 capsule 3 025 2024 Discontinued(R eorder (will not trigger notification to Pharmacy)) topiramate (Topamax) 50 MG tabletIndicatio ns:Obesity (BMI 30-39.9) Take 1 tablet (50 mg) by mouth Once per day. 90 tablet 1 025 2024 Discontinued(R eorder (will not trigger notification to Pharmacy)) Active Problems Problem Noted Date Diagnosed Date Bilateral carpal tunnel syndrome 04/09/2025 Acute cholecystitis due to biliary calculus 02/2025 Biliary calculi, common bile duct 12/19/2024 Lumbar disc herniation 12/19/2024 Vitamin D deficiency 12/19/2024 Chronic anxiety 04/02/2016 09/14/2023 Obesity with body mass index 30 or greater 04/02 Disorder of skeletal muscle 06/19/2013 Allergic rhinitis 06/22/2012 Anxiety 06/22/2012 Overweight 06/22/2012 Encounters Date Type Department Care Team Description 05/31/2025 Refill [facility] [address] [place] [address] Vikki Hall MD H/O lumbar discectomy; Lumbago with sciatica, right side; Vitamin D deficiency; Obesity (BMI 30-39.9) 05/31/2025 Refill [facility] [address] [place] [address] Vikki Hall MD Acute right-sided low back pain with right-sided sciatica; Numbness and tingling of right lower extremity; Neck pain 05/21/2025 Orders Only [facility] [address] [place] [address] Vikki Hall MD Breast cancer screening by mammogram (Primary Dx) 05/16/2025 Orders Only [facility] [address] [place] [address] Vikki Hall MD Weight gain (Primary Dx); Lumbar disc disease with radiculopathy; H/O lumbar discectomy; BMI 38.0-38.9,adult 04/16/2025 Telephone [facility] [address] [place] [address] Vikki Hall MD Prior Authorization 04/09/2025 9:00 AM EDT Telemedicine [facility] [address] [place] [address] Vikki Hall MD Elevated BP without diagnosis of hypertension (Primary Dx); Lumbar disc herniation; Bilateral carpal tunnel syndrome; Obesity (BMI 30-39.9) 04/09/2025 Travel 04/08/2025 Telephone [facility] [address] [place] [address] Vikki Hall MD chart prep 04/08/2025 Refill [facility] [address] [place] [address] Vikki Hall MD Vitamin D deficiency; H/O lumbar discectomy; Obesity (BMI 30-39.9); Lumbago with sciatica, right side 04/08/2025 Refill [facility] [address] [place] [address] Vikki Hall MD Acute right-sided low back pain with right-sided sciatica; Numbness and tingling of right lower extremity; Neck pain 04/08/2025 Travel 03/21/2025 Telephone [facility] [address] [place] [address] Vikki Hall MD 03/08/2025 Telephone [facility] [address] [place] [address] Rob Weber MD from Last 3 Months Immunizations Immunization Administration Dates Next Due Influenza injectable quadriv [...] Sign Reading Time Taken Comments Blood Pressure 116/69 01/15/2025 11:29 AM EDT Pulse 85 01/15/2025 11:29 AM EDT Temperature 36.2 C (97.2 F) 01/15/2025 11:29 AM EDT Respiratory Rate 20 01/15/2025 11:29 AM EDT Oxygen Saturation 100% 09/27/2024 11:28 AM EST Inhaled Oxygen Concentration - - Weight 95.7 kg (211 lb) 04/09/2025 9:14 AM EDT Height 157.5 cm (5' 2 ) 09/27/2024 11:28 AM EST Body Mass Index 38.59 09/27/2024 11:28 AM EST Plan of Treatment Health Maintenance Due Date Last Done Comments CT Colonography 1978 Colonoscopy 1978 FIT 1978 HIV Screening 1978 Sigmoidoscopy 1978 Family Planning (PISQ) 1993 Hepatitis C Screening 02/23/1996 Hepatitis B Vaccines (1 of 3 - 19+ 3-dose series) 1997 Mammogram 11/26/2023 11/25/2021, 03/2020, 07/19/2018 Dental Oral Exam 03/06/2024 09/05/2023, , 12/06/2014, Additional history exists Dental Prophylaxis 03/06/2024 09/05/2023, 1 08/30/2020, 08/05/2020, Additional history exists FOBT 02/19/2025 02/20/2024 COVID-19 Vaccine ( season) 2025 11/19/2020, 10/28/2020 Influenza Vaccine (#1) 2025 , 06/09/2018, 06/19/2013, Additional history exists Dental X-Ray: Bitewings 04/18/2025 04/17/20 24, 02/03/2024, 09/05/2023, Additional history exists Alcohol/Substance Use Screening 09/27/2025 09/27/2024 Depression Screening 09/27/2025 09/27/2024, 09/27/19 25 Disability Screening 09/27/2025 09/27/2024 SDOH Screening 09/27/2025 09/27/2024 Tobacco Screening 01/15/2026 01/15/2025 DTaP/Tdap/Td Vaccines (2 - Td or Tdap) 04/02/2026 04/02/2016 Cervical Cancer Screening 06/11/2026 HPV/Cotest 06/11/2026 06/11/2021 Pap Smear 06/11/2026 06/11/2021 Dental X-Ray: Full Mouth 09/06/2026 09/05/2023 Colorectal Cancer Screening 02/19/2027 FIT DNA/Cologuard 02/19/2027 02/20/2024 Zoster Vaccines (1 of 2) 02/23/2028 Lipid Panel 09/21/2028 09/21/2023, 06/16/2021 RSV Patients and Patients Aged 60 years [...] on patient's age to complete this topic Meningococcal B Vaccine Aged Out No l onger eligible based on patient's age to complete this topic Pneumococcal Vaccine: Pediatrics (0 to 5 Years) and At-Risk Patients (6 to 49) Years Aged Out No longer eligible based on [...] IMAGE Routine 04/17/2024 3:00 PM EDT LAB COLOGUARD COLON CANCER SCREEN Routine 02/20/2024 9:20 AM EDT Colon cancer screening LIPID PANEL, STANDARD Routine 09/21/2023 8:54 AM EST Annual physical exam Obesity (BMI 30-39.9) Chronic midline low back pain with right-sided sciatica Weight gain PROPHYLAXIS - ADULT Routine 09/05/2023 8 :00 [...] Negative Negative 02/25/20 24 2:38 PM EDT [facility] (CLIA #:[id number]) Comment: NEGATIVE TEST RESULT. A negative Cologuard result indicates a low likelihood that a colorectal cancer (CRC) or advanced adenoma (adenomatous polyps with more advanced pre-malignant features) is present. The chance that a person with a negative Cologuard test has a colorectal cancer is less than 1 in 1500 (negative predictive value >99.9%) or has an advanced adenoma is less than 5.3% (negative predictive value 94.7%). These data are based on a prospective cross-sectional study of 10,000 individuals at average risk for colorectal cancer who were screened with both Cologuard and colonoscopy. (Jo Ann Trinh. et al, N Engl J Med 2014;370(14):3934-9436) The normal value (reference range) for this assay is negative. COLOGUARD RE-SCREENING RECOMMENDATION: Periodic colorectal cancer screening is an important part of preventive healthcare for asymptomatic individuals at average risk for colorectal cancer. Following a negative Cologuard result, the [place] Cancer Society and U.S. Multi-Society Task Force screening guidelines recommend a Cologuard re-screening interval of 3 years. References: [place] [employer] Society Guideline for Colorectal Cancer Screening: https://www.cancer.org/cancer/ehcsv-cxrdjn-upycgx/fokgpoazd-lomgtizfv-jwmcenh/ac s-rec ommendations.html.; Mckinley JOE, Vale WEAVER, Svetlana FigueroaK, Colorectal Cancer Screening: Recommendations for Physicians and Patients from the U.S. Multi-Society Task Force on Colorectal Cancer Screening , Am J Gastroenterology 2017; 112:5757-1505. TEST DESCRIPTION: Composite algorithmic analysis of stool DNA-biomarkers with hemoglobin immunoassay. Quantitative values of individual biomarkers are not [...] with both Cologuard and colonoscopy. (Jo Ann Lau et al, N Engl J Med 2014;370(14):0555-1465.) Cologuard may produce a false negative or false positive result (no colorectal cancer or precancerous polyp present at colonoscopy follow up). A negative Cologuard test result does not guarantee the absence of CRC or advanced adenoma (pre-cancer). The current Cologuard screening interval is every 3 years. ([place] Cancer Society and U.S. Multi-Society Task Force). Cologuard performance data in a 10,000 patient pivotal study using colonoscopy as the reference method can be accessed at the following location: www.[employer]results. Additional description of the Cologuard test process, warnings and precautions can be found at www.[employer].ipatter.com. Stool specimen (specimen) 02/20/2024 9:20 AM EDT 2024 10:48 AM EDT Vikki Hall MD LAB MOLECULAR DIAGNOSTICS ORD ERABLES Final Result [facility] (CLIA #:[id number]) [place] [place] [address], * (ABNORMAL) Lipid Panel, Standard (09/21/2023 8:54 AM EST) Triglycerides 152(H) <150 mg/dL [facility] Comment:Desirable Triglyceri de: less than 150 mg/dLBorderline High Triglyceride 150-199 mg/dLHigh Triglyceride: 200-499 mg/dLVery High Triglyceride: greater than or equal to 5OO mg/dL Cholesterol 207(H) <200 mg/dL [facility] Comment:Desirable Cholestero l: less than 200 mg/dLBorderline High Cholesterol: 200-239 mg/dLHigh Cholesterol: greater than 239 mg/dL LDL Cholesterol Calculated 135(H) <100 mg/dL [facility] Comment:Desirable LDL: less than 100 mg/dLNear Optimal/Above Optimal LDL: 110- 129 mg/dLBorderline High LDL: 130-159 mg/dLHigh LDL: 160-189 mg/dLVery High LDL: greater than or equal to 190 mg/dL HDL Cholesterol 42 >40 mg/dL [facility] Comment:Desirable HDL: great er than 40 mg/dL Note: This HDL assay may give artificially low results in patients with liver disease. Blood Venous blood specimen / Unknown 09/21/2023 8:54 AM EST 09/21/2023 8:54 AM EST us Garrett Vann MD LAB BLOOD ORDERABLES Final Result Performing Organization Address City/State/[facility] Co de Phone Number [facility] [address] [place] [phone] * Mammography Report 1 (11/25/2021 9:05 AM EDT) Anatomical Region Laterality Modality Breast Bilateral Mammography 11/25/2021 9:05 AM EDT Narrative 11/26/2021 8:58 AM EDT Refer to the Notes tab for result details [facility] Procedure: Mammography Report 1 Procedure Note Provider, MD Mirtha - 11/07/2022 Refer to the Notes tab for result details [facility] Procedure: Mammography Report 1 us Vikki Hall MD IMG BI PROCEDURES Final Resul t * THINPREP TIS PAP AND HPV mRNA E6/E7 REFLEX HPV 16,18/45 (06/11/2021 3:05 PM EDT) Clinical Information: None given [facility] COMMENT SEE COMMENT [facility] Comment: EXPLANATORY NOTE: The Pap is a screening test for cervical cancer. It is not a diagnostic test and is subject to false negative and false positive results. It is most reliable when a satisfactory sample, regularly obtained, is submitted with relevant clinical findings and history, and when the Pap result is evaluated along with historic and current clinical information. COMMENT: This Pap test has been evaluated with computer assisted technology. [facility] Oil Pipe Inspector Helper: SEE COMMENT [facility] Comment: YP, CT(ASCP) CT screening location: [place] [address] HPV nRNA E6/E7 Not Detected Not Detected [facility] Comment: Methodology: Director Of Corporate Sales-Mediated Amplification This assay detects E6/E7 viral messenger RNA (mRNA) from 14 high-risk HPV types (16,18,31,33,35,39,45,51,52,56,58,59,66,68). The analytical performance characteristics of this assay have been determined by [facility]. The modifications have not been cleared or approved by the FDA. This assay has been validated pursuant to the CLIA regulations and is used for clinical purposes. For additional information, please refer to http://education.Medine/faq/TPZ675b3 (This link if provided for information/ educational purposes only.) Interpretation/Re sult: Negative for intraepithelial lesion or malignancy. [facility] LMP: 05/21/21 [facility] Prev. BX: NONE GIVEN [facility] Prev. PAP: 04/02/16 [facility] SOURCE: Cervix [facility] Statement Of Adequacy: SEE COMMENT [facility] Comment: Satisfactory for evaluation. Endocervical/transformation zone component present. Age and/or menstrual status not provided 06/11/2021 3:05 PM EDT us Vikki Hall MD LAB PATHOLOGY ORDERABLES Rupinder jaime Result [facility] [address] from Last 3 Months or Most Recently Relevant to Health Maintenance Insurance [facility] , [address] [place] [address] [facility] Care Teams Boat Detailer Relationship Specialty Start Date End Date Vikki Hall MD [address] [place] [id number] PCP - General Family Medicine 08/15/18
--- OUTSIDE RECORDS SUMMARY | 2025-06-04 17:27 | XMS_ITS | Encounter Summary ---
Author Organization [employer] Address [address] [facility] 7 [place] [address] Care Team Providers Care Produce Team Member Name Role Phone Vikki Hall MD Primary Care Provider [phone] Reason for Visit * Reason Onset Date Comments Med Refill 01/29/2025 Encounter Details Date Type Department Care Team (Late st Contact Info) Description 01/29/2025 Refill [facility] [address] [place] [address] Vikki Hall MD [address] [place] [address] Acute right-sided low back pain with right-sided [...] documented as of this encounter Care Teams Produce Team Member Relationship Specialty Start Date End Date Vikki Hall MD [address] [place] [address] PCP - General Family Medicine 08/15/18 documented as of this encounter
--- OUTSIDE RECORDS SUMMARY | 2025-06-04 17:27 | XMS_ITS | Encounter Summary ---
Author Organization [employer] Address [address] [place] [address] 7 [place] [address] Care Team Providers Care Distance Learning Unit Leader Name Role Phone Vikki Hall MD Primary Care Provider [phone] Reason for Visit * Reason Onset Date Comments Med Refill 10/25/2024 Encounter Details Date Type Department Care Team (Late st Contact Info) Description 10/25/2024 Refill [facility] [address] [place], [place] [phone] Vikki Hall MD [address] [place] [address] Social History Tobacco Use Types Packs/Day Years [...] documented as of this encounter Care Teams Distance Learning Unit Leader Relationship Specialty Start Date End Date Vikki Hall MD [address] [place] [address] PCP - General Family Medicine 08/15/18 documented as of this encounter
--- OUTSIDE RECORDS SUMMARY | 2025-06-04 17:27 | XMS_ITS | Encounter Summary ---
Author Organization [employer] Address [address] [place] [address] [place] [address] Care Team Providers Care Benefits Processor Name Role Phone Vikki Hall MD Primary Care Provider [phone] Reason for Visit * Reason Onset Date Comments Med Refill 05/31/2025 Encounter Details Date Type Department Care Team ([facility] st Contact Info) Description 05/31/2025 Refill [facility] [address] [place], [place] [phone] Vikki Hlal MD [address] [place] [address] H/O lumbar discectomy; Lumbago with sciatica, right side; Vitamin D deficiency; Obesity (BMI 30-39.9) Social History Tobacco Use Types Packs/Day Years Used Date Smoking Tobacco: Never Passive Smoke Exposure: Never Smokeless Tobacco: Never Depression Answer Date Recorded Patient Health Questionnaire-9 Score 8 09/27/2024 Patient Health Questionnaire-9 Score 8 09/27/2024 Last PHQ-9: Questionnaire Data Not on file 0 09/27/2024 Housing Stability Answer Date Recorded What is your housing situation today? I have sherry lizzie 09/27/[address] you li [...] this encounter Visit Diagnoses Diagnosis H/O lumbar discectomy Lumbago with sciatica, right side Vitamin D deficiency Obesity (BMI 30-39.9) documented in this encounter Additional Health Concerns Assessment Noted Time PHQ-9 Depression Total Score: 8 09/27/19 25 1:02 PM EST documented as of this encounter Care Teams Benefits Processor Relationship Specialty Start Date End Date Vikki Hall MD [address] [place] [address] PCP - General Family Medicine 08/15/18 documented as of this encounter
--- OUTSIDE RECORDS SUMMARY | 2025-06-04 17:27 | XMS_ITS | Encounter Summary ---
Author Organization [employer] Address [address] [place] [address] [place] [address] Care Team Providers Care Continuous Improvement Specialist Name Role Phone Vikki Hall MD Primary Care Provider [phone] Reason for Visit * Reason Comments Med Refill Encounter Details Date Type Department Care Team ([facility] Contact Info) Description 12/06/2022 Telephone [facility] [address] [place], [place] [phone] Vikki Hall MD [address] [place] [address] Med Refill Social History Tobacco Use Types [...] on filedocumented in this encounter Care Teams Continuous Improvement Specialist Relationship Specialty Start Date End Date Vikki Hall MD [address] [place] [address] PCP - General Family Medicine 08/15/18 documented as of this encounter
--- OUTSIDE RECORDS SUMMARY | 2025-06-04 17:27 | XMS_ITS | Encounter Summary ---
Author Organization [facility] Address [address] [facility] 7t [place] [address] Care Team Providers Care Industrial Chemist Name Role Phone Vikki Hall MD Primary Care Provider [phone] Encounter Details Date Type Department Care Team (Late st Contact Info) Description 03/16/2024 Telephone [facility] [address] [place] [address] Peggy Larkin DDS Social History Tobacco Use Types Packs/Day [...] on filedocumented in this encounter Care Teams Industrial Chemist Relationship Specialty Start Date End Date Vikki Hall MD [address] [place] [address] PCP - General Family Medicine 08/15/18 documented as of this encounter
--- OUTSIDE RECORDS SUMMARY | 2025-06-04 17:27 | XMS_ITS | Encounter Summary ---
Author Organization [employer] Address [address] [place] [address] [place] [address] Care Team Providers Care Bureau Director Name Role Phone Vikki Hall MD Primary Care Provider [phone] Encounter Details Date Type Department Care Team [...] on filedocumented in this encounter Care Teams Bureau Director Relationship Specialty Start Date End Date Vikki Hall MD [address] [place] [address] PCP - General Family Medicine 08/15/18 documented as of this encounter
--- OUTSIDE RECORDS SUMMARY | 2025-06-04 17:27 | XMS_ITS | Encounter Summary ---
Author Organization [employer] Address [address] [place] [address] 7 [place] [address] Care Team Providers Care Knitting Machine Operator Helper Name Role Phone Vikki Hall MD Primary Care Provider [phone] Encounter Details Date Type Department Care Team (Late st Contact Info) Description 09/24/2023 Orders Only [facility] [address] [place], [place] [phone] Garrett Vann MD [address] [place] [address] Low vitamin D level (Primary Dx) Social [...] Primary documented in this encounter Care Teams Knitting Machine Operator Helper Relationship Specialty Start Date End Date Vikki Hall MD [address] [place] [address] PCP - General Family Medicine 08/15/18 documented as of this encounter
== END 2025-06-04 14:26 | disposition home or self-care (01) ==
LOC: HO.ENCR 13:22
PROVIDERS: PCP Family Medicine; Visit Provider Student in an Organized Health Care Education/Training Program
DX: E66.9 Obesity, unspecified (principal); Z68.38 Body mass index [BMI] 38.0-38.9, adult
CPT/HCPCS: 99205

== ENCOUNTER 2025-06-05 10:10 | Outpatient (REF) | payer OTHER, SELFPAY ==
[2025-06-05 11:37] LABS: Cholesterol 197 mg/dL (<200); HDL Cholesterol 47 mg/dL (>40); Triglycerides 170 mg/dL (<150)
== END 2025-06-05 10:11 | disposition home or self-care (01) ==
LOC: HO.LAB 10:10
PROVIDERS: PCP Pediatrics; Visit Provider Student in an Organized Health Care Education/Training Program
DX: Z13.1 Encounter for screening for diabetes mellitus (principal); E66.9 Obesity, unspecified
CPT/HCPCS: 36415; 80061; 83036

== ENCOUNTER 2025-07-23 15:29 | Outpatient (REF) | payer OTHER, SELFPAY ==
--- NOTE | ~2025-07-23 | MM_ITS ---
EXAMINATION: MM SCREENING DIGITAL BREAST TOMOSYNTHESIS, BILATERAL CLINICAL INFORMATION: Screening. Asymptomatic. COMPARISON: Comparison made to multiple prior, most recent November 25, 2021, and most remote July 18, 2018. TECHNIQUE: Digital breast tomosynthesis is performed in mediolateral oblique and craniocaudal views along with computer-aided detection (CAD). Synthesized 2D images are generated from the tomosynthesis. FINDINGS: BREAST COMPOSITION: There are scattered areas of fibroglandular density. BILATERAL BREASTS: No significant masses, suspicious calcifications or other abnormalities are seen in either breast. MM/MM tomosynthesis screening BI IMPRESSION: BILATERAL BREASTS: Negative, no mammographic evidence of malignancy. Normal interval follow-up is recommended in 12 months. ASSESSMENT: BI-RADS: Category 1: Negative RECOMMENDATION: Routine annual mammography screening. FOLLOW-UP: 1 year F/U This examination should not preclude the clinical evaluation of a suspicious palpable abnormality. This patient's information was entered into a reminder system with a target due date for their next mammogram. Electronically signed by: Frandy Lizama MD 07/23/2025 06:43 PM [facility] [place]
--- OUTSIDE RECORDS SUMMARY | 2025-07-23 22:14 | XMS_ITS | Encounter Summary ---
Author Organization [employer] Address [address] [facility] 7 [place] [address] Care Team Providers Care Relocation Services Specialist Name Role Phone Vikki Hall MD Primary Care Provider [phone] Reason for Visit * Reason Onset Date Comments Med Refill 01/29/2025 Encounter Details Date Type Department Care Team (Late st Contact Info) Description 01/29/2025 Refill [facility] [address] [place] [address] Vikki Hall MD [address] [place] [id number] Acute right-sided low back pain with right-sided [...] documented as of this encounter Care Teams Relocation Services Specialist Relationship Specialty Start Date End Date Vikki Hall MD [address] [place] [address] PCP - General Family Medicine 08/15/18 documented as of this encounter
--- OUTSIDE RECORDS SUMMARY | 2025-07-23 22:14 | XMS_ITS | Encounter Summary ---
Author Organization [employer] Address [address] [place] [address] 7 [place] [address] Care Team Providers Care Safety Professional Name Role Phone Vikki Hall MD Primary Care Provider [phone] Reason for Visit * Reason Onset Date Comments Med Refill 10/25/2024 Encounter Details Date Type Department Care Team (Late st Contact Info) Description 10/25/2024 Refill [facility] [address] [place], [place] [phone] Vikki Hall MD [address] [place] [address] Social History Tobacco Use Types Packs/Day Years [...] documented as of this encounter Care Teams Safety Professional Relationship Specialty Start Date End Date Vikki Hall MD [address] [place] [address] PCP - General Family Medicine 08/15/18 documented as of this encounter
--- OUTSIDE RECORDS SUMMARY | 2025-07-23 22:14 | XMS_ITS | Encounter Summary ---
Author Organization [employer] Address [address] [place] [address] [place] [address] Care Team Providers Care Analysis Mgr Name Role Phone Vikki Hall MD Primary Care Provider [phone] Reason for Visit * Reason Onset Date Comments Med Refill 12/08/2022 Encounter Details Date Type Department Care Team ([facility] st Contact Info) Description 12/08/2022 Telephone [facility] [address] [place], [place] [phone] Vikki Hall MD [address] [place] [address] Med Refill Social History Tobacco Use Types [...] Meloxicam 7.5 mg Tablet Please sent to [facility] [place], [place] - [address] documented in this encounter Plan of Treatment Not on file documented as of this encounter Visit Diagnoses Not on filedocumented in this encounter Care Teams Analysis Mgr Relationship Specialty Start Date End Date Vikki Hall MD [address] [place] [address] PCP - General Family Medicine 08/15/18 documented as of this encounter
--- OUTSIDE RECORDS SUMMARY | 2025-07-23 22:14 | XMS_ITS | Encounter Summary ---
Author Organization [employer] Address [address] [place] [address] 7 [place] [address] Care Team Providers Care Gum Machine Operator Name Role Phone Vikki Hall MD Primary Care Provider Encounter Details Date Type Department Care Team ([facility] st Contact Info) Description 10/28/2023 Telephone [facility] ADULT DENTAL [address] [place], [place] [phone] Akhil Castillo DDS [address] [place], [place] [phone] Social History Tobacco Use Types Packs/Day Years [...] on filedocumented in this encounter Care Teams Gum Machine Operator Relationship Specialty Start Date End Date Vikki Hall MD 505 [place] [address] PCP - General Family Medicine 08/15/18 documented as of this encounter
--- OUTSIDE RECORDS SUMMARY | 2025-07-23 22:14 | XMS_ITS | Encounter Summary ---
Author Organization [employer] Address [address] [place] [address] 7 [place] [address] Care Team Providers Care Engine Lathe Set Up Operator Tool Name Role Phone Vikki Hall MD Primary Care Provider [phone] Encounter Details Date Type Department Care Team (Late st Contact Info) Description 12/31/2022 Orders Only [facility] CHC MED & PEDS [address] [place], [place] [phone] Alyse Dhillon LPN Social History Tobacco Use [...] on filedocumented in this encounter Care Teams Engine Lathe Set Up Operator Tool Relationship Specialty Start Date End Date Vikki Hall MD 505 [place] [address] PCP - General Family Medicine 08/15/18 documented as of this encounter
--- OUTSIDE RECORDS SUMMARY | 2025-07-23 22:14 | XMS_ITS | Encounter Summary ---
Author Organization [facility] Address [address] [place] [address] Care Team Providers Care Pulverizing And Sifting Operator Name Role Phone Vikki Hall MD Primary Care Provider [phone] Encounter Details Date Type Department Care Team [...] on filedocumented in this encounter Care Teams Pulverizing And Sifting Operator Relationship Specialty Start Date End Date Vikki Hall MD 505 [place] [address] PCP - General Family Medicine 08/15/18 documented as of this encounter
--- OUTSIDE RECORDS SUMMARY | 2025-07-23 22:14 | XMS_ITS | Encounter Summary ---
Author Organization [employer] Address [address] [place] [address] [place] [address] Care Team Providers Care Flight Radio Officer Name Role Phone Vikki Hall MD Primary Care Provider [phone] Reason for Visit * Reason Comments Med Refill Encounter Details Date Type Department Care Team ([facility] Contact Info) Description 12/06/2022 Telephone [facility] CHC MED & PEDS [address] [place], [place] [phone] Vikki Hall MD 505 [place] [address] Med Refill Social History Tobacco Use Types [...] on filedocumented in this encounter Care Teams Flight Radio Officer Relationship Specialty Start Date End Date Vikki Hall MD 505 [place] [address] PCP - General Family Medicine 08/15/18 documented as of this encounter
--- OUTSIDE RECORDS SUMMARY | 2025-07-23 22:14 | XMS_ITS | Encounter Summary ---
Author Organization [employer] Address [address] [place] [address] 7 [place] [address] Care Team Providers Care Cell Room Supervisor Name Role Phone Vikki Hall MD Primary Care Provider [phone] Encounter Details Date Type Department Care Team (Late st Contact Info) Description 09/20/2024 Orders Only [facility] CHC MED & PEDS [address] [place], [place] [phone] Garrett Vann MD [address] [place] [address] Vitamin D deficiency (Primary Dx) Social History [...] Primary documented in this encounter Care Teams Cell Room Supervisor Relationship Specialty Start Date End Date Vikki Hall MD [address] [place] [address] PCP - General Family Medicine 08/15/18 documented as of this encounter
--- OUTSIDE RECORDS SUMMARY | 2025-07-23 22:14 | XMS_ITS | Encounter Summary ---
Author Organization [employer] Address [address] [facility] 7t [place] [address] Care Team Providers Care Radiochemical Technician Name Role Phone Vikki Hall MD Primary Care Provider [phone] Reason for Visit * Reason Onset Date Comments Med Refill 05/31/2025 Encounter Details Date Type Department Care Team (Late st Contact Info) Description 05/31/2025 Refill [facility] [address] [place] [address] Vikki Hall MD [address] [place] [address] Acute right-sided low back pain with right-sided [...] documented as of this encounter Care Teams Radiochemical Technician Relationship Specialty Start Date End Date Vikki Hall MD 505 [place] [address] PCP - General Family Medicine 08/15/18 documented as of this encounter
--- OUTSIDE RECORDS SUMMARY | 2025-07-23 22:14 | XMS_ITS | Encounter Summary ---
Author Organization [employer] Address [address] [facility] 7 [place] [address] Care Team Providers Care Preschool Substitute Teacher Name Role Phone Vikki Hall MD Primary Care Provider [phone] Reason for Visit * Reason Onset Date Comments Med Refill 01/29/2025 Encounter Details Date Type Department Care Team (Late st Contact Info) Description 01/29/[address] [facility] CHC MED & PEDS [address] [place] [address] Garrett Vann MD 505 [place] [address] Lumbago with sciatica, right side Social History [...] documented as of this encounter Care Teams Preschool Substitute Teacher Relationship Specialty Start Date End Date Vikki Hall MD [address] [place] [address] PCP - General Family Medicine 08/15/18 documented as of this encounter
--- OUTSIDE RECORDS SUMMARY | 2025-07-23 22:14 | XMS_ITS | Clinical Summary ---
Author Organization [employer] Address [address] [place] [address] 7t [place] [address] Care Team Providers Care Crystal Machining Coordinator Name Role Phone Vikki Hall MD Primary Care Provider [phone] Allergies No known active allergies Medications meloxicam (Mobic) 15 MG tabletIndication s:Acute right-sided low back pain with right-sided sciatica,Numbnes s and tingling of right lower extremity,Neck pain Take 1 tablet (15 mg) by mouth Once per day. 30 tablet 11 5 026 Active diazePAM (Valium) 2 MG tablet Refills 0, Maintenance, 12/03/24 10:48:00 AM EDT, Partial fill upon patient request if the prescription is for a schedule II opioid drug. 5 Active loratadine (Claritin) 10 MG tablet TAKE ONE TABLET BY MOUTH EVERY DAY NEEDED 90 tablet 1 5 Active gabapentin (Neurontin) 100 MG capsule 1 capsule at bedtime 90 capsule 3 5 Active Blood Pressure kitIndications:E levated BP without diagnosis of hypertension 1 kit Once per day. 1 kit 5 Active Tirzepatide 2.5 MG/0.5ML solution auto-injectorInd ications:Lumbar disc herniation,Obesi ty (BMI 30-39.9) Inject 2.5 mg under the skin 1 (one) time per week. 2 mL 2 5 Active lidocaine (Lidoderm) 5 % patchIndications :H/O lumbar discectomy Apply 1 patch topically Once per day. Remove & discard patch within 12 hours or as directed by . 30 patch 3 Active Acetaminophen Extra Strength 500 MG tabletIndication s:Lumbago with sciatica, right side TAKE ONE TABLET EVERY 6 HOURS NEEDED mild PAIN 90 tablet 3 Active phentermine 15 MG capsule Take 1 capsule (15 mg) by mouth before breakfast. TAKE ONE CAPSULE BY MOUTH BEFORE BREAKFAST 30 capsule Active cholecalciferol (Vitamin D-3) 50 MCG (2000 UT) capsuleIndicatio ns:Vitamin D deficiency TAKE 1 CAPSULE BY MOUTH EVERY DAY 30 capsule 3 Active topiramate (Topamax) 50 MG tabletIndication s:Obesity (BMI 30-39.9) Take 1 tablet (50 mg) by mouth Once per day. 90 tablet 1 Active Active Problems Problem Noted Date Diagnosed Date [...] Encounters Date Type Department Care Team Description 06/05/2025 Orders Only GENERIC EXTERNAL DATA DEPARTMENT Provider, Generic External Data 05/31/2025 Refill [facility] [address] [place] [address] Vikki Hall MD H/O lumbar discectomy; Lumbago with sciatica, right side; Vitamin D deficiency; Obesity (BMI 30-39.9) 05/31/2025 Refill [facility] [address] [place] [address] Vikki Hall MD Acute right-sided low back pain with right-sided sciatica; Numbness and tingling of right lower extremity; Neck pain 05/21/2025 Orders Only [facility] [address] [place] [address] Vikki Hall MD Breast cancer screening by mammogram (Primary Dx) 05/16/2025 Orders Only [facility] [address] [place] [address] Vikki Hall MD Weight gain (Primary Dx); Lumbar disc disease with radiculopathy; H/O lumbar discectomy; BMI 38.0-38.9,adult from Last 3 Months Immunizations Immunization Administration [...] - 19+ 3-dose series) 1997 Mammogram 11/26/2023 07/23/2025, 11/13, 08/22/2019, Additional history exists Dental Oral Exam 03/06/2024 09/05/2023, , 12/06/2014, [...] (2 - Td or Tdap) 04/02/2026 04/02/2016 Diabetes: Hemoglobin A1C 06/05/2026 025, 09/21/2023, 06/16/2021, Additional history exists Cervical Cancer Screening 06/11/2026 HPV/Cotest 06/11/2026 06/11/2021 Pap Smear 06/11/2026 06/11/2021 Dental X-Ray: Full Mouth 09/06/2026 09/05/2023 Colorectal Cancer Screening 02/19/2027 FIT DNA/Cologuard 02/19/2027 02/20/2024 Zoster Vaccines (1 of 2) 02/23/2028 Lipid Panel 06/05/2030 06/05/2025, 02/0 02/2024, 06/16/2021 RSV Patients and Patients Aged 60 [...] Procedure Name Priority Date/Time Associated Diagnosis Comments BI MAMMOGRAM SCREENING TOMOSYNTHESIS BILATERAL Routine 07/23/2025 3:40 PM EST Breast cancer screening by mammogram LIPID PANEL, STANDARD Routine 06/05/2025 10:21 AM EDT HEMOGLOBIN A1C Routine 06/05/2025 10:21 AM EDT BITEWING - SINGLE RADIOGRAPHIC IMAGE Routine 04/17/2024 3:00 PM EDT LAB COLOGUARD COLON CANCER SCREEN Routine 02/20/2024 9:20 AM EDT Colon cancer screening PROPHYLAXIS - ADULT Routine 09/05/2023 8 :00 AM EST INTRAORAL - COMPLETE SERIES OF RADIOGRAPHIC IMAGES Routine 09/05/2023 8:00 AM EST PERIODIC ORAL EVALUATION - ESTABLISHED PATIENT Routine 09/05/2023 8:00 AM EST THINPREP IMAGING PAP AND HPV MRNA E6/E7 WITH REFLEX TO HPV 16,18/45 Routine 06/11/2021 3:05 PM EDT from Last 3 Months or Most Recently Relevant to Health Maintenance Results * BI Mammogram Screening Tomosynthesis Bilateral (07/23/2025 3:40 PM EST) Anatomical Region Laterality Modality Breast Bilateral Mammography 07/23/2025 3:40 PM EST Narrative 07/23/2025 6:46 PM EST [facility] [address] [place], [place] [address] Mammography Report Signed Patient: Raissa Carson MR#: [id number] : 1980 Acct:[id number] Age/Sex: 45 / F ADM Date: 07/23/25 Loc: [facility] Attending Dr: Vikki Hall MD Ordering Physician: Vikki Hall MD Results: 1Ne gative Date of Service: 07/23/25 Follow Up: 1 Year From Orig inal Mammogram Procedure(s): MM tomosynthesis screening BI Accession Number(s): [id number] cc: Vikki Hall MD; Kylah Wood MD Reason For Exam: breast cancer s creening EXAMINATION: MM SCREENING DIGITAL BREAST TOMOSYNTHESIS, BILATERAL CLINICAL INFORMATION: Screening. Asymptomatic. COMPARISON: Comparison made to multiple prior, most recent November 25, 2021, and most remote July 18, 2018. TECHNIQUE: Digital breast tomosynthesis is performed in mediolateral oblique and craniocaudal views along with computer-aided detection (CAD). Synthesized 2D images are generated from the tomosynthesis. FINDINGS: BREAST COMPOSITION: There are scattered areas of fibroglandular density. BILATERAL BREASTS: No significant masses, suspicious calcifications or other abnormalities are seen in either breast. MM/MM tomosynthesis screening BI IMPRESSION: BILATERAL BREASTS: Negative, no mammographic evidence of malignancy. Normal interval follow-up is recommended in 12 months. ASSESSMENT: BI-RADS: Category 1: Negative RECOMMENDATION: Routine annual mammography screening. FOLLOW-UP: 1 year F/U This examination should not preclude the clinical evaluation of a suspicious palpable abnormality. This patient's information was entered into a reminder system with a target due date for their next mammogram. Electronically signed by: Frandy Lizama MD 07/23/2025 06:43 PM [facility] Dictated By: Frandy Lizama MD Signed By: <Electronically signed by Frandy Lizama MD in OV> 07/23/25 1843 DD/ 1540 TD/TT: 07/23/25 1600 Stock Grader: Procedure Note Donotuseinterpreter, Image - 07/23/2025 [facility] [address] [place] [address] Mammography Report Signed Patient: Raissa Carson#: [id number] : 1980Acct:[id number] Age/Sex: 45 / FADM Date: 07/23/25 Loc: HO.MAMMO Attending Dr: Vikki Hall MD Ordering Physician: Vikki Hall MDResults: 1Ne gative Date of Service: 07/23/25Follow Up: 1 Year From [facility] Mammogram Procedure(s): MM tomosynthesis screening BI Accession Number(s): [id number] cc: Vikki Hall MD; Kylah Wood MD Reason For Exam: breast cancer s creening EXAMINATION: MM SCREENING DIGITAL BREAST TOMOSYNTHESIS, BILATERAL CLINICAL INFORMATION: Screening. Asymptomatic. COMPARISON: Comparison made to multiple prior, most recent November 25, 2021, and most remote July 18, 2018. TECHNIQUE: Digital breast tomosynthesis is performed in mediolateral oblique and craniocaudal views along with computer-aided detection (CAD). Synthesized 2D images are generated from the tomosynthesis. FINDINGS: BREAST COMPOSITION: There are scattered areas of fibroglandular density. BILATERAL BREASTS: No significant masses, suspicious calcifications or other abnormalities are seen in either breast. MM/MM tomosynthesis screening BI IMPRESSION: BILATERAL BREASTS: Negative, no mammographic evidence of malignancy. Normal interval follow-up is recommended in 12 months. ASSESSMENT: BI-RADS: Category 1: Negative RECOMMENDATION: Routine annual mammography screening. FOLLOW-UP: 1 year F/U This examination should not preclude the clinical evaluation of a suspicious palpable abnormality. This patient's information was entered into a reminder system with a target due date for their next mammogram. Electronically signed by: Frandy iLzama MD 07/23/2025 06:43 PM [facility] Dictated By: Frandy Lizama MD Signed By: <Electronically signed by Frandy Lizama MD in OV> 07/23/25 1843 DD/ 1540 TD/TT: 07/23/25 1600 Stock Grader: us Vikki Hall MD IMG BI PROCEDURES Final Resul t * Hemoglobin A1c (06/05/2025 10:21 AM EDT) Hemoglobin A1c 5.8 <6.0 % [facility] Comment:Hemoglobin A1C Refer ence Range Adults: 4.8 - 6.0 % Non diabetic: < 6.0 % Goal: < 7.0 %Additional Action Suggested: > 8.0 %Note: Hemoglobin A1c results are invalid for patients with abnormal amounts of HbF. Blood transfusions may impact the HbA1c concentration in the patient sample. Estimated Average Glucose 120 mg/dL [facility] Comment:eAG = Estimated ave rage glucose which is %A1C expressed asaverage glucose, using the formula of the J5I-CwgjifaCprtwrh Glucose study (ADAG), Diabetes Care, Vol.31,#8,Mar. 2007 06/05/2025 10:2 1 AM EDT 06/05/2025 10:21 AM EDT us Generic External Data Provider LAB BLOOD ORDERAB LES Final Result [facility] [address] [place] [phone] * (ABNORMAL) Lipid Panel, Standard (06/05/2025 10:21 AM EDT) Triglycerides 170(H) <150 mg/dL [facility] Comment:Desirable Triglyceri de: less than 150 mg/dLBorderline High Triglyceride 150-199 mg/dLHigh Triglyceride: 200-499 mg/dLVery High Triglyceride: greater than or equal to 5OO mg/dL Cholesterol 197 <200 mg/dL [facility] Comment:Desirable Cholestero l: less than 200 mg/dLBorderline High Cholesterol: 200-239 mg/dLHigh Cholesterol: greater than 239 mg/dL LDL Cholesterol Calculated 116(H) <100 mg/dL [facility] Comment:Desirable LDL: less than 100 mg/dLNear Optimal/Above Optimal LDL: 110- 129 mg/dLBorderline High LDL: 130-159 mg/dLHigh LDL: 160-189 mg/dLVery High LDL: greater than or equal to 190 mg/dL HDL Cholesterol 47 >40 mg/dL [facility] Comment:Desirable HDL: great er than 40 mg/dL Note: This HDL assay may give artificially low results in patients with liver disease. 06/05/2025 10:2 1 AM EDT 06/05/2025 10:21 AM EDT us Generic External Data Provider LAB BLOOD ORDERAB LES Final Result [facility] [address] [place] [address] [phone] * Cologuard?? colon cancer screening (02/20/2024 9:20 AM EDT) Cologuard Result Negative Negative 02/25/20 2:38 PM EDT [employer] (CLIA #:[id number]) Comment: NEGATIVE TEST RESULT. A negative Cologuard [...] Lau et al, N Engl J Med 2014;370(14):4416-7654) The normal value (reference range) for this assay is negative. COLOGUARD RE-SCREENING RECOMMENDATION: Periodic colorectal cancer screening is an important part of preventive healthcare for asymptomatic individuals at average risk for colorectal cancer. Following a negative Cologuard result, the [place] [employer] and U.S. Multi-Society Task Force screening guidelines recommend a Cologuard re-screening interval of 3 years. References: [place] [employer] Guideline for Colorectal Cancer Screening: https://www.cancer.org/cancer/wuzzl-tkvbeg-uikfnj/pwgsmvefg-bzgbitpvb-pdywxoj/ac s-rec ommendations.html.; Mckinley JOE, Vale CR, Svetlana MENA, Colorectal Cancer Screening: Recommendations for Physicians and Patients from the U.S. Multi-Society Task Force on Colorectal Cancer Screening , Am J Gastroenterology 2017; 112:8496-2052. TEST DESCRIPTION: Composite algorithmic analysis of stool [...] Ann Goode al, N Engl J Med 2014;370(14):7263-1958.) Cologuard may produce a false negative or false positive result (no colorectal cancer or precancerous polyp present at colonoscopy follow up). A negative Cologuard test result does not guarantee the absence of CRC or advanced adenoma (pre-cancer). The current Cologuard screening interval is every 3 years. ([place] [employer] Society and U.S. Multi-Society Task Force). Cologuard performance data in a 10,000 patient pivotal study using colonoscopy as the reference method can be accessed at the following location: www.Glocal.com/results. Additional description of the Cologuard test process, warnings and precautions can be found at www.Mohoundrd.com. Stool specimen (specimen) 02/20/2024 9:20 AM EDT 2024 10:48 AM EDT us Vikki Hall MD LAB MOLECULAR DIAGNOSTICS ORD ERABLES Final Result [employer] (CLIA #:[id number]) [place] [place] [address], * THINPREP TIS PAP AND HPV mRNA [...] along with historic and current clinical information. Comment: This Pap test has been evaluated with computer assisted technology. [facility] Drafter Marine: SEE COMMENT [facility] Comment: YP, CT(ASCP) CT screening location: [place] [address] HPV nRNA E6/E7 Not Detected Not Detected [facility] Comment: Methodology: Harbor Boat Pilot-Mediated Amplification This assay detects E6/E7 viral messenger RNA (mRNA) from 14 high-risk HPV types (16,18,31,33,35,39,45,51,52,56,58,59,66,68). The analytical performance characteristics of this assay have been determined by [employer]. The modifications have not been cleared or approved by the FDA. This assay has been validated pursuant to the CLIA regulations and is used for clinical purposes. For additional information, please refer to http://education.[employer] International.NanoSteel/faq/AJW202w2 (This link if provided for information/ educational purposes only.) Interpretation/Re sult: Negative for intraepithelial lesion or malignancy. [facility] [employer] [facility] LMP: 05/21/21 [facility] Prev. BX: NONE GIVEN [facility] Prev. PAP: 04/02/16 [facility] SOURCE: Cervix [facility] Statement Of Adequacy: SEE COMMENT [facility] Comment: Satisfactory for evaluation. Endocervical/transformation zone component present. Age and/or menstrual status not provided 06/11/2021 3:05 PM EDT us Vikki Hall MD LAB PATHOLOGY ORDERABLES Rupinder jaime Result [facility] [address] from Last 3 Months or Most Recently Relevant to Health Maintenance Insurance [facility] , [address] [place] [address] [facility] Care Teams Crystal Machining Coordinator Relationship Specialty Start Date End Date Vikki Hall MD [address] [place] [address] PCP - General Family Medicine 08/15/18
--- OUTSIDE RECORDS SUMMARY | 2025-07-23 22:14 | XMS_ITS | Encounter Summary ---
Author Organization [facility] Address [address] [facility] 7t [place] [address] Care Team Providers Care Quality Management Nurse Name Role Phone Vikki Hall MD Primary Care Provider [phone] Encounter Details Date Type Department Care Team (Late st Contact Info) Description 03/16/2024 Telephone [facility] ADULT D[facility]AL [address] [place] [address] Peggy Larkin DDS Social History Tobacco Use [...] on filedocumented in this encounter Care Teams Quality Management Nurse Relationship Specialty Start Date End Date Vikki Hall MD [address] [place] [address] PCP - General Family Medicine 08/15/18 documented as of this encounter
--- OUTSIDE RECORDS SUMMARY | 2025-07-23 22:14 | XMS_ITS | Encounter Summary ---
Author Organization [employer] Address [address] [place] [address] 7 [place] [address] Care Team Providers Care Laboratory Supervisor Name Role Phone Vikki Hall MD Primary Care Provider [phone] Reason for Visit * Reason Onset Date Comments Med Refill 01/29/2025 Encounter Details Date Type Department Care Team ([facility] st Contact Info) Description 01/29/2025 Refill [facility] MED & PEDS [address] [place], [place] [phone] Vikki Hall MD 505 [place] [address] Social History Tobacco Use Types Packs/Day Years [...] documented as of this encounter Care Teams Laboratory Supervisor Relationship Specialty Start Date End Date Vikki Hall MD [address] [place] [address] PCP - General Family Medicine 08/15/18 documented as of this encounter
--- OUTSIDE RECORDS SUMMARY | 2025-07-23 22:14 | XMS_ITS | Encounter Summary ---
Author Organization [employer] Address [address] [facility] 7t [place] [address] Care Team Providers Care Boiler Riveter Name Role Phone Vikki Hall MD Primary Care Provider [phone] Reason for Visit * Reason Onset Date Comments change of treatment 05/09/2024 Encounter Details Date Type Department Care Team ([facility] st Contact Info) Description 05/09/2024 Telephone [facility] [address] [place] [address] Peggy Larkin DDS change of treatment Social [...] on filedocumented in this encounter Care Teams Boiler Riveter Relationship Specialty Start Date End Date Vikki Hall MD [address] [place] [address] PCP - General Family Medicine 08/15/18 documented as of this encounter
--- OUTSIDE RECORDS SUMMARY | 2025-07-23 22:14 | XMS_ITS | Encounter Summary ---
Author Organization [employer] Address [address] [place] [address] 7 [place] [address] Care Team Providers Care Android Framework Developer Name Role Phone Vikki Hall MD Primary Care Provider [phone] Encounter Details Date Type Department Care Team (Late st Contact Info) Description 09/24/2023 Orders Only [facility] [address] [place], [place] [phone] Garrett Vann MD [address] [place] [address] Low vitamin D level (Primary Dx) Social [...] Primary documented in this encounter Care Teams Android Framework Developer Relationship Specialty Start Date End Date Vikki Hall MD [address] [place] [address] PCP - General Family Medicine 08/15/18 documented as of this encounter
--- OUTSIDE RECORDS SUMMARY | 2025-07-23 22:14 | XMS_ITS | Encounter Summary ---
Author Organization [employer] Address [address] [place] [address] [place] [address] Care Team Providers Care Rcis Name Role Phone Vikki Hall MD Primary Care Provider [phone] Encounter Details Date Type Department Care Team [...] on filedocumented in this encounter Care Teams Rcis Relationship Specialty Start Date End Date Vikki Hall MD [address] [place] [address] PCP - General Family Medicine 08/15/18 documented as of this encounter
--- OUTSIDE RECORDS SUMMARY | 2025-07-23 22:14 | XMS_ITS | Encounter Summary ---
Author Organization [employer] Address [address] [facility] [address] [place] [address] Care Team Providers Care Professor Of Engineering Name Role Phone Vikki Hall MD Primary Care Provider [phone] Reason for Visit * Reason Onset Date Comments Med Refill 04/08/2025 Encounter Details Date Type Department Care Team (Late st Contact Info) Description 04/08/2025 Refill [facility] [address] [place] [address] Vikki Hall MD [address] [place] [phone] Acute right-sided low back pain with right-sided [...] documented as of this encounter Care Teams Professor Of Engineering Relationship Specialty Start Date End Date Vikki Hall MD [address] [place] [address] PCP - General Family Medicine 08/15/18 documented as of this encounter
== END 2025-07-23 15:30 | disposition home or self-care (01) ==
LOC: HO.MAMMO 15:29
PROVIDERS: PCP Internal Medicine; Visit Provider Pediatrics
DX: Z12.31 Encounter for screening mammogram for malignant neoplasm of breast (principal)
CPT/HCPCS: 77063; 77067

== ENCOUNTER → 2025-07-23 15:30 | Outpatient (BNV) | payer OTHER, SELFPAY | PROVIDERS: PCP Internal Medicine; Visit Provider Radiology Body Imaging | DX: Z12.31 Encounter for screening mammogram for malignant neoplasm of breast (principal) | CPT/HCPCS: 77063; 77067 ==